=== PATIENT | male | born 1935 | race Caucasian/White ===

== ENCOUNTER → 2018-05-11 | Day surgery (SDC) | payer OTHER ==
[2018-05-05 11:14] VITALS: BMI 30.5
[~2018-05-11] MED LIST: CYCLOPENTOLATE 1% OPHTH SOLN 2 ML BTL OP ONE; LIDOCAINE 1% INJ 10MG/ML (20 ML MDV) ONE; MIDAZOLAM 2 MG/2 ML VIAL ONE; MOXIFLOXACIN HCL 0.5% DROPS 3 ML BTL OP ONE; PHENYLEPHRINE 2.5% OPHTH DRP 2ML OP NR; PROPOFOL 10 MG/ML 20 ML VIAL IV ONE; SUCCINYLCHOLINE CHLORIDE 100 MG/5 ML SYR IV ONE; TETRACAINE 0.5% OPHTH (PF) DROPS 4 ML BTL OP ONE; TIMOLOL 0.5% OPHTH DROPS 5 ML BTL OP ONE; ePHEDrine SULFATE/0.9% NACL/PF 50 MG/5 ML SYRINGE IV ONE; fentaNYL (PF) 50 MCG/ML 2 ML AMP ONE
--- NOTE | 2018-05-11 15:57 | OP ---
OPERATIVE REPORT DATE OF SURGERY: 11 May 2018. PROCEDURE: Phacoemulsification of cataract and intraocular lens implant of the left eye. PREOPERATIVE DIAGNOSES: 1. Nuclear sclerosis. 2. Cortical sclerosis. 3. Posterior subcapsular cataract. 4. Regular astigmatism. 5. Exposure to Flomax. POSTOPERATIVE DIAGNOSES: 1. Nuclear sclerosis. 2. Cortical sclerosis. 3. Posterior subcapsular cataract. 4. Regular astigmatism. 5. Exposure to Flomax. SURGEONS: Dr. Anastacio Rivera. ANESTHESIA: General. ESTIMATED BLOOD LOSS: None. SPECIMEN TAKEN: None. NARRATIVE: After obtaining the appropriate consent, the patient was brought to the operating room. There he was asked to sit upright and the 0 and 180 degrees axes were marked with a gentian carolina marker. He was then laid in the proper supine position under cardiac monitoring and prepped and draped in the usual sterile manner. During the prepping and draping process, he became uncomfortable and claustrophobic and at that point, he then was converted to general anesthesia. He was then repositioned again. The skin was prepared and then redraped to proceed with the procedure. Using previously acquired corneal topography information the axis of 173 degrees was identified and marked with a gentian carolina using a corneal marking set. At the 5 o'clock position, a 20-gauge stab blade was used to create a paracentesis port. Through this opening Viscoat was introduced into the anterior chamber. At the 3 o'clock position a 2.5 mm keratome was used to create a self-sealing flap incision in Langerman's fashion. The pupil size was approximately the 4-4.5 mm in diameter and the patient appeared as if the iris was not going to stay dilated. Therefore, a 7 mm Malyugin ring was inserted onto the pupillary sphincter. This was followed then by a cystotome was used to start a continuous tear capsulorrhexis which was then completed using the Utrata forceps. Hydrodissection and hydrodelineation of the lens was accomplished with balanced salt solution. Phacoemulsification lens utilizing phaco chop was accomplished in 34.66 seconds at 10% power. The remaining cortex was then removed with the irrigation aspiration along with careful polishing of the posterior capsule in capsule vacuum mode. Provisc was then used to stabilize the capsular bag and an [id number] 23.0 diopter posterior chamber intraocular lens was then inserted into the capsular bag without difficulty. After allowing for sufficient amount of time for the haptics to deploy, some of the viscoelastic in and around the intra-ocular lens was removed under irrigation aspiration. Once the haptics were adequately deployed, the lens was repositioned in alignment with the axis previously marked on the patient's cornea. The intra-ocular lens was then tamped against the posterior capsule as well. A small amount of additional viscoelastic was introduced into the anterior chamber to allow removal of the Malyugin ring. This was then followed by cleanup of any residual viscoelastic under irrigation and aspiration. The eye was brought to normal intraocular pressure through the paracentesis port with balanced salt solution and the incisions were confirmed watertight. He then received 2 drops of 0.5% timolol followed by 2 drops of Vigamox was then lightly patched and shielded in the usual manner. There were no complications from the procedure. He tolerated the procedure well, was extubated in the room and returned to recovery in good condition. MMODL / IJN: [id number] /
== END ==
LOC: OR 06:44
PROVIDERS: ATTEND Ophthalmology
DX: H25.13 Age-related nuclear cataract, bilateral (principal); H25.013 Cortical age-related cataract, bilateral; H25.042 Posterior subcapsular polar age-related cataract, left eye; H52.223 Regular astigmatism, bilateral; H35.3131 Nonexudative age-related macular degeneration, bilateral, early dry stage; E11.319 Type 2 diabetes mellitus with unspecified diabetic retinopathy without macular edema; H52.03 Hypermetropia, bilateral; H52.4 Presbyopia; J34.9 Unspecified disorder of nose and nasal sinuses; I11.9 Hypertensive heart disease without heart failure; E78.00 Pure hypercholesterolemia, unspecified; J43.9 Emphysema, unspecified; D64.9 Anemia, unspecified; J30.2 Other seasonal allergic rhinitis; I25.10 Atherosclerotic heart disease of native coronary artery without angina pectoris; Z95.1 Presence of aortocoronary bypass graft; Z85.46 Personal history of malignant neoplasm of prostate; Z79.84 Long term (current) use of oral hypoglycemic drugs; Z79.899 Other long term (current) drug therapy; Z87.891 Personal history of nicotine dependence
CPT/HCPCS: 66982; C1780

== ENCOUNTER 2018-06-08 06:04 | Day surgery (SDC) | payer OTHER ==
[2018-06-01 15:49] VITALS: BMI 31.0
[~2018-06-08 06:04] MED LIST changes: -CYCLOPENTOLATE 1% OPHTH SOLN 2 ML BTL OP ONE; +LACTATED RINGERS 1,000 ML IV SCH; -LIDOCAINE 1% INJ 10MG/ML (20 ML MDV) ONE; -MIDAZOLAM 2 MG/2 ML VIAL ONE; -PHENYLEPHRINE 2.5% OPHTH DRP 2ML OP NR; -PROPOFOL 10 MG/ML 20 ML VIAL IV ONE; -SUCCINYLCHOLINE CHLORIDE 100 MG/5 ML SYR IV ONE; -TETRACAINE 0.5% OPHTH (PF) DROPS 4 ML BTL OP ONE; -ePHEDrine SULFATE/0.9% NACL/PF 50 MG/5 ML SYRINGE IV ONE; -fentaNYL (PF) 50 MCG/ML 2 ML AMP ONE
[2018-06-08] MEDS: CYCLOPENTOLATE 1% OPHTH SOLN 2 ML BTL OP ONE ×2 (06:25→06:31)
[2018-06-08] MEDS: PHENYLEPHRINE 2.5% OPHTH DRP 2ML OP NR ×2 (06:28→06:30)
[2018-06-08 06:58] LABS: Glucose,Whole Blood 143 mg/dL (75-99)
[2018-06-08] MEDS ORDERED: DEXAMETHASONE SOD PHOS (MDV) 100 MG/10 ML VIAL IVP ONE (07:23)
[2018-06-08] MEDS ORDERED: ONDANSETRON 4 MG/2 ML VIAL IVP ONE (07:24)
[2018-06-08] MEDS ORDERED: MIDAZOLAM 2 MG/2 ML VIAL ONE (07:26)
[2018-06-08] MEDS ORDERED: ePHEDrine SULFATE/0.9% NACL/PF 50 MG/5 ML SYRINGE IV ONE (07:26)
[2018-06-08] MEDS ORDERED: fentaNYL (PF) 50 MCG/ML 2 ML AMP ONE (07:26)
[2018-06-08] MEDS ORDERED: PROPOFOL 10 MG/ML 20 ML VIAL IV ONE (07:26)
[2018-06-08] MEDS ORDERED: LIDOCAINE 1% INJ 10MG/ML (20 ML MDV) ONE (07:26)
[2018-06-08] MEDS ORDERED: SUCCINYLCHOLINE CHLORIDE 100 MG/5 ML SYR IV ONE (07:26)
[2018-06-08] MEDS ORDERED: EPINEPHrine (PF) 0.3 ML in BALANCED SALT IRRIG SOLN COMB2 500 ML IRRIGATION ONE (07:31)
[2018-06-08] MEDS ORDERED: HYALURONATE SODIUM INTRAOCULAR 1 EACH SYRINGE (12MG/ML) INTRAOCULA ONE (07:34)
[2018-06-08] MEDS ORDERED: BALANCED SALT IRRIG SOLN COMB2 15 ML IRRIG.SOLN INTRAOCULA ONE (07:46)
--- NOTE | 2018-06-08 08:04 | P.OP ---
Date of Procedure: 06/08/18 Preoperative Diagnosis: NS & CS Postoperative Diagnosis: same Procedure(s) Performed: PIOL OD Implants: PCB00 22.50 Anesthesia: GETA Surgeon: Anastacio Rivera Estimated Blood Loss (ml): 0 Pathology: none sent Condition: stable Disposition: same day Indications for Procedure: blurry vision Operative Findings: No complications
[2018-06-08 08:24] VITALS: TEMP 97.6
[2018-06-08 08:30] LABS: Glucose,Whole Blood 157 mg/dL (75-99)
--- NOTE | 2018-06-08 08:54 | OP ---
OPERATIVE REPORT DATE OF SURGERY: 06/08/2018. PROCEDURE: Phacoemulsification of cataract and intraocular lens implant of the right eye. PREOPERATIVE DIAGNOSIS: Nuclear sclerosis, cortical sclerosis. POSTOPERATIVE DIAGNOSIS: Nuclear sclerosis, cortical sclerosis and floppy iris syndrome. SURGEON: Dr. Anastacio Rivera. ANESTHESIA: General. ESTIMATED BLOOD LOSS: None. SPECIMEN TAKEN: None. NARRATIVE: After obtaining the appropriate consent, the patient was brought to the operating room where he was induced into general anesthesia and intubated. He was then placed in the proper supine position, prepped and draped in the usual sterile manner. He was approached from his right temporal side and at the 11 o'clock position a 1.1 mm stab blade was used to create a paracentesis port. Through this opening Amvisc was instilled to stabilize the anterior chamber. At the 9 o'clock position, a 2.5 mm keratome was used to create a self-sealing corneal flap incision in a Langerman fashion. Because the persistence of the miosis the patient demonstrated, a 7 mm Malyugin ring was inserted on the pupillary ruff and stabilized the iris. A cystotome was introduced to begin a continuous tear capsulorrhexis which was then completed using the Utrata forceps. Hydrodissection and hydrodelineation of lens was accomplished with balanced salt solution. Phacoemulsification lens utilizing phaco chop was accomplished 20.74 seconds at 13% power. The remaining cortex was removed under irrigation aspiration along with careful polishing of the posterior capsule in the capsule vacuum mode. An RIOS PCB00 22.5 diopter posterior chamber intraocular lens was then inserted into the capsular bag without difficulty. The Malyugin ring was disinserted and removed from the anterior chamber of the iris and the remaining viscoelastic was removed from in and around the intra-ocular lens as well as the anterior chamber. The eye was then brought to normal intraocular pressures through the paracentesis port with balanced salt solution. He was then treated to 2 drops of 0.5% timolol as well as 2 drops of Vigamox was lightly patched and shielded in the usual manner. There were no complications from the procedure. She tolerated the procedure well, was extubated in the room and taken to recovery in good condition. MMODL / IJN: [id number] /
[2018-06-08 09:15] VITALS: BP 158/77; PULSE 76; RESP 18
== END 2018-06-08 09:36 | disposition home or self-care (01) ==
LOC: OR 06:04
PROVIDERS: ATTEND Ophthalmology
DX: E11.36 Type 2 diabetes mellitus with diabetic cataract (principal); Z79.84 Long term (current) use of oral hypoglycemic drugs; H21.81 Floppy iris syndrome; H35.3131 Nonexudative age-related macular degeneration, bilateral, early dry stage; H52.03 Hypermetropia, bilateral; H52.223 Regular astigmatism, bilateral; H52.4 Presbyopia; I25.10 Atherosclerotic heart disease of native coronary artery without angina pectoris; Z87.891 Personal history of nicotine dependence; G47.33 Obstructive sleep apnea (adult) (pediatric); J44.9 Chronic obstructive pulmonary disease, unspecified; Z95.1 Presence of aortocoronary bypass graft; I10 Essential (primary) hypertension; E78.00 Pure hypercholesterolemia, unspecified; Z85.46 Personal history of malignant neoplasm of prostate; Z79.899 Other long term (current) drug therapy; Z79.82 Long term (current) use of aspirin
CPT/HCPCS: 66984; C1780; J2250; J2405; J0171; J2001; J3010; J1100; J0330; J2704

== ENCOUNTER 2018-09-27 12:03 | Inpatient (IN) | payer OTHER, MEDICARE ==
--- NOTE | 2018-09-27 13:17 | ED ---
General Adult HPI - General Chief complaint: Shortness of Breath Stated complaint: CHF problem Time Seen by Provider: 09/27/18 13:11 Source: patient, family, RN notes reviewed Mode of arrival: wheelchair Limitations: no limitations - History of Present Illness Initial comments: Patient is a pleasant 82-year-old male presenting to the emergency department with difficulty in breathing. Symptoms started a few days ago and have progressed. Patient does have dry cough. No leg swelling. No history of similar symptoms previously. Patient states he does have a history of COPD, no history of CHF. Patient does have history of bypass. Patient has orthopnea as well as exertional dyspnea. No bleeding or dark tarry stools - Related Data Home Medications Medication Instructions Recorded Confirmed Aspirin EC [Ecotrin Low Dose] 81 mg PO HS 05/27/16 09/27/18 Atorvastatin [Lipitor] 40 mg PO HS 05/27/16 09/27/18 Cholecalciferol [Vitamin D3] 2,000 unit PO QAM 05/27/16 09/27/18 Cyanocobalamin [Vitamin B-12] 1,000 mcg PO QAM 05/27/16 09/27/18 L.acidoph,Paracasei, B.lactis 1 cap PO QAM 05/27/16 09/27/18 [Probiotic] Metoprolol Tartrate [Lopressor] 100 mg PO BID 05/27/16 09/27/18 Omeprazole [PriLOSEC] 20 mg PO QAM 05/27/16 09/27/18 Tamsulosin HCl [Flomax] 0.4 mg PO HS 05/27/16 09/27/18 amLODIPine [Norvasc] 5 mg PO QAM 05/27/16 09/27/18 glipiZIDE [Glucotrol] 5 mg PO AC-BID 05/27/16 09/27/18 metFORMIN HCL [Glucophage] 500 mg PO BID 09/27/18 09/27/18 Previous Rx's Medication Instructions Recorded Enalapril [Vasotec] 20 mg PO BID #1 tablet 05/29/16 Allergies Allergy/AdvReac Type Severity Reaction Status Date / Time No Known Allergies Allergy Verified 09/27/18 14:15 Review of Systems ROS Statement: Those systems with pertinent positive or pertinent negative responses have been documented in the HPI. ROS Other: All systems not noted in ROS Statement are negative. Constitutional: Denies: fever Eyes: Denies: eye pain ENT: Denies: ear pain Respiratory: Reports: cough, dyspnea Cardiovascular: Denies: chest pain Endocrine: Reports: fatigue Gastrointestinal: Denies: abdominal pain Genitourinary: Denies: dysuria Musculoskeletal: Denies: back pain Skin: Denies: rash Neurological: Denies: headache Past Medical History Past Medical History: Cancer, COPD, Diabetes Mellitus, Eye Disorder, Hypertension, Sleep Apnea/CPAP/BIPAP Additional Past Medical History / Comment(s): sleep apnea, prostate ca, bowel obstruction, cataracts History of Any Multi-Drug Resistant Organisms: None Reported Past Surgical History: Coronary Bypass/CABG, Heart Catheterization Additional Past Surgical History / Comment(s): triple bypass 2005 lt cataract removed Past Anesthesia/Blood Transfusion Reactions: No Reported Reaction Past Psychological History: No Psychological Hx Reported Smoking Status: Former smoker Past Alcohol Use History: None Reported Past Drug Use History: None Reported - Past Family History Father Family Medical History: Cancer Additional Family Medical History / Comment(s): Esophageal CA Mother Family Medical History: Congestive Heart Failure (CHF) Sister(s) Family Medical History: Neurologic Disorder Additional Family Medical History / Comment(s): MS General Exam Limitations: no limitations General appearance: alert, in no apparent distress Head exam: Present: atraumatic Eye exam: Present: normal appearance, PERRL ENT exam: Present: normal oropharynx Neck exam: Present: normal inspection Respiratory exam: Present: decreased breath sounds (Bilateral bases) Cardiovascular Exam: Present: regular rate, normal rhythm GI/Abdominal exam: Present: soft. Absent: tenderness Extremities exam: Present: normal inspection. Absent: pedal edema, calf tenderness Back exam: Present: normal inspection Neurological exam: Present: alert Psychiatric exam: Present: normal affect, normal mood Skin exam: Present: normal color Course Vital Signs 09/27/18 09/27/18 12:08 13:17 Temperature 97.9 F Pulse Rate 77 63 Respiratory 18 18 Rate Blood Pressure 187/91 188/93 O2 Sat by Pulse 94 L 97 Oximetry EKG Findings - EKG Comments: EKG Findings:: Sinus rhythm at 83. For screening AV block with a MT of 214. QRS 142. QT 426. QTc 500. Left axis. Right bundle branch block. Left anterior fascicular block. No acute ST change. Medical Decision Making - Medical Decision Making Patient reevaluated. Patient updated on results and plan. Dr. Watson has been paged for [facility]. - Lab Data Result diagrams: 09/27/18 13:26 09/27/18 13:26 Lab Results 09/27/18 09/27/18 09/27/18 Range/Units 13:26 13:26 13:26 WBC 5.3 (3.8-10.6) k/uL RBC 3.33 L (4.30-5.90) m/uL Hgb 10.6 L (13.0-17.5) gm/dL Hct 32.3 L (39.0-53.0) % MCV 97.0 (80.0-100.0) fL MCH 31.9 (25.0-35.0) pg MCHC 32.9 (31.0-37.0) g/dL RDW 14.7 (11.5-15.5) % Plt Count 255 (150-450) k/uL Neutrophils % 73 % Lymphocytes % 14 % Monocytes % 7 % Eosinophils % 3 % Basophils % 0 % Neutrophils # 3.9 (1.3-7.7) k/uL Lymphocytes # 0.7 L (1.0-4.8) k/uL Monocytes # 0.4 (0-1.0) k/uL Eosinophils # 0.2 (0-0.7) k/uL Basophils # 0.0 (0-0.2) k/uL PT (9.0-12.0) sec INR (<1.2) APTT (22.0-30.0) sec Sodium 141 (137-145) mmol/L Potassium 3.9 (3.5-5.1) mmol/L Chloride 104 (98-107) mmol/L Carbon Dioxide 30 (22-30) mmol/L Anion Gap 7 mmol/L BUN 23 H (9-20) mg/dL Creatinine 1.22 (0.66-1.25) mg/dL Est GFR (CKD-EPI)AfAm 63 (>60 ml/min/1.73 sqM) Est GFR (CKD-EPI)NonAf 54 (>60 ml/min/1.73 sqM) Glucose 121 H (74-99) mg/dL Calcium 8.4 (8.4-10.2) mg/dL Total Bilirubin 0.6 (0.2-1.3) mg/dL AST 29 (17-59) U/L ALT 46 (21-72) U/L Alkaline Phosphatase 108 (38-126) U/L Total Creatine Kinase 126 (55-170) U/L CK-MB (CK-2) 3.8 H (0.0-2.4) ng/mL CK-MB (CK-2) Rel Index 3.0 Troponin I <0.012 (0.000-0.034) ng/mL NT-Pro-B Natriuret Pep pg/mL Total Protein 6.4 (6.3-8.2) g/dL Albumin 3.5 (3.5-5.0) g/dL 09/27/18 09/27/18 Range/Units 13:26 13:26 WBC (3.8-10.6) k/uL RBC (4.30-5.90) m/uL Hgb (13.0-17.5) gm/dL Hct (39.0-53.0) % MCV (80.0-100.0) fL MCH (25.0-35.0) pg MCHC (31.0-37.0) g/dL RDW (11.5-15.5) % Plt Count (150-450) k/uL Neutrophils % % Lymphocytes % % Monocytes % % Eosinophils % % Basophils % % Neutrophils # (1.3-7.7) k/uL Lymphocytes # (1.0-4.8) k/uL Monocytes # (0-1.0) k/uL Eosinophils # (0-0.7) k/uL Basophils # (0-0.2) k/uL PT 10.5 (9.0-12.0) sec INR 1.1 (<1.2) APTT 22.5 (22.0-30.0) sec Sodium (137-145) mmol/L Potassium (3.5-5.1) mmol/L Chloride (98-107) mmol/L Carbon Dioxide (22-30) mmol/L Anion Gap mmol/L BUN (9-20) mg/dL Creatinine (0.66-1.25) mg/dL Est GFR (CKD-EPI)AfAm (>60 ml/min/1.73 sqM) Est GFR (CKD-EPI)NonAf (>60 ml/min/1.73 sqM) Glucose (74-99) mg/dL Calcium (8.4-10.2) mg/dL Total Bilirubin (0.2-1.3) mg/dL AST (17-59) U/L ALT (21-72) U/L Alkaline Phosphatase (38-126) U/L Total Creatine Kinase (55-170) U/L CK-MB (CK-2) (0.0-2.4) ng/mL CK-MB (CK-2) Rel Index Troponin I (0.000-0.034) ng/mL NT-Pro-B Natriuret Pep 6120 pg/mL Total Protein (6.3-8.2) g/dL Albumin (3.5-5.0) g/dL - Radiology Data Radiology results: image reviewed (Chest x-ray: Correlate for pulmonary venous hypertension and interstitial edema the patient with pre-existing COPD.) Disposition Clinical Impression: Congestive heart failure Disposition: ADMITTED IP TO THIS HOSP Is patient prescribed a controlled substance at d/c from ED?: No Referrals: [facility],Clinic [Primary Care Provider] - 1-2 days Decision Time: 14:35
--- NOTE | 2018-09-27 13:46 | XR ---
EXAMINATION TYPE: XR chest 2V DATE OF EXAM: 09/27/2018 COMPARISON: Prior chest 05/27/2016 HISTORY: Difficulty breathing TECHNIQUE: Frontal and lateral views of the chest are obtained. FINDINGS: There is blunting the posterior costophrenic angles. Prominent lung lines are compatible w ith underlying COPD. Patient is post median sternotomy. The heart is enlarged. Interstitium is increa sed. No pneumothorax. IMPRESSION: Correlate for pulmonary venous hypertension and interstitial edema in a patient with pre-existing LOW [employer] D. Probable pleural effusions. Follow-up recommended.
[2018-09-27 13:47] LABS: Basophils % (A) 0 %; Eosinophils # (A) 0.2 k/uL (0-0.7); Eosinophils % (A) 3 %; HCT 32.3 % (39.0-53.0); HGB 10.6 gm/dL (13.0-17.5); Lymphocytes # (A) 0.7 k/uL (1.0-4.8); Lymphocytes % (A) 14 %; MCH 31.9 pg (25.0-35.0); MCHC 32.9 g/dL (31.0-37.0); Mean Platelet Volume 6.8; Monocytes # (A) 0.4 k/uL (0-1.0); Monocytes % (A) 7 %; Neutrophils # (A) 3.9 k/uL (1.3-7.7); Neutrophils % (A) 73 %; Platelet Count 255 k/uL (150-450); RBC 3.33 m/uL (4.30-5.90); RDW 14.7 % (11.5-15.5); WBC 5.3 k/uL (3.8-10.6)
[2018-09-27 13:57] LABS: Albumin 3.5 g/dL (3.5-5.0); Calcium 8.4 mg/dL (8.4-10.2); Potassium 3.9 mmol/L (3.5-5.1); Total Bilirubin 0.6 mg/dL (0.2-1.3); Total Protein 6.4 g/dL (6.3-8.2)
[2018-09-27 14:06] LABS: INR 1.1 (<1.2); Partial Thromboplastin Time 22.5 sec (22.0-30.0); Prothrombin Time 10.5 sec (9.0-12.0)
[2018-09-27 14:09] LABS: Creatine Kinase 126 U/L (55-170)
[2018-09-27 14:22] LABS: Creatine Kinase MB 3.8 ng/mL (0.0-2.4); Troponin I <0.012 ng/mL (0.000-0.034)
[2018-09-27] MEDS ORDERED: ASPIRIN 325 MG TAB PO STA (14:35)
[2018-09-27] MEDS ORDERED: FUROSEMIDE 10 MG/ML 4 ML VIAL IV SCH ×2 (15:00→21:00)
--- NOTE | 2018-09-27 16:30 | P.HPIM ---
History of Present Illness 82-year-old male came in with comments of shortness of breath for last 4 days, was comparing of orthopnea and paroxysmal nocturnal dyspnea has been worsening for last 4 days was comparing of dry cough without any sputum production does have bilateral leg swelling 1+ pitting pedal edema does have elevated JVD does have history of COPD denied any previous history of congestive heart failure do not have an echocardiogram available patient denied any fever chills nausea vomiting patient the denied any dysuria. Patient does have history of coronary artery bypass grafting. Patient was having mild vague chest discomfort Patient chest x-ray is significant for findings of CHF does have elevated BNP of 6800 Review of Systems REVIEW OF SYSTEMS: CONSTITUTIONAL: No fever, no malaise, no fatigue. HEENT: No recent visual problems or hearing problems. Denied any sore throat. CARDIOVASCULAR: No chest pain, orthopnea, PND, no palpitations, no syncope. PULMONARY: No shortness of breath, no cough, no hemoptysis. GASTROINTESTINAL: No diarrhea, no nausea, no vomiting, no abdominal pain. Normoactive bowel sounds. NEUROLOGICAL: No headaches, no weakness, no numbness. HEMATOLOGICAL: Denies any bleeding or petechiae. GENITOURINARY: Denies any burning micturition, frequency, or urgency. MUSCULOSKELETAL/RHEUMATOLOGICAL: Denies any joint pain, swelling, or any muscle pain. ENDOCRINE: Denies any polyuria or polydipsia. The rest of the 14-point review of systems is negative. Past Medical History Past Medical History: Cancer, COPD, Diabetes Mellitus, Eye Disorder, Hypertension, Sleep Apnea/CPAP/BIPAP Additional Past Medical History / Comment(s): sleep apnea, prostate ca, bowel obstruction, cataracts History of Any Multi-Drug Resistant Organisms: None Reported Past Surgical History: Coronary Bypass/CABG, Heart Catheterization Additional Past Surgical History / Comment(s): triple bypass 2004 lt cataract removed Past Anesthesia/Blood Transfusion Reactions: No Reported Reaction Past Psychological History: No Psychological Hx Reported Smoking Status: Former smoker Past Alcohol Use History: None Reported Past Drug Use History: None Reported - Past Family History Father Family Medical History: Cancer Additional Family Medical History / Comment(s): Esophageal CA Mother Family Medical History: Congestive Heart Failure (CHF) Sister(s) Family Medical History: Neurologic Disorder Additional Family Medical History / Comment(s): MS Medications and Allergies Home Medications Medication Instructions Recorded Confirmed Type Aspirin EC [Ecotrin Low Dose] 81 mg PO HS 05/27/16 09/27/18 History Atorvastatin [Lipitor] 40 mg PO HS 05/27/16 09/27/18 History Cholecalciferol [Vitamin D3] 2,000 unit PO QAM 05/27/16 09/27/18 History Cyanocobalamin [Vitamin B-12] 1,000 mcg PO QAM 05/27/16 09/27/18 History L.acidoph,Paracasei, B.lactis 1 cap PO QAM 05/27/16 09/27/18 History [Probiotic] Metoprolol Tartrate [Lopressor] 100 mg PO BID 05/27/16 09/27/18 History Omeprazole [PriLOSEC] 20 mg PO QAM 05/27/16 09/27/18 History Tamsulosin HCl [Flomax] 0.4 mg PO HS 05/27/16 09/27/18 History amLODIPine [Norvasc] 5 mg PO QAM 05/27/16 09/27/18 History glipiZIDE [Glucotrol] 5 mg PO AC-BID 05/27/16 09/27/18 History Enalapril [Vasotec] 20 mg PO BID #1 tablet 05/29/16 09/27/18 Rx metFORMIN HCL [Glucophage] 500 mg PO BID 09/27/18 09/27/18 History Allergies Allergy/AdvReac Type Severity Reaction Status Date / Time No Known Allergies Allergy Verified 09/27/18 14:15 Physical Exam Vitals: Vital Signs Temp Pulse Resp BP Pulse Ox 09/27/18 15:30 76 18 187/98 96 09/27/18 15:00 87 20 158/86 97 09/27/18 14:00 70 20 173/86 96 09/27/18 13:17 63 18 188/93 97 09/27/18 12:08 97.9 F 77 18 187/91 94 L Intake and Output 09/27/18 09/27/18 09/27/18 06:59 14:59 22:59 Other: Weight 99.79 kg PHYSICAL EXAMINATION: GENERAL: The patient is alert and oriented x3, not in any acute distress. Well developed, well nourished. HEENT: Pupils are round and equally reacting to light. EOMI. No scleral icterus. No conjunctival pallor. Normocephalic, atraumatic. No pharyngeal erythema. No thyromegaly. CARDIOVASCULAR: S1 and S2 present. No murmurs, rubs, or gallops. It appears to have mildly elevated JVD PULMONARY: Chest is clear to auscultation, no wheezing or crackles. ABDOMEN: Soft, nontender, nondistended, normoactive bowel sounds. No palpable organomegaly. MUSCULOSKELETAL: No joint swelling or deformity. EXTREMITIES: No cyanosis, clubbing, mild 1+ pitting pedal edema bilateral lower extremities NEUROLOGICAL: Gross neurological examination did not reveal any focal deficits. SKIN: No rashes. Results CBC & Chem 7: 09/27/18 13:26 09/27/18 13:26 Labs: Abnormal Lab Results - Last 24 Hours (Table) 09/27/18 09/27/18 09/27/18 Range/Units 13:26 13:26 13:26 RBC 3.33 L (4.30-5.90) m/uL Hgb 10.6 L (13.0-17.5) gm/dL Hct 32.3 L (39.0-53.0) % Lymphocytes # 0.7 L (1.0-4.8) k/uL BUN 23 H (9-20) mg/dL Glucose 121 H (74-99) mg/dL CK-MB (CK-2) 3.8 H (0.0-2.4) ng/mL Assessment and Plan Plan: -Shortness of breath: It appears to have new-onset congestive heart failure will obtain echocardiogram, continue with the Lasix IV 40 every 8 repeat basic metabolic profile tomorrow cardiology will evaluate the patient -Coronary artery disease with history of CABG in the past -Sleep apnea and uses CPAP machine at home -COPD without any acute exacerbation at this time -Type 2 diabetes mellitus -Hypertension -History of prostate cancer in the past. For above-mentioned chronic medical problems patient will be resumed and continued on appropriate home medications oral hypoglycemic agents will discuss reviewed and patient will be started on sliding scale insulin instead
[2018-09-27 21:43] LABS: Glucose,Whole Blood 171 mg/dL (75-99)
[2018-09-27] MEDS: ASPIRIN 81 MG PO SCH (21:45)
[2018-09-27 21:46] LABS: Troponin I 0.017 ng/mL (0.000-0.034)
[2018-09-27] MEDS: TAMSULOSIN 0.4 MG CAP.ER.24H PO SCH (21:46)
[2018-09-27] MEDS: INSULIN ASPART 100 UNIT/ML 1 ML 10 ML VIAL SQ SCH ×2 (21:46→22:32)
[2018-09-27] MEDS: NITROGLYCERIN OINT 1 INCH/GM PACKET TOPICAL SCH (21:46)
[2018-09-27] MEDS: METOPROLOL TARTRATE 50 MG TAB PO SCH (22:33)
[2018-09-27] MEDS: ATORVASTATIN 40 MG TAB PO SCH (22:33)
[2018-09-27] MEDS: FUROSEMIDE 10 MG/ML 4 ML VIAL IV SCH (23:15)
[2018-09-28 03:08] LABS: Calcium 8.5 mg/dL (8.4-10.2); Potassium 3.9 mmol/L (3.5-5.1)
[2018-09-28 03:20] LABS: Creatine Kinase MB 2.7 ng/mL (0.0-2.4); Troponin I 0.027 ng/mL (0.000-0.034)
[2018-09-28 06:09] LABS: Glucose,Whole Blood 115 mg/dL (75-99)
[2018-09-28] MEDS: INSULIN ASPART 100 UNIT/ML 1 ML 10 ML VIAL SQ SCH ×4 (06:12→20:40)
[2018-09-28] MEDS: PANTOPRAZOLE 40 MG TABLET PO SCH (06:13)
[2018-09-28] MEDS: FUROSEMIDE 10 MG/ML 4 ML VIAL IV SCH ×2 (08:27→20:30)
[2018-09-28] MEDS: METOPROLOL TARTRATE 50 MG TAB PO SCH (08:27)
[2018-09-28] MEDS: NITROGLYCERIN OINT 1 INCH/GM PACKET TOPICAL SCH (08:28)
[2018-09-28] MEDS ORDERED: amLODIPine 5 MG TAB PO SCH (09:00)
[2018-09-28] MEDS ORDERED: LISINOPRIL 20 MG TAB PO SCH (09:00)
[2018-09-28] MEDS ORDERED: ASPIRIN 325 MG TAB PO SCH (09:00)
--- NOTE | 2018-09-28 09:22 | P.CRDCN ---
History of Present Illness Consult date: 09/28/18 Requesting physician: Sg Watson Consult reason: congestive heart failure Chief complaint: Shortness of breath History of present illness: This is a pleasant 82-year-old gentleman with history of coronary artery disease and prior bypass surgery in 2004, at which time patient was residing in [place], he currently follows at the [facility], history also hypertension , diabetes, hyperlipidemia, who presents to the hospital with symptoms of progressively worsening shortness of breath over a 4 to five-day duration. Positive PND and orthopnea, positive mild associated peripheral edema. Chest x- ray on admission here showed pulmonary venous hypertension and its interstitial edema with a probable pleural effusions. EKG on presentation here showed a normal sinus rhythm with first-degree AV block, right bundle branch block pattern and nonspecific ST-T wave changes. Blood pressure on arrival here 187/ 91, heart rate in the 70s, 94% on room air. Temperature 97.9. Current blood pressure this morning 186/78 with a heart rate in the 80s, 96% on 2 L of oxygen. White blood cell count normal, hemoglobin 10.6, platelet count 255. Sodium 141, potassium 3.9, BUN 23 and creatinine 1.2 on admission, 25 and 1.3 this morning. Troponins 0.012, 0.017, 0.027. BNP level 6120. The patient was initiated on IV Lasix in the emergency room. He states that he has been urinating frequently throughout the night last night, his weight is down significantly today. At the time of my examination, patient is sitting up in his chair at bedside, states that he still does feel some shortness of breath however significantly improved from the past 4 days. Past Medical History Past Medical History: Coronary Artery Disease (CAD), Cancer, COPD, Diabetes Mellitus, Eye Disorder, Hyperlipidemia, Hypertension, Renal Disease, Sleep Apnea /CPAP/BIPAP Additional Past Medical History / Comment(s): sleep apnea no longer uses a cpap machine, prostate ca, bowel obstruction-no sx, past cataracts -has lens implants ,had a pne vaccine but not sure of date-database report writer unable to verify at time of this admit-please call ne in am to verify. History of Any Multi-Drug Resistant Organisms: None Reported Past Surgical History: Coronary Bypass/CABG, Heart Catheterization Additional Past Surgical History / Comment(s): triple bypass 2004 lt cataract removed, radiative seeds implanted d/t prostate cancer Past Anesthesia/Blood Transfusion Reactions: No Reported Reaction Additional Past Anesthesia/Blood Transfusion Reaction / Comment(s): clausterphobia Smoking Status: Former smoker - Past Family History Father Family Medical History: Cancer Additional Family Medical History / Comment(s): Esophageal CA Mother Family Medical History: Congestive Heart Failure (CHF) Sister(s) Family Medical History: Neurologic Disorder Additional Family Medical History / Comment(s): MS Medications and Allergies Home Medications Medication Instructions Recorded Confirmed Type Aspirin EC [Ecotrin Low Dose] 81 mg PO HS 05/27/16 09/27/18 History Atorvastatin [Lipitor] 40 mg PO HS 05/27/16 09/27/18 History Cholecalciferol [Vitamin D3] 2,000 unit PO QAM 05/27/16 09/27/18 History Cyanocobalamin [Vitamin B-12] 1,000 mcg PO QAM 05/27/16 09/27/18 History L.acidoph,Paracasei, B.lactis 1 cap PO QAM 05/27/16 09/27/18 History [Probiotic] Metoprolol Tartrate [Lopressor] 100 mg PO BID 05/27/16 09/27/18 History Omeprazole [PriLOSEC] 20 mg PO QAM 05/27/16 09/27/18 History Tamsulosin HCl [Flomax] 0.4 mg PO HS 05/27/16 09/27/18 History amLODIPine [Norvasc] 5 mg PO QAM 05/27/16 09/27/18 History glipiZIDE [Glucotrol] 5 mg PO AC-BID 05/27/16 09/27/18 History Enalapril [Vasotec] 20 mg PO BID #1 tablet 05/29/16 09/27/18 Rx metFORMIN HCL [Glucophage] 500 mg PO BID 09/27/18 09/27/18 History Allergies Allergy/AdvReac Type Severity Reaction Status Date / Time No Known Allergies Allergy Verified 09/27/18 14:15 Physical Exam Vitals: Vital Signs Temp Pulse Pulse Resp BP BP Pulse Ox 09/28/18 08:00 98.7 F 81 18 186/79 96 09/28/18 03:29 78 20 145/90 98 09/28/18 00:00 98 F 74 20 169/88 97 09/27/18 21:36 172/86 09/27/18 20:00 98.6 F 86 18 191/90 97 09/27/18 19:00 97.8 F 81 22 174/93 09/27/18 18:00 95 22 181/89 09/27/18 17:00 68 22 153/99 09/27/18 15:30 76 18 187/98 96 09/27/18 15:00 87 20 158/86 97 09/27/18 14:00 70 20 173/86 96 09/27/18 13:17 63 18 188/93 97 09/27/18 12:08 97.9 F 77 18 187/91 94 L Intake and Output 09/27/18 09/28/18 09/28/18 22:59 06:59 14:59 Intake Total 290 240 Output Total 400 Balance -400 290 240 Intake: Amount of Fluid Infused ( 50 ml) Oral 240 240 Output: Urine 400 Other: Voiding Method Toilet Urinal Diaper # Voids 2 Weight 96.1 kg PHYSICAL EXAMINATION: GENERAL: 82-year-old gentleman in no acute distress at the time of my examination HEENT: Head is atraumatic, normocephalic. Pupils equal, round. Sclera anicteric. Conjunctiva are clear. Mucous membranes of the mouth are moist. Neck is supple. There is elevated jugular venous pressure. No carotid bruit is heard. HEART EXAMINATION: Heart S1, S2 normal. No murmur or gallop heard. CHEST EXAMINATION: Lungs reveal diminished air entry to bilateral bases. ABDOMEN: Soft, nontender. Bowel sounds are heard. No organomegaly noted. EXTREMITIES: 2+ peripheral pulses with trace evidence of peripheral edema and no calf tenderness noted. NEUROLOGIC patient is awake, alert and oriented 3 . Results 09/27/18 13:26 09/28/18 02:27 Cardiac Enzymes 09/27/18 09/27/18 09/27/18 Range/Units 13:26 13:26 20:42 AST 29 (17-59) U/L CK-MB (CK-2) 3.8 H 3.0 H (0.0-2.4) ng/mL Troponin I <0.012 0.017 (0.000-0.034) ng/mL 09/28/18 Range/Units 02:27 AST (17-59) U/L CK-MB (CK-2) 2.7 H (0.0-2.4) ng/mL Troponin I 0.027 (0.000-0.034) ng/mL Coagulation 09/27/18 Range/Units 13:26 PT 10.5 (9.0-12.0) sec APTT 22.5 (22.0-30.0) sec CBC 09/27/18 Range/Units 13:26 WBC 5.3 (3.8-10.6) k/uL RBC 3.33 L (4.30-5.90) m/uL Hgb 10.6 L (13.0-17.5) gm/dL Hct 32.3 L (39.0-53.0) % Plt Count 255 (150-450) k/uL Comprehensive Metabolic Panel 09/27/18 09/28/18 Range/Units 13:26 02:27 Sodium 141 140 (137-145) mmol/L Potassium 3.9 3.9 (3.5-5.1) mmol/L Chloride 104 99 (98-107) mmol/L Carbon Dioxide 30 34 H (22-30) mmol/L BUN 23 H 25 H (9-20) mg/dL Creatinine 1.22 1.37 H (0.66-1.25) mg/dL Glucose 121 H 115 H (74-99) mg/dL Calcium 8.4 8.5 (8.4-10.2) mg/dL AST 29 (17-59) U/L ALT 46 (21-72) U/L Alkaline Phosphatase 108 (38-126) U/L Total Protein 6.4 (6.3-8.2) g/dL Albumin 3.5 (3.5-5.0) g/dL Current Medications Generic Name Dose Route Start Last Admin Trade Name Freq PRN Reason Stop Dose Admin Amlodipine Besylate 5 mg 09/28/18 09:00 09/28/18 08:27 Norvasc PO 5 mg QAM ALEX Administration Aspirin 81 mg 09/27/18 21:00 09/27/18 21:45 Aspirin PO 81 mg HS ALEX Administration Atorvastatin Calcium 40 mg 09/27/18 21:00 09/27/18 22:33 Lipitor PO 40 mg HS ALEX Administration Furosemide 40 mg 09/28/18 00:00 09/28/18 08:27 Lasix IV 40 mg Q8HR ALEX Administration Insulin Aspart 0 unit 09/27/18 17:30 09/28/18 06:12 Novolog SQ Not Given ACHS [facility] Protocol Lisinopril 40 mg 09/28/18 09:00 09/28/18 08:27 Zestril PO 40 mg DAILY ALEX Administration Metoprolol Tartrate 100 mg 09/27/18 21:00 09/28/18 08:27 Lopressor PO 100 mg BID ALEX Administration Nitroglycerin 1 inch 09/27/18 18:00 09/28/18 08:28 Nitro-Bid Oint TOPICAL 1 inch QID ALEX Administration Pantoprazole Sodium 40 mg 09/28/18 07:30 09/28/18 06:13 Protonix PO 40 mg AC-BRKFST ALEX Administration Sodium Chloride 10 ml 09/27/18 21:00 09/28/18 08:28 Saline Flush IV 10 ml BID ALEX Administration Tamsulosin HCl 0.4 mg 09/27/18 21:00 09/27/18 21:46 Flomax PO Not Given HS ALEX Intake and Output 09/27/18 09/28/18 09/28/18 22:59 06:59 14:59 Intake Total 290 240 Output Total 400 Balance -400 290 240 Intake: Amount of Fluid Infused ( 50 ml) Oral 240 240 Output: Urine 400 Other: Voiding Method Toilet Urinal Diaper # Voids 2 Weight 96.1 kg 09/27/18 13:26 09/28/18 02:27 EKG Interpretations (text) EKG shows a normal sinus rhythm with first-degree AV block and right bundle branch block pattern, nonspecific ST-T wave changes. Assessment and Plan Plan: Assessment and plan #1 congestive cardiac failure, LV function unknown #2 known history of coronary artery disease with prior bypass surgery in 2004 #3 hypertension, accelerated #4 hyperlipidemia #5 diabetes #6 prior history of smoking #7 anemia, hemoglobin 10.6, on review of prior records back to 2016, hemoglobin is similar. #8 mild abnormality in troponin, 0.012, 0.017, 0.027. Could be secondary to supply and demand mismatch, cannot completely rule out acute coronary syndrome. Plan We will continue current dose of IV Lasix. Continue to monitor intake and output along with daily weights and daily lytes BUN and creatinine. We will obtain an echocardiogram with Doppler study. Optimize blood pressure management. Further recommendations to follow. DNP note has been reviewed, I agree with a documented findings and plan of care. Patient was seen and examined.
[2018-09-28 11:15] LABS: Glucose,Whole Blood 201 mg/dL (75-99)
--- NOTE | 2018-09-28 11:27 | P.PN ---
Subjective 82-year-old male admitted for the possibility of CHF exacerbation which is new onset. Echocardiogram is still pending. Patient is feeling much better today we'll edema significantly improved respiratory status improved patient's creatinine has gone up a little bit from 1.2-1.34 will cut down the Lasix to twice a day from 3 times a day 40 mg. Constitutional: Denied any fatigue denied any fever. Cardio vascular: denied any chest pain, palpitations Gastrointestinal denied any nausea vomiting Pulmonary: Denied any shortness of breath cough Neurologic denied any new focal deficits All inpatient medications were reviewed and appropriate changes in these medications as dictated in the interval history and assessment and plan. Objective - Vital Signs Vital signs: Vital Signs Temp 98.7 F 09/28/18 08:00 Pulse 81 09/28/18 08:00 Resp 18 09/28/18 08:00 BP 186/79 09/28/18 08:00 Pulse Ox 96 09/28/18 08:00 Intake & Output 09/27/18 09/28/18 09/28/18 18:59 06:59 18:59 Intake Total 290 240 Output Total 400 Balance -110 240 Weight 99.79 kg 96.1 kg Intake: Amount of Fluid Infused ( 50 ml) Oral 240 240 Output: Urine 400 Other: Voiding Method Toilet Urinal Diaper # Voids 2 - Exam PHYSICAL EXAMINATION: GENERAL: The patient is alert and oriented x3, not in any acute distress. Well developed, well nourished. HEENT: Pupils are round and equally reacting to light. EOMI. No scleral icterus. No conjunctival pallor. Normocephalic, atraumatic. No pharyngeal erythema. No thyromegaly. CARDIOVASCULAR: S1 and S2 present. No murmurs, rubs, or gallops. It appears to have mildly elevated JVD PULMONARY: Chest is clear to auscultation, no wheezing or crackles. ABDOMEN: Soft, nontender, nondistended, normoactive bowel sounds. No palpable organomegaly. MUSCULOSKELETAL: No joint swelling or deformity. EXTREMITIES: No cyanosis, clubbing, mild 1+ pitting pedal edema bilateral lower extremities NEUROLOGICAL: Gross neurological examination did not reveal any focal deficits. SKIN: No rashes. - Labs CBC & Chem 7: 09/27/18 13:26 09/28/18 02:27 Labs: Abnormal Lab Results - Last 24 Hours (Table) 09/27/18 09/27/18 09/27/18 Range/Units 13:26 13:26 13:26 RBC 3.33 L (4.30-5.90) m/uL Hgb 10.6 L (13.0-17.5) gm/dL Hct 32.3 L (39.0-53.0) % Lymphocytes # 0.7 L (1.0-4.8) k/uL Carbon Dioxide (22-30) mmol/L BUN 23 H (9-20) mg/dL Creatinine (0.66-1.25) mg/dL Glucose 121 H (74-99) mg/dL POC Glucose (mg/dL) (75-99) mg/dL CK-MB (CK-2) 3.8 H (0.0-2.4) ng/mL 09/27/18 09/27/18 09/28/18 Range/Units 20:42 21:39 02:27 RBC (4.30-5.90) m/uL Hgb (13.0-17.5) gm/dL Hct (39.0-53.0) % Lymphocytes # (1.0-4.8) k/uL Carbon Dioxide (22-30) mmol/L BUN (9-20) mg/dL Creatinine (0.66-1.25) mg/dL Glucose (74-99) mg/dL POC Glucose (mg/dL) 171 H (75-99) mg/dL CK-MB (CK-2) 3.0 H 2.7 H (0.0-2.4) ng/mL 09/28/18 09/28/18 09/28/18 Range/Units 02:27 06:07 11:07 RBC (4.30-5.90) m/uL Hgb (13.0-17.5) gm/dL Hct (39.0-53.0) % Lymphocytes # (1.0-4.8) k/uL Carbon Dioxide 34 H (22-30) mmol/L BUN 25 H (9-20) mg/dL Creatinine 1.37 H (0.66-1.25) mg/dL Glucose 115 H (74-99) mg/dL POC Glucose (mg/dL) 115 H 201 H (75-99) mg/dL CK-MB (CK-2) (0.0-2.4) ng/mL Assessment and Plan Plan: -Shortness of breath: It appears to have new-onset congestive heart failure will obtain echocardiogram, continue with the Lasix IV 40 every 12hr repeat basic metabolic profile tomorrow cardiology evaluated the patient: Echo pending -Coronary artery disease with history of CABG in the past -Sleep apnea and uses CPAP machine at home -COPD without any acute exacerbation at this time -Type 2 diabetes mellitus -Hypertension -History of prostate cancer in the past. For above-mentioned chronic medical problems patient will be resumed and continued on appropriate home medications oral hypoglycemic agents will discuss reviewed and patient will be started on sliding scale insulin instead
[2018-09-28 13:03] LABS: Hemoglobin A1C 6.9 % (4.0-6.0)
[2018-09-28 15:15] VITALS: BMI 31.2
[2018-09-28 16:11] LABS: Glucose,Whole Blood 111 mg/dL (75-99)
[2018-09-28] MEDS: CARVEDILOL 12.5 MG TAB PO SCH (17:25)
--- NOTE | 2018-09-28 18:13 | ECHOF ---
Referral Reason:CHF MEASUREMENTS -------- HEIGHT: 175.3 cm WEIGHT: 95.7 kg BP: IVSd: 1.4 cm (0.6 - 1.1) LVIDd: 5.6 cm (3.9 - 5.3) LVPWd: 1.7 cm (0.6 - 1.1) IVSs: 1.8 cm LVIDs: 5.0 cm LVPWs: 1.3 cm LA Diam: 4.1 cm (2.7 - 3.8) LAESV Index (A-L): 34.66 ml/m Ao Diam: 3.8 cm (2.0 - 3.7) AV Cusp: 1.7 cm (1.5 - 2.6) LA Diam: 3.5 cm (2.7 - 3.8) MV EXCURSION: 22.256 mm (> 18.000) MV EF SLOPE: 69 mm/s (70 - 150) EPSS: 2.3 cm MV E Navjot: 1.08 m/s MV DecT: 217 ms MV A Navjot: 1.15 m/s MV E/A Ratio: 0.93 RAP: 5.00 mmHg RVSP: 12.67 mmHg FINDINGS -------- Sinus rhythm. This was a techncally difficult study with suboptimal views, , Lumason utilized for enhancement of im ages. The left ventricular size is normal. There is mild concentric left ventricular hypertrophy. Overa ll left ventricular systolic function is severely impaired with, an EF between 25 - 30 %. Antersept al Hypokinesis Inferior Hypokinesis Septal Hypokinesis The right ventricle is normal in size. The left atrium is mildly dilated. LA is moderately dilated 34-39 ml/m2 The right atrial size is normal. 5.0mg OF Lumason UTLIZED: 2 OR MORE WALL SEGMENTS NOT VISUALIZED. There is mild aortic valve sclerosis. There is no evidence of aortic regurgitation. Mild mitral annular calcification present. Mild mitral regurgitation is present. Mild tricuspid regurgitation present. There is no evidence of pulmonary hypertension. The right v entricular systolic pressure, as measured by Doppler, is 12.67mmHg. There is no pulmonic regurgitation present. The aortic root size is normal. There is no pericardial effusion. CONCLUSIONS -------- 1. This was a techncally difficult study with suboptimal views, , Lumason utilized for enhancement of images. 2. The left ventricular size is normal. 3. There is mild concentric left ventricular hypertrophy. 4. Overall left ventricular systolic function is severely impaired with, an EF between 25 - 30 %. 5. The right ventricle is normal in size. 6. The left atrium is mildly dilated. 7. LA is moderately dilated 34-39 ml/m2 8. The right atrial size is normal. 9. 5.0mg OF Lumason UTLIZED: 2 OR MORE WALL SEGMENTS NOT VISUALIZED. 10. There is mild aortic valve sclerosis. 11. Mild mitral annular calcification present. 12. Mild mitral regurgitation is present. 13. Mild tricuspid regurgitation present. 14. There is no evidence of pulmonary hypertension. 15. The right ventricular systolic pressure, as measured by Doppler, is 12.67mmHg. 16. There is no pulmonic regurgitation present. 17. The aortic root size is normal. 18. There is no pericardial effusion. [employer]LE[employer]CE [employer]EM[employer]: Gia Grider RDCS
[2018-09-28] MEDS: ATORVASTATIN 40 MG TAB PO SCH (20:30)
[2018-09-28] MEDS: ASPIRIN 81 MG PO SCH (20:30)
[2018-09-28] MEDS: TAMSULOSIN 0.4 MG CAP.ER.24H PO SCH (20:30)
[2018-09-28 20:38] LABS: Glucose,Whole Blood 148 mg/dL (75-99)
[2018-09-29 06:04] LABS: Glucose,Whole Blood 116 mg/dL (75-99)
[2018-09-29] MEDS: INSULIN ASPART 100 UNIT/ML 1 ML 10 ML VIAL SQ SCH ×4 (06:16→20:45)
[2018-09-29] MEDS: PANTOPRAZOLE 40 MG TABLET PO SCH (06:22)
[2018-09-29] MEDS: CARVEDILOL 12.5 MG TAB PO SCH ×2 (06:22→18:11)
[2018-09-29] MEDS: FUROSEMIDE 10 MG/ML 4 ML VIAL IV SCH (09:46)
--- NOTE | 2018-09-29 10:24 | P.PN ---
Subjective 82-year-old male admitted for the possibility of CHF exacerbation which is new onset. Echocardiogram is still pending. Patient is feeling much better today we'll edema significantly improved respiratory status improved patient's creatinine has gone up a little bit from 1.2-1.34 will cut down the Lasix to twice a day from 3 times a day 40 mg. 09/29/2018 Patient is found to have ejection fraction of 25-30%. Discussed the possibility of AICD, LifeVest and a cardiac catheterization with the patient. Patient was started on Entresto, but his kidney function continued to worsen we may need to hold this medication if it continues to worsen we'll also get the opinion of nephrology. Patient although was on ERENDIRA inhibitor onto less today. Patient clinically doing well is has pedal edema today, on 40 IV twice a day of Lasix Constitutional: Denied any fatigue denied any fever. Cardio vascular: denied any chest pain, palpitations Gastrointestinal denied any nausea vomiting Pulmonary: Denied any shortness of breath cough Neurologic denied any new focal deficits All inpatient medications were reviewed and appropriate changes in these medications as dictated in the interval history and assessment and plan. Objective - Vital Signs Vital signs: Vital Signs Temp 97.4 F L 09/29/18 04:00 Pulse 71 09/29/18 04:00 Resp 18 09/29/18 04:00 BP 132/70 09/29/18 04:00 Pulse Ox 96 09/29/18 04:00 Intake & Output 09/28/18 09/29/18 09/29/18 18:59 06:59 18:59 Intake Total 480 240 Balance 480 240 Weight 96.1 kg 95.4 kg Intake: Oral 480 240 Other: Voiding Method Toilet Toilet Urinal Urinal Diaper Diaper # Voids 4 2 - Exam PHYSICAL EXAMINATION: GENERAL: The patient is alert and oriented x3, not in any acute distress. Well developed, well nourished. HEENT: Pupils are round and equally reacting to light. EOMI. No scleral icterus. No conjunctival pallor. Normocephalic, atraumatic. No pharyngeal erythema. No thyromegaly. CARDIOVASCULAR: S1 and S2 present. No murmurs, rubs, or gallops. It appears to have mildly elevated JVD PULMONARY: Chest is clear to auscultation, no wheezing or crackles. ABDOMEN: Soft, nontender, nondistended, normoactive bowel sounds. No palpable organomegaly. MUSCULOSKELETAL: No joint swelling or deformity. EXTREMITIES: No cyanosis, clubbing, mild 1+ pitting pedal edema bilateral lower extremities NEUROLOGICAL: Gross neurological examination did not reveal any focal deficits. SKIN: No rashes. - Labs CBC & Chem 7: 09/27/18 13:26 09/29/18 06:27 Labs: Abnormal Lab Results - Last 24 Hours (Table) 09/28/18 09/28/18 09/28/18 Range/Units 02:27 11:07 15:59 Carbon Dioxide (22-30) mmol/L BUN (9-20) mg/dL Creatinine (0.66-1.25) mg/dL Glucose (74-99) mg/dL POC Glucose (mg/dL) 201 H 111 H (75-99) mg/dL Hemoglobin A1c 6.9 H (4.0-6.0) % Calcium (8.4-10.2) mg/dL 09/28/18 09/29/18 09/29/18 Range/Units 20:37 06:02 06:27 Carbon Dioxide 35 H (22-30) mmol/L BUN 35 H (9-20) mg/dL Creatinine 1.94 H (0.66-1.25) mg/dL Glucose 125 H (74-99) mg/dL POC Glucose (mg/dL) 148 H 116 H (75-99) mg/dL Hemoglobin A1c (4.0-6.0) % Calcium 8.0 L (8.4-10.2) mg/dL Assessment and Plan Plan: -Shortness of breath: It appears to have new-onset congestive heart failure echo cardiogram showing ejection fraction of 25-30%, continue with the Lasix IV 40 every 12hr repeat basic metabolic profile tomorrow cardiology evaluated the patient, patient is started on Entresto. -Coronary artery disease with history of CABG in the past -Sleep apnea and uses CPAP machine at home -COPD without any acute exacerbation at this time -Type 2 diabetes mellitus -Hypertension -History of prostate cancer in the past. For above-mentioned chronic medical problems patient will be resumed and continued on appropriate home medications oral hypoglycemic agents will discuss reviewed and patient will be started on sliding scale insulin instead
[2018-09-29 11:29] LABS: Glucose,Whole Blood 157 mg/dL (75-99)
--- NOTE | 2018-09-29 16:08 | P.PN ---
Subjective Progress Note Date: 09/29/18 This is a pleasant 82-year-old gentleman with history of coronary artery disease and prior bypass surgery in 2004, at which time patient was residing in [place], he currently follows at the [facility], history also hypertension , diabetes, hyperlipidemia, who presents to the hospital with symptoms of progressively worsening shortness of breath over a 4 to five-day duration. Positive PND and orthopnea, positive mild associated peripheral edema. Chest x- ray on admission here showed pulmonary venous hypertension and its interstitial edema with a probable pleural effusions. EKG on presentation here showed a normal sinus rhythm with first-degree AV block, right bundle branch block pattern and nonspecific ST-T wave changes. Blood pressure on arrival here 187/ 91, heart rate in the 70s, 94% on room air. Temperature 97.9. Current blood pressure this morning 186/78 with a heart rate in the 80s, 96% on 2 L of oxygen. White blood cell count normal, hemoglobin 10.6, platelet count 255. Sodium 141, potassium 3.9, BUN 23 and creatinine 1.2 on admission, 25 and 1.3 this morning. Troponins 0.012, 0.017, 0.027. BNP level 6120. The patient was initiated on IV Lasix in the emergency room. He states that he has been urinating frequently throughout the night last night, his weight is down significantly today. At the time of my examination, patient is sitting up in his chair at bedside, states that he still does feel some shortness of breath however significantly improved from the past 4 days. 09/29/2018 Patient seen and examined today, sitting up in the chair at bedside. Overall feeling significantly better. Continues to diurese well through the night last night. I pressure this morning 130/60 with a heart rate in the 70s, 98% on 2 L of oxygen. Sodium 141, potassium 4.0, BUN 35, creatinine 1.9. Echocardiogram with Doppler study was performed which revealed a severely impaired left ventricular systolic function with an ejection fraction documented to be 25-30% . We'll decrease his dose of Lasix to IV once daily today. He will start on Entresto tomorrow. Objective - Vital Signs Vital signs: Vital Signs Temp 97.9 F 09/29/18 11:50 Pulse 71 09/29/18 11:50 Resp 18 09/29/18 11:50 BP 131/63 11/15/18 11:50 Pulse Ox 98 09/29/18 11:50 Intake & Output 09/28/18 09/29/18 09/29/18 18:59 06:59 18:59 Intake Total 480 480 Balance 480 480 Weight 96.1 kg 95.4 kg Intake: Oral 480 480 Other: Voiding Method Toilet Toilet Toilet Urinal Urinal Urinal Diaper Diaper Diaper # Voids 4 2 5 - Exam PHYSICAL EXAMINATION: GENERAL: 82-year-old gentleman in no acute distress at the time of my examination HEENT: Head is atraumatic, normocephalic. Pupils equal, round. Sclera anicteric. Conjunctiva are clear. Mucous membranes of the mouth are moist. Neck is supple. There is elevated jugular venous pressure. No carotid bruit is heard. HEART EXAMINATION: Heart S1, S2 normal. No murmur or gallop heard. CHEST EXAMINATION: Lungs reveal diminished air entry to bilateral bases. ABDOMEN: Soft, nontender. Bowel sounds are heard. No organomegaly noted. EXTREMITIES: 2+ peripheral pulses with trace evidence of peripheral edema and no calf tenderness noted. NEUROLOGIC patient is awake, alert and oriented 3 - Labs CBC & Chem 7: 09/27/18 13:26 09/29/18 06:27 Labs: Abnormal Lab Results - Last 24 Hours (Table) 09/28/18 09/28/18 09/29/18 Range/Units 15:59 20:37 06:02 Carbon Dioxide (22-30) mmol/L BUN (9-20) mg/dL Creatinine (0.66-1.25) mg/dL Glucose (74-99) mg/dL POC Glucose (mg/dL) 111 H 148 H 116 H (75-99) mg/dL Calcium (8.4-10.2) mg/dL 09/29/18 09/29/18 Range/Units 06:27 11:24 Carbon Dioxide 35 H (22-30) mmol/L BUN 35 H (9-20) mg/dL Creatinine 1.94 H (0.66-1.25) mg/dL Glucose 125 H (74-99) mg/dL POC Glucose (mg/dL) 157 H (75-99) mg/dL Calcium 8.0 L (8.4-10.2) mg/dL Assessment and Plan Plan: Assessment and plan #1 congestive cardiac failure, LV function unknown #2 known history of coronary artery disease with prior bypass surgery in 2004 #3 hypertension, accelerated #4 hyperlipidemia #5 diabetes #6 prior history of smoking #7 anemia, hemoglobin 10.6, on review of prior records back to 2016, hemoglobin is similar. #8 mild abnormality in troponin, 0.012, 0.017, 0.027. Could be secondary to supply and demand mismatch, cannot completely rule out acute coronary syndrome. Plan We will decrease the Lasix to once daily today, from tomorrow patient will be initiated on Entresto. We will continue to monitor intake and output along with daily weights and daily lytes BUN and creatinine. Echocardiogram with Doppler study of today didn't reveal an ejection fraction of 25-30%. DNP note has been reviewed, I agree with a documented findings and plan of care. Patient was seen and examined.
[2018-09-29 16:30] LABS: Glucose,Whole Blood 140 mg/dL (75-99)
--- NOTE | 2018-09-29 18:13 | US ---
EXAMINATION TYPE: US renals and bladder DATE OF EXAM: 09/29/2018 COMPARISON: NONE CLINICAL HISTORY: rf. EXAM MEASUREMENTS: Right Kidney: 10.4 x 4.2 x 5.4 cm Left Kidney: 11.2 x 4.9 x 5.0 cm Right Kidney: cysts noted measuring 2.4 x 2.0 x 2.0cm, and 4.2 x 2.9 x 3.7cm Left Kidney: cyst noted measuring 2.6 x 2.0 x 2.5cm Bladder: wnl IMPRESSION: Multiple simple renal cortical cysts are seen. No evidence of renal solid mass or obstruction. No frank al calculus seen. There is mild renal cortical atrophy.
[2018-09-29] MEDS: ASPIRIN 81 MG PO SCH (19:52)
[2018-09-29] MEDS: ATORVASTATIN 40 MG TAB PO SCH (19:52)
[2018-09-29] MEDS: TAMSULOSIN 0.4 MG CAP.ER.24H PO SCH (19:52)
[2018-09-29 20:44] LABS: Glucose,Whole Blood 176 mg/dL (75-99)
[2018-09-29 21:37] LABS: Appearance,Urine Clear (Clear); Bilirubin,Urine Negative (Negative); Blood,Urine Trace (Negative); Color,Urine Yellow; Glucose,Urine (UA) Negative (Negative); Ketones,Urine Negative (Negative); Leukocyte Esterase,Urine Negative (Negative); Mucus,Urine Rare /hpf; Nitrite,Urine Negative (Negative); PH, Urine 5.5 (5.0-8.0); Protein,Urine 1+ (Negative); RBC,Urine <1 /hpf (0-5); Urobilinogen,Urine <2.0 mg/dL (<2.0); WBC,Urine <1 /hpf (0-5)
--- NOTE | 2018-09-29 23:33 | CONS ---
CONSULTATION REASON FOR CONSULT: Renal failure. HISTORY OF PRESENT ILLNESS: The patient is an 82-year-old male who was admitted to the hospital on 09/27/2018 with complaints of shortness of breath. He stated his legs have been swollen as well. He denied any chest pain. The patient states that his kidney function has been borderline. He denied use of any nonsteroidal anti-inflammatory agents prior to admission. The patient is noted to be in heart failure and is currently being diuresed. He states he feels significantly better with the improvement in his respiratory status. Serum creatinine was 1.2 mg/dL on initial admission. It is gone up to 1.94. Previous labs in 2016 show a serum creatinine of 1.3 mg/dL. The patient's blood pressure is not significantly low. He is maintained on Entresto. The patient has not received any IV contrast. He was maintained on Lasix 40 IV q.12 hours, which is now decreased to once a day. PAST MEDICAL HISTORY: Significant for hypertension, coronary artery disease, COPD, type 2 diabetes, obstructive sleep apnea, history of prostatic cancer, history of bowel obstruction. PAST SURGICAL HISTORY: Coronary artery bypass surgery, cardiac catheterization, cataract surgery. SOCIAL HISTORY: Patient is a former smoker. No history of drug abuse or alcohol abuse. MEDICATIONS: Prior to admission include Lipitor, vitamin D3, vitamin B12, aspirin, probiotics, Lopressor, Prilosec, Flomax, Norvasc, Glucotrol, Vasotec, Glucophage. ALLERGIES: None. REVIEW OF SYSTEMS: As per HPI. Other systems negative. EXAMINATION: Patient is comfortable, awake. He is alert and oriented x3, not in any acute distress. Blood pressure was 131/63, heart rate 71 per minute. He is afebrile. Examination of the heart S1, S2. Examination of lungs bilateral breath sounds are heard. Abdomen is soft, nontender. Examination of lower extremities shows edema 2+ bilaterally. [employer] exam is grossly intact. LABS SHOW: Sodium 141, potassium 4.0, chloride 98, BUN 35, serum creatinine 1.94. The UA is not available. ASSESSMENT: 1. Acute kidney injury, cardiorenal with serum creatinine slightly worse over the last couple of days. Patient has been diuresed. Lasix is decreased to once a day. Avoid hypotension. Blood pressure had been on the lower side. However, it is improved now with systolic about 130 as opposed to 108 mmHg. We will continue with the current dose of Lasix. We will check a urinalysis. Check ultrasound of the kidneys and check bladder scan to rule out urine retention. 2. Cardiomyopathy, ejection fraction 25-30 percent. 3. Congestive heart failure, acute on top of chronic, mainly systolic, currently being diuresed. 4. Moderately dilated left atrium. PLAN: Continue current dose of Lasix. Check UA. Check ultrasound of the kidneys. Decrease dose of Coreg if blood pressure remains low. May continue the Entresto which contains angiotensin receptor blockers as well. Thank you for this consultation. We will continue to follow the patient with you during his hospitalization. MMODL / IJN: [id number] /
[2018-09-30] MEDS: INSULIN ASPART 100 UNIT/ML 1 ML 10 ML VIAL SQ SCH ×4 (05:43→21:26)
[2018-09-30 05:45] LABS: Glucose,Whole Blood 126 mg/dL (75-99)
[2018-09-30] MEDS: CARVEDILOL 12.5 MG TAB PO SCH ×2 (06:18→20:43)
[2018-09-30] MEDS: PANTOPRAZOLE 40 MG TABLET PO SCH (06:19)
[2018-09-30 07:42] LABS: Calcium 7.6 mg/dL (8.4-10.2); Potassium 4.3 mmol/L (3.5-5.1)
[2018-09-30] MEDS ORDERED: FUROSEMIDE 10 MG/ML 4 ML VIAL IV SCH (09:00)
[2018-09-30] MEDS: SACUBITRIL/VALSARTAN 24 MG-26 MG TABLET PO SCH ×2 (09:52→22:44)
--- NOTE | 2018-09-30 10:49 | XR ---
EXAMINATION TYPE: XR chest 2V DATE OF EXAM: 09/30/2018 COMPARISON: 09/27/2018 TECHNIQUE: PA and lateral views submitted. HISTORY: Follow-up CHF FINDINGS: Bilateral pleural effusion or thickening noted with the interstitial pattern. Postsurgical changes. A therosclerotic change aorta. No obvious pneumothorax. IMPRESSION: 1. Stable pleural-parenchymal changes with bilateral infiltrate and small effusion. Underlying venous congestion in the differential diagnosis superimposed on a background of COPD.
--- NOTE | 2018-09-30 11:23 | P.PN ---
Subjective Patient is seen in follow-up for acute kidney injury on chronic kidney disease. Patient has chronic kidney disease stage III. Baseline creatinine in the range of 1.2-1.3 secondary to diabetic kidney disease. Creatinine up to 2.0 today. He is maintained on Lasix 40 mg IV once daily. Edema has improved. Admits to good urine output. No active chest pain or shortness of breath. Patient has systolic CHF ejection fraction of 25-30%. Vital signs are stable. General: The patient appeared well nourished and normally developed. HEENT: Head exam is unremarkable. Neck is without jugular venous distension. LUNGS: Lungs are clear to auscultation and percussion. Breath sounds decreased. HEART: Rate and Rhythm are regular. First and second heart sounds normal. No murmurs, rubs or gallops. ABDOMEN: Abdominal exam reveals normal bowel sounds. Non-tender and non- distended. No evidence of peritonitis. EXTREMITITES: No clubbing, cyanosis, or edema. Objective - Vital Signs Vital signs: Vital Signs Temp 97.5 F L 09/30/18 03:42 Pulse 70 09/30/18 03:42 Resp 18 09/30/18 03:42 BP 145/77 09/30/18 03:42 Pulse Ox 98 09/30/18 03:42 Intake & Output 09/29/18 09/30/18 09/30/18 18:59 06:59 18:59 Intake Total 660 240 240 Balance 660 240 240 Weight 95.9 kg Intake: Oral 660 240 240 Other: Voiding Method Toilet Toilet Urinal Urinal Diaper Diaper # Voids 5 2 - Labs CBC & Chem 7: 09/27/18 13:26 09/30/18 06:52 Labs: Abnormal Lab Results - Last 24 Hours (Table) 09/29/18 09/29/18 09/29/18 Range/Units 11:24 16:11 20:41 Chloride (98-107) mmol/L Carbon Dioxide (22-30) mmol/L BUN (9-20) mg/dL Creatinine (0.66-1.25) mg/dL Glucose (74-99) mg/dL POC Glucose (mg/dL) 157 H 140 H 176 H (75-99) mg/dL Calcium (8.4-10.2) mg/dL Urine Protein (Negative) Urine Blood (Negative) Urine Mucus (None) /hpf 09/29/18 09/30/18 09/30/18 Range/Units 21:30 05:43 06:52 Chloride 95 L (98-107) mmol/L Carbon Dioxide 35 H (22-30) mmol/L BUN 39 H (9-20) mg/dL Creatinine 2.00 H (0.66-1.25) mg/dL Glucose 121 H (74-99) mg/dL POC Glucose (mg/dL) 126 H (75-99) mg/dL Calcium 7.6 L (8.4-10.2) mg/dL Urine Protein 1+ H (Negative) Urine Blood Trace H (Negative) Urine Mucus Rare H (None) /hpf Assessment and Plan Plan: Assessment: 1. Nonoliguric acute kidney injury mostly prerenal secondary to cardiorenal syndrome. Creatinine 2.0 today. No evidence of hydronephrosis noted on renal ultrasound. 2. Chronic kidney disease stage III with baseline creatinine in the range of 1.2-1.3 secondary to diabetic kidney disease. 3. Systolic CHF with ejection fraction of 25-30%. 4. Volume overload. Improved. 5. Diabetes mellitus. Plan: I will change Lasix to 40 mg orally once daily. Avoid nephrotoxins. Repeat electrolytes in the morning. Entresto started today - monitor K.
[2018-09-30 12:04] LABS: Glucose,Whole Blood 170 mg/dL (75-99)
--- NOTE | 2018-09-30 14:15 | P.PN ---
Subjective Progress Note Date: 09/30/18 This is a pleasant 82-year-old gentleman with history of coronary artery disease and prior bypass surgery in 2004, at which time patient was residing in [place], he currently follows at the [facility], history also hypertension , diabetes, hyperlipidemia, who presents to the hospital with symptoms of progressively worsening shortness of breath over a 4 to five-day duration. Positive PND and orthopnea, positive mild associated peripheral edema. Chest x- ray on admission here showed pulmonary venous hypertension and its interstitial edema with a probable pleural effusions. EKG on presentation here showed a normal sinus rhythm with first-degree AV block, right bundle branch block pattern and nonspecific ST-T wave changes. Blood pressure on arrival here 187/ 91, heart rate in the 70s, 94% on room air. Temperature 97.9. Current blood pressure this morning 186/78 with a heart rate in the 80s, 96% on 2 L of oxygen. White blood cell count normal, hemoglobin 10.6, platelet count 255. Sodium 141, potassium 3.9, BUN 23 and creatinine 1.2 on admission, 25 and 1.3 this morning. Troponins 0.012, 0.017, 0.027. BNP level 6120. The patient was initiated on IV Lasix in the emergency room. He states that he has been urinating frequently throughout the night last night, his weight is down significantly today. At the time of my examination, patient is sitting up in his chair at bedside, states that he still does feel some shortness of breath however significantly improved from the past 4 days. 09/29/2018 Patient seen and examined today, sitting up in the chair at bedside. Overall feeling significantly better. Continues to diurese well through the night last night. I pressure this morning 130/60 with a heart rate in the 70s, 98% on 2 L of oxygen. Sodium 141, potassium 4.0, BUN 35, creatinine 1.9. Echocardiogram with Doppler study was performed which revealed a severely impaired left ventricular systolic function with an ejection fraction documented to be 25-30% . We'll decrease his dose of Lasix to IV once daily today. He will start on Entresto tomorrow. 09/30/2018 Patient seen and examined today feeling much better overall. Repeat chest x- ray showed stable pleural parenchymal changes with bilateral infiltrate and small effusion. Underlying venous congestion in the differential diagnosis. Let pressure 128/60 with a heart rate in the 60s, 98% on 2 L. Sodium 137, potassium 4.3, BUN 39, creatinine 2.0. Objective - Vital Signs Vital signs: Vital Signs Temp 98.0 F 09/30/18 11:45 Pulse 59 L 09/30/18 11:45 Resp 18 09/30/18 11:45 BP 128/62 09/30/18 11:45 Pulse Ox 98 09/30/18 11:45 Intake & Output 09/29/18 09/30/18 09/30/18 18:59 06:59 18:59 Intake Total 660 240 240 Balance 660 240 240 Weight 95.9 kg Intake: Oral 660 240 240 Other: Voiding Method Toilet Toilet Toilet Urinal Urinal Urinal Diaper Diaper Diaper # Voids 5 2 - Exam PHYSICAL EXAMINATION: GENERAL: 82-year-old gentleman in no acute distress at the time of my examination HEENT: Head is atraumatic, normocephalic. Pupils equal, round. Sclera anicteric. Conjunctiva are clear. Mucous membranes of the mouth are moist. Neck is supple. There is elevated jugular venous pressure. No carotid bruit is heard. HEART EXAMINATION: Heart S1, S2 normal. No murmur or gallop heard. CHEST EXAMINATION: Lungs reveal diminished air entry to bilateral bases. ABDOMEN: Soft, nontender. Bowel sounds are heard. No organomegaly noted. EXTREMITIES: 2+ peripheral pulses with trace evidence of peripheral edema and no calf tenderness noted. NEUROLOGIC patient is awake, alert and oriented 3 - Labs CBC & Chem 7: 09/27/18 13:26 09/30/18 06:52 Labs: Abnormal Lab Results - Last 24 Hours (Table) 09/29/18 09/29/18 09/29/18 Range/Units 16:11 20:41 21:30 Chloride (98-107) mmol/L Carbon Dioxide (22-30) mmol/L BUN (9-20) mg/dL Creatinine (0.66-1.25) mg/dL Glucose (74-99) mg/dL POC Glucose (mg/dL) 140 H 176 H (75-99) mg/dL Calcium (8.4-10.2) mg/dL Urine Protein 1+ H (Negative) Urine Blood Trace H (Negative) Urine Mucus Rare H (None) /hpf 09/30/18 09/30/18 09/30/18 Range/Units 05:43 06:52 12:01 Chloride 95 L (98-107) mmol/L Carbon Dioxide 35 H (22-30) mmol/L BUN 39 H (9-20) mg/dL Creatinine 2.00 H (0.66-1.25) mg/dL Glucose 121 H (74-99) mg/dL POC Glucose (mg/dL) 126 H 170 H (75-99) mg/dL Calcium 7.6 L (8.4-10.2) mg/dL Urine Protein (Negative) Urine Blood (Negative) Urine Mucus (None) /hpf Assessment and Plan Plan: Assessment and plan #1 congestive cardiac failure, LV function unknown #2 known history of coronary artery disease with prior bypass surgery in 2004 #3 hypertension, accelerated #4 hyperlipidemia #5 diabetes #6 prior history of smoking #7 anemia, hemoglobin 10.6, on review of prior records back to 2015, hemoglobin is similar. #8 mild abnormality in troponin, 0.012, 0.017, 0.027. Could be secondary to supply and demand mismatch, cannot completely rule out acute coronary syndrome. Plan Cardiology's perspective, we'll continue current dose of by mouth Lasix. Continue to monitor the patient's intake and output and daily weights until tomorrow. Plan for possible discharge home in 24 hours if stable. DNP note has been reviewed, I agree with a documented findings and plan of care. Patient was seen and examined.
[2018-09-30 16:51] LABS: Glucose,Whole Blood 170 mg/dL (75-99)
[2018-09-30] MEDS: TAMSULOSIN 0.4 MG CAP.ER.24H PO SCH (21:25)
[2018-09-30] MEDS: ASPIRIN 81 MG PO SCH (21:25)
[2018-09-30] MEDS: ATORVASTATIN 40 MG TAB PO SCH (21:25)
[2018-09-30 21:33] LABS: Glucose,Whole Blood 213 mg/dL (75-99)
[2018-10-01 07:16] LABS: Glucose,Whole Blood 151 mg/dL (75-99)
[2018-10-01 07:57] LABS: Basophils % (A) 0 %; Eosinophils # (A) 0.2 k/uL (0-0.7); Eosinophils % (A) 4 %; HCT 30.7 % (39.0-53.0); HGB 10.3 gm/dL (13.0-17.5); Lymphocytes # (A) 0.9 k/uL (1.0-4.8); Lymphocytes % (A) 17 %; MCH 32.3 pg (25.0-35.0); MCHC 33.4 g/dL (31.0-37.0); MCV 96.8 fL (80.0-100.0); Mean Platelet Volume 6.7; Monocytes # (A) 0.5 k/uL (0-1.0); Monocytes % (A) 9 %; Neutrophils # (A) 3.4 k/uL (1.3-7.7); Neutrophils % (A) 67 %; Platelet Count 234 k/uL (150-450); RBC 3.18 m/uL (4.30-5.90); RDW 14.4 % (11.5-15.5); WBC 5.1 k/uL (3.8-10.6)
[2018-10-01 08:02] LABS: Calcium 7.6 mg/dL (8.4-10.2); Potassium 3.7 mmol/L (3.5-5.1)
[2018-10-01] MEDS: SACUBITRIL/VALSARTAN 24 MG-26 MG TABLET PO SCH ×2 (08:26→22:47)
[2018-10-01] MEDS: PANTOPRAZOLE 40 MG TABLET PO SCH (08:26)
[2018-10-01] MEDS: INSULIN ASPART 100 UNIT/ML 1 ML 10 ML VIAL SQ SCH ×4 (08:26→22:17)
[2018-10-01] MEDS: FUROSEMIDE 40 MG TAB PO SCH (08:26)
[2018-10-01] MEDS: CARVEDILOL 12.5 MG TAB PO SCH ×2 (08:26→17:32)
--- NOTE | 2018-10-01 09:48 | P.PN ---
Subjective Patient is seen in follow-up for acute kidney injury on chronic kidney disease. Patient has chronic kidney disease stage III. Baseline creatinine in the range of 1.2-1.3 secondary to diabetic kidney disease. Creatinine stable at 1.99 today. He is maintained on Lasix 40 mg po once daily. Edema has improved. Admits to good urine output. No active chest pain or shortness of breath. Patient has systolic CHF ejection fraction of 25-30%. Potassium level stable at 3.7. Magnesium level low at 1.0. Vital signs are stable. General: The patient appeared well nourished and normally developed. HEENT: Head exam is unremarkable. Neck is without jugular venous distension. LUNGS: Lungs are clear to auscultation and percussion. Breath sounds decreased. HEART: Rate and Rhythm are regular. First and second heart sounds normal. No murmurs, rubs or gallops. ABDOMEN: Abdominal exam reveals normal bowel sounds. Non-tender and non- distended. No evidence of peritonitis. EXTREMITITES: No clubbing, cyanosis, or edema. Objective - Vital Signs Vital signs: Vital Signs Temp 98.5 F 10/01/18 08:00 Pulse 68 10/01/18 08:00 Resp 18 10/01/18 08:00 BP 107/57 10/01/18 08:00 Pulse Ox 94 L 10/01/18 08:00 Intake & Output 09/30/18 10/01/18 10/01/18 18:59 06:59 18:59 Intake Total 1320 100 220 Balance 1320 100 220 Weight 96.3 kg Intake: Oral 1320 100 220 Other: Voiding Method Toilet Urinal Diaper # Voids 3 4 1 - Labs CBC & Chem 7: 10/01/18 06:40 10/01/18 06:40 Labs: Abnormal Lab Results - Last 24 Hours (Table) 09/30/18 09/30/18 09/30/18 Range/Units 12:01 16:49 21:20 RBC (4.30-5.90) m/uL Hgb (13.0-17.5) gm/dL Hct (39.0-53.0) % Lymphocytes # (1.0-4.8) k/uL Chloride (98-107) mmol/L Carbon Dioxide (22-30) mmol/L BUN (9-20) mg/dL Creatinine (0.66-1.25) mg/dL Glucose (74-99) mg/dL POC Glucose (mg/dL) 170 H 170 H 213 H (75-99) mg/dL Calcium (8.4-10.2) mg/dL Magnesium (1.6-2.3) mg/dL 10/01/18 10/01/18 10/01/18 Range/Units 06:40 06:40 07:04 RBC 3.18 L (4.30-5.90) m/uL Hgb 10.3 L (13.0-17.5) gm/dL Hct 30.7 L (39.0-53.0) % Lymphocytes # 0.9 L (1.0-4.8) k/uL Chloride 97 L (98-107) mmol/L Carbon Dioxide 35 H (22-30) mmol/L BUN 39 H (9-20) mg/dL Creatinine 1.99 H (0.66-1.25) mg/dL Glucose 140 H (74-99) mg/dL POC Glucose (mg/dL) 151 H (75-99) mg/dL Calcium 7.6 L (8.4-10.2) mg/dL Magnesium 1.0 L (1.6-2.3) mg/dL Assessment and Plan Plan: Assessment: 1. Nonoliguric acute kidney injury mostly prerenal secondary to cardiorenal syndrome. Creatinine stable at 1.99 today. No evidence of hydronephrosis noted on renal ultrasound. 2. Chronic kidney disease stage III with baseline creatinine in the range of 1.2-1.3 secondary to diabetic kidney disease. 3. Systolic CHF with ejection fraction of 25-30%. Entresto started sep 30. 4. Volume overload. Improved. 5. Diabetes mellitus. 6. Hypomagnesemia secondary to diuresis. Plan: Maintain Lasix 40 mg once daily. Replace magnesium. 4 g IV today over 12 hours. Add oral Mag-Ox. Avoid nephrotoxins. Repeat electrolytes in the morning.
[2018-10-01 11:23] LABS: Glucose,Whole Blood 239 mg/dL (75-99)
[2018-10-01] MEDS: MAGNESIUM SULFATE-D5W PMX 1 GM in DEXTROSE/WATER 1 100ML.BAG IVPB SCH ×4 (12:30→22:50)
--- NOTE | 2018-10-01 12:50 | P.PN ---
Subjective Progress Note Date: 09/30/18 Principal diagnosis: Congestive heart failure 82-year-old male admitted for the possibility of CHF exacerbation which is new onset. Echocardiogram is still pending. Patient is feeling much better today we'll edema significantly improved respiratory status improved patient's creatinine has gone up a little bit from 1.2-1.34 will cut down the Lasix to twice a day from 3 times a day 40 mg. 09/29/2018 Patient is found to have ejection fraction of 25-30%. Discussed the possibility of AICD, LifeVest and a cardiac catheterization with the patient. Patient was started on Entresto, but his kidney function continued to worsen we may need to hold this medication if it continues to worsen we'll also get the opinion of nephrology. Patient although was on ERENDIRA inhibitor onto less today. Patient clinically doing well is has pedal edema today, on 40 IV twice a day of Lasix 09/30/2018 Patient seen and examined today feeling much better overall. Repeat chest x- ray showed stable pleural parenchymal changes with bilateral infiltrate and small effusion. Underlying venous congestion in the differential diagnosis. Let pressure 128/60 with a heart rate in the 60s, 98% on 2 L. Sodium 137, potassium 4.3, BUN 39, creatinine 2.0. Constitutional: Denied any fatigue denied any fever. Cardio vascular: denied any chest pain, palpitations Gastrointestinal denied any nausea vomiting Pulmonary: Denied any shortness of breath cough Neurologic denied any new focal deficits All inpatient medications were reviewed and appropriate changes in these medications as dictated in the interval history and assessment and plan. Objective - Vital Signs Vital signs: Vital Signs Temp 97.8 F 09/30/18 08:30 Pulse 63 09/30/18 08:30 Resp 18 09/30/18 08:30 BP 102/54 09/30/18 08:30 Pulse Ox 94 L 09/30/18 08:30 Intake & Output 09/29/18 09/30/18 09/30/18 18:59 06:59 18:59 Intake Total 660 240 240 Balance 660 240 240 Weight 95.9 kg Intake: Oral 660 240 240 Other: Voiding Method Toilet Toilet Toilet Urinal Urinal Urinal Diaper Diaper Diaper # Voids 5 2 - Exam GENERAL: The patient is alert and oriented x3, not in any acute distress. Well developed, well nourished. HEENT: Pupils are round and equally reacting to light. EOMI. No scleral icterus. No conjunctival pallor. Normocephalic, atraumatic. No pharyngeal erythema. No thyromegaly. CARDIOVASCULAR: S1 and S2 present. No murmurs, rubs, or gallops. It appears to have mildly elevated JVD PULMONARY: Chest is clear to auscultation, no wheezing or crackles. ABDOMEN: Soft, nontender, nondistended, normoactive bowel sounds. No palpable organomegaly. MUSCULOSKELETAL: No joint swelling or deformity. EXTREMITIES: No cyanosis, clubbing, mild 1+ pitting pedal edema bilateral lower extremities NEUROLOGICAL: Gross neurological examination did not reveal any focal deficits. SKIN: No rashes. - Labs CBC & Chem 7: 10/01/18 06:40 10/01/18 06:40 Labs: Abnormal Lab Results - Last 24 Hours (Table) 09/29/18 09/29/18 09/29/18 Range/Units 16:11 20:41 21:30 Chloride (98-107) mmol/L Carbon Dioxide (22-30) mmol/L BUN (9-20) mg/dL Creatinine (0.66-1.25) mg/dL Glucose (74-99) mg/dL POC Glucose (mg/dL) 140 H 176 H (75-99) mg/dL Calcium (8.4-10.2) mg/dL Urine Protein 1+ H (Negative) Urine Blood Trace H (Negative) Urine Mucus Rare H (None) /hpf 09/30/18 09/30/18 09/30/18 Range/Units 05:43 06:52 12:01 Chloride 95 L (98-107) mmol/L Carbon Dioxide 35 H (22-30) mmol/L BUN 39 H (9-20) mg/dL Creatinine 2.00 H (0.66-1.25) mg/dL Glucose 121 H (74-99) mg/dL POC Glucose (mg/dL) 126 H 170 H (75-99) mg/dL Calcium 7.6 L (8.4-10.2) mg/dL Urine Protein (Negative) Urine Blood (Negative) Urine Mucus (None) /hpf Assessment and Plan Assessment: -Shortness of breath: It appears to have new-onset congestive heart failure echo cardiogram showing ejection fraction of 25-30%, continue with the Lasix IV 40 every 12hr repeat basic metabolic profile tomorrow cardiology evaluated the patient, patient is started on Entresto. -Coronary artery disease with history of CABG in the past -Sleep apnea and uses CPAP machine at home -COPD without any acute exacerbation at this time -Type 2 diabetes mellitus -DVT Prophylaxis; sq heparin CODE STATUS; full code For above-mentioned chronic medical problems patient will be resumed and continued on appropriate home medications oral hypoglycemic agents will discuss reviewed and patient will be started on sliding scale insulin instead
[2018-10-01 17:42] LABS: Glucose,Whole Blood 141 mg/dL (75-99)
[2018-10-01 19:51] LABS: Glucose,Whole Blood 194 mg/dL (75-99)
[2018-10-01] MEDS: ASPIRIN 81 MG PO SCH (22:16)
[2018-10-01] MEDS: ATORVASTATIN 40 MG TAB PO SCH (22:16)
[2018-10-01] MEDS: TAMSULOSIN 0.4 MG CAP.ER.24H PO SCH (22:16)
[2018-10-02 06:51] LABS: Glucose,Whole Blood 137 mg/dL (75-99)
[2018-10-02 08:04] LABS: Calcium 7.9 mg/dL (8.4-10.2); Magnesium 1.9 mg/dL (1.6-2.3); Potassium 4.1 mmol/L (3.5-5.1)
[2018-10-02] MEDS: FUROSEMIDE 40 MG TAB PO SCH (08:17)
--- NOTE | 2018-10-02 08:17 | P.PN ---
Subjective Patient is seen in follow-up for acute kidney injury on chronic kidney disease. Patient has chronic kidney disease stage III. Baseline creatinine in the range of 1.2-1.3 secondary to diabetic kidney disease. Creatinine down to 1.78 today. He is maintained on Lasix 40 mg po once daily. Edema has improved. Admits to good urine output. No active chest pain or shortness of breath. Patient has systolic CHF ejection fraction of 25-30%. Magnesium normal post- replacement yesterday. Vital signs are stable. General: The patient appeared well nourished and normally developed. HEENT: Head exam is unremarkable. Neck is without jugular venous distension. LUNGS: Lungs are clear to auscultation and percussion. Breath sounds decreased. HEART: Rate and Rhythm are regular. First and second heart sounds normal. No murmurs, rubs or gallops. ABDOMEN: Abdominal exam reveals normal bowel sounds. Non-tender and non- distended. No evidence of peritonitis. EXTREMITITES: No clubbing, cyanosis, or edema. Objective - Vital Signs Vital signs: Vital Signs Temp 98.3 F 10/02/18 00:54 Pulse 58 L 10/02/18 00:54 Resp 18 10/02/18 00:54 BP 129/63 10/02/18 00:54 Pulse Ox 94 L 10/02/18 00:54 Intake & Output 10/01/18 10/02/18 10/02/18 18:59 06:59 18:59 Intake Total 1190 1530 Balance 1190 1530 Weight 96.5 kg Intake: Intake, IV Titration 100 200 Amount Magnesium Sulfate-D5w Pmx 100 200 1 gm In Dextrose/Water 1 100ml.bag @ 33.333 mls/ hr IVPB Q3H [facility] Rx#: [id number] Oral 1090 1330 Other: Voiding Method Toilet Urinal Diaper # Voids 3 2 # Bowel Movements 1 - Labs CBC & Chem 7: 10/01/18 06:40 10/02/18 06:42 Labs: Abnormal Lab Results - Last 24 Hours (Table) 10/01/18 10/01/18 10/01/18 Range/Units 11:09 17:26 19:41 Carbon Dioxide (22-30) mmol/L BUN (9-20) mg/dL Creatinine (0.66-1.25) mg/dL Glucose (74-99) mg/dL POC Glucose (mg/dL) 239 H 141 H 194 H (75-99) mg/dL Calcium (8.4-10.2) mg/dL 10/02/18 10/02/18 Range/Units 06:37 06:42 Carbon Dioxide 33 H (22-30) mmol/L BUN 41 H (9-20) mg/dL Creatinine 1.78 H (0.66-1.25) mg/dL Glucose 135 H (74-99) mg/dL POC Glucose (mg/dL) 137 H (75-99) mg/dL Calcium 7.9 L (8.4-10.2) mg/dL Assessment and Plan Plan: Assessment: 1. Nonoliguric acute kidney injury mostly prerenal secondary to cardiorenal syndrome. Creatinine improved to 1.78 today. No evidence of hydronephrosis noted on renal ultrasound. 2. Chronic kidney disease stage III with baseline creatinine in the range of 1.2-1.3 secondary to diabetic kidney disease. 3. Systolic CHF with ejection fraction of 25-30%. Entresto started sep 30. 4. Volume overload. Improved. 5. Diabetes mellitus. 6. Hypomagnesemia secondary to diuresis. Improved post replacement. Plan: Maintain Lasix 40 mg once daily. Maintain oral Mag-Ox. Avoid nephrotoxins. Repeat electrolytes in the morning. Anticipate discharge soon. He will need to follow up outpatient in the next 1- 2 weeks.
[2018-10-02] MEDS: PANTOPRAZOLE 40 MG TABLET PO SCH (08:18)
[2018-10-02] MEDS: MAGNESIUM OXIDE 400 MG TAB PO SCH (08:18)
[2018-10-02] MEDS: INSULIN ASPART 100 UNIT/ML 1 ML 10 ML VIAL SQ SCH ×4 (08:18→22:06)
[2018-10-02] MEDS: CARVEDILOL 12.5 MG TAB PO SCH ×2 (08:18→17:28)
[2018-10-02] MEDS: SACUBITRIL/VALSARTAN 24 MG-26 MG TABLET PO SCH ×2 (08:22→22:06)
--- NOTE | 2018-10-02 10:48 | P.PN ---
Subjective Progress Note Date: 10/01/18 Principal diagnosis: Congestive heart failure 82-year-old male admitted for the possibility of CHF exacerbation which is new onset. Echocardiogram is still pending. Patient is feeling much better today we'll edema significantly improved respiratory status improved patient's creatinine has gone up a little bit from 1.2-1.34 will cut down the Lasix to twice a day from 3 times a day 40 mg. 09/29/2018 Patient is found to have ejection fraction of 25-30%. Discussed the possibility of AICD, LifeVest and a cardiac catheterization with the patient. Patient was started on Entresto, but his kidney function continued to worsen we may need to hold this medication if it continues to worsen we'll also get the opinion of nephrology. Patient although was on ERENDIRA inhibitor onto less today. Patient clinically doing well is has pedal edema today, on 40 IV twice a day of Lasix 09/30/2018 Patient seen and examined today feeling much better overall. Repeat chest x- ray showed stable pleural parenchymal changes with bilateral infiltrate and small effusion. Underlying venous congestion in the differential diagnosis. Let pressure 128/60 with a heart rate in the 60s, 98% on 2 L. Sodium 137, potassium 4.3, BUN 39, creatinine 2.0. 10/01/2018 Patient is seen in follow-up for acute kidney injury on chronic kidney disease. Patient has chronic kidney disease stage III. Baseline creatinine in the range of 1.2-1.3 secondary to diabetic kidney disease. Creatinine stable at 1.99 today. He is maintained on Lasix 40 mg po once daily. Edema has improved. Admits to good urine output. No active chest pain or shortness of breath. Patient has systolic CHF ejection fraction of 25-30%. Potassium level stable at 3.7. Magnesium level low at 1.0. Constitutional: Denied any fatigue denied any fever. Cardio vascular: denied any chest pain, palpitations Gastrointestinal denied any nausea vomiting Pulmonary: Denied any shortness of breath cough Neurologic denied any new focal deficits Objective - Vital Signs Vital signs: Vital Signs Temp 98.5 F 10/01/18 08:00 Pulse 68 10/01/18 08:00 Resp 18 10/01/18 08:00 BP 107/57 10/01/18 08:00 Pulse Ox 94 L 10/01/18 08:00 Intake & Output 11/10/01/18 10/01/18 18:59 06:59 18:59 Intake Total 1320 100 460 Balance 1320 100 460 Weight 96.3 kg Intake: Oral 1320 100 460 Other: Voiding Method Toilet Urinal Diaper # Voids 3 4 1 - Exam GENERAL: The patient is alert and oriented x3, not in any acute distress. Well developed, well nourished. HEENT: Pupils are round and equally reacting to light. EOMI. No scleral icterus. No conjunctival pallor. Normocephalic, atraumatic. No pharyngeal erythema. No thyromegaly. CARDIOVASCULAR: S1 and S2 present. No murmurs, rubs, or gallops. It appears to have mildly elevated JVD PULMONARY: Chest is clear to auscultation, no wheezing or crackles. ABDOMEN: Soft, nontender, nondistended, normoactive bowel sounds. No palpable organomegaly. MUSCULOSKELETAL: No joint swelling or deformity. EXTREMITIES: No cyanosis, clubbing, mild 1+ pitting pedal edema bilateral lower extremities NEUROLOGICAL: Gross neurological examination did not reveal any focal deficits. SKIN: No rashes. - Labs CBC & Chem 7: 10/01/18 06:40 10/02/18 06:42 Labs: Abnormal Lab Results - Last 24 Hours (Table) 09/30/18 09/30/18 10/01/18 Range/Units 16:49 21:20 06:40 RBC (4.30-5.90) m/uL Hgb (13.0-17.5) gm/dL Hct (39.0-53.0) % Lymphocytes # (1.0-4.8) k/uL Chloride 97 L (98-107) mmol/L Carbon Dioxide 35 H (22-30) mmol/L BUN 39 H (9-20) mg/dL Creatinine 1.99 H (0.66-1.25) mg/dL Glucose 140 H (74-99) mg/dL POC Glucose (mg/dL) 170 H 213 H (75-99) mg/dL Calcium 7.6 L (8.4-10.2) mg/dL Magnesium 1.0 L (1.6-2.3) mg/dL 10/01/18 10/01/18 10/01/18 Range/Units 06:40 07:04 11:09 RBC 3.18 L (4.30-5.90) m/uL Hgb 10.3 L (13.0-17.5) gm/dL Hct 30.7 L (39.0-53.0) % Lymphocytes # 0.9 L (1.0-4.8) k/uL Chloride (98-107) mmol/L Carbon Dioxide (22-30) mmol/L BUN (9-20) mg/dL Creatinine (0.66-1.25) mg/dL Glucose (74-99) mg/dL POC Glucose (mg/dL) 151 H 239 H (75-99) mg/dL Calcium (8.4-10.2) mg/dL Magnesium (1.6-2.3) mg/dL Assessment and Plan Assessment: -Shortness of breath: It appears to have new-onset congestive heart failure echo cardiogram showing ejection fraction of 25-30%, continue with the Lasix IV 40 every 12hr repeat basic metabolic profile tomorrow cardiology evaluated the patient, patient is started on Entresto. -Coronary artery disease with history of CABG in the past -Sleep apnea and uses CPAP machine at home -COPD without any acute exacerbation at this time -Type 2 diabetes mellitus -DVT Prophylaxis; sq heparin CODE STATUS; full code Time with Patient: Greater than 30
[2018-10-02 11:26] LABS: Glucose,Whole Blood 235 mg/dL (75-99)
[2018-10-02 17:23] LABS: Glucose,Whole Blood 142 mg/dL (75-99)
[2018-10-02 20:41] LABS: Glucose,Whole Blood 229 mg/dL (75-99)
[2018-10-02] MEDS: TAMSULOSIN 0.4 MG CAP.ER.24H PO SCH (22:06)
[2018-10-02] MEDS: ATORVASTATIN 40 MG TAB PO SCH (22:06)
[2018-10-02] MEDS: ASPIRIN 81 MG PO SCH (22:06)
[2018-10-03 06:59] LABS: Glucose,Whole Blood 139 mg/dL (75-99)
[2018-10-03 07:51] LABS: Basophils % (A) 0 %; Eosinophils # (A) 0.2 k/uL (0-0.7); Eosinophils % (A) 5 %; HCT 32.8 % (39.0-53.0); HGB 10.4 gm/dL (13.0-17.5); Hypochromasia Slight; Lymphocytes # (A) 0.8 k/uL (1.0-4.8); Lymphocytes % (A) 16 %; MCH 31.2 pg (25.0-35.0); MCHC 31.7 g/dL (31.0-37.0); MCV 98.2 fL (80.0-100.0); Mean Platelet Volume 6.9; Monocytes # (A) 0.4 k/uL (0-1.0); Monocytes % (A) 8 %; Neutrophils # (A) 3.5 k/uL (1.3-7.7); Neutrophils % (A) 69 %; Platelet Count 233 k/uL (150-450); RBC 3.34 m/uL (4.30-5.90); RDW 14.1 % (11.5-15.5); WBC 5.1 k/uL (3.8-10.6)
[2018-10-03] MEDS: PANTOPRAZOLE 40 MG TABLET PO SCH (08:00)
[2018-10-03] MEDS: SACUBITRIL/VALSARTAN 24 MG-26 MG TABLET PO SCH (08:00)
[2018-10-03] MEDS: MAGNESIUM OXIDE 400 MG TAB PO SCH (08:00)
[2018-10-03] MEDS: CARVEDILOL 12.5 MG TAB PO SCH (08:02)
[2018-10-03] MEDS: FUROSEMIDE 40 MG TAB PO SCH (08:02)
[2018-10-03] MEDS: INSULIN ASPART 100 UNIT/ML 1 ML 10 ML VIAL SQ SCH ×2 (08:02→13:16)
[2018-10-03 08:10] LABS: Calcium 8.7 mg/dL (8.4-10.2); Potassium 4.7 mmol/L (3.5-5.1)
--- NOTE | 2018-10-03 08:26 | P.PN ---
Subjective Patient is seen in follow-up for acute kidney injury on chronic kidney disease. Patient has chronic kidney disease stage III. Baseline creatinine in the range of 1.2-1.3 secondary to diabetic kidney disease. Creatinine down to 1.68 today. He is maintained on Lasix 40 mg po once daily. Edema has improved. Admits to good urine output. No active chest pain or shortness of breath. Patient has systolic CHF ejection fraction of 25-30%. No active complaints at this time. Eager to go home. Vital signs are stable. General: The patient appeared well nourished and normally developed. HEENT: Head exam is unremarkable. Neck is without jugular venous distension. LUNGS: Lungs are clear to auscultation and percussion. Breath sounds decreased. HEART: Rate and Rhythm are regular. First and second heart sounds normal. No murmurs, rubs or gallops. ABDOMEN: Abdominal exam reveals normal bowel sounds. Non-tender and non- distended. No evidence of peritonitis. EXTREMITITES: No clubbing, cyanosis, or edema. Objective - Vital Signs Vital signs: Vital Signs Temp 97.8 F 10/03/18 07:20 Pulse 51 L 10/03/18 07:20 Resp 16 10/03/18 07:20 BP 155/72 10/03/18 07:20 Pulse Ox 98 10/03/18 07:20 Intake & Output 10/02/18 10/03/18 10/03/18 18:59 06:59 18:59 Intake Total 730 1540 Balance 730 1540 Intake: Oral 730 1540 Other: Voiding Method Toilet Toilet Urinal # Voids 2 - Labs CBC & Chem 7: 10/03/18 07:04 10/03/18 07:04 Labs: Abnormal Lab Results - Last 24 Hours (Table) 10/02/18 10/02/18 10/02/18 Range/Units 11:10 17:12 20:34 RBC (4.30-5.90) m/uL Hgb (13.0-17.5) gm/dL Hct (39.0-53.0) % Lymphocytes # (1.0-4.8) k/uL Carbon Dioxide (22-30) mmol/L BUN (9-20) mg/dL Creatinine (0.66-1.25) mg/dL Glucose (74-99) mg/dL POC Glucose (mg/dL) 235 H 142 H 229 H (75-99) mg/dL 10/03/18 10/03/18 10/03/18 Range/Units 06:57 07:04 07:04 RBC 3.34 L (4.30-5.90) m/uL Hgb 10.4 L (13.0-17.5) gm/dL Hct 32.8 L (39.0-53.0) % Lymphocytes # 0.8 L (1.0-4.8) k/uL Carbon Dioxide 36 H (22-30) mmol/L BUN 37 H (9-20) mg/dL Creatinine 1.68 H (0.66-1.25) mg/dL Glucose 145 H (74-99) mg/dL POC Glucose (mg/dL) 139 H (75-99) mg/dL Assessment and Plan Plan: Assessment: 1. Nonoliguric acute kidney injury mostly prerenal secondary to cardiorenal syndrome. Creatinine improved to 1.68 today. No evidence of hydronephrosis noted on renal ultrasound. 2. Chronic kidney disease stage III with baseline creatinine in the range of 1.2-1.3 secondary to diabetic kidney disease. 3. Systolic CHF with ejection fraction of 25-30%. Entresto started sep 30. 4. Volume overload. Improved. 5. Diabetes mellitus. 6. Hypomagnesemia secondary to diuresis. Improved post replacement. Plan: Maintain Lasix 40 mg once daily. Maintain oral Mag-Ox. Avoid nephrotoxins. Repeat electrolytes in the morning. Anticipate discharge soon. He will need to follow up outpatient in the next 1- 2 weeks.
--- NOTE | 2018-10-03 10:31 | P.PN ---
Subjective Progress Note Date: 10/02/18 Principal diagnosis: Congestive heart failure 82-year-old male admitted for the possibility of CHF exacerbation which is new onset. Echocardiogram is still pending. Patient is feeling much better today we'll edema significantly improved respiratory status improved patient's creatinine has gone up a little bit from 1.2-1.34 will cut down the Lasix to twice a day from 3 times a day 40 mg. 09/29/2018 Patient is found to have ejection fraction of 25-30%. Discussed the possibility of AICD, LifeVest and a cardiac catheterization with the patient. Patient was started on Entresto, but his kidney function continued to worsen we may need to hold this medication if it continues to worsen we'll also get the opinion of nephrology. Patient although was on ERENDIRA inhibitor onto less today. Patient clinically doing well is has pedal edema today, on 40 IV twice a day of Lasix 09/30/2018 Patient seen and examined today feeling much better overall. Repeat chest x- ray showed stable pleural parenchymal changes with bilateral infiltrate and small effusion. Underlying venous congestion in the differential diagnosis. Let pressure 128/60 with a heart rate in the 60s, 98% on 2 L. Sodium 137, potassium 4.3, BUN 39, creatinine 2.0. 10/01/2018 Patient is seen in follow-up for acute kidney injury on chronic kidney disease. Patient has chronic kidney disease stage III. Baseline creatinine in the range of 1.2-1.3 secondary to diabetic kidney disease. Creatinine stable at 1.99 today. He is maintained on Lasix 40 mg po once daily. Edema has improved. Admits to good urine output. No active chest pain or shortness of breath. Patient has systolic CHF ejection fraction of 25-30%. Potassium level stable at 3.7. Magnesium level low at 1.0. 10/02/2018 Patient is resting comfortably in bed and denies any complaint of chest pain or shortness of breath; lab reviews shows an improvement in creatinine to 1.78 from 1.99 yesterday; magnesium levels are normal post replacement yesterday; patient has systolic CHF with an ejection fraction of 25-30% and is maintained stable with once daily Lasix at 40 mg; patient remains on Entresto 1 tablet twice a day and continues to tolerate well; nephro is recommending to continue Lasix 40 mg daily along with oral Mag-Ox supplement; continue to avoid nephrotoxins and repeat electrolytes in the morning; possible discharge in next 24-48 hours pending continued clinical improvement with a creatinine down to Baseline of 1.3 Constitutional: Denied any fatigue denied any fever. Cardio vascular: denied any chest pain, palpitations Gastrointestinal denied any nausea vomiting Pulmonary: Denied any shortness of breath cough Neurologic denied any new focal deficits Objective - Vital Signs Vital signs: Vital Signs Temp 98.5 F 10/02/18 07:00 Pulse 57 L 10/02/18 07:00 Resp 16 10/02/18 07:00 BP 157/7 10/02/18 07:00 Pulse Ox 98 10/02/18 07:00 Intake & Output 10/01/18 10/02/18 10/02/18 18:59 06:59 18:59 Intake Total 1190 1530 240 Balance 1190 1530 240 Weight 96.5 kg Intake: Intake, IV Titration 100 200 Amount Magnesium Sulfate-D5w Pmx 100 200 1 gm In Dextrose/Water 1 100ml.bag @ 33.333 mls/ hr IVPB Q3H [facility] Rx#: [id number] Oral 1090 1330 240 Other: Voiding Method Toilet Toilet Urinal Diaper # Voids 3 2 # Bowel Movements 1 - Exam GENERAL: The patient is alert and oriented x3, not in any acute distress. Well developed, well nourished. HEENT: Pupils are round and equally reacting to light. EOMI. No scleral icterus. No conjunctival pallor. Normocephalic, atraumatic. No pharyngeal erythema. No thyromegaly. CARDIOVASCULAR: S1 and S2 present. No murmurs, rubs, or gallops. It appears to have mildly elevated JVD PULMONARY: Chest is clear to auscultation, no wheezing or crackles. ABDOMEN: Soft, nontender, nondistended, normoactive bowel sounds. No palpable organomegaly. MUSCULOSKELETAL: No joint swelling or deformity. EXTREMITIES: No cyanosis, clubbing, mild 1+ pitting pedal edema bilateral lower extremities NEUROLOGICAL: Gross neurological examination did not reveal any focal deficits. SKIN: No rashes. - Labs CBC & Chem 7: 10/03/18 07:04 10/03/18 07:04 Labs: Abnormal Lab Results - Last 24 Hours (Table) 10/01/18 10/01/18 10/01/18 Range/Units 11:09 17:26 19:41 Carbon Dioxide (22-30) mmol/L BUN (9-20) mg/dL Creatinine (0.66-1.25) mg/dL Glucose (74-99) mg/dL POC Glucose (mg/dL) 239 H 141 H 194 H (75-99) mg/dL Calcium (8.4-10.2) mg/dL 10/02/18 10/02/18 Range/Units 06:37 06:42 Carbon Dioxide 33 H (22-30) mmol/L BUN 41 H (9-20) mg/dL Creatinine 1.78 H (0.66-1.25) mg/dL Glucose 135 H (74-99) mg/dL POC Glucose (mg/dL) 137 H (75-99) mg/dL Calcium 7.9 L (8.4-10.2) mg/dL Assessment and Plan Assessment: -Shortness of breath: It appears to have new-onset congestive heart failure echo cardiogram showing ejection fraction of 25-30%, continue with the Lasix IV 40 every 12hr repeat basic metabolic profile tomorrow cardiology evaluated the patient, patient is started on Entresto. -Coronary artery disease with history of CABG in the past -Sleep apnea and uses CPAP machine at home -COPD without any acute exacerbation at this time -Type 2 diabetes mellitus -DVT Prophylaxis; sq heparin CODE STATUS; full code Time with Patient: Greater than 30
[2018-10-03 12:24] LABS: Glucose,Whole Blood 151 mg/dL (75-99)
[2018-10-03 15:04] VITALS: BP 144/66; PULSE 58; RESP 17; TEMP 98.4
--- NOTE | 2018-10-03 17:06 | P.DS ---
Providers Date of admission: 09/27/18 14:35 Expected date of discharge: 10/03/18 Attending physician: Sg Watson Consults: 09/27/18 14:35 Consult Physician Routine Consulting Provider: Mike Coburn Consult Reason/Comments: chf Do you want consulting provider notified?: Yes 09/29/18 10:22 Consult Physician Routine Consulting Provider: Savannah Victoria Consult Reason/Comments: MEL Do you want consulting provider notified?: Yes Primary care physician: [facility] Course: 82-year-old male admitted for the possibility of CHF exacerbation which is new onset. Echocardiogram is still pending. Patient is feeling much better today we'll edema significantly improved respiratory status improved patient's creatinine has gone up a little bit from 1.2-1.34 will cut down the Lasix to twice a day from 3 times a day 40 mg. 09/29/2018 Patient is found to have ejection fraction of 25-30%. Discussed the possibility of AICD, LifeVest and a cardiac catheterization with the patient. Patient was started on Entresto, but his kidney function continued to worsen we may need to hold this medication if it continues to worsen we'll also get the opinion of nephrology. Patient although was on ERENDIRA inhibitor onto less today. Patient clinically doing well is has pedal edema today, on 40 IV twice a day of Lasix 09/30/2018 Patient seen and examined today feeling much better overall. Repeat chest x- ray showed stable pleural parenchymal changes with bilateral infiltrate and small effusion. Underlying venous congestion in the differential diagnosis. Let pressure 128/60 with a heart rate in the 60s, 98% on 2 L. Sodium 137, potassium 4.3, BUN 39, creatinine 2.0. 10/01/2018 Patient is seen in follow-up for acute kidney injury on chronic kidney disease. Patient has chronic kidney disease stage III. Baseline creatinine in the range of 1.2-1.3 secondary to diabetic kidney disease. Creatinine stable at 1.99 today. He is maintained on Lasix 40 mg po once daily. Edema has improved. Admits to good urine output. No active chest pain or shortness of breath. Patient has systolic CHF ejection fraction of 25-30%. Potassium level stable at 3.7. Magnesium level low at 1.0. 10/02/2018 Patient is resting comfortably in bed and denies any complaint of chest pain or shortness of breath; lab reviews shows an improvement in creatinine to 1.78 from 1.99 yesterday; magnesium levels are normal post replacement yesterday; patient has systolic CHF with an ejection fraction of 25-30% and is maintained stable with once daily Lasix at 40 mg; patient remains on Entresto 1 tablet twice a day and continues to tolerate well; nephro is recommending to continue Lasix 40 mg daily along with oral Mag-Ox supplement; continue to avoid nephrotoxins and repeat electrolytes in the morning; possible discharge in next 24-48 hours pending continued clinical improvement with a creatinine down to Baseline of 1.3 Treatment provided to the patient while in the hospital is as below; -Shortness of breath: It appears to have new-onset congestive heart failure echo cardiogram showing ejection fraction of 25-30%, continue with the Lasix IV 40 every 12hr repeat basic metabolic profile tomorrow cardiology evaluated the patient, patient is started on Entresto. -Coronary artery disease with history of CABG in the past -Sleep apnea and uses CPAP machine at home -COPD without any acute exacerbation at this time -Type 2 diabetes mellitus -DVT Prophylaxis; sq heparin Plan - Discharge Summary Discharge Rx Participant: No New Discharge Prescriptions: New Furosemide [Lasix] 40 mg PO DAILY #30 tab Magnesium Oxide [Mag-Ox] 400 mg PO 1200 #30 tab Sacubitril/Valsartan [Entresto 24 mg-26 mg Tablet] 1 each PO BID@0800,2000 # 60 tablet Continue Aspirin EC [Ecotrin Low Dose] 81 mg PO HS glipiZIDE [Glucotrol] 5 mg PO AC-BID Tamsulosin HCl [Flomax] 0.4 mg PO HS Cyanocobalamin [Vitamin B-12] 1,000 mcg PO QAM Omeprazole [PriLOSEC] 20 mg PO QAM Cholecalciferol [Vitamin D3] 2,000 unit PO QAM Atorvastatin [Lipitor] 40 mg PO HS L.acidoph,Paracasei, B.lactis [Probiotic] 1 cap PO QAM metFORMIN HCL [Glucophage] 500 mg PO BID Discontinued Metoprolol Tartrate [Lopressor] 100 mg PO BID amLODIPine [Norvasc] 5 mg PO QAM Enalapril [Vasotec] 20 mg PO BID #1 tablet Discharge Medication List Aspirin EC [Ecotrin Low Dose] 81 mg PO HS 05/27/16 [History] Atorvastatin [Lipitor] 40 mg PO HS 05/27/16 [History] Cholecalciferol [Vitamin D3] 2,000 unit PO QAM 05/27/16 [History] Cyanocobalamin [Vitamin B-12] 1,000 mcg PO QAM 05/27/16 [History] L.acidoph,Paracasei, B.lactis [Probiotic] 1 cap PO QAM 05/27/16 [History] Omeprazole [PriLOSEC] 20 mg PO QAM 05/27/16 [History] Tamsulosin HCl [Flomax] 0.4 mg PO HS 05/27/16 [History] glipiZIDE [Glucotrol] 5 mg PO AC-BID 05/27/16 [History] metFORMIN HCL [Glucophage] 500 mg PO BID 09/27/18 [History] Furosemide [Lasix] 40 mg PO DAILY #30 tab 10/03/18 [Rx] Magnesium Oxide [Mag-Ox] 400 mg PO 1200 #30 tab 10/03/18 [Rx] Sacubitril/Valsartan [Entresto 24 mg-26 mg Tablet] 1 each PO BID@0800,2000 #60 tablet 10/03/18 [Rx] Follow up Appointment(s)/Referral(s): [facility],Clinic [Primary Care Provider] - 1-2 days Activity/Diet/Wound Care/Special Instructions: pt has free 30 days of Entresto filled in [facility], pt to follow at [facility] for further prescriptions
== END 2018-10-03 17:33 | disposition home or self-care (01) | DRG 291 ==
LOC: EC 12:03 → 3SCARD 14:35 → 4SSUR 09-30 18:53
PROVIDERS: ADMIT Internal Medicine; ATTEND Internal Medicine
DX: I13.0 Hypertensive heart and chronic kidney disease with heart failure and stage 1 through stage 4 chronic kidney disease, or unspecified chronic kidney disease (principal); I50.21 Acute systolic (congestive) heart failure; I45.2 Bifascicular block; N17.9 Acute kidney failure, unspecified; E11.22 Type 2 diabetes mellitus with diabetic chronic kidney disease; E78.5 Hyperlipidemia, unspecified; E83.42 Hypomagnesemia; R77.9 Abnormality of plasma protein, unspecified; G47.33 Obstructive sleep apnea (adult) (pediatric); I25.10 Atherosclerotic heart disease of native coronary artery without angina pectoris; I42.9 Cardiomyopathy, unspecified; J44.9 Chronic obstructive pulmonary disease, unspecified; N18.3 Chronic kidney disease, stage 3 (moderate); T50.2X5A Adverse effect of carbonic-anhydrase inhibitors, benzothiadiazides and other diuretics, initial encounter; H26.9 Unspecified cataract; R07.89 Other chest pain; D63.1 Anemia in chronic kidney disease; Z79.899 Other long term (current) drug therapy; Z79.82 Long term (current) use of aspirin; Z79.84 Long term (current) use of oral hypoglycemic drugs; Z95.1 Presence of aortocoronary bypass graft; Z87.891 Personal history of nicotine dependence; Z85.46 Personal history of malignant neoplasm of prostate; Z98.42 Cataract extraction status, left eye; Z96.1 Presence of intraocular lens; Z80.0 Family history of malignant neoplasm of digestive organs; Z82.49 Family history of ischemic heart disease and other diseases of the circulatory system
CPT/HCPCS: 36415; 71046; 76770; 80048; 80053; 81001; 82550; 82553; 83036; 83735; 83880; 84484; 85025; 85610; 85730; 93005; 93306; 96374; 99285

== ENCOUNTER 2018-12-31 10:57 | Emergency (ER) | payer OTHER, MEDICARE ==
--- NOTE | 2018-12-31 11:44 | ED ---
General Adult HPI - General Chief complaint: Fall Stated complaint: fall, back/head injury Time Seen by Provider: 12/31/18 11:30 Source: patient, RN notes reviewed Mode of arrival: wheelchair Limitations: no limitations - History of Present Illness Initial comments: Patient is a pleasant 83-year-old male presenting to the emergency Department with complaints of fall. Incident occurred prior to arrival, this morning. Patient slipped on ice and fell back and did strike his head. Patient believes he did lose consciousness for a couple of seconds. Patient was confused for several minutes following the event however that has resolved. Patient states no significant headache at this time. Patient does not feel confused. No weakness. No speech problems. No visual changes. No difficulty with walking. Patient also complains of discomfort on the right side of his back. Patient points to the right mid/lateral ribs. - Related Data Home Medications Medication Instructions Recorded Confirmed Aspirin EC [Ecotrin Low Dose] 81 mg PO HS 05/27/16 12/31/18 Atorvastatin [Lipitor] 40 mg PO HS 05/27/16 12/31/18 Cholecalciferol [Vitamin D3] 2,000 unit PO QAM 05/27/16 12/31/18 Cyanocobalamin [Vitamin B-12] 1,000 mcg PO QAM 05/27/16 12/31/18 L.acidoph,Paracasei, B.lactis 1 cap PO QAM 05/27/16 12/31/18 [Probiotic] Omeprazole [PriLOSEC] 20 mg PO QAM 05/27/16 12/31/18 Tamsulosin HCl [Flomax] 0.4 mg PO HS 05/27/16 12/31/18 glipiZIDE [Glucotrol] 5 mg PO AC-BID 05/27/16 12/31/18 metFORMIN HCL [Glucophage] 500 mg PO BID 09/27/18 12/31/18 Carvedilol [Coreg] 3.125 mg PO BID 12/31/18 12/31/18 Magnesium Oxide [Mag-Ox] 400 mg PO DAILY@1200 12/31/18 12/31/18 Sacubitril/Valsartan [Entresto 24 1 tab PO BID@0800,2000 12/31/18 12/31/18 mg-26 mg Tablet] Previous Rx's Medication Instructions Recorded Furosemide [Lasix] 40 mg PO DAILY #30 tab 10/03/18 Allergies Allergy/AdvReac Type Severity Reaction Status Date / Time No Known Allergies Allergy Verified 12/31/18 11:33 Review of Systems ROS Statement: Those systems with pertinent positive or pertinent negative responses have been documented in the HPI. ROS Other: All systems not noted in ROS Statement are negative. Constitutional: Denies: fever Eyes: Denies: eye pain ENT: Denies: ear pain Respiratory: Denies: cough, dyspnea Cardiovascular: Denies: chest pain Endocrine: Denies: fatigue Gastrointestinal: Denies: abdominal pain Genitourinary: Denies: dysuria Musculoskeletal: Reports: as per HPI Skin: Denies: rash Neurological: Reports: as per HPI. 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 History of Any Multi-Drug Resistant Organisms: None Reported Past Surgical History: Coronary Bypass/CABG, Heart Catheterization Additional Past Surgical History / Comment(s): triple bypass 2004 lt cataract removed, radiative seeds implanted d/t prostate cancer Past Anesthesia/Blood Transfusion Reactions: No Reported Reaction Additional Past Anesthesia/Blood Transfusion Reaction / Comment(s): clausterphobia Past Psychological History: No Psychological Hx Reported Smoking Status: Former smoker Past Alcohol Use History: None Reported Past Drug Use History: None Reported - Past Family History Father Family Medical History: Cancer Additional Family Medical History / Comment(s): Esophageal CA Mother Family Medical History: Congestive Heart Failure (CHF) Sister(s) Family Medical History: Neurologic Disorder Additional Family Medical History / Comment(s): MS General Exam Limitations: no limitations General appearance: alert, in no apparent distress Head exam: Present: atraumatic Eye exam: Present: normal appearance, PERRL ENT exam: Present: normal oropharynx Neck exam: Present: normal inspection. Absent: tenderness Respiratory exam: Present: normal lung sounds bilaterally. Absent: chest wall tenderness Cardiovascular Exam: Present: regular rate, normal rhythm GI/Abdominal exam: Present: soft. Absent: tenderness Extremities exam: Present: normal inspection, full ROM. Absent: tenderness Back exam: Present: tenderness (Right posterior lateral ribs, approximately T8- T9.). Absent: paraspinal tenderness, vertebral tenderness Neurological exam: Present: alert, oriented X3, CN II-XII intact. Absent: motor sensory deficit Expanded Neurological exam: Present: protecting the airway Patient oriented to: Present: person, place, time Speech: Present: fluid speech Cranial nerves: EOM's Intact: Normal Motor strength exam: RUE: 5, LUE: 5, RLE: 5, LLE: 5 Eye Response: (4) open spontaneously Motor Response: (6) obeys commands Verbal Response: (5) oriented Psychiatric exam: Present: normal affect, normal mood Skin exam: Present: normal color Course Vital Signs 12/31/18 11:11 Temperature 98.3 F Pulse Rate 85 Respiratory 17 Rate Blood Pressure 160/79 O2 Sat by Pulse 97 Oximetry Medical Decision Making - Medical Decision Making Patient reevaluated and resting comfortably in bed. Patient and family updated on results and need for follow-up as well as warning signs to look for. - Radiology Data Radiology results: report reviewed (Computed tomography scan of the brain reveals no acute intercranial hemorrhage), image reviewed (Chest x-ray with rib x-ray shows old rib fractures, no acute fracture, no pneumothorax.) Disposition Clinical Impression: Fall, Head injury Disposition: HOME SELF-CARE Condition: Stable Instructions (If sedation given, give patient instructions): Fall Prevention for Older Adults (ED), Head Injury (ED), Concussion (ED) Additional Instructions: Please follow-up with primary care physician in the next couple days for recheck. Hold aspirin for 2 days. [id number] Tylenol if needed for discomfort. Return for difficulty in breathing, confusion, weakness, memory problems, persistent vomiting, visual changes, worsening symptoms or other concerns. Is patient prescribed a controlled substance at d/c from ED?: No Referrals: [facility],Clinic [Primary Care Provider] - 1-2 days Time of Disposition: 12:57
--- NOTE | 2018-12-31 12:02 | XR ---
EXAMINATION TYPE: XR ribs RT w pa chest xray DATE OF EXAM: 12/31/2018 COMPARISON: 09/30/2018 HISTORY: Pain TECHNIQUE: Single view of the chest for views of the ribs are submitted. FINDINGS: The lungs are clear. No Evidence for pneumothorax. No evidence for focal contusion. Medi astinal structures are midline. Evaluation of the ribs fails to demonstrate evidence for displaced r ib fracture or secondary sign of rib fracture. Chronic rib deformities of right ribs 5 and 6. IMPRESSION: 1. Chronic senescent change. 2. No evidence for acute right-sided rib fracture. Healed the remote right-sided rib fractures noted.
--- NOTE | 2018-12-31 12:33 | CT ---
EXAMINATION TYPE: CT brain wo con DATE OF EXAM: 12/31/2018 COMPARISON: 05/27/1960 HISTORY: Fall with posterior head injury CT DLP: 2340.[address] of the brain was performed. The ventricles, basal cisterns and sulci overlying the cerebral convexities demonstrate mild enlargem ent. There is no evidence for intracranial hemorrhage or sulcal effacement. There is decreased attenuation about the periventricular white matter and deep white matter of both c erebral hemispheres, compatible with chronic small vessel ischemia. Differential diagnosis does inclu de demyelination. No mass effects are seen.No midline shift. Osseous calvarium is intact. If symptoms persist consider MRI. IMPRESSION: 1. Age related atrophic and chronic small vessel ischemic change without acute intracranial process s een at this time.
[2018-12-31] MEDS ORDERED: ACETAMINOPHEN TAB 500 MG TAB PO STA (12:56)
[2018-12-31 13:39] VITALS: BP 144/78; PULSE 73; RESP 19; TEMP 98.6
== END 2018-12-31 13:39 | disposition home or self-care (01) ==
LOC: EC 10:57
DX: S09.90XA Unspecified injury of head, initial encounter (principal); S39.92XA Unspecified injury of lower back, initial encounter; R40.2142 Coma scale, eyes open, spontaneous, at arrival to emergency department; R40.2252 Coma scale, best verbal response, oriented, at arrival to emergency department; R40.2362 Coma scale, best motor response, obeys commands, at arrival to emergency department; I25.10 Atherosclerotic heart disease of native coronary artery without angina pectoris; E78.5 Hyperlipidemia, unspecified; I10 Essential (primary) hypertension; G47.30 Sleep apnea, unspecified; Z99.89 Dependence on other enabling machines and devices; Z85.46 Personal history of malignant neoplasm of prostate; Z95.1 Presence of aortocoronary bypass graft; Z95.818 Presence of other cardiac implants and grafts; Z87.891 Personal history of nicotine dependence; Z79.82 Long term (current) use of aspirin; Z79.84 Long term (current) use of oral hypoglycemic drugs; Z79.899 Other long term (current) drug therapy; W00.0XXA Fall on same level due to ice and snow, initial encounter
CPT/HCPCS: 70450; 99284

== ENCOUNTER → 2021-05-30 | Outpatient (CLI) | payer OTHER ==
--- NOTE | 2021-05-31 14:17 | US ---
EXAMINATION TYPE: US kidneys/renal and bladder DATE OF EXAM: 05/30/2021 COMPARISON: US 2018 CLINICAL HISTORY: N18.3 Chronic kidney disease stage 3. CKD EXAM MEASUREMENTS: Right Kidney: 10.5 x 5.9 x 5.2 cm Left Kidney: 11.7 x 6.1 x 4.8 cm Right Kidney: Cortical thinning, No evidence of hydro, two cysts upper pole 1)= 2.4 cm 2)= 3.2 x 2. 8 cm Left Kidney: Cortical thinning/ No evidence of hydro, Hypoechoic lesion upper pole= 2.5 x 2.0 cm Bladder: wnl Bilateral Jets seen: No IMPRESSION: 1. No acute renal changes. Some cortical thinning may be present to suggest chronic renal failure. 2. Bilateral renal cysts
== END | disposition home or self-care (01) ==
LOC: RADUSWWP 15:53
PROVIDERS: ATTEND Internal Medicine Nephrology
DX: N18.30 Chronic kidney disease, stage 3 unspecified (principal); N28.1 Cyst of kidney, acquired
CPT/HCPCS: 76770

== ENCOUNTER 2022-04-09 00:49 | Inpatient (IN) | payer MEDICARE, OTHER ==
[2022-04-09] MEDS ORDERED: NITROGLYCERIN OINT 1 INCH/GM PACKET TOPICAL STA (01:09)
--- NOTE | 2022-04-09 01:23 | ED ---
Chest Pain HPI - General Chief Complaint: Chest Pain Stated Complaint: Chest Pain Time Seen by Provider: 04/09/22 00:58 Source: patient, EMS, RN notes reviewed Mode of arrival: EMS Limitations: no limitations - History of Present Illness Initial Comments: This is a pleasant 86-year-old male who presents to the emergency department via EMS. Patient states he has chest discomfort which started at about 10 PM. He states it seemed to start with discomfort in the upper abdomen which he thought was gas. Patient then had a few episodes of dry heaves, nausea, and diaphoresis. He didn't describe it pressure in his left chest which radiated to his left arm. Patient states that this is actually resolved since she was given nitroglycerin in the ambulance. EMS also gave him 324 mg of aspirin. Patient does have a history of cardiac disease, mainly congestive heart failure. He sees Dr. Redd. Note that there was no exacerbating or alleviating factor. Pain started at rest. Patient currently asymptomatic at the time I'm seeing him. No headache, no fever or chills, no changes in vision or hearing, no sore throat or difficulty with speech, no neck pain, PATIENT did have a sensation of shortness of breath when the chest pain was present. No abdominal pain, no nausea or vomiting, no changes in urination or bowel movements, no numbness or tingling, no extremity pain, no skin rashes or lesions. Past medical history is reviewed. Patient unsure whether he has had any recent cardiac testing. Although it sounds as if he's had no significant testing this year. MD Complaint: chest pain - Related Data Home Medications Medication Instructions Recorded Confirmed Aspirin EC [Ecotrin Low Dose] 81 mg PO 05/27/16 01/27/19 Atorvastatin [Lipitor] 40 mg PO 05/27/16 01/27/19 Cholecalciferol [Vitamin D3 (25 2,000 unit PO [facility] 05/27/16 01/27/19 Mcg = 1000 Iu)] Cyanocobalamin [Vitamin B-12] 1,000 mcg PO [facility] 05/27/16 01/27/19 L.acidoph,Paracasei, B.lactis 1 cap PO [facility] 05/27/16 01/27/19 [Probiotic] Omeprazole [PriLOSEC] 20 mg PO [facility] 05/27/16 01/27/19 Tamsulosin HCl [Flomax] 0.4 mg PO HS 05/27/16 01/27/19 glipiZIDE [Glucotrol] 5 mg PO AC-BID 05/27/16 01/27/19 metFORMIN HCL [Glucophage] 500 mg PO BID 09/27/18 01/27/19 Magnesium Oxide [Mag-Ox] 400 mg PO DAILY@1200 12/31/18 01/27/19 Sacubitril/Valsartan [Entresto 24 1 tab PO BID@0800,199912/31/18 01/27/19 mg-26 mg Tablet] carvediloL [Coreg] 3.125 mg PO BID 12/31/18 01/27/19 Ferrous Gluconate 324 mg PO DAILY 01/20/19 01/27/19 Previous Rx's Medication Instructions Recorded Furosemide [Lasix] 40 mg PO DAILY #30 tab 10/03/18 Allergies Allergy/AdvReac Type Severity Reaction Status Date / Time No Known Allergies Allergy Verified 01/27/19 10:15 Review of Systems ROS Statement: Those systems with pertinent positive or pertinent negative responses have been documented in the HPI. ROS Other: All systems not noted in ROS Statement are negative. 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 ANEMIA-IRON DEFICIENCY. History of Any Multi-Drug Resistant Organisms: None Reported Past Surgical History: Coronary Bypass/CABG, Heart Catheterization Additional Past Surgical History / Comment(s): triple bypass 2004 lt cataract removed, radiative seeds implanted d/t prostate cancer Past Anesthesia/Blood Transfusion Reactions: No Reported Reaction Additional Past Anesthesia/Blood Transfusion Reaction / Comment(s): clausterphobia Past Psychological History: No Psychological Hx Reported Past Alcohol Use History: None Reported Past Drug Use History: None Reported - Past Family History Father Family Medical History: Cancer Additional Family Medical History / Comment(s): Esophageal CA Mother Family Medical History: Congestive Heart Failure (CHF) Sister(s) Family Medical History: Neurologic Disorder Additional Family Medical History / Comment(s): MS General Exam - General Exam Comments Initial Comments: Elderly gentleman in no significant distress at the time of seeing him. Cranial nerves II through XII grossly intact. Limitations: no limitations General appearance: alert, in no apparent distress, obese Head exam: Present: atraumatic, normocephalic, normal inspection Eye exam: Present: normal appearance, PERRL, EOMI. Absent: scleral icterus, conjunctival injection, periorbital swelling ENT exam: Present: normal exam, mucous membranes moist, TM's normal bilaterally. Absent: normal oropharynx, mucous membranes dry, normal external ear exam Neck exam: Present: normal inspection, full ROM. Absent: tenderness, meningismus, lymphadenopathy Respiratory exam: Present: normal lung sounds bilaterally, chest wall tenderness. Absent: respiratory distress, wheezes, rales, rhonchi, stridor, accessory muscle use Cardiovascular Exam: Present: regular rate, normal rhythm, normal heart sounds. Absent: systolic murmur, diastolic murmur, rubs, gallop, clicks GI/Abdominal exam: Present: distended (Abdomen distended but not tender), normal bowel sounds. Absent: tenderness, guarding, rebound, rigid Extremities exam: Present: normal inspection, full ROM, normal capillary refill. Absent: tenderness, pedal edema, joint swelling, calf tenderness Back exam: Present: normal inspection Neurological exam: Present: alert, oriented X3, CN II-XII intact Psychiatric exam: Present: normal affect, normal mood Skin exam: Present: warm, dry, intact, normal color. Absent: rash Course Vital Signs 04/09/22 00:54 Temperature 98.2 F Pulse Rate 70 Respiratory 18 Rate Blood Pressure 126/58 O2 Sat by Pulse 93 L Oximetry - Reevaluation(s) Reevaluation #1: 04/09/22 02:50 Medical record is reviewed Symptoms are improved here in the emergency department Patient is informed of results and questions answered Patient in no distress Reevaluation #2: 04/09/22 03:16 No headache, no fever or chills, no changes in vision or hearing, no sore throat or difficulty with speech, no neck pain, no chest pain or shortness of breath, no abdominal pain, no nausea or vomiting, no changes in urination or bowel movements, no numbness or tingling, no extremity pain, no skin rashes or lesions. Chest Pain MDM - Differential Diagnosis AMI, ACS, Pericarditis, Pleurisy-Other, Chest Wall Syndrome - MDM Patient presentation consistent with cardiovascular disease. Gastroenterology etiology is possible but less likely. Does not appear to be infectious in nature. Patient has no adventitious lung sounds. No peripheral edema. No bibasilar rales. Doesn't seem to be consistent with congestive heart failure. Patient wears 2 L of oxygen via nasal cannula at night only. Patient pain free at admission. Patient will be admitted to [facility]. Discussed with the hospitalist. Consult to cardiology, Dr. Redd. Patient treated as acute coronary syndrome. Heparinized. Beta armani and statin ordered. He received aspirin in the ambulance. The case was discussed in detail with ED attending physician. Presentation, findings, treatment plan discussed in detail. Primer Charger Dr. Coronado Disposition Clinical Impression: Acute coronary syndrome without high troponin Disposition: ADMITTED IP TO THIS HOSP Condition: Stable Referrals: [facility],Clinic [Primary Care Provider] - 1-2 days Time of Disposition: 03:15 Decision to Admit Reason: Admit from EC Decision Time: 03:16
[2022-04-09 01:49] LABS: Basophils % (A) 0 %; Eosinophils # (A) 0.2 k/uL (0-0.7); Eosinophils % (A) 3 %; HCT 31.8 % (39.0-53.0); HGB 10.2 gm/dL (13.0-17.5); Lymphocytes # (A) 0.7 k/uL (1.0-4.8); Lymphocytes % (A) 9 %; MCH 32.9 pg (25.0-35.0); MCHC 32.1 g/dL (31.0-37.0); MCV 102.4 fL (80.0-100.0); Macrocytosis Slight; Mean Platelet Volume 8.2; Monocytes # (A) 0.6 k/uL (0-1.0); Monocytes % (A) 7 %; Neutrophils # (A) 6.3 k/uL (1.3-7.7); Neutrophils % (A) 79 %; Platelet Count 198 k/uL (150-450); RDW 13.3 % (11.5-15.5); WBC 7.9 k/uL (3.8-10.6)
--- NOTE | 2022-04-09 01:59 | XR ---
EXAMINATION TYPE: XR chest 1V portable DATE OF EXAM: 04/09/2022 COMPARISON: 11/06/2020 HISTORY: Wheezing and cough. Chest pain TECHNIQUE: Single view FINDINGS: Heart is enlarged. There is no gross heart failure. There is some coarsening of interstitia l markings. There are old right-sided healed rib fractures. No pleural effusion. There are sternal wi res. IMPRESSION: No active cardiopulmonary disease. Heart appears increased compared to the old exam.
[2022-04-09 02:13] LABS: INR 0.9 (<1.2); Prothrombin Time 10.1 sec (9.0-12.0)
[2022-04-09 02:18] LABS: Partial Thromboplastin Time 19.7 sec (22.0-30.0)
[2022-04-09 02:25] LABS: Albumin 3.5 g/dL (3.5-5.0); Calcium 8.4 mg/dL (8.4-10.2); Magnesium 1.8 mg/dL (1.6-2.3); Phosphorus 3.7 mg/dL (2.5-4.5); Potassium 5.4 mmol/L (3.5-5.1); Total Bilirubin 0.6 mg/dL (0.2-1.3); Total Protein 6.1 g/dL (6.3-8.2)
[2022-04-09] MEDS ORDERED: MORPHINE SULFATE 2 MG/ML SYRINGE IVP PRN (03:18)
[2022-04-09] MEDS ORDERED: ACETAMINOPHEN TAB 325 MG TAB PO PRN (03:18)
[2022-04-09] MEDS ORDERED: NITROGLYCERIN SL TABS 0.4 MG TAB SUBLINGUAL PRN (03:18)
[2022-04-09] MEDS ORDERED: HEPARIN SODIUM 1,000 UN/ML (10ML VL) IV ONE (03:18)
[2022-04-09] MEDS ORDERED: FAMOTIDINE 20 MG/2 ML VIAL IV STA (03:23)
[2022-04-09] MEDS ORDERED: carvediloL 3.125 MG TAB PO STA (03:24)
[2022-04-09] MEDS ORDERED: MAG HYDROX/AL HYDROX/SIMETH 30 ML, HYOSCYAMINE ELIXIR 10 ML PO STA ×2 (03:24)
[2022-04-09] MEDS ORDERED: HEPARIN SOD,PORK IN 0.45% NACL 25,000 UNIT in 0.45% NACL 1 250ML.BAG IV SCH (03:30)
[2022-04-09] MEDS ORDERED: SODIUM CHLORIDE 0.9% 1,000 ML IV SCH (03:30)
[2022-04-09] MEDS ORDERED: ONDANSETRON 4 MG/2 ML VIAL IVP STA (03:36)
[2022-04-09] MEDS ORDERED: MORPHINE SULFATE 4 MG/ML SYRINGE IV STA (03:36)
--- NOTE | 2022-04-09 04:40 | XR ---
EXAMINATION TYPE: XR abdomen 2V DATE OF EXAM: 04/09/2022 COMPARISON: NONE HISTORY: Abdominal pain TECHNIQUE: 4 views FINDINGS: Supine and upright views were obtained. There are multiple gas-filled mildly dilated loops of bowel. There is large gas-filled stomach. No sign of free air. Lung bases appear clear of consolid ation. No definite calcifications over the kidneys. IMPRESSION: Multiple loops of bowel dilated and more likely related to ileus. Mechanical obstruction not entirely excluded.
--- NOTE | 2022-04-09 05:22 | P.HPIM ---
History of Present Illness H&P Date: 04/09/22 Patient is an 86-year-old male with a PMH of coronary artery disease, chronic CHF, hypertension, hyperlipidemia, chronic kidney disease, type II DM who presents to the emergency room with complaints of chest discomfort. The patient reports that he developed the sudden onset pressure-like substernal discomfort at around 6 PM tonight. Pain was 8 on a maximum intensity, with radiation to the left arm. Reports some associated shortness of breath without nausea, palpitations, or diaphoresis. Notes that the pain had gradually resolved. Reports feeling at his baseline at the time of interview. Denies fever, chills, abdominal pain, diarrhea, weakness, numbness, tingling. EKG emergency room no sinus rhythm with first-degree AV block with PVCs at 64 bpm with poor R-wave progression, intraventricular conduction delay, and diffuse T-wave flattening. Chest x-ray reveals enlargement of cardiac silhouette. Laboratory evaluation was remarkable for troponin less than 0.012, proBNP 1360, sodium 135, potassium 5.4, BUN 22, creatinine 1.85, glucose 183. Review of systems: Pertinent positives and negatives as discussed in HPI, a complete review of systems was performed and all other systems are negative. Physical examination: General: non toxic, no distress, appears at stated age, normal weight Derm: no unusual rashes/lesions no unusual ecchymoses, warm, dry Head: atraumatic, normocephalic, symmetric Eyes: EOMI, no lid lag, anicteric sclera, pupils equal round reactive to light ENT: Nose and ears atraumatic, no thrush, no pharyngeal erythema Neck: No thyromegaly, no cervical lymphadenopathy, trachea midline, supple Mouth: no lip lesion, mucus membranes moist Cardiovascular: S1S2 reg, no murmur, positive posterior tibial pulse bilateral, no edema, capillary refill less than 2 seconds Lungs: CTA bilateral, no rhonchi, no rales , no accessory muscle use Abdominal: soft, nontender to palpation, no guarding, no appreciable organomegaly, normal bowel sounds Ext: no gross muscle atrophy, muscle strength 5 out of 5 in all 4 extremities grossly, no contractures, Neuro: CN II-XI grossly intact, light touch intact all 4 extremities, finger to nose within normal limits, Psych: Alert, oriented, appropriate affect Assessment/plan Unstable angina -Continue with heparin infusion, aspirin, statin -Trend troponin -Cardiology consult -Cardiac monitoring Chronic conditions: Hypertension, hyperlipidemia, type II DM -Continue with home meds -Insulin sliding scale DVT prophylaxis -Heparin The patient is admitted with an anticipated less than 2 midnight stay for evaluation of chest pain CODE STATUS: Full Code Discussed with: Patient Anticipated discharge date: in am Anticipated discharge place: Home Past Medical History Past Medical History: Blood Disorder, Coronary Artery Disease (CAD), Cancer, COPD, Diabetes Mellitus, Eye Disorder, Hyperlipidemia, Hypertension, Renal Disease, Sleep Apnea/CPAP/BIPAP Additional Past Medical History / Comment(s): prostate ca, bowel obstruction-no sx, past cataracts -has lens implants,had a pne vaccine but not sure of date- 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 ANEMIA-IRON DEFICIENCY. History of Any Multi-Drug Resistant Organisms: None Reported Past Surgical History: Coronary Bypass/CABG, Heart Catheterization Additional Past Surgical History / Comment(s): triple bypass 2004 lt cataract removed, radiative seeds implanted d/t prostate cancer Past Anesthesia/Blood Transfusion Reactions: No Reported Reaction Additional Past Anesthesia/Blood Transfusion Reaction / Comment(s): clausterphobia Past Psychological History: No Psychological Hx Reported Past Alcohol Use History: None Reported Past Drug Use History: None Reported - Past Family History Father Family Medical History: Cancer Additional Family Medical History / Comment(s): Esophageal CA Mother Family Medical History: Congestive Heart Failure (CHF) Sister(s) Family Medical History: Neurologic Disorder Additional Family Medical History / Comment(s): MS Medications and Allergies Home Medications Medication Instructions Recorded Confirmed Type Aspirin EC [Ecotrin Low Dose] 81 mg PO HS 05/27/16 01/27/19 History Atorvastatin [Lipitor] 40 mg PO 05/27/16 01/27/19 History Cholecalciferol [Vitamin D3 (25 2,000 unit PO QAM 05/27/16 01/27/19 History Mcg = 1000 Iu)] Cyanocobalamin [Vitamin B-12] 1,000 mcg PO QAM 05/27/16 01/27/19 History L.acidoph,Paracasei, B.lactis 1 cap PO QAM 05/27/16 01/27/19 History [Probiotic] Omeprazole [PriLOSEC] 20 mg PO QAM 05/27/16 01/27/19 History Tamsulosin HCl [Flomax] 0.4 mg PO HS 05/27/16 01/27/19 History glipiZIDE [Glucotrol] 5 mg PO AC-BID 05/27/16 01/27/19 History metFORMIN HCL [Glucophage] 500 mg PO BID 09/27/18 01/27/19 History Furosemide [Lasix] 40 mg PO DAILY #30 tab 10/03/18 01/27/19 Rx Magnesium Oxide [Mag-Ox] 400 mg PO DAILY@1200 12/31/18 01/27/19 History Sacubitril/Valsartan [Entresto 24 1 tab PO BID@0800,2000 12/31/18 01/27/19 History mg-26 mg Tablet] carvediloL [Coreg] 3.125 mg PO BID 12/31/18 01/27/19 History Ferrous Gluconate 324 mg PO DAILY 01/20/19 01/27/19 History Allergies Allergy/AdvReac Type Severity Reaction Status Date / Time No Known Allergies Allergy Verified 01/27/19 10:15 Physical Exam Vitals: Vital Signs Temp Pulse Resp BP Pulse Ox 04/09/22 03:42 63 18 130/81 94 L 04/09/22 00:54 98.2 F 70 18 126/58 93 L Intake and Output 04/08/22 04/08/22 04/09/22 14:59 22:59 06:59 Other: Weight 96.615 kg Results CBC & Chem 7: 04/09/22 01:18 04/09/22 01:18 Labs: Abnormal Lab Results - Last 24 Hours (Table) 04/09/22 04/09/22 04/09/22 Range/Units 01:18 01:18 01:18 RBC 3.10 L (4.30-5.90) m/uL Hgb 10.2 L (13.0-17.5) gm/dL Hct 31.8 L (39.0-53.0) % MCV 102.4 H (80.0-100.0) fL Lymphocytes # 0.7 L (1.0-4.8) k/uL APTT 19.7 L (22.0-30.0) sec Sodium 135 L (137-145) mmol/L Potassium 5.4 H (3.5-5.1) mmol/L BUN 42 H (9-20) mg/dL Creatinine 1.85 H (0.66-1.25) mg/dL Glucose 183 H (74-99) mg/dL Total Protein 6.1 L (6.3-8.2) g/dL
[2022-04-09] MEDS ORDERED: NITROGLYCERIN OINT 1 INCH/GM PACKET TOPICAL SCH (06:00)
[2022-04-09 06:39] LABS: Mean Platelet Volume 7.8; Platelet Count 187 k/uL (150-450)
[2022-04-09 06:55] LABS: Glucose,Whole Blood 221 mg/dL (75-99)
[2022-04-09] MEDS ORDERED: REGADENOSON 0.4 MG/5 ML SYRINGE IV PRN (07:29)
[2022-04-09] MEDS ORDERED: CAFFEINE CITRATE 60 MG/3 ML VIAL IV PRN (07:29)
[2022-04-09] MEDS ORDERED: AMINOPHYLLINE 500 MG/20 ML VIAL IV PRN (07:29)
[2022-04-09] MEDS ORDERED: MAG HYDROX/AL HYDROX/SIMETH 30 ML, HYOSCYAMINE ELIXIR 10 ML, LIDOCAINE VISCOUS 2% 10 ML PO ONE ×3 (08:15)
[2022-04-09] MEDS: INSULIN ASPART (NovoLOG) 100 UNIT/ML VIAL SQ SCH ×4 (08:24→22:07)
--- NOTE | 2022-04-09 09:01 | P.CRDCN ---
History of Present Illness History of present illness: HISTORY OF PRESENTING ILLNESS This is a pleasant 86-year-old male past medical history significant for coronary artery disease status post CABG in 2004, ischemic cardiomyopathy, type 2 diabetes, hypertension, dyslipidemia, chronic kidney disease. He follows in the office with Dr. Redd. We have been asked to see in consultation for chest pain. Patient presents to the emergency department with complaints of chest pressure, located midsternal. Associated left arm tingling/numbness. It lasted about 1015 minutes. He denies any associated shortness of breath, palpitations lightheadedness, dizziness, diaphoresis, syncope or near syncope. He believes it felt as if he may have indigestion, however it returned again. No specific aggravating factors. Non-exertional. EMS was called. Patient was given Nitro and 325mg Aspirin with improvement. Patient is a non-smoker. DIAGNOSTICS EKG reveals sinus rhythm, first degree AV block, heart rate 64, PVC, nonspecific ST-T-wave abnormalities Telemetry tracings indicate sinus mechanism Chest xray no acute cardiopulmonary process Most recent echocardiogram in the office 07/28/2021 EF 47%, mild mitral regurgitation, mild tricuspid regurgitation Laboratory reviewed, troponin negative 2, proBNP 1360, sodium 135, potassium 5.4, BUN 42, serum creatinine 1.8, magnesium 1.8, WBC 7.9, hemoglobin 10.2, platelets 198 Current home medications include aspirin 81 mg daily, atorvastatin 40 mg nightly, carvedilol 12.5 mg twice a day, Lasix 20 mg Wednesday, Entresto 49 mg/51 mg daily, Jardiance 5 mg daily REVIEW OF SYSTEMS At the time of my exam: CONSTITUTIONAL: Denies fever or chills. CARDIOVASCULAR: Denies chest pain, shortness of breath, orthopnea, PND or palpitations. RESPIRATORY: Denies cough. GASTROINTESTINAL: Denies abdominal pain, diarrhea, constipation, nausea or vomiting. MUSCULOSKELETAL: Denies myalgias. NEUROLOGIC: Denies numbness, tingling, headache or weakness. ENDOCRINE: Denies fatigue, weight change, polydipsia or polyurina. GENITOURINARY: Denies burning, hematuria or urgency with micturation. HEMATOLOGIC: Denies history of anemia or bleeding. PHYSICAL EXAMINATION Blood pressure 168/72, heart rate 81, afebrile, saturations 93% on room air CONSTITUTIONAL: No apparent distress. HEENT: Head is normocephalic. Pupils are equal, round. Sclerae anicteric. Mucous membranes of the mouth are moist. No JVD. No carotid bruit. CHEST EXAMINATION: Lungs are clear to auscultation. No chest wall tenderness is noted on palpation or with deep breathing. HEART EXAMINATION: Regular rate and rhythm. S1, S2 heard. Systolic murmur at apex. No gallops or rub. ABDOMEN: Soft, nontender. Positive bowel sounds. EXTREMITIES: 2+ peripheral pulses, no lower extremity edema and no calf tenderness. SKIN: warm, dry NEUROLOGIC EXAMINATION: Patient is awake, alert and oriented x3. ASSESSMENT Chest pain, atypical, acute coronary syndrome has been ruled out Coronary artery disease status post CABG in 2004 Ischemic cardiomyopathy Type 2 diabetes Hypertension Dyslipidemia Chronic kidney disease PLAN An acute coronary event has been ruled out with no EKG evidence of ischemia and negative cardiac enzymes. Obtain 2D echocardiogram and doppler study to assess cardiac structure and function. Perform Lexiscan stress test to assess for stress induced cardiac ischemia. If abnormal will consider coronary angiography. Continue home cardiac medications If stress test is negative, ok to discharge from a cardiology perspective, follow up out patient with Dr. Redd. Thank you kindly for this consultation. Nurse practitioner note has been reviewed by physician. Signing provider agrees with the documented findings, assessment, and plan of care. 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 ANEMIA-IRON DEFICIENCY. History of Any Multi-Drug Resistant Organisms: None Reported Past Surgical History: Coronary Bypass/CABG, Heart Catheterization Additional Past Surgical History / Comment(s): triple bypass 2004 lt cataract removed, radiative seeds implanted d/t prostate cancer Past Anesthesia/Blood Transfusion Reactions: No Reported Reaction Additional Past Anesthesia/Blood Transfusion Reaction / Comment(s): clausterpho janine Past Psychological History: No Psychological Hx Reported Additional Psychological History / Comment(s): pt lives with sister and brother in [facility], no medical equipment Smoking Status: Former smoker Past Alcohol Use History: None Reported Additional Past Alcohol Use History / Comment(s): started smoking at age 19 ,smoked off and on until he quit 1999, smoked 1 ppd Past Drug Use History: None Reported - Past Family History Father Family Medical History: Cancer Additional Family Medical History / Comment(s): Esophageal CA Mother Family Medical History: Congestive Heart Failure (CHF) Sister(s) Family Medical History: Neurologic Disorder Additional Family Medical History / Comment(s): MS Medications and Allergies Home Medications Medication Instructions Recorded Confirmed Type Aspirin EC [Ecotrin Low Dose] 81 mg PO DAILY 05/27/16 04/09/22 History Cholecalciferol [Vitamin D3 (25 1,000 unit PO DAILY 05/27/16 04/09/22 History Mcg = 1000 Iu)] Albuterol Inhaler [Ventolin Hfa 2 puff INHALATION RT-Q4H PRN 04/09/22 04/09/22 History Inhaler] Atorvastatin [Lipitor] 40 mg PO HS 04/09/22 04/09/22 History Calcium Polycarbophil [Fibercon] 625 mg PO DAILY 04/09/22 04/09/22 History Carvedilol [Coreg] 12.5 mg PO BID 04/09/22 04/09/22 History Cyanocobalamin (Vitamin B-12) 1,000 mcg PO DAILY 04/09/22 04/09/22 History [Vitamin B-12] Empagliflozin [Jardiance] 5 mg PO DAILY 04/09/22 04/09/22 History Ergocalciferol [Vitamin D2 (1250 1,250 mcg PO TH 04/09/22 04/09/22 History Mcg = 40762 Iu)] Fluticasone Propion/Salmeterol 1 puff INHALATION RT-BID 04/09/22 04/09/22 Histor y [Fluticasone-Salmeterol 250-50] Furosemide [Lasix] 20 mg PO MOWEFR 04/09/22 04/09/22 History Magnesium Ox 420mg 420 mg PO BID 04/09/22 04/09/22 History Sacubitril/Valsartan [Entresto 49 1 tab PO BID 04/09/22 04/09/22 History mg-51 mg Tablet] Trospium Chloride [Sanctura XR] 60 mg PO HS 04/09/22 04/09/22 History calcitrioL [Calcitriol] 0.25 mcg PO SUMOSA 04/09/22 04/09/22 History Allergies Allergy/AdvReac Type Severity Reaction Status Date / Time No Known Allergies Allergy Verified 04/09/22 07:38 Physical Exam Vitals: Vital Signs Temp Pulse Pulse Resp BP BP Pulse Ox 04/09/22 06:50 97.8 F 81 18 168/72 93 L 04/09/22 05:26 18 04/09/22 03:42 63 18 130/81 94 L 04/09/22 00:54 98.2 F 70 18 126/58 93 L Intake and Output 04/08/22 04/09/22 04/09/22 22:59 06:59 14:59 Other: Voiding Method Toilet Toilet # Voids 1 Weight 96.615 kg Results 04/09/22 05:38 04/09/22 01:18 Cardiac Enzymes 04/09/22 04/09/22 04/09/22 Range/Units 01:18 01:18 05:38 AST 25 (17-59) U/L Troponin I <0.012 <0.012 (0.000-0.034) ng/mL Coagulation 04/09/22 Range/Units 01:18 PT 10.1 (9.0-12.0) sec APTT 19.7 L (22.0-30.0) sec CBC 04/09/22 04/09/22 Range/Units 01:18 05:38 WBC 7.9 (3.8-10.6) k/uL RBC 3.10 L (4.30-5.90) m/uL Hgb 10.2 L (13.0-17.5) gm/dL Hct 31.8 L (39.0-53.0) % Plt Count 198 187 (150-450) k/uL Comprehensive Metabolic Panel 04/09/22 Range/Units 01:18 Sodium 135 L (137-145) mmol/L Potassium 5.4 H (3.5-5.1) mmol/L Chloride 107 (98-107) mmol/L Carbon Dioxide 23 (22-30) mmol/L BUN 42 H (9-20) mg/dL Creatinine 1.85 H (0.66-1.25) mg/dL Glucose 183 H (74-99) mg/dL Calcium 8.4 (8.4-10.2) mg/dL AST 25 (17-59) U/L ALT 18 (4-49) U/L Alkaline Phosphatase 106 (38-126) U/L Total Protein 6.1 L (6.3-8.2) g/dL Albumin 3.5 (3.5-5.0) g/dL Current Medications Generic Name Dose Route Start Last Admin Trade Name Freq PRN Reason Stop Dose Admin Acetaminophen 650 mg 04/09/22 03:18 Acetaminophen Tab 325 Mg Tab PO Q4HR PRN Pain Aminophylline 100 mg 04/09/22 07:29 Aminophylline 500 Mg/20 Ml Vial IV 04/09/22 11:29 ONCE PRN Patient Response Aspirin 325 mg 04/10/22 09:00 Aspirin 325 Mg Tab PO DAILY ALEX Atorvastatin Calcium 40 mg 04/09/22 09:00 Atorvastatin 40 Mg Tab PO DAILY ALEX Caffeine Citrate 60 mg 04/09/22 07:29 Caffeine Citrate 60 Mg/3 Ml Vial IV 04/09/22 11:29 ONCE PRN Patient Response Sodium Chloride 1,000 mls @ 75 mls/hr 04/09/22 03:30 04/09/22 03:48 Saline 0.9% IV 75 mls/hr .[id number] ALEX Administration Insulin Aspart 0 unit 04/09/22 07:30 04/09/22 08:24 Insulin Aspart (Novolog) 100 Unit/Ml Vial SQ 3 unit ACHS ALEX Administration Protocol Morphine Sulfate 2 mg 04/09/22 03:18 Morphine Sulfate 2 Mg/Ml Syringe IVP Q5M PRN Chest Pain Nitroglycerin 0.4 mg 04/09/22 03:18 Nitroglycerin Sl Tabs 0.4 Mg Tab SUBLINGUAL Q5M PRN Chest Pain Nitroglycerin 1 inch 04/09/22 06:00 04/09/22 06:03 Nitroglycerin Oint 1 Inch/Gm Packet TOPICAL 1 inch Q6HR ALEX Administration Regadenoson 0.4 mg 04/09/22 07:29 Regadenoson 0.4 Mg/5 Ml Syringe IV 04/09/22 11:29 ONCE PRN Per Protocol Intake and Output 04/08/22 04/09/22 04/09/22 22:59 06:59 14:59 Other: Voiding Method Toilet Toilet # Voids 1 Weight 96.615 kg 04/09/22 05:38 04/09/22 01:18
--- NOTE | 2022-04-09 10:17 | P.NPCON ---
History of Present Illness - Reason for Consult chronic renal failure - History of Present Illness Reason for consultation: Chronic kidney disease History of present illness: Patient is a 86-year-old male seen in renal consultation for chronic kidney disease. Patient has chronic kidney disease stage IIIB with baseline creatinine near 1.6-1.9. 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 Creatinine 1.85 today. Patient presented to the hospital with chest pain which began yesterday. Patient describes the pain as heaviness with radiation to his left arm. He is scheduled to undergo stress test today. He's been followed by cardiology. No chest pain now. Patient states he took nitroglycerin at home which improved his chest pain. No vomiting or diarrhea. No fever or chills. Oral intake is good. No edema. No hematuria or dysuria. Chest x-ray showed no evidence of fluid overload. Patient has history of coronary disease and underwent CABG in 2004. Patient does have long-standing history of diabetes. Vital signs are stable. General: No acute distress. HEENT: Head exam is unremarkable. LUNGS: Breath sounds decreased. HEART: Rate and Rhythm are regular. ABDOMEN: Soft, no distention. EXTREMITITES: No edema. 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 ANEMIA-IRON DEFICIENCY. History of Any Multi-Drug Resistant Organisms: None Reported Past Surgical History: Coronary Bypass/CABG, Heart Catheterization Additional Past Surgical History / Comment(s): triple bypass 2004 lt cataract removed, radiative seeds implanted d/t prostate cancer Past Anesthesia/Blood Transfusion Reactions: No Reported Reaction Additional Past Anesthesia/Blood Transfusion Reaction / Comment(s): clausterphobia Past Psychological History: No Psychological Hx Reported Additional Psychological History / Comment(s): pt lives with sister and brother in [facility], [facility], no medical equipment Smoking Status: Former smoker Past Alcohol Use History: None Reported Additional Past Alcohol Use History / Comment(s): started smoking at age 19 ,smoked off and on until he quit 1999, smoked 1 ppd Past Drug Use History: None Reported - Past Family History Father Family Medical History: Cancer Additional Family Medical History / Comment(s): Esophageal CA Mother Family Medical History: Congestive Heart Failure (CHF) Sister(s) Family Medical History: Neurologic Disorder Additional Family Medical History / Comment(s): MS Medications and Allergies Home Medications Medication Instructions Recorded Confirmed Type Aspirin EC [Ecotrin Low Dose] 81 mg PO DAILY 05/27/16 04/09/22 History Cholecalciferol [Vitamin D3 (25 1,000 unit PO DAILY 05/27/16 04/09/22 History Mcg = 1000 Iu)] Albuterol Inhaler [Ventolin Hfa 2 puff INHALATION RT-Q4H PRN 04/09/22 04/09/22 History Inhaler] Atorvastatin [Lipitor] 40 mg PO HS 04/09/22 04/09/22 History Calcium Polycarbophil [Fibercon] 625 mg PO DAILY 04/09/22 04/09/22 History Carvedilol [Coreg] 12.5 mg PO BID 04/09/22 04/09/22 History Cyanocobalamin (Vitamin B-12) 1,000 mcg PO DAILY 04/09/22 04/09/22 History [Vitamin B-12] Empagliflozin [Jardiance] 5 mg PO DAILY 04/09/22 04/09/22 History Ergocalciferol [Vitamin D2 (1250 1,250 mcg PO TH 04/09/22 04/09/22 History Mcg = 17107 Iu)] Fluticasone Propion/Salmeterol 1 puff INHALATION RT-BID 04/09/22 04/09/22 History [Fluticasone-Salmeterol 250-50] Furosemide [Lasix] 20 mg PO MOWEFR 04/09/22 04/09/22 History Magnesium Ox 420mg 420 mg PO BID 04/09/22 04/09/22 History Sacubitril/Valsartan [Entresto 49 1 tab PO BID 04/09/22 04/09/22 History mg-51 mg Tablet] Trospium Chloride [Sanctura XR] 60 mg PO HS 04/09/22 04/09/22 History calcitrioL [Calcitriol] 0.25 mcg PO SUMOSA 04/09/22 04/09/22 History Allergies Allergy/AdvReac Type Severity Reaction Status Date / Time No Known Allergies Allergy Verified 04/09/22 07:38 Physical Exam Vitals: Vital Signs Temp Pulse Pulse Resp BP BP Pulse Ox 04/09/22 06:50 97.8 F 81 18 168/72 93 L 04/09/22 05:26 18 04/09/22 03:42 63 18 130/81 94 L 04/09/22 00:54 98.2 F 70 18 126/58 93 L Intake and Output 04/08/22 04/09/22 04/09/22 22:59 06:59 14:59 Other: Voiding Method Toilet Toilet # Voids 1 Weight 96.615 kg Results - Lab Results Most recent lab results Calcium 8.4 mg/dL (8.4-10.2) 04/09/22 01:18 Phosphorus 3.7 mg/dL (2.5-4.5) 04/09/22 01:18 Magnesium 1.8 mg/dL (1.6-2.3) 04/09/22 01:18 04/09/22 05:38 04/09/22 01:18 Assessment and Plan Plan: Assessment: 1. Chronic kidney disease stage IIIB secondary to diabetic kidney disease with baseline creatinine in the range of 1.6-1.9. 2. Chest pain. Stress test today. Cardiology following. 3. Coronary disease status post CABG. 4. Diabetes mellitus. 5. Hypertension with chronic kidney disease. 6. Mild hyperkalemia secondary to chronic kidney disease and entreso. Plan: Hep-Lock IV fluids - will resume if angiography or cardiac cath will be done. Encouraged oral intake. Follow-up stress test and echocardiogram. Avoid nephrotoxins. Continue to monitor renal function and urine output. Home antihypertensives to be resumed. Thank you for the consultation. I will continue to follow the patient with you during his hospital stay.
[2022-04-09 14:54] LABS: Glucose,Whole Blood 177 mg/dL (75-99)
[2022-04-09] MEDS: ATORVASTATIN 40 MG TAB PO SCH (15:38)
[2022-04-09] MEDS: carvediloL 12.5 MG TAB PO SCH ×2 (15:41→22:08)
[2022-04-09] MEDS: SACUBITRIL/VALSARTAN 49 MG-51 MG TABLET PO SCH ×2 (15:42→22:08)
[2022-04-09 17:19] LABS: Glucose,Whole Blood 186 mg/dL (75-99)
[2022-04-09] MEDS ORDERED: ALBUTEROL NEBULIZED 2.5 MG/3 ML INHALATION PRN (17:21)
--- NOTE | 2022-04-09 17:28 | P.PN ---
Subjective Progress Note Date: 04/09/22 Hospital course: Patient is a very pleasant 86-year-old male with a past medical history of coronary artery disease, chronic CHF, hypertension, hyperlipidemia, chronic kidney disease stage III, and type II DM. He presented to the emergency department overnight with a chief complaint of chest pain. Patient developed sudden onset chest pain/pressure around 6 PM last night. Patient reported this pain was to midsternal chest and radiated into his left arm accompanied by shortness of breath, nausea, palpitations, and diaphoresis. He underwent full evaluation in the emergency department. EKG was completed showing normal sinus rhythm 64 bpm with a first-degree block with OK interval of 223 ms and occasional PVC. Chest x-ray negative for acute cardiopulmonary process. X-ray abdomen revealing multiple loops of bowel dilated and more likely related to il eus however mechanical obstruction not entirely excluded. CBC, coags, and CMP completed. CBC showing normocytic normochromic anemia with hemoglobin of 10.2. CMP revealing mild hyperkalemia with potassium of 5.4 and elevated renal function with BUN 42, creatinine 1.85, and GFR is 32 (slightly higher than baseline creatinine level of 1.6). Patient was admitted under the services with consultation to cardiology and nephrology. Patient monitored throughout the night troponins trended all negative at less than 0.0123 draws. Cardiology evaluated patient took patient for Lexiscan stress test. Echocardiogram was completed. Patient continues to have persistent abdominal pain/discomfort. CT abdomen and pelvis to be completed to rule out small bowel obstruction versus ileus and general surgery consulted to evaluate. Physical examination: General: non toxic, no distress, appears at stated age Derm: warm, dry Head: atraumatic, normocephalic, symmetric Eyes: EOMI, no lid lag, anicteric sclera Mouth: no lip lesion, mucus membranes moist Cardiovascular: S1S2 reg, no murmur, positive posterior tibial pulse bilateral, Lungs: CTA bilateral, no rhonchi, no rales , no accessory muscle use Abdominal: soft, nontender to palpation, no guarding, no appreciable organomegaly Ext: no gross muscle atrophy, no edema, no contractures Neuro: CN II-XI grossly intact, no focal neuro deficits Psych: Alert, oriented, appropriate affect Assessment and plan of care: Chest pain, rule out acute coronary event -Cardiology following, took patient for Lexiscan stress test -Continue Telemetry monitoring -Troponins negative < 0.012. -Clear liquid diet, pending evaluation by general surgery -Aspirin, atorvastatin, and carvedilol -Echocardiogram completed and pending results -Lexiscan stress test completed and pending results Abdominal pain, ileus versus small bowel obstruction -X-ray concerning for possible ileus versus small bowel obstruction -CT abdomen and pelvis to be completed -Gen. surgery consulted to evaluate for possible bowel obstruction. -Gentle hydration with IV fluids. -Clear liquid diet until further evaluated by general surgeon. Hypertension -Monitor vital signs and continue daily medication regimen with carvedilol. Hyperlipidemia -Continue daily medication regimen with atorvastatin. Type II [id number] diabetes mellitus. -Hold oral hypoglycemic medications RDN's and place patient on glycemic protocol with NovoLog sliding scale. The patient is admitted with an anticipated less than 2 midnight stay for evaluation of chest pain CODE STATUS: Full Code Discussed with: Patient and RN Anticipated discharge date: tomorrow morning Anticipated discharge place: Home I reviewed the documentation as provided by the ROSENDO above, who is the original author of this note. I agree with the documented assessment and plan, with the following changes: none Objective - Vital Signs Vital signs: Vital Signs Temp 98.8 F 04/09/22 14:47 Pulse 91 04/09/22 14:47 Resp 18 04/09/22 14:47 BP 168/76 04/09/22 14:47 Pulse Ox 94 L 04/09/22 14:47 FiO2 Intake & Output 04/08/22 04/09/22 04/09/22 18:59 06:59 18:59 Intake Total 450 Output Total 210 Balance 240 Weight 96.615 kg Intake: IV 450 .9 NS @ 75 450 Output: Urine 210 Other: Voiding Method Toilet Toilet # Voids 1 3 - Labs CBC & Chem 7: 04/09/22 05:38 04/09/22 01:18 Labs: Abnormal Lab Results - Last 24 Hours (Table) 04/09/22 04/09/22 04/09/22 Range/Units 01:18 01:18 01:18 RBC 3.10 L (4.30-5.90) m/uL Hgb 10.2 L (13.0-17.5) gm/dL Hct 31.8 L (39.0-53.0) % MCV 102.4 H (80.0-100.0) fL Lymphocytes # 0.7 L (1.0-4.8) k/uL APTT 19.7 L (22.0-30.0) sec Sodium 135 L (137-145) mmol/L Potassium 5.4 H (3.5-5.1) mmol/L BUN 42 H (9-20) mg/dL Creatinine 1.85 H (0.66-1.25) mg/dL Glucose 183 H (74-99) mg/dL POC Glucose (mg/dL) (75-99) mg/dL Total Protein 6.1 L (6.3-8.2) g/dL 04/09/22 04/09/22 Range/Units 06:53 12:21 RBC (4.30-5.90) m/uL Hgb (13.0-17.5) gm/dL Hct (39.0-53.0) % MCV (80.0-100.0) fL Lymphocytes # (1.0-4.8) k/uL APTT (22.0-30.0) sec Sodium (137-145) mmol/L Potassium (3.5-5.1) mmol/L BUN (9-20) mg/dL Creatinine (0.66-1.25) mg/dL Glucose (74-99) mg/dL POC Glucose (mg/dL) 221 H 177 H (75-99) mg/dL Total Protein (6.3-8.2) g/dL
--- NOTE | 2022-04-09 18:48 | CT ---
EXAMINATION TYPE: CT abdomen pelvis wo con CT DLP: 1196 mGycm, Automated exposure control for dose reduction was used. DATE OF EXAM: 04/09/2022 5:33 PM COMPARISON: None CLINICAL INDICATION:Male, 86 years old with history of persistent diffuse abdominal pain; TECHNIQUE: Standard CT of the abdomen and pelvis without IV or oral contrast. Lack of IV or oral co ntrast limits evaluation of solid and hollow organ viscera. Coronal and sagittal reformats were perfo rmed. FINDINGS: LOWER CHEST: Unremarkable ABDOMEN LIVER: Unremarkable GALLBLADDER AND BILE DUCTS: Multiple layering gallstones within the gallbladder lumen. The gallbladde r is mildly distended.. PANCREAS: Unremarkable. SPLEEN: Unremarkable. ADRENAL GLANDS: Unremarkable. KIDNEYS AND URETERS: No evidence of hydronephrosis or renal calculus. Renal cysts measuring up to 3.7 mm on the right and left measuring up to 2.8 cm. PELVIS BLADDER: Unremarkable REPRODUCTIVE: Metallic densities seen within the prostate. ABDOMEN & PELVIS STOMACH AND BOWEL: No evidence of bowel obstruction. PERITONEUM: No evidence of pneumoperitoneum or free fluid. VASCULATURE: Renal aortic ectasia measuring up to 3.4 cm. Questionable dissection with displaced calc ulus in the right common iliac artery. MUSCULOSKELETAL: Moderate disc degeneration changes are present throughout the thoracolumbar spine.. LYMPH NODES: No gross evidence for lymphadenopathy. SOFT TISSUE/ABDOMINAL WALL: There is left gynecomastia. IMPRESSION: 1. Distended gallbladder with layering gallstones. No evidence for biliary ductal dilatation. Could be related to fasting. Correlate for right upper quadrant pain. No other finding within the abdomen t o carotid patient's pain. 2. Infrarenal abdominal aorta fusiform ectasia dilation up to 3.4 cm 3. Right common iliac artery displaced atherosclerotic calcification which could represent dissectio n. This could be further evaluated with nonemergent CTA abdomen pelvis. 4. Bilateral renal cysts.
[2022-04-09 19:05] LABS: Glucose,Whole Blood 174 mg/dL (75-99)
[2022-04-09] MEDS: SYMBICORT 80-4.5 MCG INHALER INHALATION SCH (20:31)
[2022-04-10 02:03] LABS: Glucose,Whole Blood 162 mg/dL (75-99)
[2022-04-10] MEDS: SODIUM CHLORIDE 0.9% 1,000 ML IV SCH ×2 (05:01→20:30)
--- NOTE | 2022-04-10 06:44 | NM ---
EXAMINATION TYPE: NM stress lexiscan cardiolite DATE OF EXAM: 04/10/2022 COMPARISON: NONE HISTORY: History of hypertension and diabetes along with COPD and prior tobacco use along with hyperc holesteremia and three-vessel CABG presents with chest pain and numbness into face/neck TECHNIQUE: After the intravenous administration of 10.0 mCi Tc 99m Sestamibi - Cardiolite resting SP ECT images acquired 15 minutes post injection. The patient received 0.4mg Lexiscan, 24.8 mCi Tc 99m Sestamibi - Stress images obtained [address] injection FINDINGS: Review of stress and rest SPECT images demonstrates poor uptake in the inferior left ventricular wall on stress and rest images suspicious for old infarct. Areas of diminished uptake in the anterosepta l wall on both images also noted suspicious for old infarct. Abnormal end-diastolic volume is suggest carl of dilated cardiomyopathy. Polar maps suggests possible some areas of reversible ischemia particu larly base of the inferior left ventricular wall and cardiac apex though this is less well reproduced on raw data images. Overall ejection fraction is 37%, diminished from the normal range. 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 Underlying dilated cardiomyopathy is seen. No convincing eviden ce for reversible ischemia.
[2022-04-10 07:14] LABS: Glucose,Whole Blood 195 mg/dL (75-99)
[2022-04-10] MEDS: SYMBICORT 80-4.5 MCG INHALER INHALATION SCH ×2 (07:25→19:36)
--- NOTE | 2022-04-10 07:25 | P.PN ---
Progress Note - Text Progress Note Date: 04/10/22 The patient is a pleasant 86-year-old gentleman with coronary artery disease and prior CABG as well as hypertension and dyslipidemia and diabetes was admitted to the hospital with chest discomfort and ruled out for acute coronary event. He was seen this morning. He is asymptomatic. He is hypertensive. I'm going to start the patient on oral nitrate. The physical examination is remarkable for soft systolic murmur at the right upper sternal border From the cardiac standpoint of view, the patient can be discharged home.
[2022-04-10 08:56] LABS: HCT 31.8 % (39.6-50.0); HGB 10.2 g/dL (13.0-17.0); MCH 32.8 pg (27.0-32.0); MCHC 32.1 g/dL (32.0-37.0); MCV 102.3 fL (80.0-97.0); Mean Platelet Volume 10.4 fL (9.5-12.2); NRBC Per 100 WBC 0 /100 WBCS (0.0-0.0); Platelet Count 197 X 10*3/uL (140-440); RBC 3.11 X 10*6/uL (4.40-5.60); RDW 13.6 % (11.5-14.5); WBC 16.55 X 10*3/uL (4.50-10.00)
--- NOTE | 2022-04-10 08:58 | CA ---
Transthoracic Echo Report Name: Dmitry Worrell Age: 86 Gender: M : 1935 Exam Date: 04/09/2022 08:17 Exam Location: [facility] Ht (in): 67 Wt (lb): 213 Ordering Physician: Peter Breen Attending/Referring Phys: Maira Kwon MD Mechanic Senior Gia Grider, AJAY Procedure CPT: Indications: Chest Pain Cardiac Hx: Technical Quality: Technically difficult study Contrast 1: Lumason Total Dose (mL): 5 Contrast 2: Total Dose (mL): MEASUREMENTS (Male / Female) Normal Values 2D ECHO LV Diastolic Diameter PLAX 6.3 cm 4.2 - 5.9 / 3.9 - 5.3 cm LV Systolic Diameter PLAX 5.1 cm IVS Diastolic Thickness 1.6 cm 0.6 - 1.0 / 0.6 - 0.9 cm LVPW Diastolic Thickness 1.7 cm 0.6 - 1.0 / 0.6 - 0.9 cm LV Relative Wall Thickness 0.5 RV Internal Dim ED PLAX 3.1 cm LA Systolic Diameter LX 3.8 cm 3.0 - 4.0 / 2.7 - 3.8 cm M-MODE Aortic Root Diameter MM 3.6 cm LA Systolic Diameter MM 4.1 cm LA Ao Ratio MM 1.1 MV E Point Septal Separation 1.8 cm AV Cusp Separation MM 2.1 cm DOPPLER MV E' Velocity 4.7 cm/s FINDINGS Left Ventricle Left ventricular ejection fraction is estimated at 40-45% Moderately increased left ventricular wall thickness. Anterior, Apical hypokinesis. Right Ventricle Normal right ventricular size and function. Right Atrium Normal right atrial size. Left Atrium Left atrial dilatation. Mitral Valve Mild mitral regurgitation. Aortic Valve Aortic valve not well visualized. Tricuspid Valve Mild tricuspid regurgitation. Pulmonic Valve Pulmonic valve not well visualized. Pericardium Normal pericardium. Aorta Aortic root and proximal ascending aorta not well visualized. CONCLUSIONS Mildly impaired LV function was EF between 40-45% Previewed by: Dr. Travis Hernández MD (Electronically Signed) Final Date: 10 Apr 2022 08:57
[2022-04-10] MEDS ORDERED: ASPIRIN 325 MG TAB PO SCH (09:00)
[2022-04-10] MEDS: INSULIN ASPART (NovoLOG) 100 UNIT/ML VIAL SQ SCH ×4 (09:33→23:29)
[2022-04-10] MEDS: SACUBITRIL/VALSARTAN 49 MG-51 MG TABLET PO SCH ×2 (09:33→20:29)
[2022-04-10] MEDS: carvediloL 6.25 MG TAB PO SCH ×2 (09:34→17:43)
[2022-04-10] MEDS: ISOSORBIDE MONONITRATE ER 30 MG TAB.ER.24H PO SCH (09:34)
[2022-04-10] MEDS: ASPIRIN 81 MG PO SCH (09:34)
[2022-04-10] MEDS: ATORVASTATIN 40 MG TAB PO SCH (09:34)
[2022-04-10 09:50] LABS: ALT 20 U/L (10-49); AST 19 U/L (14-35); African American GFR (CKD) 33.5 (60.0-200.0); Albumin 3.5 g/dL (3.8-4.9); Albumin/Globulin Ratio 1.46 (1.60-3.17); Alkaline Phosphatase 94 U/L (41-126); Blood Urea Nitrogen 37.2 mg/dL (9.0-27.0); Calcium 8.3 mg/dL (8.7-10.3); Carbon Dioxide 23.2 mmol/L (20.0-27.5); Chloride 101 mmol/L (96-109); Chol/HDL Ratio 2.48 Ratio; Globulin 2.4 g/dL (1.6-3.3); Glucose 193 mg/dL (70-110); LDL Cholesterol,Calculated 44.5 mg/dL (0.0-131.0); Non-African American GFR(CKD) 28.9 (60.0-200.0); Potassium 5.2 mmol/L (3.5-5.5); Sodium 136 mmol/L (135-145); Total Protein 5.9 g/dL (6.2-8.2); VLDL Calculation 14.54 mg/dL (5.00-40.00)
--- NOTE | 2022-04-10 11:06 | P.PN ---
Subjective Patient is seen in follow-up for chronic kidney disease. Creatinine 2.0 today. Denies chest pain or shortness of breath. Admits to good urine output. No vomiting or diarrhea. Denies any pain. Vital signs are stable. General: Awake. No acute distress. HEENT: Head exam is unremarkable. LUNGS: Breath sounds decreased. HEART: Rate and Rhythm are regular. ABDOMEN: Soft, no distention. EXTREMITITES: No edema. Objective - Vital Signs Vital signs: Vital Signs Temp 98.1 F 04/10/22 07:00 Pulse 83 04/10/22 07:00 Resp 22 04/10/22 07:00 BP 152/72 04/10/22 07:00 Pulse Ox 92 L 04/10/22 07:00 FiO2 Intake & Output 04/09/22 04/10/22 04/10/22 18:59 06:59 18:59 Intake Total 450 0 Output Total 210 140 Balance 240 -140 Intake: IV 450 .9 NS @ 75 450 Oral 0 Output: Urine 210 140 Other: Voiding Method Toilet Toilet # Voids 3 1 - Labs CBC & Chem 7: 04/10/22 06:05 04/10/22 06:05 Labs: Abnormal Lab Results - Last 24 Hours (Table) 04/09/22 04/09/22 04/09/22 Range/Units 12:21 17:18 19:03 WBC (4.50-10.00) X 10*3/uL RBC (4.40-5.60) X 10*6/uL Hgb (13.0-17.0) g/dL Hct (39.6-50.0) % MCV (80.0-97.0) fL MCH (27.0-32.0) pg BUN (9.0-27.0) mg/dL Creatinine (0.6-1.5) mg/dL Est GFR (CKD-EPI)AfAm (60.0-200.0) Est GFR (CKD-EPI)NonAf (60.0-200.0) Glucose (70-110) mg/dL POC Glucose (mg/dL) 177 H 186 H 174 H (75-99) mg/dL Calcium (8.7-10.3) mg/dL Total Protein (6.2-8.2) g/dL Albumin (3.8-4.9) g/dL Albumin/Globulin Ratio (1.60-3.17) g/dL 04/10/22 04/10/22 04/10/22 Range/Units 02:02 06:05 06:05 WBC 16.55 H (4.50-10.00) X 10*3/uL RBC 3.11 L (4.40-5.60) X 10*6/uL Hgb 10.2 L (13.0-17.0) g/dL Hct 31.8 L (39.6-50.0) % MCV 102.3 H (80.0-97.0) fL MCH 32.8 H (27.0-32.0) pg BUN 37.2 H (9.0-27.0) mg/dL Creatinine 2.0 H (0.6-1.5) mg/dL Est GFR (CKD-EPI)AfAm 33.5 L (60.0-200.0) Est GFR (CKD-EPI)NonAf 28.9 L (60.0-200.0) Glucose 193 H (70-110) mg/dL POC Glucose (mg/dL) 162 H (75-99) mg/dL Calcium 8.3 L (8.7-10.3) mg/dL Total Protein 5.9 L (6.2-8.2) g/dL Albumin 3.5 L (3.8-4.9) g/dL Albumin/Globulin Ratio 1.46 L (1.60-3.17) g/dL 04/10/22 Range/Units 07:12 WBC (4.50-10.00) X 10*3/uL RBC (4.40-5.60) X 10*6/uL Hgb (13.0-17.0) g/dL Hct (39.6-50.0) % MCV (80.0-97.0) fL MCH (27.0-32.0) pg BUN (9.0-27.0) mg/dL Creatinine (0.6-1.5) mg/dL Est GFR (CKD-EPI)AfAm (60.0-200.0) Est GFR (CKD-EPI)NonAf (60.0-200.0) Glucose (70-110) mg/dL POC Glucose (mg/dL) 195 H (75-99) mg/dL Calcium (8.7-10.3) mg/dL Total Protein (6.2-8.2) g/dL Albumin (3.8-4.9) g/dL Albumin/Globulin Ratio (1.60-3.17) g/dL Assessment and Plan Plan: Assessment: 1. Chronic kidney disease stage IIIB secondary to diabetic kidney disease with baseline creatinine in the range of 1.6-1.9. Creatinine 2.0 today. No hydronephrosis noted on CAT scan. 2. Chest pain. Stress test showed no evidence of ischemia. Cardiology following. 3. Coronary disease status post CABG. 4. Diabetes mellitus. 5. Hypertension with chronic kidney disease. 6. Mild hyperkalemia secondary to chronic kidney disease and entreso. 7. Ileus versus bowel obstruction. Surgery following. CAT scan showed distended gallbladder with gallstones. No evidence of bowel obstruction was noted. 8. Chronic systolic CHF with ejection fraction of 40-45%. Plan: Patient is back on fluids. I will decrease the rate. Encouraged oral intake. Avoid nephrotoxins. Continue to monitor renal function and urine output.
[2022-04-10 11:58] LABS: Glucose,Whole Blood 199 mg/dL (75-99)
--- NOTE | 2022-04-10 13:27 | CA ---
Lexiscan Nuclear Stress Test Report Name: Dmitry Worrell Exam Date: 04/09/2022 09:34 Exam Location: [facility] Ht (in): 67 Wt (lb): 213 BSA: 2.08 Ordering Phys: Mitzy Bowling Referring Phys: Maira Kwon MD Technologist: Aditya Russell Age: 86 Gender: M : 1935 Procedure CPT: Indications: Reflex order-Stress test ICD-10 Codes: Patient History: CHEST PAIN, DIFFICULTY IN BREATHING, ANGINA, NUMBNESS IN FACE/NECK, HTN, DIABETES, ELEVATED CHOLESTEROL LEVELS, PRIOR PR, CABG X 3, COPD, PRIOR SMOKER Medications: ASA 81 mg, VITAMIN D3, ALBUTEROL, FIBERCON, CARVEDILOL, VITAMIN B-12, FUROSEMIDE, MAGNESIUM ATORVASTATIN, CALCITRIOL, JARDIANCE, VITAMIN D2, TROSPIUM, SACUBITRIL Meds past 24 hrs: Pretest Chest Pain: STRESS TEST Lexiscan Protocol Exercise Duration (min:sec): 02:[address] Depressions (mm): Angina Score: Cole Score: Resting HR (bpm): 81 Peak HR (bpm): 84 Resting BP (mmHg): 156 / 83 Peak BP (mmHg): 156 / 83 MPHR: 132 Target HR: 112 % MPHR: 64 METS: 1.0 Total Dose: Peak Dose: Atropine: Double Product: 39684 BP Response: Stress Termination: Stress Symptoms: Stress Summary: ECG ANALYSIS Resting ECG: Stress ECG: CONCLUSIONS Nondiagnostic electrocardiogram stress testing the response to Lexiscan Please follow-up on the Cardiolite on a separate report Dr. Travis Hernández MD (Electronically Signed) Final Date: 10 Apr 2022 13:26
[2022-04-10] MEDS: PIPERACILLIN-TAZOBACTAM 3.375 GM in SODIUM CHLORIDE 0.9% 100 ML IVPB SCH ×2 (13:36→21:31)
--- NOTE | 2022-04-10 13:36 | P.GSCN ---
History of Present Illness Consult date: 04/10/22 History of present illness: CHIEF COMPLAINT: Heartburn with chest pain HISTORY OF PRESENT ILLNESS: This is a 86-year-old male who presented to the hospital with complaints of heartburn and chest discomfort. He reports that symptoms started yesterday evening. The heartburn started in the upper abdomen and radiated up through the center of the chest. He reports decrease in appetite. He did have a few episodes of dry heaves and nausea. He does have a cardiac history with prior CABG. Patient seen evaluated by cardiology. Acute coronary syndrome ruled out by cardiology. Patient did undergo stress test. Patient was cleared by cardiology. Patient also had complain of constipation symptoms. He has not had a bowel movement since Wednesday. But does report appetite has been poor. Abdominal x-ray had showed multiple loops of bowel dilated more likely related to ileus. Mechanical obstruction not entirely excluded. Medicine service then ordered computed tomography scan abdomen and pelvis without contrast that showed distended gallbladder with layering gallstones. No evidence for biliary ductal dilatation. Could be related to fasting. No evidence of bowel obstruction noted on CAT scan. On exam patient does have evidence of right upper quadrant tenderness. His white count has increased. Surgical service consult in 4 gallstones and ileus versus bowel obstruction. Patient denies any prior surgical history to the abdomen. Does have a history of a prior bowel obstruction with no surgical intervention. PAST MEDICAL HISTORY: See list. PAST SURGICAL HISTORY: See list. MEDICATIONS: See list. ALLERGIES: See list. SOCIAL HISTORY: No illicit drug use. REVIEW OF SYSTEMS: CONSTITUTIONAL: Denies fever or chills. HEENT: Denies blurred vision, vision changes, or eye pain. Denies hemoptysis ENDOCRINE: Denies heat or cold intolerance. CARDIOVASCULAR: Denies chest pain or pressure. RESPIRATORY: No shortness of breath. GASTROINTESTINAL: Please refer to HPI NEURO: Denies history of seizures. PSYCH: No depression or suicidal ideation HEMATOLOGIC: Denies bleeding disorders. LYMPHATIC: The patient denies any lumps and bumps around the neck. GENITOURINARY: Denies any blood in urine or increased urinary frequency. MUSCULOSKELETAL: Denies myalgias. Denies joint swelling. Denies decreased range of motion beyond patients baseline. SKIN: Denies pruitis. Denies rash. PHYSICAL EXAM: VITAL SIGNS: Reviewed GENERAL: Well-developed in no acute distress. HEENT: No sclera icterus. Extraocular movements grossly intact. Moist buccal mucosa. Head is atraumatic, normocephalic. Hears conversational speech. No nasal drainage. NECK: Supple without lymphadenopathy. CHEST: Non-labored respirations and equal bilateral excursions. CARDIOVASCULAR: Palpable 2+ radial pulses. ABDOMEN: Soft. Nondistended. Tenderness to palpation of the right upper quadrant MUSCULOSKELETAL: No clubbing or cyanosis. NEUROLOGIC: No focal or lateralizing signs. Cranial nerves II through XII grossly intact. PSYCH: Appropriate affect. Alert and oriented to person, place and time. SKIN: Well perfused. Good skin turgor. LABORATORY DATA: WBC has increased from 7.9-16.55 Hgb 10.2 platelets 197 Sodium 136 potassium is 5.2 creatinine 1.85 up to 2.0 Total bilirubin 0.8 AST 19 ALT 20 alk phos 94 lipase 59 IMAGING: Computed tomography scan abdomen and pelvis contrast that showed distended gallbladder with layering gallstones. No evidence for biliary ductal dilatation. Could be related to fasting. Infrarenal abdominal aorta fusiform e ctasia dilation up to 3.4cm. Right common iliac artery displaced atherosclerotic calcification which could represent dissection this could be further evaluated with nonemergent CT abdomen and pelvis per radiology. Bilateral renal cysts. ASSESSMENT: 1. Right upper quadrant abdominal pain with gallstones and distended gallbladder noted on CAT scan. Concerns for possible acute cholecystitis. No evidence of ileus or bowel obstruction noted on CAT scan 2. Heartburn and decreased appetite 3. Leukocytosis 4. Chest pain. Acute coronary syndrome ruled out by cardiology 5. Chronic kidney disease followed by nephrology 6. Diabetes mellitus 7. History of CABG PLAN: -Ultrasound of gallbladder ordered for further evaluation of possible cholecystitis -Unable to perform HIDA scan due to patient recently receiving contrast for his stress test -Start IV Zosyn -Start clear liquid diet. Patient can have coffee. -Continue supportive care -Repeat LFTs in a.m. Thank you for this consultation Physician [employer] Salesperson note has been reviewed by physician. Signing provider agrees with the documented findings, assessment, and plan of care. REASON FOR CONSULTATION: Abdominal pain HISTORY OF PRESENT ILLNESS: The patient is a 86 year old male admitted chest pain including upper abdominal pain over 2 to 3 days ago. He had extensive cardiac work-up excluding active myocardial infarcation. He reported persistent indigestion. He has known history of gallstones, "I was told if it isn't broke, don't fix it." He reports low appetite with the exception of coffee. No recent fevers or chills. He had recent studies demonstrating distended gallbladder, hence general surgery consultation. His pain is mild to moderate and crampy of the epigastrium PAST MEDICAL HISTORY: See list and reviewed PAST SURGICAL HISTORY: See list and reviewed MEDICATIONS: See list and reviewed ALLERGIES: See list and reviewed SOCIAL HISTORY: See list and reviewed FAMILY HISTORY: See list and reviewed REVIEW OF ORGAN SYSTEMS: CONSTITUTIONAL: No fevers or chills. EYES: Has cataracts. No glasses. HEENT: No difficulties with hearing. No nosebleeds. No difficulty swallowing. RESPIRATORY: Denies pneumonia. Denies any troubles with breathing or dyspnea on exertion. Has chronic obstructive pulmonary disease. Has hyperlipidemia. Has sleep apnea. CARDIOVASCULAR: Has chest pain, palpitations, or recent heart attacks. Has coronary artery disease. Pre-existing cardiac disease. Has hypertensive heart disease. has hyperlipidemia. History of CABG. GASTROINTESTINAL: Denies fatty food intolerance. Has change in bowel habits and gas bloat. GENITOURINARY: Denies any blood in urine or increased urinary frequency. Has chronic renal disease. History of prostate cancer. NEUROLOGICAL: Denies any numbness or tingling along the distal extremities. No seizure disorders or headaches. MUSCULOSKELETAL: Has back pain, stiffness or joint arthritis. SKIN: No current skin cancer. No rash. PSYCHIATRIC: Denies current depression or suicidal thoughts. ENDOCRINE: Denies current thyroid disorders. Has diabetes type II. HEME/LYMPHATIC: Denies any lumps and bumps around the neck. No recent deep venous thrombosis. Has anemia. ALLERGY/IMMUNOLOGY: No immunoglobulin therapy. No immune deficiencies. BREAST: Denies current breast lumps, pain or nipple discharge. PHYSICAL EXAM: VITALS: Reviewed CONSTITUTIONAL: Well developed and in no acute distress. EYES: Conjuctivae without sclera icterus. Extraocular movements grossly intact. HEAD, EARS, NOSE, THROAT: Moist buccal mucosa. Head is atraumatic, normocephalic. Hears conversational speech. No nasal drainage. NECK: Supple. No JV distention. No thyroidomegaly. RESPIRATORY: Non-labored respirations and equal bilateral excursions. No gross wheezes. CARDIOVASCULAR: Palpable 2+ radial pulses. ABDOMEN: Tender at the epigastrium. LYMPH: No neck lymphadenopathy. MUSCULOSKELETAL: No clubbing cyanosis or edema. SKIN: Warm and well perfused with good skin turgor. NEUROLOGIC: Cranial nerves II through XII grossly intact. No focal or lateralizing signs. PSYCH: Appropriate affect. Alert and oriented to person, place and time. Dis plays appropriate insight. CLINCAL LABS: Reviewed. WBC elevated 7.9 to 16.55. Creatinine elevated 2.0. IMAGING: Independently reviewed. CT of the abdomen and pelvis independently reviewed without bowel obstruction or free. Large multiple gallstones identified. This is my independent interpretation. RADIOLOGY: Report reviewed LEXICAN: Stress test reviewed without reversible ischemia and depressed ejection fraction of 37% ASSESSMENT: 1. Abdominal pain with gallstones 2. Ischemic cardiomyopathy with congestive heart failure 3. COPD 4. Leukocytosis 5. Stage III chronic kidney disease due to hypertensive heart disease PLAN: 1. Recommend HIDA scan for acute cholecystitis as patient is high risk 2. Clear liquid diet with coffee 3. Start IV antibiotics ADVANCE DIRECTIVE: Thank you for this kind consultation. ADDENDUM: HIDA delayed due to recent lexican. Gallbladder ultrasound obtained with features of acute cholecystitis. Surgical intervention with cholecystectomy described as he is high risk for complications. Past Medical History Past Medical History: Blood Disorder, Coronary Artery Disease (CAD), Cancer, COPD, Diabetes Mellitus, Eye Disorder, Hyperlipidemia, Hypertension, Renal Disease, Sleep Apnea/CPAP/BIPAP Additional Past Medical History / Comment(s): prostate ca, bowel obstruction-no sx, past cataracts -has lens implants,had a pne vaccine but not sure of date- appeals writer unable to verify at time of this admit-please call [facility] in am to verify. ANEMIA-IRON DEFICIENCY. History of Any Multi-Drug Resistant Organisms: None Reported Past Surgical History: Coronary Bypass/CABG, Heart Catheterization Additional Past Surgical History / Comment(s): triple bypass 2004 lt cataract removed, radiative seeds implanted d/t prostate cancer Past Anesthesia/Blood Transfusion Reactions: No Reported Reaction Additional Past Anesthesia/Blood Transfusion Reaction / Comm: clausterphobia Past Psychological History: No Psychological Hx Reported Additional Psychological History / Comment(s): pt lives with sister and brother in [place], [facility], no medical equipment Smoking Status: Former smoker Past Alcohol Use History: None Reported Additional Past Alcohol Use History / Comment(s): started smoking at age 19 ,smoked off and on until he quit 1999, smoked 1 ppd Past Drug Use History: None Reported - Past Family History Father Family Medical History: Cancer Additional Family Medical History / Comment(s): Esophageal CA Mother Family Medical History: Congestive Heart Failure (CHF) Sister(s) Family Medical History: Neurologic Disorder Additional Family Medical History / Comment(s): MS Medications and Allergies Home Medications Medication Instructions Recorded Confirmed Type Aspirin EC [Ecotrin Low Dose] 81 mg PO DAILY 05/27/16 04/09/22 History Cholecalciferol [Vitamin D3 (25 1,000 unit PO DAILY 05/27/16 04/09/22 History Mcg = 1000 Iu)] Albuterol Inhaler [Ventolin Hfa 2 puff INHALATION RT-Q4H PRN 04/09/22 04/09/22 History Inhaler] Atorvastatin [Lipitor] 40 mg PO HS 04/09/22 04/09/22 History Calcium Polycarbophil [Fibercon] 625 mg PO DAILY 04/09/22 04/09/22 History Carvedilol [Coreg] 12.5 mg PO BID 04/09/22 04/09/22 History Cyanocobalamin (Vitamin B-12) 1,000 mcg PO DAILY 04/09/22 04/09/22 History [Vitamin B-12] Empagliflozin [Jardiance] 5 mg PO DAILY 04/09/22 04/09/22 History Ergocalciferol [Vitamin D2 (1250 1,250 mcg PO TH 04/09/22 04/09/22 History Mcg = 70997 Iu)] Fluticasone Propion/Salmeterol 1 puff INHALATION RT-BID 04/09/22 04/09/22 Histo ry [Fluticasone-Salmeterol 250-50] Furosemide [Lasix] 20 mg PO MOWEFR 04/09/22 04/09/22 History Magnesium Ox 420mg 420 mg PO BID 04/09/22 04/09/22 History Sacubitril/Valsartan [Entresto 49 1 tab PO BID 04/09/22 04/09/22 History mg-51 mg Tablet] Trospium Chloride [Sanctura XR] 60 mg PO HS 04/09/22 04/09/22 History calcitrioL [Calcitriol] 0.25 mcg PO SUMOSA 04/09/22 04/09/22 History Allergies Allergy/AdvReac Type Severity Reaction Status Date / Time No Known Allergies Allergy Verified 04/09/22 07:38 Surgical - Exam Vital Signs Temp Pulse Resp BP Pulse Ox 98.2 F 70 18 126/58 93 L 04/09/22 00:54 04/09/22 00:54 04/09/22 00:54 04/09/22 00:54 04/09/22 00:54 Results - Labs 04/10/22 06:05 04/10/22 06:05 Abnormal Lab Results - Last 24 Hours (Table) 04/09/22 04/09/22 04/09/22 Range/Units 12:21 17:18 19:03 WBC (4.50-10.00) X 10*3/uL RBC (4.40-5.60) X 10*6/uL Hgb (13.0-17.0) g/dL Hct (39.6-50.0) % MCV (80.0-97.0) fL MCH (27.0-32.0) pg BUN (9.0-27.0) mg/dL Creatinine (0.6-1.5) mg/dL Est GFR (CKD-EPI)AfAm (60.0-200.0) Est GFR (CKD-EPI)NonAf (60.0-200.0) Glucose (70-110) mg/dL POC Glucose (mg/dL) 177 H 186 H 174 H (75-99) mg/dL Calcium (8.7-10.3) mg/dL Total Protein (6.2-8.2) g/dL Albumin (3.8-4.9) g/dL Albumin/Globulin Ratio (1.60-3.17) g/dL 04/10/22 04/10/22 04/10/22 Range/Units 02:02 06:05 06:05 WBC 16.55 H (4.50-10.00) X 10*3/uL RBC 3.11 L (4.40-5.60) X 10*6/uL Hgb 10.2 L (13.0-17.0) g/dL Hct 31.8 L (39.6-50.0) % MCV 102.3 H (80.0-97.0) fL MCH 32.8 H (27.0-32.0) pg BUN 37.2 H (9.0-27.0) mg/dL Creatinine 2.0 H (0.6-1.5) mg/dL Est GFR (CKD-EPI)AfAm 33.5 L (60.0-200.0) Est GFR (CKD-EPI)NonAf 28.9 L (60.0-200.0) Glucose 193 H (70-110) mg/dL POC Glucose (mg/dL) 162 H (75-99) mg/dL Calcium 8.3 L (8.7-10.3) mg/dL Total Protein 5.9 L (6.2-8.2) g/dL Albumin 3.5 L (3.8-4.9) g/dL Albumin/Globulin Ratio 1.46 L (1.60-3.17) g/dL 04/10/22 04/10/22 Range/Units 07:12 11:55 WBC (4.50-10.00) X 10*3/uL RBC (4.40-5.60) X 10*6/uL Hgb (13.0-17.0) g/dL Hct (39.6-50.0) % MCV (80.0-97.0) fL MCH (27.0-32.0) pg BUN (9.0-27.0) mg/dL Creatinine (0.6-1.5) mg/dL Est GFR (CKD-EPI)AfAm (60.0-200.0) Est GFR (CKD-EPI)NonAf (60.0-200.0) Glucose (70-110) mg/dL POC Glucose (mg/dL) 195 H 199 H (75-99) mg/dL Calcium (8.7-10.3) mg/dL Total Protein (6.2-8.2) g/dL Albumin (3.8-4.9) g/dL Albumin/Globulin Ratio (1.60-3.17) g/dL Diabetes panel 04/10/22 Range/Units 06:05 Sodium 136 (135-145) mmol/L Potassium 5.2 (3.5-5.5) mmol/L Chloride 101 (96-109) mmol/L Carbon Dioxide 23.2 (20.0-27.5) mmol/L BUN 37.2 H (9.0-27.0) mg/dL Creatinine 2.0 H (0.6-1.5) mg/dL Glucose 193 H (70-110) mg/dL Calcium 8.3 L (8.7-10.3) mg/dL AST 19 (14-35) U/L ALT 20 (10-49) U/L Alkaline Phosphatase 94 (41-126) U/L Total Protein 5.9 L (6.2-8.2) g/dL Albumin 3.5 L (3.8-4.9) g/dL Triglycerides 72.70 (0.00-149.00) mg/dL HDL Cholesterol 40.00 (40.00-60.00) mg/dL Calcium panel 04/10/22 Range/Units 06:05 Calcium 8.3 L (8.7-10.3) mg/dL Albumin 3.5 L (3.8-4.9) g/dL Pituitary panel 04/10/22 Range/Units 06:05 Sodium 136 (135-145) mmol/L Potassium 5.2 (3.5-5.5) mmol/L Chloride 101 (96-109) mmol/L Carbon Dioxide 23.2 (20.0-27.5) mmol/L BUN 37.2 H (9.0-27.0) mg/dL Creatinine 2.0 H (0.6-1.5) mg/dL Glucose 193 H (70-110) mg/dL Calcium 8.3 L (8.7-10.3) mg/dL Adrenal panel 04/10/22 Range/Units 06:05 Sodium 136 (135-145) mmol/L Potassium 5.2 (3.5-5.5) mmol/L Chloride 101 (96-109) mmol/L Carbon Dioxide 23.2 (20.0-27.5) mmol/L BUN 37.2 H (9.0-27.0) mg/dL Creatinine 2.0 H (0.6-1.5) mg/dL Glucose 193 H (70-110) mg/dL Calcium 8.3 L (8.7-10.3) mg/dL Total Bilirubin 0.80 (0.30-1.20) mg/dL AST 19 (14-35) U/L ALT 20 (10-49) U/L Alkaline Phosphatase 94 (41-126) U/L Total Protein 5.9 L (6.2-8.2) g/dL Albumin 3.5 L (3.8-4.9) g/dL
--- NOTE | 2022-04-10 15:07 | US ---
EXAMINATION TYPE: US gallbladder DATE OF EXAM: 04/10/2022 COMPARISON: CT 04/09/2022 CLINICAL HISTORY: RUQ abdominal pain, gallstones. gallstones, nausea EXAM MEASUREMENTS: Liver Length: 17.2 cm Gallbladder Wall: 0.5 cm Right Kidney: 11.0 x 4.9 x 4.9 cm technical limitations due to large amount of overlying bowel content Pancreas: Obscured by bowel gas Liver: visualized portions appear wnl Gallbladder: hydropic = 14.9cm and filled with stones/solid component Evidence for sonographic Narvaez's sign: yes CBD: Obscured by overlying bowel gas Right Kidney: thin renal cortex. cystic area upper pole = 2.1 x 2.1 x 2.1cm IMPRESSION: Hydropic gallbladder, cholelithiasis, correlate for cholecystitis and cystic duct obstruc tion, CT shows possible biliary duct stone
--- NOTE | 2022-04-10 16:01 | P.PN ---
Subjective Progress Note Date: 04/10/22 Hospital course: Patient is a very pleasant 86-year-old male with a past medical history of coronary artery disease, chronic CHF, hypertension, hyperlipidemia, chronic kidney disease stage III, and type II DM. He presented to the emergency department overnight with a chief complaint of chest pain. Patient developed sudden onset chest pain/pressure around 6 PM last night. Patient reported this pain was to midsternal chest and radiated into his left arm accompanied by shortness of breath, nausea, palpitations, and diaphoresis. He underwent full evaluation in the emergency department. EKG was completed showing normal sinus rhythm 64 bpm with a first-degree block with GA interval of 223 ms and occasional PVC. Chest x-ray negative for acute cardiopulmonary process. X-ray abdomen revealing multiple loops of bowel dilated and more likely related to il eus however mechanical obstruction not entirely excluded. CBC, coags, and CMP completed. CBC showing normocytic normochromic anemia with hemoglobin of 10.2. CMP revealing mild hyperkalemia with potassium of 5.4 and elevated renal function with BUN 42, creatinine 1.85, and GFR is 32 (slightly higher than baseline creatinine level of 1.6). Patient was admitted under the services with consultation to cardiology and nephrology. Patient monitored throughout the night troponins trended all negative at less than 0.0123 draws. Cardiology evaluated patient took patient for Lexiscan stress test. Echocardiogram was completed. Patient continues to have persistent abdominal pain/discomfort. CT abdomen and pelvis to be completed to rule out small bowel obstruction versus ileus and general surgery consulted to evaluate. Echocardiogram completed revealing mild to moderately impaired EF of 40-45% with mild mitral and tricuspid regurgitation. Stress test revealing nondiagnostic electrogram stress testing in response to Lexiscan. 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 CT abdomen and pelvis revealing a distended gallbladder with layering gallstones with an intraoperative for renal abdominal aorta fusiform ectasia dilation up to 3.4 cm in right common iliac artery displaced atherosclerotic yadiel cification which could represent dissection recommend further evaluation with nonemergent CTA of abdomen and pelvis on outpatient basis. Gallbladder ultrasound revealing hydropic gallbladder, cholestasis and correlating for acute cholecystitis and cystic duct obstruction as CT shows possible biliary duct stone. Physical examination: Patient was seen and fully evaluated at bedside. Patient reports slight improvement of pain in abdomen and is no longer walking in bed. Patient did have mild tenderness to right upper quadrant/epigastric region and left lower quadrant upon palpation. Patient currently denies having any chest pain, palpitations, shortness of breath at this time. General surgery following likely waning for laparoscopic cholecystectomy this weekend. General: non toxic, no distress, appears at stated age Derm: warm, dry Head: atraumatic, normocephalic, symmetric Eyes: EOMI, no lid lag, anicteric sclera Mouth: no lip lesion, mucus membranes moist Cardiovascular: S1S2 reg, no murmur, positive posterior tibial pulse bilateral, Lungs: CTA bilateral, no rhonchi, no rales , no accessory muscle use Abdominal: soft, nontender to palpation, no guarding, no appreciable organomegaly Ext: no gross muscle atrophy, no edema, no contractures Neuro: CN II-XI grossly intact, no focal neuro deficits Psych: Alert, oriented, appropriate affect Assessment and plan of care: Chest pain, rule out acute coronary event -Cardiology following, took patient for Lexiscan stress test -Continue Telemetry monitoring -Troponins negative < 0.012. -Aspirin, atorvastatin, and carvedilol -Echocardiogram revealing mild to moderately impaired EF of 40-45% -Lexiscan stress test revealing old infarcts with underlying dilated cardiomyopathy and no convincing evidence for reversible ischemia. Acute cholecystitis with possible biliary duct stone Abdominal pain, ileus versus small bowel obstruction -X-ray concerning for possible ileus versus small bowel obstruction -Patient will need to follow up outpatient upon discharge for evaluation by vascular surgery secondary to findings of renal abdominal aorta fusiform ectasia dilation and common iliac artery displaced atherosclerotic calcification -Gen. surgery consulted to evaluate for possible bowel obstruction. -Gentle hydration with IV fluids. -Clear liquid diet, NPO at midnight Hypertension -Monitor vital signs and continue daily medication regimen with carvedilol. Hyperlipidemia -Continue daily medication regimen with atorvastatin. Type II [id number] diabetes mellitus. -Hold oral hypoglycemic medications RDN's and place patient on glycemic protocol with NovoLog sliding scale. The patient is admitted with an anticipated less than 2 midnight stay for evaluation of chest pain CODE STATUS: Full Code Discussed with: Patient and RN Anticipated discharge date: Local course to determine Anticipated discharge place: Home A total of 33 minutes was spent on the care of this complex patient more than 50% of the time was spent in counseling and care coordination. I reviewed the documentation as provided by the ROSENDO above, who is the original author of this note. I agree with the documented assessment and plan, with the following changes: None Objective - Vital Signs Vital signs: Vital Signs Temp 99.1 F 04/10/22 13:37 Pulse 83 04/10/22 13:37 Resp 18 04/10/22 13:37 BP 132/64 04/10/22 13:37 Pulse Ox 94 L 04/10/22 13:37 FiO2 Intake & Output 04/09/22 04/10/22 04/10/22 18:59 06:59 18:59 Intake Total 450 0 Output Total 210 140 Balance 240 -140 Intake: IV 450 .9 NS @ 75 450 Oral 0 Output: Urine 210 140 Other: Voiding Method Toilet Toilet # Voids 3 1 1 - Labs CBC & Chem 7: 04/11/22 07:03 04/11/22 07:03 Labs: Abnormal Lab Results - Last 24 Hours (Table) 04/09/22 04/09/22 04/10/22 Range/Units 17:18 19:03 02:02 WBC (4.50-10.00) X 10*3/uL RBC (4.40-5.60) X 10*6/uL Hgb (13.0-17.0) g/dL Hct (39.6-50.0) % MCV (80.0-97.0) fL MCH (27.0-32.0) pg BUN (9.0-27.0) mg/dL Creatinine (0.6-1.5) mg/dL Est GFR (CKD-EPI)AfAm (60.0-200.0) Est GFR (CKD-EPI)NonAf (60.0-200.0) Glucose (70-110) mg/dL POC Glucose (mg/dL) 186 H 174 H 162 H (75-99) mg/dL Calcium (8.7-10.3) mg/dL Total Protein (6.2-8.2) g/dL Albumin (3.8-4.9) g/dL Albumin/Globulin Ratio (1.60-3.17) g/dL 04/10/22 04/10/22 04/10/22 Range/Units 06:05 06:05 07:12 WBC 16.55 H (4.50-10.00) X 10*3/uL RBC 3.11 L (4.40-5.60) X 10*6/uL Hgb 10.2 L (13.0-17.0) g/dL Hct 31.8 L (39.6-50.0) % MCV 102.3 H (80.0-97.0) fL MCH 32.8 H (27.0-32.0) pg BUN 37.2 H (9.0-27.0) mg/dL Creatinine 2.0 H (0.6-1.5) mg/dL Est GFR (CKD-EPI)AfAm 33.5 L (60.0-200.0) Est GFR (CKD-EPI)NonAf 28.9 L (60.0-200.0) Glucose 193 H (70-110) mg/dL POC Glucose (mg/dL) 195 H (75-99) mg/dL Calcium 8.3 L (8.7-10.3) mg/dL Total Protein 5.9 L (6.2-8.2) g/dL Albumin 3.5 L (3.8-4.9) g/dL Albumin/Globulin Ratio 1.46 L (1.60-3.17) g/dL / Range/Units 11:55 WBC (4.50-10.00) X 10*3/uL RBC (4.40-5.60) X 10*6/uL Hgb (13.0-17.0) g/dL Hct (39.6-50.0) % MCV (80.0-97.0) fL MCH (27.0-32.0) pg BUN (9.0-27.0) mg/dL Creatinine (0.6-1.5) mg/dL Est GFR (CKD-EPI)AfAm (60.0-200.0) Est GFR (CKD-EPI)NonAf (60.0-200.0) Glucose (70-110) mg/dL POC Glucose (mg/dL) 199 H (75-99) mg/dL Calcium (8.7-10.3) mg/dL Total Protein (6.2-8.2) g/dL Albumin (3.8-4.9) g/dL Albumin/Globulin Ratio (1.60-3.17) g/dL
[2022-04-10 16:43] LABS: Glucose,Whole Blood 198 mg/dL (75-99)
--- NOTE | 2022-04-10 18:11 | XR ---
EXAMINATION TYPE: XR chest 1V portable DATE OF EXAM: 04/10/2022 COMPARISON: 04/09/2022 HISTORY: Short of breath TECHNIQUE: FINDINGS: There is mild blunting right costophrenic angle. There is evidence of old right-sided rib f ractures and pleural thickening on the right lateral chest wall. Heart size is normal. No heart failu re. There are sternal wires. IMPRESSION: Pleural diaphragmatic scarring right lung base and old right-sided rib fractures. No acut e lung disease. No heart failure. No change.
[2022-04-10] MEDS: HEPARIN SODIUM,PORCINE/PF 5,000 UNIT/0.5 ML SYRINGE SQ SCH (20:30)
[2022-04-10] MEDS ORDERED: HYDROmorphone 0.5 MG/0.5 ML SYRINGE IVP PRN (20:57)
[2022-04-10] MEDS: ONDANSETRON 4 MG/2 ML VIAL IVP PRN (21:59)
--- NOTE | 2022-04-10 22:51 | XR ---
EXAMINATION TYPE: XR chest 1V confirm line [facility] DATE OF EXAM: 04/10/2022 COMPARISON: Today HISTORY: Line placement TECHNIQUE: FINDINGS: There is nasogastric tube and the tip appears to be at the gastroesophageal junction stone within the distal esophagus. There is mild coarsening of interstitial markings. There are sternal wir es. The trachea is not well visualized. It is not clear if there is an endotracheal tube. There is no heart failure. There are chest leads. IMPRESSION: There is nasogastric tube with the tip at the distal esophagus. No heart failure or pulmo nary consolidation.
[2022-04-10 23:22] LABS: Glucose,Whole Blood 169 mg/dL (75-99)
[2022-04-10] MEDS: PANTOPRAZOLE 40 MG/10 ML VIAL IVP SCH (23:55)
[2022-04-11 02:40] LABS: Glucose,Whole Blood 185 mg/dL (75-99)
[2022-04-11] MEDS: PIPERACILLIN-TAZOBACTAM 3.375 GM in SODIUM CHLORIDE 0.9% 100 ML IVPB SCH ×3 (04:55→20:31)
[2022-04-11 07:28] LABS: Glucose,Whole Blood 142 mg/dL (75-99)
[2022-04-11] MEDS: INSULIN ASPART (NovoLOG) 100 UNIT/ML VIAL SQ SCH ×4 (07:32→22:00)
[2022-04-11] MEDS: HEPARIN SODIUM,PORCINE/PF 5,000 UNIT/0.5 ML SYRINGE SQ SCH ×2 (08:11→12:17)
[2022-04-11] MEDS: SYMBICORT 80-4.5 MCG INHALER INHALATION SCH ×2 (08:36→20:10)
--- NOTE | 2022-04-11 10:27 | P.PN ---
Subjective Patient is seen for follow-up for chronic kidney disease Serum creatinine has been around 2.0 mg/dL Patient currently has an NG tube in place. He denies any significant abdominal pain nausea vomiting today. Objective - Vital Signs Vital signs: Vital Signs Temp 98.4 F 04/11/22 07:24 Pulse 73 04/11/22 07:24 Resp 18 04/11/22 07:24 BP 121/67 04/11/22 07:24 Pulse Ox 97 04/11/22 07:24 FiO2 Intake & Output 04/10/22 04/11/22 04/11/22 18:59 06:59 18:59 Intake Total 118 100 Output Total 550 Balance 118 -450 Intake: Intake, IV Titration 100 Amount Piperacillin-Tazobactam 3 100 .375 gm In Sodium Chloride 0.9% 100 ml @ 25 mls/hr IVPB Q8H [facility] Rx#: [id number] Oral 118 Output: Gastric Drainage 550 Other: # Voids 1 - Exam Awake, comfortable, not in any acute distress Examination of the heart S1 and S2 Examination lungs bilateral breath sounds are heard Abdomen is soft nontender Examination lower extremities shows no evidence of edema [employer] exam grossly intact - Labs CBC & Chem 7: 04/10/22 06:05 04/10/22 06:05 Labs: Abnormal Lab Results - Last 24 Hours (Table) 04/10/22 04/10/22 04/10/22 Range/Units 11:55 16:42 23:21 POC Glucose (mg/dL) 199 H 198 H 169 H (75-99) mg/dL 04/11/22 04/11/22 Range/Units 02:39 07:27 POC Glucose (mg/dL) 185 H 142 H (75-99) mg/dL Assessment and Plan Assessment: 1. 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 Serum creatinine staying around 2. No evidence of obstruction on CAT scan 2. Bowel obstruction/ileus currently with an NG tube 3. Chronic systolic CHF with EF 40-45% 4. Mild hyperkalemia associated with CK D stage IV and interest oh 5. Coronary artery disease status post coronary artery bypass surgery Plan: Continue IV fluids Repeat labs in a.m. Avoid nephrotoxic agents Avoid hypotension
[2022-04-11] MEDS: PANTOPRAZOLE 40 MG/10 ML VIAL IVP SCH (11:28)
[2022-04-11] MEDS: carvediloL 6.25 MG TAB PO SCH ×2 (11:29→19:47)
[2022-04-11] MEDS: ISOSORBIDE MONONITRATE ER 30 MG TAB.ER.24H PO SCH (11:29)
[2022-04-11] MEDS: ASPIRIN 81 MG PO SCH (11:29)
[2022-04-11] MEDS: SACUBITRIL/VALSARTAN 49 MG-51 MG TABLET PO SCH (11:29)
[2022-04-11] MEDS: ATORVASTATIN 40 MG TAB PO SCH (11:29)
--- NOTE | 2022-04-11 11:39 | P.PN ---
Progress Note - Text Progress Note Date: 04/11/22 Order labs from this morning lost in transit. Repeat CBC and BMP for urgent surgical intervention.
[2022-04-11 11:57] LABS: HCT 30.8 % (39.6-50.0); HGB 9.5 g/dL (13.0-17.0); MCH 32.3 pg (27.0-32.0); MCHC 30.8 g/dL (32.0-37.0); MCV 104.8 fL (80.0-97.0); Mean Platelet Volume 10.3 fL (9.5-12.2); NRBC Per 100 WBC 0 /100 WBCS (0.0-0.0); Platelet Count 187 X 10*3/uL (140-440); RBC 2.94 X 10*6/uL (4.40-5.60); RDW 13.8 % (11.5-14.5); WBC 16.66 X 10*3/uL (4.50-10.00)
[2022-04-11] MEDS ORDERED: INDOCYANINE GREEN 25 MG VIAL IV ONE (12:00)
[2022-04-11 12:03] LABS: Magnesium 2.3 mg/dL (1.5-2.4)
--- NOTE | 2022-04-11 12:06 | P.PN ---
Subjective Progress Note Date: 04/11/22 Patient is seen resting comfortably in bed without signs of acute distress. He denies chest pain or shortness of breath. Patient has an NG tube that was placed last night. Patient's echocardiogram showed a mildly decreased LV function with an ejection fraction of 40-45% with mild mitral valve regurgita tion. He had a recent negative stress test and is tolerating the isosorbide without adverse effects. Patient awaits to undergo a laparoscopic cholecystectomy tomorrow. Objective - Vital Signs Vital signs: Vital Signs Temp 98.4 F 04/11/22 07:24 Pulse 73 04/11/22 07:24 Resp 18 04/11/22 07:24 BP 121/67 04/11/22 07:24 Pulse Ox 97 04/11/22 07:24 FiO2 Intake & Output 04/10/22 04/11/22 04/11/22 18:59 06:59 18:59 Intake Total 118 100 Output Total 550 Balance 118 -450 Intake: Intake, IV Titration 100 Amount Piperacillin-Tazobactam 3 100 .375 gm In Sodium Chloride 0.9% 100 ml @ 25 mls/hr IVPB Q8H [facility] Rx#: [id number] Oral 118 Output: Gastric Drainage 550 Other: # Voids 1 - Exam PHYSICAL EXAM: VITAL SIGNS: Reviewed. GENERAL: Well-developed in no acute distress. HEENT: Head is normocephalic. Pupils are equal, round. Sclerae anicteric. Mucous membranes of the mouth are moist. NG tube in place NECK: Supple. No JVD or thyromegaly RESPIRATORY: Respirations even and unlabored. Lungs diminished to auscultation bilaterally. CARDIO: Regular rate and rhythm. S1 and S2 heard. No murmur or gallops. EXTREMITIES: Normal range of motion. No clubbing or cyanosis. Peripheral pulses intact. Negative for bilateral lower extremity edema NEURO: Orientated to person, time, mood is appropriate - Labs CBC & Chem 7: 04/11/22 07:03 04/10/22 06:05 Labs: Abnormal Lab Results - Last 24 Hours (Table) 04/10/22 04/10/22 04/11/22 Range/Units 16:42 23:21 02:39 WBC (4.50-10.00) X 10*3/uL RBC (4.40-5.60) X 10*6/uL Hgb (13.0-17.0) g/dL Hct (39.6-50.0) % MCV (80.0-97.0) fL MCH (27.0-32.0) pg MCHC (32.0-37.0) g/dL POC Glucose (mg/dL) 198 H 169 H 185 H (75-99) mg/dL 04/11/22 04/11/22 Range/Units 07:03 07:27 WBC 16.66 H (4.50-10.00) X 10*3/uL RBC 2.94 L (4.40-5.60) X 10*6/uL Hgb 9.5 L (13.0-17.0) g/dL Hct 30.8 L (39.6-50.0) % MCV 104.8 H (80.0-97.0) fL MCH 32.3 H (27.0-32.0) pg MCHC 30.8 L (32.0-37.0) g/dL POC Glucose (mg/dL) 142 H (75-99) mg/dL Assessment and Plan Assessment: Acute cholecystitis with possible bile duct stone History of coronary artery disease status post coronary artery bypass graft History of Ischemic cardiomyopathy Hypertension Hyperlipidemia [id number] type II diabetic Plan: Patient is clear for surgery under anesthesia Continue with current cardiac medications Continue with telemetry monitoring Further recommendations based on clinical course The above impression and plan of care have been discussed and directed by the signing physician. Abeba Asencio, nurse practitioner, acting as scribe for signing physician.
[2022-04-11 12:17] LABS: Glucose,Whole Blood 123 mg/dL (75-99)
--- NOTE | 2022-04-11 12:44 | P.PN ---
Subjective Progress Note Date: 04/11/22 CHIEF COMPLAINT: Abdominal pain HISTORY OF PRESENT ILLNESS: The patient is a 86 year old male admitted for atypical chest pain including upper abdominal pain. Diagnostic studies demonstrated symptomatic gallstones. Gen. surgery was consulted. Last night patient had moderate emesis. Nasogastric tube was placed. Patient's report his abdomen is distended. He reports feeling somewhat better since NG tube placement. "I want to feel better." REVIEW OF ORGAN SYSTEMS: CONSTITUTIONAL: No fevers or chills. RESPIRATORY: Has chronic obstructive pulmonary disease. Has hyperlipidemia. Has sleep apnea. CARDIOVASCULAR: Has chest pain, palpitations, or recent heart attacks. Has coronary artery disease. Pre-existing cardiac disease. Has hypertensive heart disease. has hyperlipidemia. History of CABG. GASTROINTESTINAL: Has change in bowel habits and gas bloat. Reports gastroesophageal reflux disease ENDOCRINE: Denies current thyroid disorders. Has diabetes type II. PHYSICAL EXAM: VITALS: Reviewed CONSTITUTIONAL: Well developed and in no acute distress. EYES: Conjuctivae without sclera icterus. Extraocular movements grossly intact. HEAD, EARS, NOSE, THROAT: Moist buccal mucosa. Head is atraumatic, normocephalic. Hears conversational speech. No nasal drainage. RESPIRATORY: Non-labored respirations and equal bilateral excursions. No gross wheezes. CARDIOVASCULAR: Palpable 2+ radial pulses. ABDOMEN: Increased distention from yesterday. NG tube with coffee ground. No diffuse peritonitis. MUSCULOSKELETAL: No clubbing cyanosis or edema. SKIN: Warm and well perfused with good skin turgor. NEUROLOGIC: Cranial nerves II through XII grossly intact. No focal or lateralizi ng signs. PSYCH: Appropriate affect. Alert and oriented to person, place and time. Displays appropriate insight. CLINCAL LABS: Reviewed. WBC persistently elevated 16.55 from yesterday. STUDIES: Ultrasound of gallbladder independent review demonstrating moderate stones with gallbladder wall thickening 4.5 mm. Features consistent with cholecystitis. This my independent interpretation. ASSESSMENT: 1. Abdominal pain with gallstones 2. Ischemic cardiomyopathy with congestive heart failure 3. COPD 4. Leukocytosis 5. Stage III chronic kidney disease due to hypertensive heart disease 6. Acute cholecystitis PLAN: 1. Continue nasogastric tube decompression. 2. Urgent surgical intervention robotic cholecystectomy described. 3. Patient elevated risk due to pre-existing heart disease. Risk of cardiac depressant also reviewed. All questions addressed. 4. DVT prophylaxis added with heparin 5000 units every 12 5. Continue IV antibiotics Objective - Vital Signs Vital signs: Vital Signs Temp 98.4 F 04/11/22 07:24 Pulse 73 04/11/22 07:24 Resp 18 04/11/22 07:24 BP 121/67 04/11/22 07:24 Pulse Ox 97 04/11/22 07:24 FiO2 Intake & Output 04/10/22 04/11/22 04/11/22 18:59 06:59 18:59 Intake Total 118 100 Output Total 550 Balance 118 -450 Intake: Intake, IV Titration 100 Amount Piperacillin-Tazobactam 3 100 .375 gm In Sodium Chloride 0.9% 100 ml @ 25 mls/hr IVPB Q8H [facility] Rx#: [id number] Oral 118 Output: Gastric Drainage 550 Other: # Voids 1 - Labs CBC & Chem 7: 04/11/22 07:03 04/10/22 06:05 Labs: Abnormal Lab Results - Last 24 Hours (Table) 04/10/22 04/10/22 04/11/22 Range/Units 16:42 23:21 02:39 WBC (4.50-10.00) X 10*3/uL RBC (4.40-5.60) X 10*6/uL Hgb (13.0-17.0) g/dL Hct (39.6-50.0) % MCV (80.0-97.0) fL MCH (27.0-32.0) pg MCHC (32.0-37.0) g/dL POC Glucose (mg/dL) 198 H 169 H 185 H (75-99) mg/dL Procalcitonin (0.02-0.09) ng/mL 04/11/22 04/11/22 04/11/22 Range/Units 07:03 07:03 07:27 WBC 16.66 H (4.50-10.00) X 10*3/uL RBC 2.94 L (4.40-5.60) X 10*6/uL Hgb 9.5 L (13.0-17.0) g/dL Hct 30.8 L (39.6-50.0) % MCV 104.8 H (80.0-97.0) fL MCH 32.3 H (27.0-32.0) pg MCHC 30.8 L (32.0-37.0) g/dL POC Glucose (mg/dL) 142 H (75-99) mg/dL Procalcitonin 1.38 H (0.02-0.09) ng/mL 04/11/22 Range/Units 12:15 WBC (4.50-10.00) X 10*3/uL RBC (4.40-5.60) X 10*6/uL Hgb (13.0-17.0) g/dL Hct (39.6-50.0) % MCV (80.0-97.0) fL MCH (27.0-32.0) pg MCHC (32.0-37.0) g/dL POC Glucose (mg/dL) 123 H (75-99) mg/dL Procalcitonin (0.02-0.09) ng/mL
[2022-04-11 12:55] LABS: Acanthocytes 2+; Basophils # (A) 0.02 X 10*3/uL (0.00-0.10); Basophils % (A) 0.1 %; Eosinophils # (A) 0 X 10*3/uL (0.04-0.35); Eosinophils % (A) 0 %; Immature Grans, Automated 1.3 %; Lymphocytes # (A) 0.58 X 10*3/uL (0.90-5.00); Lymphocytes % (A) 3.5 %; Monocytes # (A) 1.37 X 10*3/uL (0.20-1.00); Monocytes % (A) 8.2 %; Neutrophils # (A) 14.47 X 10*3/uL (1.80-7.70); Neutrophils % (A) 86.9 %
[2022-04-11 13:03] LABS: African American GFR (CKD) 20.5 (60.0-200.0); Albumin 3.2 g/dL (3.8-4.9); Albumin/Globulin Ratio 1.39 (1.60-3.17); Anion Gap 11.8 mmol/L (10.00-18.00); BUN/Creat Ratio 18.37 Ratio (12.00-20.00); Blood Urea Nitrogen 55.1 mg/dL (9.0-27.0); Calcium 8.3 mg/dL (8.7-10.3); Carbon Dioxide 24.2 mmol/L (20.0-27.5); Globulin 2.3 g/dL (1.6-3.3); Non-African American GFR(CKD) 17.7 (60.0-200.0); Total Bilirubin 0.7 mg/dL (0.30-1.20); Total Protein 5.5 g/dL (6.2-8.2)
[2022-04-11] MEDS ORDERED: SODIUM CHLORIDE 0.9% 1,000 ML IV SCH ×2 (13:30→19:30)
[2022-04-11] MEDS ORDERED: LACTATED RINGERS 1,000 ML IV ONE ×3 (13:36→16:15)
[2022-04-11] MEDS ORDERED: BUPIVACAIN-EPI 0.25%-1:200,000 30 ML VIAL SQ ONE (14:02)
--- NOTE | 2022-04-11 14:08 | P.PN ---
Subjective Progress Note Date: 04/11/22 Hospital course: Patient is a very pleasant 86-year-old male with a past medical history of coronary artery disease status post CABG, chronic CHF with ischemic car diomyopathy, hypertension, hyperlipidemia, chronic kidney disease stage III, and type II DM. He presented to the emergency department overnight with a chief complaint of chest pain. Patient developed sudden onset chest pain/pressure around 6 PM last night. Patient reported this pain was to midsternal chest and radiated into his left arm accompanied by shortness of breath, nausea, palpitations, and diaphoresis. He underwent full evaluation in the emergency department. EKG was completed showing normal sinus rhythm 64 bpm with a first- degree block with AZ interval of 223 ms and occasional PVC. Chest x-ray negative for acute cardiopulmonary process. X-ray abdomen revealing multiple loops of bowel dilated and more likely related to ileus however mechanical obstruction not entirely excluded. CBC, coags, and CMP completed. CBC showing normocytic normochromic anemia with hemoglobin of 10.2. CMP revealing mild hyperkalemia with potassium of 5.4 and elevated renal function with BUN 42, creatinine 1.85, and GFR is 32 (slightly higher than baseline creatinine level of 1.6). Patient was admitted under the services with consultation to cardiology and nephrology. Patient monitored throughout the night troponins trended all negative at less than 0.0123 draws. Cardiology evaluated patient took patient for Lexiscan stress test. Echocardiogram was completed. Patient continues to have persistent abdominal pain/discomfort. CT abdomen and pelvis to be completed to rule out small bowel obstruction versus ileus and general surgery consulted to evaluate. Echocardiogram completed revealing mild to moderately impaired EF of 40-45% with mild mitral and tricuspid regurgitation. Stress test revealing nondiagnostic electrogram stress testing in response to Lexiscan. 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 CT abdomen and pelvis revealing a distended gallbladder with layering gallstones with an intraoperative for renal abdominal aorta fusiform ectasia dilation up to 3.4 cm in right common iliac artery displaced atherosclerotic calcification which could represent dissection recommend further evaluation with nonemergent CTA of abdomen and pelvis on outpatient basis. Gallbladder ultrasound revealing hydropic gallbladder, cholestasis and correlating for acute cholecystitis and cystic duct obstruction as CT shows possible biliary duct stone. in the evening of 04/10/22 patient reportedly began experiencing increased abdominal pain, nausea, and vomiting of dark brown gastric contents. Patient was made NPO at this time and an NG tube was placed to low intermittent suction after co nfirmation of placement. morning labs revealing worsening leukocytosis with WBC count of 16.66 count of 16.66, hemoglobin 9.5, and renal function worsening worsening with BUN 55.1, creatinine 3.0, and GFR of 17.7. Nephrology was consulted. Patient to remain on IV fluid hydration with 0.9% normal saline at 130 mL's per hour. Pro-calcitonin elevated at 1.38 and patient to remain on IV antibiotic with Zosyn. Physical examination: Patient was seen and fully evaluated at bedsidethis morning. He continues to report diffuse abdominal discomfort/pain. RN reported that overnight, patient experienced increased abdominal pain, nausea, and vomiting of dark brown gastric contents. Patient was made NPO at that time and an NG tube was placed to low in termittent suction after confirmation of placement. Morning labs reveal worsening leukocytosis with WBC count of 16.66 count of 16.66, hemoglobin 9.5, and renal function worsening worsening with BUN 55.1, creatinine 3.0, and GFR of 17.7. Nephrology was consulted. Patient to remain on IV fluid hydration with 0.9% normal saline at 130 mL's per hour. Pro-calcitonin elevated at 1.38 and patient to remain on IV antibiotic with Zosyn. General: non toxic, no distress, appears at stated age Derm: warm, dry Head: atraumatic, normocephalic, symmetric Eyes: EOMI, no lid lag, anicteric sclera Mouth: no lip lesion, mucus membranes moist Cardiovascular: S1S2 reg, no murmur, positive posterior tibial pulse bilaterally, no edema Lungs: CTA bilateral, no rhonchi, no rales , no accessory muscle use Abdominal: obese abdomen, soft, tenderness to right lower quadrant, right upper quadrant, and left lower quadrant upon palpation. no guarding, no appreciable organomegaly. NG tube in place with return of dark brown gastric contents. Ext: no gross muscle atrophy, no edema, no contractures Neuro: CN II-XI grossly intact, no focal neuro deficits Psych: Alert, oriented, appropriate affect Assessment and plan of care: Acute cholecystitis with possible biliary duct stone Small bowel obstruction, NG tube in place for decompression -X-ray concerning for possible ileus versus small bowel obstruction. Overnight patient reportedly began throwing up dark brown gastric contents and an NG tube was placed to LIS for decompression . -Gen. surgery following and planning for urgent surgical intervention robotic cholecystectomy and to continue with NG tube decompression for small bowel obstruction. -Gentle hydration with IV fluids. -NPO, maintain NG tube to low intermittent suction Chest pain, acute coronary event ruled out History of CAD status CABG History of ischemic cardiomyopathy -Cardiology following, took patient for Lexiscan stress test -Continue Telemetry monitoring -Troponins negative < 0.012. -Aspirin, atorvastatin, and carvedilol -Echocardiogram revealing mild to moderately impaired EF of 40-45% -Lexiscan stress test revealing old infarcts with underlying dilated cardiomyopathy and no convincing evidence for reversible ischemia. Renal abdominal aorta fusiform ectasia dilation and common iliac artery displaced atherosclerotic calcification -Vascular surgery consulted for evaluation Hypertension -Monitor vital signs and continue daily medication regimen with carvedilol. Hyperlipidemia -Continue daily medication regimen with atorvastatin. Type II ost-[id number] diabetes mellitus. -Hold oral hypoglycemic medications RDN's and place patient on glycemic protocol with NovoLog sliding scale. The patient is admitted with an anticipated less than 2 midnight stay for evaluation of chest pain CODE STATUS: Full Code Discussed with: Patient and RN Anticipated discharge date: Local course to determine Anticipated discharge place: Home A total of 39 minutes was spent on the care of this complex patient more than 50% of the time was spent in counseling and care coordination. I reviewed the documentation as provided by the ROSENDO above, who is the original author of this note. I agree with the documented assessment and plan, with the following changes: None Objective - Vital Signs Vital signs: Vital Signs Temp 97.8 F 04/11/22 02:37 Pulse 71 04/11/22 02:37 Resp 20 04/11/22 02:37 BP 105/58 04/11/22 02:37 Pulse Ox 97 04/11/22 02:37 FiO2 Intake & Output 04/10/22 04/11/22 04/11/22 18:59 06:59 18:59 Intake Total 118 100 Output Total 550 Balance 118 -450 Intake: Intake, IV Titration 100 Amount Piperacillin-Tazobactam 3 100 .375 gm In Sodium Chloride 0.9% 100 ml @ 25 mls/hr IVPB Q8H [facility] Rx#: [id number] Oral 118 Output: Gastric Drainage 550 Other: # Voids 1 - Labs CBC & Chem 7: 04/11/22 07:03 04/11/22 07:03 Labs: Abnormal Lab Results - Last 24 Hours (Table) 04/10/22 04/10/22 04/10/22 Range/Units 06:05 06:05 11:55 WBC 16.55 H (4.50-10.00) X 10*3/uL RBC 3.11 L (4.40-5.60) X 10*6/uL Hgb 10.2 L (13.0-17.0) g/dL Hct 31.8 L (39.6-50.0) % MCV 102.3 H (80.0-97.0) fL MCH 32.8 H (27.0-32.0) pg BUN 37.2 H (9.0-27.0) mg/dL Creatinine 2.0 H (0.6-1.5) mg/dL Est GFR (CKD-EPI)AfAm 33.5 L (60.0-200.0) Est GFR (CKD-EPI)NonAf 28.9 L (60.0-200.0) Glucose 193 H (70-110) mg/dL POC Glucose (mg/dL) 199 H (75-99) mg/dL Calcium 8.3 L (8.7-10.3) mg/dL Total Protein 5.9 L (6.2-8.2) g/dL Albumin 3.5 L (3.8-4.9) g/dL Albumin/Globulin Ratio 1.46 L (1.60-3.17) g/dL 04/10/22 04/10/22 04/11/22 Range/Units 16:42 23:21 02:39 WBC (4.50-10.00) X 10*3/uL RBC (4.40-5.60) X 10*6/uL Hgb (13.0-17.0) g/dL Hct (39.6-50.0) % MCV (80.0-97.0) fL MCH (27.0-32.0) pg BUN (9.0-27.0) mg/dL Creatinine (0.6-1.5) mg/dL Est GFR (CKD-EPI)AfAm (60.0-200.0) Est GFR (CKD-EPI)NonAf (60.0-200.0) Glucose (70-110) mg/dL POC Glucose (mg/dL) 198 H 169 H 185 H (75-99) mg/dL Calcium (8.7-10.3) mg/dL Total Protein (6.2-8.2) g/dL Albumin (3.8-4.9) g/dL Albumin/Globulin Ratio (1.60-3.17) g/dL 04/11/22 Range/Units 07:27 WBC (4.50-10.00) X 10*3/uL RBC (4.40-5.60) X 10*6/uL Hgb (13.0-17.0) g/dL Hct (39.6-50.0) % MCV (80.0-97.0) fL MCH (27.0-32.0) pg BUN (9.0-27.0) mg/dL Creatinine (0.6-1.5) mg/dL Est GFR (CKD-EPI)AfAm (60.0-200.0) Est GFR (CKD-EPI)NonAf (60.0-200.0) Glucose (70-110) mg/dL POC Glucose (mg/dL) 142 H (75-99) mg/dL Calcium (8.7-10.3) mg/dL Total Protein (6.2-8.2) g/dL Albumin (3.8-4.9) g/dL Albumin/Globulin Ratio (1.60-3.17) g/dL
[2022-04-11] MEDS: SODIUM CHLORIDE 0.9% 1,000 ML IV SCH (14:09)
[2022-04-11] MEDS ORDERED: NALOXONE 0.4 MG/ML 1 ML VIAL IV PRN (17:41)
[2022-04-11] MEDS ORDERED: ACETAMINOPHEN IV (For NPO) 1,000 MG in EMPTY BAG 1 BAG IVPB ONE (17:41)
[2022-04-11] MEDS ORDERED: ONDANSETRON 4 MG/2 ML VIAL IVP ONE (17:45)
--- NOTE | 2022-04-11 17:47 | P.PCN ---
Date of Procedure: 04/11/22 Description of Procedure: PREOPERATIVE DIAGNOSIS: Hematemesis Gastritis POSTOPERATIVE DIAGNOSIS: Gastroesophageal reflux disease. Diaphragmatic hiatal hernia OPERATION: Intraoperative esophagogastroduodenoscopy SURGEON: Janay Arrieta MD ANESTHESIA: Gen. INDICATIONS: The patient is a 86-year-old male who developed acute nausea and vomiting with hematemesis due to gastritis. Upper endoscopy was performed intraoperatively included for navigation of nasogastric tube. Benefits and risks of the pr ocedure were described. Informed consent was obtained. DESCRIPTION: The patient was brought into the endoscopy suite and laid in the left lateral decubitus position. An Olympus gastroscope was passed along the posterior oropharynx down to the distal esophagus where the squamocolumnar junction was encountered at 37 cm from the incisors. The stomach was entered and bile reflux was found. Additional findings are listed below. The first through third portion of the duodenum was examined. Retroflexion of the scope confirmed Hill grade 4 lower esophageal valve. The squamocolumnar junction demonstrated LA grade B erosive esophagitis. The stomach was desufflated. The patient tolerated the procedure well. Please see separate operative report for robotic cholecystectomy. FINDINGS: Squamocolumnar junction 37 cm from the incisors. Diaphragmatic hiatus at 40 cm. Hiatal hernia, 3 cm Hill grade 4 lower esophageal valve. LA grade B erosive esophagitis. No active duodenitis. No active bleeding RECOMMENDATIONS: Upper endoscopy as needed.
[2022-04-11 18:02] LABS: Glucose,Whole Blood 156 mg/dL (75-99)
--- NOTE | 2022-04-11 18:02 | P.OP ---
Date of Procedure: 04/11/22 Description of Procedure: SURGEON: EL BELLO MD PREOPERATIVE DIAGNOSES: 1. Acute cholecystitis with sepsis 2. Symptomatic gallstones 3. Hydrops cholecystitis 4. Ischemic cardiomyopathy with hypertensive heart disease 5. Acute on chronic renal failure 6. Chronic obstructive pulmonary disease 7. Congestive heart failure 8. Coronary artery disease status post CABG 9. Obstructive sleep apnea 10. Diabetes type 2, [id number] 11. Ileus POSTOPERATIVE DIAGNOSES: 1. Acute cholecystitis with sepsis 2. Symptomatic gallstones 3. Hydrops cholecystitis 4. Ischemic cardiomyopathy with hypertensive heart disease 5. Acute on chronic renal failure 6. Chronic obstructive pulmonary disease 7. Congestive heart failure 8. Coronary artery disease status post CABG 9. Obstructive sleep apnea 10. Diabetes type 2, [id number] 11. Ileus 12. Right upper quadrant peritoneal adhesion OPERATION: 1. Robotic-assisted da Zhen Xi laparoscopic cholecystectomy, multiport with FIREFLY 2. Robotic-assisted da Zhen Xi laparoscopic lysis of adhesions over 60% of the case 3. Intraoperative esophagogastroduodenoscopy 4. Placement of round #19 Cesario-Beard drain in hepatic fossa 5. Peritoneal lavage, 1 L normal saline ESTIMATED BLOOD LOSS: 50 mL. SPECIMENS REMOVED: Gallbladder. COMPLICATIONS: None. OPERATIVE FINDINGS: 1. Acute cholecystitis with hydrops and distended gallbladder 2. Indocyanine green drain confirms acute cholecystitis with lack of contrast in gallbladder 3. Common bile duct within normal limits, without dilation 4. Redundant infundibulum coursing anteriorly over common bile duct. 5. Dense adhesions involving gallbladder body and infundibulum requiring extensive lysis of adhesions INDICATIONS: The patient is a 86 year-old male who presents with epigastric right upper quadrant pain, symptomatic gallstones, WBC over 16,000, tachypnea and clinical features of acute cholecystitis with presentation of sepsis. Surgical intervention with urgent cholecystectomy was described. Robotic assisted laparoscopic approach was described. Benefits and risks of the procedure including but not limited to bleeding, infection, injury to the biliary tree was reviewed. Informed consent was obtained. DESCRIPTION OF PROCEDURE: Patient was brought to the operating room, placed in supine position. After general induction, the abdomen had been prepped and draped in standard sterile fashion. The robotic da Zhen XI system was primed. After a timeout protocol was performed, the patient had been prepped and draped in standard sterile fashion. The patient was injected with indocyanine green. A 5 mm 0 degrees laparoscopic trocar entry was performed along the left upper quadrant. The abdomen insufflated to 15 mmHg pressure which was tolerated well. Diagnostic laparoscopy demonstrated no injury to bowel viscera or mesentery. The liver surface was unremarkable. The stomach was moderately dilated. Additionally, the small bowel was completely adherent to the gallbladder. A moderately distended gallbladder was identified adding complexity to the case. Next, two 8 mm robotic ports were placed along the right upper abdomen. The camera 8-mm port was maintained along the epigastrium. Another 8 [address] was pl aced along the left upper abdominal wall after exchanging the 5 mm port. Please note that the ports were placed at least 10 to 15 cm away from the target anatomy of the gallbladder. I went to the head of the bed to perform decompression of the gallbladder including further assessment of recent hematemesis and gastritis. Please see separate operative report. The robot was docked along the right lateral abdomen. The patient was repositioned in reverse Trendelenburg position at 21 with the right side up at 70. Using a grasper for arm 3, a grasper for arm 4, including hook cautery for arm 1, the robotic system was docked and primed as described. Instruments were interchanged by the assistant professor of forestry including hook cautery, Bovie cautery and clip appliers. Additional instruments including vessel sealer, robotic stapler were used in the case. I had sat at the console. The gallbladder was reflected towards the dome of the liver. The gallbladder was densely adherent to the surrounding tissue including small bowel for which lysis of adhesions was performed to free the gallbladder surrounding tissue. The gallbladder was moderately distended adding complexity to the case. Moderate edema was found along the cystic triangle including infundibulum. Due to moderate distention of the infundibulum, dome down technique was performed removing the gallbladder from the hepatic fossa starting from the fundus towards the infundibulum. Using a sponge, the liver was reflected towards the diaphragm and starting at the gallbladder fundus, hook cautery was used to find the avascular plane between the liver and the gallbladder. As the gallbladder was dissected from the hepatic fossa, hemostasis was checked using vessel sealer along the posterior gallbladder. Next, indocyanine green was used to confirm the common bile duct. A redundant and moderately dilated infundibulum was coursing anterior to the common bile duct. The entire gallbladder was without contrast consistent with acute cholecystitis. Decompression of the gallbladder demonstrated clear bile consistent with hydrops. Careful dissection, lysis of adhesions prior the stapler to firing occurred over 2 hours. FIREFLY was used to identify the common bile duct. Due to the redundancy of the infundibulum including moderate edema, staple resection was performed using 45 mm blue robotic staple load after dissecting the gallbladder from surrounding tissues at the infundibulum. The robot was undocked. I re-scrubbed into the case. The abdomen was irrigated using 1 L normal saline solution until the aspirant was clear. A 10 mm followed by 15 mm Endo Catch bag was used to remove the gallbladder in total via the left upper quadrant incision after widening the incision. The specimen was removed from the abdominal cavity. Maury Gomez and 0 Vicryl was used to close the fascial defect of the left upper quadrant. PALOMA drain round #19 was exited via the right lateral trocar after placing the drain along the hepatic fossa. The drain was secured using 2-0 nylon by the assistant professor of forestry. All pneumoperitoneum instruments were evacuated from the abdominal cavity. The incisions were cleansed using dilute hydrogen peroxide. The incisions were reapproximated using 4-0 Monocryl in an interrupted subcuticular fashion. Please note along the trocar sites, local anesthetic was placed as a field block prior to insertion of all instruments. Liquid glue was applied to the skin. Optifoam dressing was placed along the gallbladder removal site including the PALOMA drain site. The PALOMA drain site was reinforced using 4 x 4 and Medipore tape 6 inch. At the end of the procedure needle, sponge, and instrument count had been verified correct by the surgical instrument maker. The patient was transferred to postanesthesia care unit in stable condition. The patient's next of kin was notified Funmi Camacho with intraoperative findings described.
[2022-04-11] MEDS ORDERED: ALBUTEROL NEBULIZED 2.5 MG/3 ML INHALATION ONE (18:25)
[2022-04-11] MEDS ORDERED: FUROSEMIDE 10 MG/ML 4 ML VIAL IV ONE (19:10)
--- NOTE | 2022-04-11 19:13 | XR ---
EXAMINATION TYPE: XR chest 1V portable DATE OF EXAM: 04/11/2022 COMPARISON: 04/10/2022 HISTORY: Single view TECHNIQUE: FINDINGS: There is some blunting of the right costophrenic angle. Heart size is normal. Thoracic aorta is ather omatous. There is chest leads. There are sternal wires. There is old right-sided healed rib fractures . IMPRESSION: Pleural diaphragmatic scarring right lung base without change. No heart failure seen.
[2022-04-11] MEDS: DOCUSATE 100 MG CAP PO SCH (20:32)
--- NOTE | 2022-04-11 21:53 | P.GSCN ---
History of Present Illness Consult date: 04/11/22 Reason for Consult: aortic ectasia History of present illness: 86 year old gentleman presented originally to the hospital with chest discomfort . During his workup he was found to have gallstones with cholecystitis. Had a CT which demonstrated some aortic ectasia above the iliac bifurcation. He is being taken to the OR today for robotic cholecystectomy. Review of Systems All systems: negative (what is mentioned in the PMH or HPI) Past Medical History Past Medical History: Blood Disorder, Coronary Artery Disease (CAD), Cancer, COPD, Diabetes Mellitus, Eye Disorder, Hyperlipidemia, Hypertension, Renal Disease, Sleep Apnea/CPAP/BIPAP Additional Past Medical History / Comment(s): prostate ca, bowel obstruction-no sx, past cataracts -has lens implants,had a pne vaccine but not sure of date- newspaper writer unable to verify at time of this admit-please call [facility] in am to verify. ANEMIA-IRON DEFICIENCY. History of Any Multi-Drug Resistant Organisms: None Reported Past Surgical History: Coronary Bypass/CABG, Heart Catheterization Additional Past Surgical History / Comment(s): triple bypass 2004 lt cataract removed, radiative seeds implanted d/t prostate cancer Past Anesthesia/Blood Transfusion Reactions: No Reported Reaction Additional Past Anesthesia/Blood Transfusion Reaction / Comm: clausterphobia Past Psychological History: No Psychological Hx Reported Additional Psychological History / Comment(s): pt lives with sister and brother in [facility], no medical equipment Smoking Status: Former smoker Past Alcohol Use History: None Reported Additional Past Alcohol Use History / Comment(s): started smoking at age 19 ,smoked off and on until he quit 1999, smoked 1 ppd Past Drug Use History: None Reported - Past Family History Father Family Medical History: Cancer Additional Family Medical History / Comment(s): Esophageal CA Mother Family Medical History: Congestive Heart Failure (CHF) Sister(s) Family Medical History: Neurologic Disorder Additional Family Medical History / Comment(s): MS Medications and Allergies Home Medications Medication Instructions Recorded Confirmed Type Aspirin EC [Ecotrin Low Dose] 81 mg PO DAILY 05/27/16 04/09/22 History Cholecalciferol [Vitamin D3 (25 1,000 unit PO DAILY 05/27/16 04/09/22 History Mcg = 1000 Iu)] Albuterol Inhaler [Ventolin Hfa 2 puff INHALATION RT-Q4H PRN 04/09/22 04/09/22 History Inhaler] Atorvastatin [Lipitor] 40 mg PO HS 04/09/22 04/09/22 History Calcium Polycarbophil [Fibercon] 625 mg PO DAILY 04/09/22 04/09/22 History Carvedilol [Coreg] 12.5 mg PO BID 04/09/22 04/09/22 History Cyanocobalamin (Vitamin B-12) 1,000 mcg PO DAILY 04/09/22 04/09/22 History [Vitamin B-12] Empagliflozin [Jardiance] 5 mg PO DAILY 04/09/22 04/09/22 History Ergocalciferol [Vitamin D2 (1250 1,250 mcg PO TH 04/09/22 04/09/22 History Mcg = 03893 Iu)] Fluticasone Propion/Salmeterol 1 puff INHALATION RT-BID 04/09/22 04/09/22 History [Fluticasone-Salmeterol 250-50] Furosemide [Lasix] 20 mg PO MOWEFR 04/09/22 04/09/22 History Magnesium Ox 420mg 420 mg PO BID 04/09/22 04/09/22 History Sacubitril/Valsartan [Entresto 49 1 tab PO BID 04/09/22 04/09/22 History mg-51 mg Tablet] Trospium Chloride [Sanctura XR] 60 mg PO HS 04/09/22 04/09/22 History calcitrioL [Calcitriol] 0.25 mcg PO SUMOSA 04/09/22 04/09/22 History Allergies Allergy/AdvReac Type Severity Reaction Status Date / Time No Known Allergies Allergy Verified 04/09/22 07:38 Surgical - Exam Vital Signs Temp Pulse Resp BP Pulse Ox 98.2 F 70 18 126/58 93 L 04/09/22 00:54 04/09/22 00:54 04/09/22 00:54 04/09/22 00:54 04/09/22 00:54 - General well developed, well nourished - Eyes PERRL - Neck no masses - Respiratory normal expansion - Cardiovascular Rhythm: regular - Abdomen Abdomen: tender Results - Labs 04/11/22 07:03 04/11/22 07:03 Abnormal Lab Results - Last 24 Hours (Table) 04/10/22 04/11/22 04/11/22 Range/Units 23:21 02:39 07:03 WBC (4.50-10.00) X 10*3/uL RBC (4.40-5.60) X 10*6/uL Hgb (13.0-17.0) g/dL Hct (39.6-50.0) % MCV (80.0-97.0) fL MCH (27.0-32.0) pg MCHC (32.0-37.0) g/dL Immature Gran # (0.00-0.04) X 10*3/uL Neutrophils # (1.80-7.70) X 10*3/uL Lymphocytes # (0.90-5.00) X 10*3/uL Monocytes # (0.20-1.00) X 10*3/uL Eosinophils # (0.04-0.35) X 10*3/uL BUN (9.0-27.0) mg/dL Creatinine (0.6-1.5) mg/dL Est GFR (CKD-EPI)AfAm (60.0-200.0) Est GFR (CKD-EPI)NonAf (60.0-200.0) Glucose (70-110) mg/dL POC Glucose (mg/dL) 169 H 185 H (75-99) mg/dL Calcium (8.7-10.3) mg/dL Total Protein (6.2-8.2) g/dL Albumin (3.8-4.9) g/dL Albumin/Globulin Ratio (1.60-3.17) g/dL Procalcitonin 1.38 H (0.02-0.09) ng/mL 04/11/22 04/11/22 04/11/22 Range/Units 07:03 07:03 07:27 WBC 16.66 H (4.50-10.00) X 10*3/uL RBC 2.94 L (4.40-5.60) X 10*6/uL Hgb 9.5 L (13.0-17.0) g/dL Hct 30.8 L (39.6-50.0) % MCV 104.8 H (80.0-97.0) fL MCH 32.3 H (27.0-32.0) pg MCHC 30.8 L (32.0-37.0) g/dL Immature Gran # 0.22 H (0.00-0.04) X 10*3/uL Neutrophils # 14.47 H (1.80-7.70) X 10*3/uL Lymphocytes # 0.58 L (0.90-5.00) X 10*3/uL Monocytes # 1.37 H (0.20-1.00) X 10*3/uL Eosinophils # 0 L (0.04-0.35) X 10*3/uL BUN 55.1 H (9.0-27.0) mg/dL Creatinine 3.0 H (0.6-1.5) mg/dL Est GFR (CKD-EPI)AfAm 20.5 L (60.0-200.0) Est GFR (CKD-EPI)NonAf 17.7 L (60.0-200.0) Glucose 138 H (70-110) mg/dL POC Glucose (mg/dL) 142 H (75-99) mg/dL Calcium 8.3 L (8.7-10.3) mg/dL Total Protein 5.5 L (6.2-8.2) g/dL Albumin 3.2 L (3.8-4.9) g/dL Albumin/Globulin Ratio 1.39 L (1.60-3.17) g/dL Procalcitonin (0.02-0.09) ng/mL 04/11/22 04/11/22 Range/Units 12:15 17:51 WBC (4.50-10.00) X 10*3/uL RBC (4.40-5.60) X 10*6/uL Hgb (13.0-17.0) g/dL Hct (39.6-50.0) % MCV (80.0-97.0) fL MCH (27.0-32.0) pg MCHC (32.0-37.0) g/dL Immature Gran # (0.00-0.04) X 10*3/uL Neutrophils # (1.80-7.70) X 10*3/uL Lymphocytes # (0.90-5.00) X 10*3/uL Monocytes # (0.20-1.00) X 10*3/uL Eosinophils # (0.04-0.35) X 10*3/uL BUN (9.0-27.0) mg/dL Creatinine (0.6-1.5) mg/dL Est GFR (CKD-EPI)AfAm (60.0-200.0) Est GFR (CKD-EPI)NonAf (60.0-200.0) Glucose (70-110) mg/dL POC Glucose (mg/dL) 123 H 156 H (75-99) mg/dL Calcium (8.7-10.3) mg/dL Total Protein (6.2-8.2) g/dL Albumin (3.8-4.9) g/dL Albumin/Globulin Ratio (1.60-3.17) g/dL Procalcitonin (0.02-0.09) ng/mL Diabetes panel 04/11/22 Range/Units 07:03 Sodium 136 (135-145) mmol/L Potassium 5.0 (3.5-5.5) mmol/L Chloride 100 (96-109) mmol/L Carbon Dioxide 24.2 (20.0-27.5) mmol/L BUN 55.1 H (9.0-27.0) mg/dL Creatinine 3.0 H (0.6-1.5) mg/dL Glucose 138 H (70-110) mg/dL Calcium 8.3 L (8.7-10.3) mg/dL AST 22 (14-35) U/L ALT 26 (10-49) U/L Alkaline Phosphatase 80 (41-126) U/L Total Protein 5.5 L (6.2-8.2) g/dL Albumin 3.2 L (3.8-4.9) g/dL Calcium panel 04/11/22 Range/Units 07:03 Calcium 8.3 L (8.7-10.3) mg/dL Albumin 3.2 L (3.8-4.9) g/dL Pituitary panel 04/11/22 Range/Units 07:03 Sodium 136 (135-145) mmol/L Potassium 5.0 (3.5-5.5) mmol/L Chloride 100 (96-109) mmol/L Carbon Dioxide 24.2 (20.0-27.5) mmol/L BUN 55.1 H (9.0-27.0) mg/dL Creatinine 3.0 H (0.6-1.5) mg/dL Glucose 138 H (70-110) mg/dL Calcium 8.3 L (8.7-10.3) mg/dL Adrenal panel 04/11/22 Range/Units 07:03 Sodium 136 (135-145) mmol/L Potassium 5.0 (3.5-5.5) mmol/L Chloride 100 (96-109) mmol/L Carbon Dioxide 24.2 (20.0-27.5) mmol/L BUN 55.1 H (9.0-27.0) mg/dL Creatinine 3.0 H (0.6-1.5) mg/dL Glucose 138 H (70-110) mg/dL Calcium 8.3 L (8.7-10.3) mg/dL Total Bilirubin 0.70 (0.30-1.20) mg/dL AST 22 (14-35) U/L ALT 26 (10-49) U/L Alkaline Phosphatase 80 (41-126) U/L Total Protein 5.5 L (6.2-8.2) g/dL Albumin 3.2 L (3.8-4.9) g/dL Assessment and Plan Assessment: 1. Aortic ectasia 2. Cholelithiasis 3. CAD 4. MEL Plan: Reviewed CT of the abdomen and pelvis- aortic ectasia noted. No surgical intervention at this time. Will need follow up as outpatient for abdominal ultrasound yearly. Doubt patient will require any intervention for aorta in the near future. Thank you for the consultation.
[2022-04-11 22:02] LABS: Glucose,Whole Blood 152 mg/dL (75-99)
[2022-04-12 02:55] LABS: Glucose,Whole Blood 137 mg/dL (75-99)
[2022-04-12] MEDS ORDERED: LIDOCAINE 1% (10MG/ML) FOR IV START INTRADERMA PRN (07:22)
[2022-04-12] MEDS ORDERED: LACTATED RINGERS 1,000 ML IV SCH (07:22)
[2022-04-12] MEDS ORDERED: DEXAMETHASONE SOD PHOSPHATE 4 MG/ML 1 ML VIAL IV ONE (07:22)
[2022-04-12 07:31] LABS: Glucose,Whole Blood 114 mg/dL (75-99)
[2022-04-12] MEDS: SYMBICORT 80-4.5 MCG INHALER INHALATION SCH ×2 (07:58→20:15)
[2022-04-12 09:23] LABS: HCT 29.5 % (39.6-50.0); MCH 32.3 pg (27.0-32.0); MCHC 30.5 g/dL (32.0-37.0); MCV 105.7 fL (80.0-97.0); Mean Platelet Volume 10.3 fL (9.5-12.2); NRBC Per 100 WBC 0 /100 WBCS (0.0-0.0); Platelet Count 173 X 10*3/uL (140-440); RBC 2.79 X 10*6/uL (4.40-5.60); RDW 13.6 % (11.5-14.5)
[2022-04-12 09:50] LABS: Magnesium 2.2 mg/dL (1.5-2.4); Phosphorus 6.4 mg/dL (2.4-5.1)
[2022-04-12 09:54] LABS: African American GFR (CKD) 16.4 (60.0-200.0); Albumin 2.8 g/dL (3.8-4.9); Albumin/Globulin Ratio 1.26 (1.60-3.17); Anion Gap 12.9 mmol/L (10.00-18.00); BUN/Creat Ratio 18.31 Ratio (12.00-20.00); Blood Urea Nitrogen 66.3 mg/dL (9.0-27.0); Globulin 2.2 g/dL (1.6-3.3); Non-African American GFR(CKD) 14.1 (60.0-200.0); Potassium 5.4 mmol/L (3.5-5.5); Total Bilirubin 0.5 mg/dL (0.30-1.20)
[2022-04-12 10:20] LABS: Acanthocytes 2+; Basophils # (A) 0.01 X 10*3/uL (0.00-0.10); Basophils % (A) 0.1 %; Eosinophils # (A) 0 X 10*3/uL (0.04-0.35); Eosinophils % (A) 0 %; Immature Grans, Automated 0.7 %; Lymphocytes # (A) 0.39 X 10*3/uL (0.90-5.00); Lymphocytes % (A) 3.1 %; Monocytes # (A) 0.92 X 10*3/uL (0.20-1.00); Monocytes % (A) 7.2 %; Neutrophils # (A) 11.29 X 10*3/uL (1.80-7.70); Neutrophils % (A) 88.9 %
[2022-04-12] MEDS: ONDANSETRON 4 MG/2 ML VIAL IVP PRN (10:21)
[2022-04-12] MEDS: DOCUSATE 100 MG CAP PO SCH ×2 (10:21→19:55)
[2022-04-12] MEDS: carvediloL 6.25 MG TAB PO SCH ×2 (10:22→19:11)
[2022-04-12] MEDS: ISOSORBIDE MONONITRATE ER 30 MG TAB.ER.24H PO SCH (10:22)
[2022-04-12] MEDS: HEPARIN SODIUM,PORCINE/PF 5,000 UNIT/0.5 ML SYRINGE SQ SCH ×2 (10:22→20:11)
[2022-04-12] MEDS: INSULIN ASPART (NovoLOG) 100 UNIT/ML VIAL SQ SCH ×4 (10:22→21:25)
[2022-04-12] MEDS: ATORVASTATIN 40 MG TAB PO SCH (10:22)
[2022-04-12] MEDS: ASPIRIN 81 MG PO SCH (10:22)
[2022-04-12] MEDS: PANTOPRAZOLE 40 MG/10 ML VIAL IV SCH (10:23)
[2022-04-12] MEDS: PIPERACILLIN-TAZOBACTAM 3.375 GM in SODIUM CHLORIDE 0.9% 100 ML IVPB SCH ×2 (10:23→21:25)
--- NOTE | 2022-04-12 11:21 | P.PN ---
Subjective Progress Note Date: 04/12/22 Patient is examined today sleeping in bed without signs of acute distress. He underwent a lap cholecystectomy yesterday. He states he is doing well but his stomach hurts. He denies any chest pain or increased shortness of breath. 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 He was seen by Dr Arce no surgical intervention is necessary at this time he will continue to follow as an outpatient. Objective - Vital Signs Vital signs: Vital Signs Temp 97.9 F 04/12/22 07:20 Pulse 80 04/12/22 07:20 Resp 18 04/12/22 07:20 BP 116/68 04/12/22 07:20 Pulse Ox 98 04/12/22 07:20 FiO2 Intake & Output 04/11/22 04/12/22 04/12/22 18:59 06:59 18:59 Intake Total 1900 350 Output Total 50 1200 Balance 1850 -850 Intake: IV 1900 Intake, IV Titration 200 Amount ACETAMINOPHEN IV (For NPO 100 ) 1,000 mg In Empty Bag 1 bag @ 400 mls/hr IVPB ONCE ONE Rx#:[id number] Piperacillin-Tazobactam 3 100 .375 gm In Sodium Chloride 0.9% 100 ml @ 25 mls/hr IVPB Q12HR ALEX Rx #:[id number] Oral 150 Output: Drainage 50 Lower Abdomen 50 Urine 550 Straight 550 Post Void Residual 600 Estimated Blood Loss 50 Other: # Voids 1 - Exam PHYSICAL EXAM: VITAL SIGNS: Reviewed. GENERAL: Well-developed in no acute distress. HEENT: Head is normocephalic. Pupils are equal, round. Sclerae anicteric. Mucous membranes of the mouth are moist. NECK: Supple. No JVD or thyromegaly RESPIRATORY: Respirations even and unlabored. Lungs diminished to auscultation bilaterally. CARDIO: Regular rate and rhythm. S1 and S2 heard. No murmur or gallops. EXTREMITIES: Normal range of motion. No clubbing or cyanosis. Peripheral pulses intact. Negative for bilateral lower extremity edema NEURO: Orientated to person, time, mood is appropriate - Labs CBC & Chem 7: 04/12/22 06:11 04/12/22 06:11 Labs: Abnormal Lab Results - Last 24 Hours (Table) 04/11/22 04/11/22 04/11/22 Range/Units 07:03 07:03 07:03 WBC 16.66 H (4.50-10.00) X 10*3/uL RBC 2.94 L (4.40-5.60) X 10*6/uL Hgb 9.5 L (13.0-17.0) g/dL Hct 30.8 L (39.6-50.0) % MCV 104.8 H (80.0-97.0) fL MCH 32.3 H (27.0-32.0) pg MCHC 30.8 L (32.0-37.0) g/dL Immature Gran # 0.22 H (0.00-0.04) X 10*3/uL Neutrophils # 14.47 H (1.80-7.70) X 10*3/uL Lymphocytes # 0.58 L (0.90-5.00) X 10*3/uL Monocytes # 1.37 H (0.20-1.00) X 10*3/uL Eosinophils # 0 L (0.04-0.35) X 10*3/uL BUN 55.1 H (9.0-27.0) mg/dL Creatinine 3.0 H (0.6-1.5) mg/dL Est GFR (CKD-EPI)AfAm 20.5 L (60.0-200.0) Est GFR (CKD-EPI)NonAf 17.7 L (60.0-200.0) Glucose 138 H (70-110) mg/dL POC Glucose (mg/dL) (75-99) mg/dL Calcium 8.3 L (8.7-10.3) mg/dL Phosphorus (2.4-5.1) mg/dL AST (14-35) U/L ALT (10-49) U/L Total Protein 5.5 L (6.2-8.2) g/dL Albumin 3.2 L (3.8-4.9) g/dL Albumin/Globulin Ratio 1.39 L (1.60-3.17) g/dL Procalcitonin 1.38 H (0.02-0.09) ng/mL 04/11/22 04/11/22 04/11/22 Range/Units 12:15 17:51 21:57 WBC (4.50-10.00) X 10*3/uL RBC (4.40-5.60) X 10*6/uL Hgb (13.0-17.0) g/dL Hct (39.6-50.0) % MCV (80.0-97.0) fL MCH (27.0-32.0) pg MCHC (32.0-37.0) g/dL Immature Gran # (0.00-0.04) X 10*3/uL Neutrophils # (1.80-7.70) X 10*3/uL Lymphocytes # (0.90-5.00) X 10*3/uL Monocytes # (0.20-1.00) X 10*3/uL Eosinophils # (0.04-0.35) X 10*3/uL BUN (9.0-27.0) mg/dL Creatinine (0.6-1.5) mg/dL Est GFR (CKD-EPI)AfAm (60.0-200.0) Est GFR (CKD-EPI)NonAf (60.0-200.0) Glucose (70-110) mg/dL POC Glucose (mg/dL) 123 H 156 H 152 H (75-99) mg/dL Calcium (8.7-10.3) mg/dL Phosphorus (2.4-5.1) mg/dL AST (14-35) U/L ALT (10-49) U/L Total Protein (6.2-8.2) g/dL Albumin (3.8-4.9) g/dL Albumin/Globulin Ratio (1.60-3.17) g/dL Procalcitonin (0.02-0.09) ng/mL 04/12/22 04/12/22 04/12/22 Range/Units 02:46 06:11 06:11 WBC 12.70 H (4.50-10.00) X 10*3/uL RBC 2.79 L (4.40-5.60) X 10*6/uL Hgb 9.0 L (13.0-17.0) g/dL Hct 29.5 L (39.6-50.0) % MCV 105.7 H (80.0-97.0) fL MCH 32.3 H (27.0-32.0) pg MCHC 30.5 L (32.0-37.0) g/dL Immature Gran # 0.09 H (0.00-0.04) X 10*3/uL Neutrophils # 11.29 H (1.80-7.70) X 10*3/uL Lymphocytes # 0.39 L (0.90-5.00) X 10*3/uL Monocytes # (0.20-1.00) X 10*3/uL Eosinophils # 0 L (0.04-0.35) X 10*3/uL BUN 66.3 H (9.0-27.0) mg/dL Creatinine 3.6 H (0.6-1.5) mg/dL Est GFR (CKD-EPI)AfAm 16.4 L (60.0-200.0) Est GFR (CKD-EPI)NonAf 14.1 L (60.0-200.0) Glucose 117 H (70-110) mg/dL POC Glucose (mg/dL) 137 H (75-99) mg/dL Calcium 8.0 L (8.7-10.3) mg/dL Phosphorus 6.4 H (2.4-5.1) mg/dL AST 147 H (14-35) U/L ALT 168 H (10-49) U/L Total Protein 5.0 L (6.2-8.2) g/dL Albumin 2.8 L (3.8-4.9) g/dL Albumin/Globulin Ratio 1.26 L (1.60-3.17) g/dL Procalcitonin (0.02-0.09) ng/mL 04/12/22 Range/Units 07:29 WBC (4.50-10.00) X 10*3/uL RBC (4.40-5.60) X 10*6/uL Hgb (13.0-17.0) g/dL Hct (39.6-50.0) % MCV (80.0-97.0) fL MCH (27.0-32.0) pg MCHC (32.0-37.0) g/dL Immature Gran # (0.00-0.04) X 10*3/uL Neutrophils # (1.80-7.70) X 10*3/uL Lymphocytes # (0.90-5.00) X 10*3/uL Monocytes # (0.20-1.00) X 10*3/uL Eosinophils # (0.04-0.35) X 10*3/uL BUN (9.0-27.0) mg/dL Creatinine (0.6-1.5) mg/dL Est GFR (CKD-EPI)AfAm (60.0-200.0) Est GFR (CKD-EPI)NonAf (60.0-200.0) Glucose (70-110) mg/dL POC Glucose (mg/dL) 114 H (75-99) mg/dL Calcium (8.7-10.3) mg/dL Phosphorus (2.4-5.1) mg/dL AST (14-35) U/L ALT (10-49) U/L Total Protein (6.2-8.2) g/dL Albumin (3.8-4.9) g/dL Albumin/Globulin Ratio (1.60-3.17) g/dL Procalcitonin (0.02-0.09) ng/mL Assessment and Plan Assessment: Acute cholecystitis with possible bile duct stone History of coronary artery disease status post coronary artery bypass graft History of Ischemic cardiomyopathy Hypertension Hyperlipidemia [id number] type II diabetic Plan: Continue with current cardiac medications Continue with telemetry monitoring Further recommendations based on clinical course The above impression and plan of care have been discussed and directed by the signing physician. Abeba Asencio, nurse practitioner, acting as scribe for signing physician.
--- NOTE | 2022-04-12 11:44 | XR ---
EXAMINATION TYPE: XR abdomen 1V DATE OF EXAM: 04/12/2022 COMPARISON: 04/09/2022 INDICATION: Increased abdominal pain TECHNIQUE: Single view abdomen supine view FINDINGS: There is a large dilated air-filled structure in the upper abdomen. This may be the stomach. A cathet er is adjacent. Nonspecific small bowel gas without dilatation is present. Mass effect is not evident . Subcutaneous air is present laterally. Psoas margins are normal. No organomegaly is present. IMPRESSION: 1. Dilated air-filled structure may be the stomach. Small bowel loops appear normal. 2. Subcutaneous emphysema right lateral abdomen
--- NOTE | 2022-04-12 11:44 | P.PN ---
Subjective Patient is seen for follow-up for chronic kidney disease Renal function has been worsening. Creatinine is up to 3.6 today. Blood pressure has been low Post void residual residual noted to be high at 600 early this morning Patient is status post laparoscopic cholecystectomy yesterday on 04/11/2022 and lysis of adhesions. Patient currently having abdominal x-ray done He is complaining of abdominal pain. Objective - Vital Signs Vital signs: Vital Signs Temp 97.9 F 04/12/22 07:20 Pulse 80 04/12/22 07:20 Resp 18 04/12/22 07:20 BP 116/68 04/12/22 07:20 Pulse Ox 98 04/12/22 07:20 FiO2 Intake & Output 04/11/22 04/12/22 04/12/22 18:59 06:59 18:59 Intake Total 1900 350 Output Total 50 1200 Balance 1850 -850 Intake: IV 1900 Intake, IV Titration 200 Amount ACETAMINOPHEN IV (For NPO 100 ) 1,000 mg In Empty Bag 1 bag @ 400 mls/hr IVPB ONCE ONE Rx#:[id number] Piperacillin-Tazobactam 3 100 .375 gm In Sodium Chloride 0.9% 100 ml @ 25 mls/hr IVPB Q12HR [facility] Rx #:[id number] Oral 150 Output: Drainage 50 Lower Abdomen 50 Urine 550 Straight 550 Post Void Residual 600 Estimated Blood Loss 50 Other: # Voids 1 - Exam Patient is laying in bed He is awake No acute distress Abdomen is soft and tender No significant edema noted in the legs - Labs CBC & Chem 7: 04/12/22 06:11 04/12/22 06:11 Labs: Abnormal Lab Results - Last 24 Hours (Table) 04/11/22 04/11/22 04/11/22 Range/Units 07:03 07:03 07:03 WBC 16.66 H (4.50-10.00) X 10*3/uL RBC 2.94 L (4.40-5.60) X 10*6/uL Hgb 9.5 L (13.0-17.0) g/dL Hct 30.8 L (39.6-50.0) % MCV 104.8 H (80.0-97.0) fL MCH 32.3 H (27.0-32.0) pg MCHC 30.8 L (32.0-37.0) g/dL Immature Gran # 0.22 H (0.00-0.04) X 10*3/uL Neutrophils # 14.47 H (1.80-7.70) X 10*3/uL Lymphocytes # 0.58 L (0.90-5.00) X 10*3/uL Monocytes # 1.37 H (0.20-1.00) X 10*3/uL Eosinophils # 0 L (0.04-0.35) X 10*3/uL BUN 55.1 H (9.0-27.0) mg/dL Creatinine 3.0 H (0.6-1.5) mg/dL Est GFR (CKD-EPI)AfAm 20.5 L (60.0-200.0) Est GFR (CKD-EPI)NonAf 17.7 L (60.0-200.0) Glucose 138 H (70-110) mg/dL POC Glucose (mg/dL) (75-99) mg/dL Calcium 8.3 L (8.7-10.3) mg/dL Phosphorus (2.4-5.1) mg/dL AST (14-35) U/L ALT (10-49) U/L Total Protein 5.5 L (6.2-8.2) g/dL Albumin 3.2 L (3.8-4.9) g/dL Albumin/Globulin Ratio 1.39 L (1.60-3.17) g/dL Procalcitonin 1.38 H (0.02-0.09) ng/mL 04/11/22 04/11/22 04/11/22 Range/Units 12:15 17:51 21:57 WBC (4.50-10.00) X 10*3/uL RBC (4.40-5.60) X 10*6/uL Hgb (13.0-17.0) g/dL Hct (39.6-50.0) % MCV (80.0-97.0) fL MCH (27.0-32.0) pg MCHC (32.0-37.0) g/dL Immature Gran # (0.00-0.04) X 10*3/uL Neutrophils # (1.80-7.70) X 10*3/uL Lymphocytes # (0.90-5.00) X 10*3/uL Monocytes # (0.20-1.00) X 10*3/uL Eosinophils # (0.04-0.35) X 10*3/uL BUN (9.0-27.0) mg/dL Creatinine (0.6-1.5) mg/dL Est GFR (CKD-EPI)AfAm (60.0-200.0) Est GFR (CKD-EPI)NonAf (60.0-200.0) Glucose (70-110) mg/dL POC Glucose (mg/dL) 123 H 156 H 152 H (75-99) mg/dL Calcium (8.7-10.3) mg/dL Phosphorus (2.4-5.1) mg/dL AST (14-35) U/L ALT (10-49) U/L Total Protein (6.2-8.2) g/dL Albumin (3.8-4.9) g/dL Albumin/Globulin Ratio (1.60-3.17) g/dL Procalcitonin (0.02-0.09) ng/mL 04/12/22 04/12/22 04/12/22 Range/Units 02:46 06:11 06:11 WBC 12.70 H (4.50-10.00) X 10*3/uL RBC 2.79 L (4.40-5.60) X 10*6/uL Hgb 9.0 L (13.0-17.0) g/dL Hct 29.5 L (39.6-50.0) % MCV 105.7 H (80.0-97.0) fL MCH 32.3 H (27.0-32.0) pg MCHC 30.5 L (32.0-37.0) g/dL Immature Gran # 0.09 H (0.00-0.04) X 10*3/uL Neutrophils # 11.29 H (1.80-7.70) X 10*3/uL Lymphocytes # 0.39 L (0.90-5.00) X 10*3/uL Monocytes # (0.20-1.00) X 10*3/uL Eosinophils # 0 L (0.04-0.35) X 10*3/uL BUN 66.3 H (9.0-27.0) mg/dL Creatinine 3.6 H (0.6-1.5) mg/dL Est GFR (CKD-EPI)AfAm 16.4 L (60.0-200.0) Est GFR (CKD-EPI)NonAf 14.1 L (60.0-200.0) Glucose 117 H (70-110) mg/dL POC Glucose (mg/dL) 137 H (75-99) mg/dL Calcium 8.0 L (8.7-10.3) mg/dL Phosphorus 6.4 H (2.4-5.1) mg/dL AST 147 H (14-35) U/L ALT 168 H (10-49) U/L Total Protein 5.0 L (6.2-8.2) g/dL Albumin 2.8 L (3.8-4.9) g/dL Albumin/Globulin Ratio 1.26 L (1.60-3.17) g/dL Procalcitonin (0.02-0.09) ng/mL 04/12/22 Range/Units 07:29 WBC (4.50-10.00) X 10*3/uL RBC (4.40-5.60) X 10*6/uL Hgb (13.0-17.0) g/dL Hct (39.6-50.0) % MCV (80.0-97.0) fL MCH (27.0-32.0) pg MCHC (32.0-37.0) g/dL Immature Gran # (0.00-0.04) X 10*3/uL Neutrophils # (1.80-7.70) X 10*3/uL Lymphocytes # (0.90-5.00) X 10*3/uL Monocytes # (0.20-1.00) X 10*3/uL Eosinophils # (0.04-0.35) X 10*3/uL BUN (9.0-27.0) mg/dL Creatinine (0.6-1.5) mg/dL Est GFR (CKD-EPI)AfAm (60.0-200.0) Est GFR (CKD-EPI)NonAf (60.0-200.0) Glucose (70-110) mg/dL POC Glucose (mg/dL) 114 H (75-99) mg/dL Calcium (8.7-10.3) mg/dL Phosphorus (2.4-5.1) mg/dL AST (14-35) U/L ALT (10-49) U/L Total Protein (6.2-8.2) g/dL Albumin (3.8-4.9) g/dL Albumin/Globulin Ratio (1.60-3.17) g/dL Procalcitonin (0.02-0.09) ng/mL Assessment and Plan Assessment: 1. 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 Serum creatinine staying around 2. No evidence of obstruction on CAT scan 2. Bowel obstruction/ileus currently with an NG tube 3. Chronic systolic CHF with EF 40-45% 4. Mild hyperkalemia associated with CK D stage IV and interest oh 5. Coronary artery disease status post coronary artery bypass surgery 6. Acute kidney injury ATN rule out obstruction. Blood pressure has been low. Bladder scan showed 550 mL initially however repeat bladder scan later on this morning only showed 10 mL. Patient will be monitored for urine retention and at the same time I will start him on IV fluids. Plan: Normal saline bolus 1 now and start IV fluids at 75 mL an hour. Chest x-ray from yesterday 04/11/2022 did not show any evidence of CHF Repeat bladder scan later on today. Add parameters to hold Coreg for systolic blood pressure less than 1 15 mmHg
[2022-04-12 12:16] LABS: Glucose,Whole Blood 103 mg/dL (75-99)
--- NOTE | 2022-04-12 12:56 | P.PN ---
Progress Note - Text Progress Note Date: 04/12/22 Patient continues to have worsening abdominal pain accompanied by severe nausea. I went back to bedside to assess patient and he reported pain is severe. Patient was also pale and diaphoretic. Morning hemoglobin stable at 9.0 and vital signs unremarkable. Patient does have worsening renal function with BUN 66.3, creatinine 3.6, and GFR of 14.1. Patient did have a post void residual as high as 600 mL's and he required catheterization 1. Completed x-ray abdomen revealing dilated air filled structure, possibly the stomach and normal finding of subcutaneous emphysema to right lateral abdomen and likely from his recent surgical procedure. Will place order for CT abdomen and pelvis without contrast as kidney function will not allow for IV contrast and patient unable to tolerate oral contrast secondary to his severe nausea. Dr. Alejandre notified via [employer].
--- NOTE | 2022-04-12 13:09 | P.PN ---
Subjective Progress Note Date: 04/12/22 CHIEF COMPLAINT: Abdominal pain HISTORY OF PRESENT ILLNESS: The patient is a 86 year old male admitted for atypical chest pain including upper abdominal pain. He is status post cholecystectomy due to sepsis including hydrops acute cholecystitis. This afternoon, patient had dyspnea, diaphoretic and abdominal distention with abdominal pain. Patient was earlier evaluated by medicine team with additional diagnostic studies ordered. Patient reports appropriate postsurgical pain. Creatinine has worsened due to dehydration. He had pre-existing ileus prior to surgery. REVIEW OF ORGAN SYSTEMS: CONSTITUTIONAL: No fevers or chills. RESPIRATORY: Has chronic obstructive pulmonary disease. Has hyperlipidemia. Has sleep apnea. CARDIOVASCULAR: Has chest pain, palpitations, or recent heart attacks. Has coronary artery disease. Pre-existing cardiac disease. Has hypertensive heart disease. has hyperlipidemia. History of CABG. GASTROINTESTINAL: Ileus with abdominal distention ENDOCRINE: Denies current thyroid disorders. Has diabetes type II. PHYSICAL EXAM: VITALS: Reviewed CONSTITUTIONAL: Well developed and in no acute distress. EYES: Conjuctivae without sclera icterus. Extraocular movements grossly intact. HEAD, EARS, NOSE, THROAT: Moist buccal mucosa. Head is atraumatic, norm ocephalic. Hears conversational speech. No nasal drainage. RESPIRATORY: Nonlabored respiration.. CARDIOVASCULAR: Palpable 2+ radial pulses. ABDOMEN: Abdominal distended without peritonitis. PALOMA serosanguineous. MUSCULOSKELETAL: No clubbing cyanosis or edema. SKIN: Warm and well perfused with good skin turgor. NEUROLOGIC: Cranial nerves II through XII grossly intact. No focal or lateralizing signs. PSYCH: Appropriate affect. Alert and oriented to person, place and time. Displays appropriate insight. CLINCAL LABS: Reviewed. WBC elevated 16.66 down to 12.7. Hemoglobin down 9.5- 9.0. Total bilirubin down 0.8 to 0.5. LFTs appropriately elevated. Creatinine elevated at 3.0-3.6, baseline 1.85 on admission. STUDIES: Abdominal x-ray independent reviewed demonstrating dilated stomach. PALOMA drain along the right upper quadrant appropriate position. This my independent interpretation. REPORTS: Abdominal x-ray report reviewed. The purpose of cutaneous emphysema due to PALOMA drain. ASSESSMENT: 1. Acute hydrops cholecystitis with sepsis 2. Acute on chronic renal failure 3. Ileus present prior to surgery, due to sepsis 4. Urinary retention PLAN: 1. Will start Entereg for ileus 2. Simethicone for gas 3. Recommend placement of Gregg catheter due to acute on chronic renal failure as well as urinary retention and abdominal pain 4. CT at this time held due to recent computed tomography scan 3 days ago and increased radiation exposure. He has appropriate pain following surgery with pre-existing hydrops cholecystitis, sepsis, acute on chronic renal failure, ischemic heart disease. 5. Care plan discussed with patient, his nurse, medicine Jovi Cuenca Objective - Vital Signs Vital signs: Vital Signs Temp 97.9 F 04/12/22 07:20 Pulse 80 04/12/22 07:20 Resp 18 04/12/22 07:20 BP 116/68 04/12/22 07:20 Pulse Ox 98 04/12/22 07:20 FiO2 Intake & Output 04/11/22 04/12/22 04/12/22 18:59 06:59 18:59 Intake Total 1900 350 Output Total 50 1200 92 Balance 1850 -850 -92 Intake: IV 1900 Intake, IV Titration 200 Amount ACETAMINOPHEN IV (For NPO 100 ) 1,000 mg In Empty Bag 1 bag @ 400 mls/hr IVPB ONCE ONE Rx#:[id number] Piperacillin-Tazobactam 3 100 .375 gm In Sodium Chloride 0.9% 100 ml @ 25 mls/hr IVPB Q12HR [facility] Rx #:[id number] Oral 150 Output: Drainage 50 Lower Abdomen 50 Urine 550 Straight 550 Post Void Residual 600 92 Estimated Blood Loss 50 Other: # Voids 1 - Labs CBC & Chem 7: 04/12/22 06:11 04/12/22 06:11 Labs: Abnormal Lab Results - Last 24 Hours (Table) 04/11/22 04/11/22 04/11/22 Range/Units 07:03 17:51 21:57 WBC (4.50-10.00) X 10*3/uL RBC (4.40-5.60) X 10*6/uL Hgb (13.0-17.0) g/dL Hct (39.6-50.0) % MCV (80.0-97.0) fL MCH (27.0-32.0) pg MCHC (32.0-37.0) g/dL Immature Gran # (0.00-0.04) X 10*3/uL Neutrophils # (1.80-7.70) X 10*3/uL Lymphocytes # (0.90-5.00) X 10*3/uL Eosinophils # (0.04-0.35) X 10*3/uL BUN 55.1 H (9.0-27.0) mg/dL Creatinine 3.0 H (0.6-1.5) mg/dL Est GFR (CKD-EPI)AfAm 20.5 L (60.0-200.0) Est GFR (CKD-EPI)NonAf 17.7 L (60.0-200.0) Glucose 138 H (70-110) mg/dL POC Glucose (mg/dL) 156 H 152 H (75-99) mg/dL Calcium 8.3 L (8.7-10.3) mg/dL Phosphorus (2.4-5.1) mg/dL AST (14-35) U/L ALT (10-49) U/L Total Protein 5.5 L (6.2-8.2) g/dL Albumin 3.2 L (3.8-4.9) g/dL Albumin/Globulin Ratio 1.39 L (1.60-3.17) g/dL 04/12/22 04/12/22 04/12/22 Range/Units 02:46 06:11 06:11 WBC 12.70 H (4.50-10.00) X 10*3/uL RBC 2.79 L (4.40-5.60) X 10*6/uL Hgb 9.0 L (13.0-17.0) g/dL Hct 29.5 L (39.6-50.0) % MCV 105.7 H (80.0-97.0) fL MCH 32.3 H (27.0-32.0) pg MCHC 30.5 L (32.0-37.0) g/dL Immature Gran # 0.09 H (0.00-0.04) X 10*3/uL Neutrophils # 11.29 H (1.80-7.70) X 10*3/uL Lymphocytes # 0.39 L (0.90-5.00) X 10*3/uL Eosinophils # 0 L (0.04-0.35) X 10*3/uL BUN 66.3 H (9.0-27.0) mg/dL Creatinine 3.6 H (0.6-1.5) mg/dL Est GFR (CKD-EPI)AfAm 16.4 L (60.0-200.0) Est GFR (CKD-EPI)NonAf 14.1 L (60.0-200.0) Glucose 117 H (70-110) mg/dL POC Glucose (mg/dL) 137 H (75-99) mg/dL Calcium 8.0 L (8.7-10.3) mg/dL Phosphorus 6.4 H (2.4-5.1) mg/dL AST 147 H (14-35) U/L ALT 168 H (10-49) U/L Total Protein 5.0 L (6.2-8.2) g/dL Albumin 2.8 L (3.8-4.9) g/dL Albumin/Globulin Ratio 1.26 L (1.60-3.17) g/dL 04/12/22 04/12/22 Range/Units 07:29 12:15 WBC (4.50-10.00) X 10*3/uL RBC (4.40-5.60) X 10*6/uL Hgb (13.0-17.0) g/dL Hct (39.6-50.0) % MCV (80.0-97.0) fL MCH (27.0-32.0) pg MCHC (32.0-37.0) g/dL Immature Gran # (0.00-0.04) X 10*3/uL Neutrophils # (1.80-7.70) X 10*3/uL Lymphocytes # (0.90-5.00) X 10*3/uL Eosinophils # (0.04-0.35) X 10*3/uL BUN (9.0-27.0) mg/dL Creatinine (0.6-1.5) mg/dL Est GFR (CKD-EPI)AfAm (60.0-200.0) Est GFR (CKD-EPI)NonAf (60.0-200.0) Glucose (70-110) mg/dL POC Glucose (mg/dL) 114 H 103 H (75-99) mg/dL Calcium (8.7-10.3) mg/dL Phosphorus (2.4-5.1) mg/dL AST (14-35) U/L ALT (10-49) U/L Total Protein (6.2-8.2) g/dL Albumin (3.8-4.9) g/dL Albumin/Globulin Ratio (1.60-3.17) g/dL
[2022-04-12] MEDS ORDERED: SODIUM CHLORIDE 0.9% 500 ML 500 ML IV ONE (13:12)
--- NOTE | 2022-04-12 13:15 | P.PN ---
Subjective Progress Note Date: 04/12/22 Hospital course: Patient is a very pleasant 86-year-old male with a past medical history of coronary artery disease status post CABG, chronic CHF with ischemic car diomyopathy, hypertension, hyperlipidemia, chronic kidney disease stage III, and type II DM. He presented to the emergency department overnight with a chief complaint of chest pain. Patient developed sudden onset chest pain/pressure around 6 PM last night. Patient reported this pain was to midsternal chest and radiated into his left arm accompanied by shortness of breath, nausea, palpitations, and diaphoresis. He underwent full evaluation in the emergency department. EKG was completed showing normal sinus rhythm 64 bpm with a first- degree block with MD interval of 223 ms and occasional PVC. Chest x-ray negative for acute cardiopulmonary process. X-ray abdomen revealing multiple loops of bowel dilated and more likely related to ileus however mechanical obstruction not entirely excluded. CBC, coags, and CMP completed. CBC showing normocytic normochromic anemia with hemoglobin of 10.2. CMP revealing mild hyperkalemia with potassium of 5.4 and elevated renal function with BUN 42, creatinine 1.85, and GFR is 32 (slightly higher than baseline creatinine level of 1.6). Patient was admitted under the services with consultation to cardiology and nephrology. Patient monitored throughout the night troponins trended all negative at less than 0.0123 draws. Cardiology evaluated patient took patient for Lexiscan stress test. Echocardiogram was completed. Patient continues to have persistent abdominal pain/discomfort. CT abdomen and pelvis to be completed to rule out small bowel obstruction versus ileus and general surgery consulted to evaluate. Echocardiogram completed revealing mild to moderately impaired EF of 40-45% with mild mitral and tricuspid regurgitation. Stress test revealing nondiagnostic electrogram stress testing in response to Lexiscan. 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 CT abdomen and pelvis revealing a distended gallbladder with layering gallstones with an intraoperative for renal abdominal aorta fusiform ectasia dilation up to 3.4 cm in right common iliac artery displaced atherosclerotic calcification which could represent dissection recommend further evaluation with nonemergent CTA of abdomen and pelvis on outpatient basis. Gallbladder ultrasound revealing hydropic gallbladder, cholestasis and correlating for acute cholecystitis and cystic duct obstruction as CT shows possible biliary duct stone. in the evening of 04/10/22 patient reportedly began experiencing increased abdominal pain, nausea, and vomiting of dark brown gastric contents. Patient was made NPO at this time and an NG tube was placed to low intermittent suction after co nfirmation of placement. On the morning of 04/11/22, patient's renal significantlyfunction and worsening and nephrology consulted. Patient underwent da Zhen Xi laparoscopic cholecystectomy with lysis of lesionsons on the evening of 04/11/[address] Arrieta. Patient to remain on IV fluid hydration with 0.9% normal saline and continuedIV antibiotic with Zosyn. Pro-calcitonin elevated at 1.38 and patient to remain on IV antibiotic with Zosyn. Physical examination: Patient was seen and fully evaluated at bedside this morning. Patient is postoperative day 1 status post da Zhen Xi laparoscopic cholecystectomy with lysis of lesions. NG tube was removed and postoperative period after completion of surgery. RN at bedside reporting pt has not been able to tolerate oral intake and remains very nauseas and medicating patient with antiemetic at this t omar. Patient reports generalized abdominal pain and nausea. He denies further episodes of vomiting since removal of NG tube and denies passing flatus or having a bowel movement. Postoperative dressings intact with no signs of bleeding or drainage. PALOMA drain in place. Abdominal binder to remain in place. Pt to be encouraged to use incentive spirometer 10-15 times hourly while awake. Morning labs revealed stable postoperative hemoglobin of 9.0 and continued worsening renal function with BUN 66.3, creatinine 3.6, and GFR of 14.1. Patient to continue IV fluid hydration and remain on IV antibiotic with Zosyn. General: non toxic, no distress, appears at stated age Derm: warm, dry, pallor Head: atraumatic, normocephalic, symmetric Eyes: EOMI, no lid lag, anicteric sclera Mouth: no lip lesion, mucus membranes moist Cardiovascular: S1S2 reg, no murmur, positive posterior tibial pulse bilatera lly, no edema Lungs: CTA bilateral, no rhonchi, no rales , no accessory muscle use Abdominal: Obese abdomen, taut distended, with diffuse tenderness. Ext: no gross muscle atrophy, no edema, no contractures Neuro: CN II-XI grossly intact, no focal neuro deficits Psych: Alert, oriented, appropriate affect Assessment and plan of care: Acute cholecystitis with possible biliary duct stone, status post laparoscopic cholecystectomy 04/11/22 Small bowel obstruction, NG tube was placed for decompression and removed s/p laparoscopic cholecystectomy -X-ray concerning for possible ileus versus small bowel obstruction. -04/10/22 patient began having moderated emesis consisting of dark brown gastric contents and an NG tube was placed to LIS for decompression. NG tube was removed 04/11/22 during postoperative period after completion of cholecystectomy. -Gen. surgery following, patient underwent da Zhen Xi laparoscopic cholecystectomy with lysis of lesions on 04/11/22. -Continue IV fluid hydration -Clear liquid diet, advance as recommended by general surgery team. Acute kidney injury on chronic kidney disease, likely secondary to current infection with acute cholecystitis -Hold nephrotoxic medications, Entresto. -Vigorous IV fluid hydration -Nephrology following -Continued close monitoring with repeat a.m. labs. -Continued treatment with IV antibiotics with Zosyn for acute cholecystitis. Chest pain, acute coronary event ruled out History of CAD status CABG History of ischemic cardiomyopathy -Cardiology evaluated, recommending patient continue with current cardiac medication regimen and for pt to follow up outpatient with office upon discharge. -Continue Telemetry monitoring -Troponins negative < 0.012. -Aspirin, atorvastatin, and carvedilol -Echocardiogram revealing mild to moderately impaired EF of 40-45% -Lexiscan stress test revealing old infarcts with underlying dilated cardiomyopathy and no convincing evidence for reversible ischemia. Acute on chronic anemia -Stable hemoglobin 9.0. Renal abdominal aorta fusiform ectasia dilation and common iliac artery displaced atherosclerotic calcification -Vascular surgery consulted for evaluation, recommending outpatient follow-up with yearly ultrasounds. Hypertension -Monitor vital signs and continue daily medication regimen with carvedilol. Hyperlipidemia -Continue daily medication regimen with atorvastatin. Type II [id number] diabetes mellitus. -Hold oral hypoglycemic medications and place patient on glycemic protocol with NovoLog sliding scale. CODE STATUS: Full Code Discussed with: Patient and RN Anticipated discharge date: clinical course to determine Anticipated discharge place: Home A total of 41 minutes was spent on the care of this complex patient more than 50% of the time was spent in counseling and care coordination. I reviewed the documentation as provided by the ROSENDO above, who is the original author of this note. I agree with the documented assessment and plan, with the following changes: None Objective - Vital Signs Vital signs: Vital Signs Temp 97.9 F 04/12/22 07:20 Pulse 80 04/12/22 07:20 Resp 18 04/12/22 07:20 BP 116/68 04/12/22 07:20 Pulse Ox 98 04/12/22 07:20 FiO2 Intake & Output 04/11/22 04/12/22 04/12/22 18:59 06:59 18:59 Intake Total 1900 350 Output Total 50 1200 Balance 1850 -850 Intake: IV 1900 Intake, IV Titration 200 Amount ACETAMINOPHEN IV (For NPO 100 ) 1,000 mg In Empty Bag 1 bag @ 400 mls/hr IVPB ONCE ONE Rx#:[id number] Piperacillin-Tazobactam 3 100 .375 gm In Sodium Chloride 0.9% 100 ml @ 25 mls/hr IVPB Q12HR [facility] Rx #:[id number] Oral 150 Output: Drainage 50 Lower Abdomen 50 Urine 550 Straight 550 Post Void Residual 600 Estimated Blood Loss 50 Other: # Voids 1 - Labs CBC & Chem 7: 04/12/22 15:45 04/12/22 15:45 Labs: Abnormal Lab Results - Last 24 Hours (Table) 04/11/22 04/11/22 04/11/22 Range/Units 07:03 07:03 07:03 WBC 16.66 H (4.50-10.00) X 10*3/uL RBC 2.94 L (4.40-5.60) X 10*6/uL Hgb 9.5 L (13.0-17.0) g/dL Hct 30.8 L (39.6-50.0) % MCV 104.8 H (80.0-97.0) fL MCH 32.3 H (27.0-32.0) pg MCHC 30.8 L (32.0-37.0) g/dL Immature Gran # 0.22 H (0.00-0.04) X 10*3/uL Neutrophils # 14.47 H (1.80-7.70) X 10*3/uL Lymphocytes # 0.58 L (0.90-5.00) X 10*3/uL Monocytes # 1.37 H (0.20-1.00) X 10*3/uL Eosinophils # 0 L (0.04-0.35) X 10*3/uL BUN 55.1 H (9.0-27.0) mg/dL Creatinine 3.0 H (0.6-1.5) mg/dL Est GFR (CKD-EPI)AfAm 20.5 L (60.0-200.0) Est GFR (CKD-EPI)NonAf 17.7 L (60.0-200.0) Glucose 138 H (70-110) mg/dL POC Glucose (mg/dL) (75-99) mg/dL Calcium 8.3 L (8.7-10.3) mg/dL Total Protein 5.5 L (6.2-8.2) g/dL Albumin 3.2 L (3.8-4.9) g/dL Albumin/Globulin Ratio 1.39 L (1.60-3.17) g/dL Procalcitonin 1.38 H (0.02-0.09) ng/mL 04/11/22 04/11/22 04/11/22 Range/Units 12:15 17:51 21:57 WBC (4.50-10.00) X 10*3/uL RBC (4.40-5.60) X 10*6/uL Hgb (13.0-17.0) g/dL Hct (39.6-50.0) % MCV (80.0-97.0) fL MCH (27.0-32.0) pg MCHC (32.0-37.0) g/dL Immature Gran # (0.00-0.04) X 10*3/uL Neutrophils # (1.80-7.70) X 10*3/uL Lymphocytes # (0.90-5.00) X 10*3/uL Monocytes # (0.20-1.00) X 10*3/uL Eosinophils # (0.04-0.35) X 10*3/uL BUN (9.0-27.0) mg/dL Creatinine (0.6-1.5) mg/dL Est GFR (CKD-EPI)AfAm (60.0-200.0) Est GFR (CKD-EPI)NonAf (60.0-200.0) Glucose (70-110) mg/dL POC Glucose (mg/dL) 123 H 156 H 152 H (75-99) mg/dL Calcium (8.7-10.3) mg/dL Total Protein (6.2-8.2) g/dL Albumin (3.8-4.9) g/dL Albumin/Globulin Ratio (1.60-3.17) g/dL Procalcitonin (0.02-0.09) ng/mL 04/12/22 04/12/22 Range/Units 02:46 07:29 WBC (4.50-10.00) X 10*3/uL RBC (4.40-5.60) X 10*6/uL Hgb (13.0-17.0) g/dL Hct (39.6-50.0) % MCV (80.0-97.0) fL MCH (27.0-32.0) pg MCHC (32.0-37.0) g/dL Immature Gran # (0.00-0.04) X 10*3/uL Neutrophils # (1.80-7.70) X 10*3/uL Lymphocytes # (0.90-5.00) X 10*3/uL Monocytes # (0.20-1.00) X 10*3/uL Eosinophils # (0.04-0.35) X 10*3/uL BUN (9.0-27.0) mg/dL Creatinine (0.6-1.5) mg/dL Est GFR (CKD-EPI)AfAm (60.0-200.0) Est GFR (CKD-EPI)NonAf (60.0-200.0) Glucose (70-110) mg/dL POC Glucose (mg/dL) 137 H 114 H (75-99) mg/dL Calcium (8.7-10.3) mg/dL Total Protein (6.2-8.2) g/dL Albumin (3.8-4.9) g/dL Albumin/Globulin Ratio (1.60-3.17) g/dL Procalcitonin (0.02-0.09) ng/mL
[2022-04-12] MEDS ORDERED: LIDOCAINE URO-JET JELLY 2% 5 ML KIT URETHRAL ONE (13:33)
[2022-04-12] MEDS: SIMETHICONE 40 MG/0.6 ML DROPS 2,000 MG/30 ML BOTTLE PO SCH ×3 (14:20→20:49)
--- NOTE | 2022-04-12 14:48 | P.PN ---
Progress Note - Text Progress Note Date: 04/12/22 Computed tomography scan reordered by admitting team. CT reviewed. Findings of dilated stomach present. Order for nasogastric tube placement.
--- NOTE | 2022-04-12 15:02 | CT ---
EXAMINATION TYPE: CT abdomen pelvis wo con DATE OF EXAM: 04/12/2022 COMPARISON: 04/09/2022 HISTORY: Recent cholecystectomy, stomach pain, belching CT DLP: 1377.9 mGycm Automated exposure control for dose reduction was used. There is some infiltrate and atelectasis at both lung bases. Heart is enlarged. No pericardial effusi on. Liver and spleen are intact. There is peritoneal catheter in the right upper quadrant. The bile ducts are not dilated. There is large gas and fluid filled stomach. There is no pancreatic mass. There is no adrenal mass. Kidneys of normal size. No hydronephrosis. Ureters are not dilated. There i s a 3 cm cyst upper pole left kidney. There is 3.5 cm cortical cyst posterior right kidney. There is no retroperitoneal adenopathy. Ureters are not dilated. There is a Gregg catheter in the urinary blad camacho. There is no inguinal hernia. There is no mesenteric edema. No ascites or free air. No bowel obstruction. No evidence of a pelvic m ass. Abdominal aorta is atheromatous. The lumbar vertebrae have normal alignment. No compression fracture. There is mild spurring in the jelena mbar spine. There is no mesenteric edema. There is some fat stranding and fluid around the inferior right lobe of the liver. The bony pelvis is intact. Hip joints are intact. IMPRESSION: There is some mild fat stranding right upper quadrant in this patient with recent cholecystectomy. Th is is consistent with some postsurgical changes. Note significant fluid collection seen to suggest an abscess or bile leak. Dilated stomach suggestive of gastroparesis.
--- NOTE | 2022-04-12 16:01 | XR ---
EXAMINATION TYPE: XR chest 1V portable DATE OF EXAM: 04/12/2022 COMPARISON: Yesterday HISTORY: Check tube placement TECHNIQUE: FINDINGS: There is NG tube in the distal stomach. There is mild coarse interstitial density in the jelena ng robertson. Thoracic aorta is atheromatous. There is pleural thickening at the right lung base. No hea rt failure seen. There are old right-sided healed rib fractures. IMPRESSION: NG tube is in the distal stomach. Pulmonary fibrosis. Pleural scarring right lung base.
[2022-04-12 16:09] LABS: Basophils % (A) 0 %; Eosinophils % (A) 0 %; HGB 10.1 gm/dL (13.0-17.5); Hypochromasia Slight; Lymphocytes # (A) 0.3 k/uL (1.0-4.8); Lymphocytes % (A) 2 %; MCH 31.8 pg (25.0-35.0); MCHC 29.6 g/dL (31.0-37.0); MCV 107.3 fL (80.0-100.0); Macrocytosis Moderate; Mean Platelet Volume 7.8; Monocytes # (A) 0.6 k/uL (0-1.0); Monocytes % (A) 4 %; Neutrophils # (A) 12.8 k/uL (1.3-7.7); Neutrophils % (A) 93 %; Platelet Count 198 k/uL (150-450); RBC 3.17 m/uL (4.30-5.90); RDW 13.1 % (11.5-15.5); WBC 13.8 k/uL (3.8-10.6)
[2022-04-12 16:18] LABS: ALT 160 U/L (4-49); AST 106 U/L (17-59); African American GFR (CKD) 16 (>60 ml/min/1.73 sqM); Albumin 2.7 g/dL (3.5-5.0); Alkaline Phosphatase 66 U/L (38-126); Anion Gap 10 mmol/L; Blood Urea Nitrogen 75 mg/dL (9-20); Calcium 7.9 mg/dL (8.4-10.2); Carbon Dioxide 23 mmol/L (22-30); Chloride 102 mmol/L (98-107); Globulin 2.6 g/dL; Glucose 106 mg/dL (74-99); Non-African American GFR(CKD) 14 (>60 ml/min/1.73 sqM); Potassium 5.4 mmol/L (3.5-5.1); Sodium 135 mmol/L (137-145); Total Bilirubin 0.6 mg/dL (0.2-1.3); Total Protein 5.3 g/dL (6.3-8.2)
[2022-04-12 16:58] LABS: Glucose,Whole Blood 105 mg/dL (75-99)
[2022-04-12] MEDS: MIDODRINE 5 MG TAB PO SCH ×2 (19:09→19:12)
[2022-04-12] MEDS: ALVIMOPAN 12 MG CAPSULE PO SCH ×2 (19:10→20:11)
[2022-04-12] MEDS: SODIUM CHLORIDE 0.9% 1,000 ML IV SCH ×2 (19:21→21:25)
[2022-04-12] MEDS: ACETAMINOPHEN IV (For NPO) 1,000 MG in EMPTY BAG 1 BAG IVPB SCH ×2 (19:51→20:50)
[2022-04-12 21:09] LABS: Glucose,Whole Blood 104 mg/dL (75-99)
[2022-04-13] MEDS: ACETAMINOPHEN IV (For NPO) 1,000 MG in EMPTY BAG 1 BAG IVPB SCH ×3 (01:45→13:25)
[2022-04-13 02:11] LABS: Glucose,Whole Blood 81 mg/dL (75-99)
[2022-04-13 03:59] LABS: Glucose,Whole Blood 85 mg/dL (75-99)
[2022-04-13] MEDS ORDERED: SODIUM CHLORIDE 0.9% 500 ML 500 ML IV ONE (04:46)
--- NOTE | 2022-04-13 05:00 | P.PN ---
Progress Note - Text Progress Note Date: 04/13/22 Notified by CAMERON Pereyra regarding concerns of patient decline. She reports his blood sugars are low at 88. She also reports his abdomen is increasingly tender and distended despite NG tube. She reports NGT output over 1200 mL. PALOMA functioning. She reports urine output declined from 1500 mL day s hift to only 150 mL in 8 hrs. She reports notifying medicine team about her concerns and still awaiting response for blood sugars. She decreased the patients IVF from 130 mL/hr down to 75 mL/hr for her concerns for his low blood sugar. On review of his MAR, medications ordered to counteract ileus including Entereg was not given including scheduled simethicone. Nurse reports medication held as it could not be placed via NG tube. She reports low blood pressure. Nurse advised to give popsicles for low blood sugar. Also she is advised to maintain IVF at 130 mL/hr as patient demonstrates hypotension due to severe dehydration and moderate high outputs. Fluid bolus of 500 mL x 1 ordered. Re-check of NG tube advised to check malposition. Abdominal xray ordered. Diet order adjusted to add NPO except meds, ice, popsicles. Stat labs including tropinins being ordered.
--- NOTE | 2022-04-13 05:27 | XR ---
EXAMINATION TYPE: XR chest 1V portable DATE OF EXAM: 04/13/2022 COMPARISON: Yesterday HISTORY: Short of breath TECHNIQUE: Single view FINDINGS: Heart appears slightly enlarged. No heart failure. Costophrenic angles show slight blunting on the right side. There are no hilar masses. Thoracic aorta is atheromatous. There is nasogastric t ube in the gastric antrum. There are old right-sided rib fractures. IMPRESSION: Pleural thickening at the right lung base without change. Mild cardiomegaly. No heart gerardo lure seen. No significant change compared to yesterday
--- NOTE | 2022-04-13 05:32 | XR ---
EXAMINATION TYPE: XR abdomen 2V DATE OF EXAM: 04/13/2022 COMPARISON: NONE HISTORY: Pain TECHNIQUE: 2 views supine and upright FINDINGS: There is some blunting right costophrenic angle. There is minimal blunting left costophreni c angle. There is nasogastric tube in the body of the stomach. There is gas and fecal material presen t without disproportionate enlargement of any one loop. No evidence of free air. No pathologic calcif ications over the kidneys. IMPRESSION: There is probably some mild intestinal ileus. No free air. Pleural reaction and thickenin g at the lung bases.
[2022-04-13 05:56] LABS: Basophils % (A) 0 %; Eosinophils % (A) 0 %; HCT 31.3 % (39.0-53.0); HGB 9.8 gm/dL (13.0-17.5); Hypochromasia Slight; Lymphocytes # (A) 0.5 k/uL (1.0-4.8); Lymphocytes % (A) 4 %; MCH 33.5 pg (25.0-35.0); MCHC 31.4 g/dL (31.0-37.0); MCV 106.9 fL (80.0-100.0); Macrocytosis Moderate; Mean Platelet Volume 8.2; Monocytes # (A) 0.5 k/uL (0-1.0); Monocytes % (A) 5 %; Neutrophils % (A) 89 %; Platelet Count 209 k/uL (150-450); RBC 2.93 m/uL (4.30-5.90); WBC 11.2 k/uL (3.8-10.6)
[2022-04-13 06:09] LABS: ALT 124 U/L (4-49); AST 65 U/L (17-59); African American GFR (CKD) 14 (>60 ml/min/1.73 sqM); Albumin 2.6 g/dL (3.5-5.0); Albumin/Globulin Ratio 1.1; Alkaline Phosphatase 64 U/L (38-126); Anion Gap 11 mmol/L; Blood Urea Nitrogen 82 mg/dL (9-20); Calcium 7.8 mg/dL (8.4-10.2); Carbon Dioxide 21 mmol/L (22-30); Chloride 102 mmol/L (98-107); Globulin 2.4 g/dL; Glucose 79 mg/dL (74-99); Magnesium 2.3 mg/dL (1.6-2.3); Non-African American GFR(CKD) 12 (>60 ml/min/1.73 sqM); Phosphorus 7.4 mg/dL (2.5-4.5); Potassium 4.7 mmol/L (3.5-5.1); Sodium 134 mmol/L (137-145); Total Bilirubin 0.5 mg/dL (0.2-1.3)
[2022-04-13 07:11] LABS: Glucose,Whole Blood 90 mg/dL (75-99)
[2022-04-13] MEDS: SODIUM CHLORIDE 0.9% 1,000 ML IV SCH ×2 (07:48→21:45)
[2022-04-13] MEDS: carvediloL 6.25 MG TAB PO SCH ×2 (07:49→18:43)
[2022-04-13] MEDS: INSULIN ASPART (NovoLOG) 100 UNIT/ML VIAL SQ SCH ×4 (07:50→20:45)
[2022-04-13] MEDS: SYMBICORT 80-4.5 MCG INHALER INHALATION SCH ×2 (07:55→19:15)
[2022-04-13] MEDS: MIDODRINE 5 MG TAB PO SCH ×3 (07:58→18:43)
[2022-04-13] MEDS: SIMETHICONE 40 MG/0.6 ML DROPS 2,000 MG/30 ML BOTTLE PO SCH ×4 (07:59→21:16)
[2022-04-13] MEDS: ASPIRIN 81 MG PO SCH (08:00)
[2022-04-13] MEDS: ALVIMOPAN 12 MG CAPSULE PO SCH ×2 (08:00→21:16)
[2022-04-13] MEDS: ATORVASTATIN 40 MG TAB PO SCH (08:00)
[2022-04-13] MEDS: HEPARIN SODIUM,PORCINE/PF 5,000 UNIT/0.5 ML SYRINGE SQ SCH ×2 (08:01→20:45)
[2022-04-13] MEDS: PANTOPRAZOLE 40 MG/10 ML VIAL IV SCH (08:01)
[2022-04-13] MEDS: PIPERACILLIN-TAZOBACTAM 3.375 GM in SODIUM CHLORIDE 0.9% 100 ML IVPB SCH ×2 (08:01→20:45)
[2022-04-13] MEDS: ISOSORBIDE MONONITRATE ER 30 MG TAB.ER.24H PO SCH (08:01)
[2022-04-13] MEDS: DEXTROSE 5%-0.45% NACL 1,000 ML IV SCH ×2 (08:10→18:44)
[2022-04-13] MEDS: DOCUSATE 100 MG CAP PO SCH ×2 (08:15→20:46)
--- NOTE | 2022-04-13 08:42 | P.PN ---
Subjective Progress Note Date: 04/13/22 Hospital course: Patient is a very pleasant 86-year-old male with a past medical history of coronary artery disease status post CABG, chronic CHF with ischemic car diomyopathy, hypertension, hyperlipidemia, chronic kidney disease stage III, and type II DM. He presented to the emergency department overnight with a chief complaint of chest pain. Patient developed sudden onset chest pain/pressure around 6 PM last night. Patient reported this pain was to midsternal chest and radiated into his left arm accompanied by shortness of breath, nausea, palpitations, and diaphoresis. He underwent full evaluation in the emergency department. EKG was completed showing normal sinus rhythm 64 bpm with a first- degree block with WA interval of 223 ms and occasional PVC. Chest x-ray negative for acute cardiopulmonary process. X-ray abdomen revealing multiple loops of bowel dilated and more likely related to ileus however mechanical obstruction not entirely excluded. CBC, coags, and CMP completed. CBC showing normocytic normochromic anemia with hemoglobin of 10.2. CMP revealing mild hyperkalemia with potassium of 5.4 and elevated renal function with BUN 42, creatinine 1.85, and GFR is 32 (slightly higher than baseline creatinine level of 1.6). Patient was admitted under the services with consultation to cardiology and nephrology. Patient monitored throughout the night troponins trended all negative at less than 0.0123 draws. Cardiology evaluated patient took patient for Lexiscan stress test. Echocardiogram was completed. Patient continues to have persistent abdominal pain/discomfort. CT abdomen and pelvis to be completed to rule out small bowel obstruction versus ileus and general surgery consulted to evaluate. Echocardiogram completed revealing mild to moderately impaired EF of 40-45% with mild mitral and tricuspid regurgitation. Stress test revealing nondiagnostic electrogram stress testing in response to Lexiscan. 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 CT abdomen and pelvis revealing a distended gallbladder with layering gallstones with an intraoperative for renal abdominal aorta fusiform ectasia dilation up to 3.4 cm in right common iliac artery displaced atherosclerotic calcification which could represent dissection recommend further evaluation with nonemergent CTA of abdomen and pelvis on outpatient basis. Gallbladder ultrasound revealing hydropic gallbladder, cholestasis and correlating for acute cholecystitis and cystic duct obstruction as CT shows possible biliary duct stone. in the evening of 04/10/22 patient reportedly began experiencing increased abdominal pain, nausea, and vomiting of dark brown gastric contents. Patient was made NPO at this time and an NG tube was placed to low intermittent suction after co nfirmation of placement. On the morning of 04/11/22, patient's renal significantlyfunction and worsening and nephrology consulted. Patient underwent da Zhen Xi laparoscopic cholecystectomy with lysis of lesionsons on the evening of 04/11/[address] Arrieta. Patient to remain on IV fluid hydration with 0.9% normal saline and continuedIV antibiotic with Zosyn. Physical examination: Patient was seen and fully evaluated at bedside this morning. Patient is postoperative day 2 status post da Zhen Xi laparoscopic cholecystectomy with lysis of lesions. NG tube was removed after completion of surgery on 04/11/22. Pts condition seemed to worsen throughout the day yesterday and a repeat CT was ordered showing no hydronephrosis revealing a dilated stomach suggestive of gastroparesis and mild fat stranding in the right upper quadrant consistent with postsurgical changes and fluid collection around the inferior right lower lobe of liver. I inserted an NG tube at this time into right nares verifying placement via auscultation and return of green gastric contents, placement then confirmed by x-ray and NG tube was connected to low intermittent suction. Patient has had 1300 mL of gastric drainage over the past 12 hours. Overnight patient again became very hypotensive blood pressure 80s over 40s. Repeat labs obtained revealing mild leukocytosis with WBC 11.2, stable hemoglobin 9.8, mild hyponatremia with sodium of 134, and worsening renal function with BUN 82, creatinine 4.19, and GFR of 12. Dr. Victoria rough rice tender was notified. Patient also with minimal urine output over the past 24 hours patient has had a total of 400 mL of urine output. Troponin also elevated at 1.120. Repeat EKG to be obtained. Cardiology was notified and to evaluate. Blood sugars also dropping down into the 80s, 0.9% normal saline discontinued and patient started D5.45% at 100 mLs/hr. Blood pressure is improved and currently on with heart rate 82, respiratory rate 18, and SpO2 of 97% on 2 L. Patient reports he is feeling better at this time. He is alert and oriented to person, place, time, and situation. Patient reports nausea has resolved and abdominal pain remains but is definitely not as severe as it was overnight. NG tube remains in place to low intermittent suction and patient continues to have moderate output. Abdominal binder remains in place, PALOMA drain remains in place with minimal output, documented 20 mL of output over the past 24 hours. Patient being transferred to (3S) stepdown unit at this time. Due to no bed availability, pt being moved to ICU for 3S overflow only. General: non toxic, no distress, appears at stated age Derm: warm, dry, pallor Head: atraumatic, normocephalic, symmetric Eyes: EOMI, no lid lag, anicteric sclera Mouth: no lip lesion, mucus membranes moist Cardiovascular: S1S2 reg, no murmur, positive posterior tibial pulse bilaterally, no edema Lungs: CTA bilateral, no rhonchi, no rales , no accessory muscle use Abdominal: Obese abdomen, taut distended, with diffuse tenderness. Ext: no gross muscle atrophy, no edema, no contractures Neuro: CN II-XI grossly intact, no focal neuro deficits Psych: Alert, oriented, appropriate affect Assessment and plan of care: Acute cholecystitis with possible biliary duct stone, status post laparoscopic cholecystectomy 04/11/22 Small bowel obstruction, NG tube was placed for decompression and removed s/p laparoscopic cholecystectomy -X-ray concerning for possible ileus versus small bowel obstruction. -04/10/22 patient began having moderated emesis consisting of dark brown gastric contents and an NG tube was placed to LIS for decompression. NG tube was removed 04/11/22 during postoperative period after completion of cholecystectomy. -Gen. surgery following, patient underwent da Zhen Xi laparoscopic cholecystectomy with lysis of lesions on 04/11/22. -Continue IV fluid hydration -Clear liquid diet, advance as recommended by general surgery team. Acute kidney injury on chronic kidney disease, likely secondary to current infection with acute cholecystitis -Hold nephrotoxic medications, Entresto. -Vigorous IV fluid hydration -Nephrology following -Continued close monitoring with repeat a.m. labs. -Continued treatment with IV antibiotics with Zosyn for acute cholecystitis. Chest pain, acute coronary event ruled out History of CAD status CABG History of ischemic cardiomyopathy -Cardiology evaluated, recommending patient continue with current cardiac medication regimen and for pt to follow up outpatient with office upon discharge. -Continue Telemetry monitoring -Troponins negative < 0.012. -Aspirin, atorvastatin, and carvedilol -Echocardiogram revealing mild to moderately impaired EF of 40-45% -Lexiscan stress test revealing old infarcts with underlying dilated cardiomyopathy and no convincing evidence for reversible ischemia. Acute on chronic anemia -Stable hemoglobin 9.0. Renal abdominal aorta fusiform ectasia dilation and common iliac artery displaced atherosclerotic calcification -Vascular surgery consulted for evaluation, recommending outpatient follow-up with yearly ultrasounds. Hypertension -Monitor vital signs and continue daily medication regimen with carvedilol. Hyperlipidemia -Continue daily medication regimen with atorvastatin. Type II [id number] diabetes mellitus. -Hold oral hypoglycemic medications and place patient on glycemic protocol with NovoLog sliding scale. CODE STATUS: Full Code Discussed with: Patient and RN Anticipated discharge date: clinical course to determine Anticipated discharge place: Home A total of 41 minutes was spent on the care of this complex patient more than 50% of the time was spent in counseling and care coordination. I reviewed the documentation as provided by the ROSENDO above, who is the original author of this note. I agree with the documented assessment and plan, with the following changes: none Objective - Vital Signs Vital signs: Vital Signs Temp 97.5 F L 04/13/22 07:11 Pulse 82 04/13/22 07:11 Resp 18 04/13/22 07:11 BP 115/69 04/13/22 07:11 Pulse Ox 97 04/13/22 07:56 FiO2 Intake & Output 04/12/22 04/13/22 04/13/22 18:59 06:59 18:59 Output Total 92 1720 Balance -92 -1720 Output: Gastric Drainage 1300 Drainage 20 Lower Abdomen 20 Urine 400 Post Void Residual 92 Other: Voiding Method Indwelling Catheter Indwelling Catheter - Labs CBC & Chem 7: 04/13/22 05:23 04/13/22 05:23 Labs: Abnormal Lab Results - Last 24 Hours (Table) 04/12/22 04/12/22 04/12/22 Range/Units 06:11 06:11 12:15 WBC 12.70 H (4.50-10.00) X 10*3/uL RBC 2.79 L (4.40-5.60) X 10*6/uL Hgb 9.0 L (13.0-17.0) g/dL Hct 29.5 L (39.6-50.0) % MCV 105.7 H (80.0-97.0) fL MCH 32.3 H (27.0-32.0) pg MCHC 30.5 L (32.0-37.0) g/dL Immature Gran # 0.09 H (0.00-0.04) X 10*3/uL Neutrophils # 11.29 H (1.80-7.70) X 10*3/uL Lymphocytes # 0.39 L (0.90-5.00) X 10*3/uL Eosinophils # 0 L (0.04-0.35) X 10*3/uL Sodium (137-145) mmol/L Potassium (3.5-5.1) mmol/L Carbon Dioxide (22-30) mmol/L BUN 66.3 H (9.0-27.0) mg/dL Creatinine 3.6 H (0.6-1.5) mg/dL Est GFR (CKD-EPI)AfAm 16.4 L (60.0-200.0) Est GFR (CKD-EPI)NonAf 14.1 L (60.0-200.0) Glucose 117 H (70-110) mg/dL POC Glucose (mg/dL) 103 H (75-99) mg/dL Calcium 8.0 L (8.7-10.3) mg/dL Phosphorus 6.4 H (2.4-5.1) mg/dL AST 147 H (14-35) U/L ALT 168 H (10-49) U/L Troponin I (0.000-0.034) ng/mL Total Protein 5.0 L (6.2-8.2) g/dL Albumin 2.8 L (3.8-4.9) g/dL Albumin/Globulin Ratio 1.26 L (1.60-3.17) g/dL 04/12/22 04/12/22 04/12/22 Range/Units 15:45 15:45 16:56 WBC 13.8 H (4.50-10.00) X 10*3/uL RBC 3.17 L (4.40-5.60) X 10*6/uL Hgb 10.1 L (13.0-17.0) g/dL Hct 34.0 L (39.6-50.0) % MCV 107.3 H (80.0-97.0) fL MCH (27.0-32.0) pg MCHC 29.6 L (32.0-37.0) g/dL Immature Gran # (0.00-0.04) X 10*3/uL Neutrophils # 12.8 H (1.80-7.70) X 10*3/uL Lymphocytes # 0.3 L (0.90-5.00) X 10*3/uL Eosinophils # (0.04-0.35) X 10*3/uL Sodium 135 L (137-145) mmol/L Potassium 5.4 H (3.5-5.1) mmol/L Carbon Dioxide (22-30) mmol/L BUN 75 H (9.0-27.0) mg/dL Creatinine 3.62 H (0.6-1.5) mg/dL Est GFR (CKD-EPI)AfAm (60.0-200.0) Est GFR (CKD-EPI)NonAf (60.0-200.0) Glucose 106 H (70-110) mg/dL POC Glucose (mg/dL) 105 H (75-99) mg/dL Calcium 7.9 L (8.7-10.3) mg/dL Phosphorus (2.4-5.1) mg/dL AST 106 H (14-35) U/L ALT 160 H (10-49) U/L Troponin I (0.000-0.034) ng/mL Total Protein 5.3 L (6.2-8.2) g/dL Albumin 2.7 L (3.8-4.9) g/dL Albumin/Globulin Ratio (1.60-3.17) g/dL 04/12/22 04/13/22 04/13/22 Range/Units 21:07 05:23 05:23 WBC 11.2 H (4.50-10.00) X 10*3/uL RBC 2.93 L (4.40-5.60) X 10*6/uL Hgb 9.8 L (13.0-17.0) g/dL Hct 31.3 L (39.6-50.0) % MCV 106.9 H (80.0-97.0) fL MCH (27.0-32.0) pg MCHC (32.0-37.0) g/dL Immature Gran # (0.00-0.04) X 10*3/uL Neutrophils # 10.0 H (1.80-7.70) X 10*3/uL Lymphocytes # 0.5 L (0.90-5.00) X 10*3/uL Eosinophils # (0.04-0.35) X 10*3/uL Sodium (137-145) mmol/L Potassium (3.5-5.1) mmol/L Carbon Dioxide (22-30) mmol/L BUN (9.0-27.0) mg/dL Creatinine (0.6-1.5) mg/dL Est GFR (CKD-EPI)AfAm (60.0-200.0) Est GFR (CKD-EPI)NonAf (60.0-200.0) Glucose (70-110) mg/dL POC Glucose (mg/dL) 104 H (75-99) mg/dL Calcium (8.7-10.3) mg/dL Phosphorus (2.4-5.1) mg/dL AST (14-35) U/L ALT (10-49) U/L Troponin I 1.120 H* (0.000-0.034) ng/mL Total Protein (6.2-8.2) g/dL Albumin (3.8-4.9) g/dL Albumin/Globulin Ratio (1.60-3.17) g/dL 04/13/22 Range/Units 05:23 WBC (4.50-10.00) X 10*3/uL RBC (4.40-5.60) X 10*6/uL Hgb (13.0-17.0) g/dL Hct (39.6-50.0) % MCV (80.0-97.0) fL MCH (27.0-32.0) pg MCHC (32.0-37.0) g/dL Immature Gran # (0.00-0.04) X 10*3/uL Neutrophils # (1.80-7.70) X 10*3/uL Lymphocytes # (0.90-5.00) X 10*3/uL Eosinophils # (0.04-0.35) X 10*3/uL Sodium 134 L (137-145) mmol/L Potassium (3.5-5.1) mmol/L Carbon Dioxide 21 L (22-30) mmol/L BUN 82 H (9.0-27.0) mg/dL Creatinine 4.19 H (0.6-1.5) mg/dL Est GFR (CKD-EPI)AfAm (60.0-200.0) Est GFR (CKD-EPI)NonAf (60.0-200.0) Glucose (70-110) mg/dL POC Glucose (mg/dL) (75-99) mg/dL Calcium 7.8 L (8.7-10.3) mg/dL Phosphorus 7.4 H (2.4-5.1) mg/dL AST 65 H (14-35) U/L ALT 124 H (10-49) U/L Troponin I (0.000-0.034) ng/mL Total Protein 5.0 L (6.2-8.2) g/dL Albumin 2.6 L (3.8-4.9) g/dL Albumin/Globulin Ratio (1.60-3.17) g/dL Microbiology - Last 24 Hours (Table) 04/11/22 17:32 Gram Stain - Preliminary Other - Other Wound Culture - Preliminary Gram Neg Bacilli 04/11/22 17:32 Anaerobic Culture - Preliminary Other - Other
--- NOTE | 2022-04-13 09:50 | P.PN ---
Subjective Patient is seen for follow-up for chronic kidney disease Renal function has been worsening. Creatinine is up to 4.19 today. Blood pressure has been low Post void residual residual noted to be high at 600 but repeat was only 10. Currently patient has an indwelling Gregg catheter. Patient is status post laparoscopic cholecystectomy on 04/11/2022 and lysis of adhesions. Abdomen was distended and patient had a CT of the abdomen done yesterday which did not show any acute findings. NG tube was placed 1500 mL was obtained from gastric drainage. Patient has been transferred to [facility] Currently in the ICU because of no beds there. Urine output remains low with only 500 mL over 24 hours. Patient has an indwelling Gregg catheter Blood pressure was low with systolic in the 80s. Currently receiving IV fluids and maintained on midodrine Objective - Vital Signs Vital signs: Vital Signs Temp 97.5 F L 04/13/22 07:11 Pulse 74 04/13/22 09:14 Resp 21 04/13/22 09:14 BP 122/66 04/13/22 09:14 Pulse Ox 94 L 04/13/22 09:14 FiO2 Intake & Output 04/12/22 04/13/22 04/13/22 18:59 06:59 18:59 Output Total 92 1720 150 Balance -92 -1720 -150 Output: Gastric Drainage 1300 Drainage 20 Lower Abdomen 20 Urine 400 150 Straight 150 Post Void Residual 92 Other: Voiding Method Indwelling Catheter Indwelling Catheter Indwelling Catheter - Exam Patient is laying in bed He is awake NG tube in place Examination of the heart S1 and S2 Examination of the lungs bilateral breath sounds are heard No acute distress Abdomen is soft and tender No significant edema noted in the 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 - Labs CBC & Chem 7: 04/13/22 05:23 04/13/22 05:23 Labs: Abnormal Lab Results - Last 24 Hours (Table) 04/12/22 04/12/22 04/12/22 Range/Units 06:11 06:11 12:15 WBC (3.8-10.6) k/uL RBC (4.30-5.90) m/uL Hgb (13.0-17.5) gm/dL Hct (39.0-53.0) % MCV (80.0-100.0) fL MCHC (31.0-37.0) g/dL Immature Gran # 0.09 H (0.00-0.04) X 10*3/uL Neutrophils # 11.29 H (1.80-7.70) X 10*3/uL Lymphocytes # 0.39 L (0.90-5.00) X 10*3/uL Eosinophils # 0 L (0.04-0.35) X 10*3/uL Sodium (137-145) mmol/L Potassium (3.5-5.1) mmol/L Carbon Dioxide (22-30) mmol/L BUN 66.3 H (9.0-27.0) mg/dL Creatinine 3.6 H (0.6-1.5) mg/dL Est GFR (CKD-EPI)AfAm 16.4 L (60.0-200.0) Est GFR (CKD-EPI)NonAf 14.1 L (60.0-200.0) Glucose 117 H (70-110) mg/dL POC Glucose (mg/dL) 103 H (75-99) mg/dL Calcium 8.0 L (8.7-10.3) mg/dL Phosphorus 6.4 H (2.4-5.1) mg/dL AST 147 H (14-35) U/L ALT 168 H (10-49) U/L Troponin I (0.000-0.034) ng/mL Total Protein 5.0 L (6.2-8.2) g/dL Albumin 2.8 L (3.8-4.9) g/dL Albumin/Globulin Ratio 1.26 L (1.60-3.17) g/dL 04/12/22 04/12/22 04/12/22 Range/Units 15:45 15:45 16:56 WBC 13.8 H (3.8-10.6) k/uL RBC 3.17 L (4.30-5.90) m/uL Hgb 10.1 L (13.0-17.5) gm/dL Hct 34.0 L (39.0-53.0) % MCV 107.3 H (80.0-100.0) fL MCHC 29.6 L (31.0-37.0) g/dL Immature Gran # (0.00-0.04) X 10*3/uL Neutrophils # 12.8 H (1.80-7.70) X 10*3/uL Lymphocytes # 0.3 L (0.90-5.00) X 10*3/uL Eosinophils # (0.04-0.35) X 10*3/uL Sodium 135 L (137-145) mmol/L Potassium 5.4 H (3.5-5.1) mmol/L Carbon Dioxide (22-30) mmol/L BUN 75 H (9.0-27.0) mg/dL Creatinine 3.62 H (0.6-1.5) mg/dL Est GFR (CKD-EPI)AfAm (60.0-200.0) Est GFR (CKD-EPI)NonAf (60.0-200.0) Glucose 106 H (70-110) mg/dL POC Glucose (mg/dL) 105 H (75-99) mg/dL Calcium 7.9 L (8.7-10.3) mg/dL Phosphorus (2.4-5.1) mg/dL AST 106 H (14-35) U/L ALT 160 H (10-49) U/L Troponin I (0.000-0.034) ng/mL Total Protein 5.3 L (6.2-8.2) g/dL Albumin 2.7 L (3.8-4.9) g/dL Albumin/Globulin Ratio (1.60-3.17) g/dL 04/12/22 04/13/22 04/13/22 Range/Units 21:07 05:23 05:23 WBC 11.2 H (3.8-10.6) k/uL RBC 2.93 L (4.30-5.90) m/uL Hgb 9.8 L (13.0-17.5) gm/dL Hct 31.3 L (39.0-53.0) % MCV 106.9 H (80.0-100.0) fL MCHC (31.0-37.0) g/dL Immature Gran # (0.00-0.04) X 10*3/uL Neutrophils # 10.0 H (1.80-7.70) X 10*3/uL Lymphocytes # 0.5 L (0.90-5.00) X 10*3/uL Eosinophils # (0.04-0.35) X 10*3/uL Sodium (137-145) mmol/L Potassium (3.5-5.1) mmol/L Carbon Dioxide (22-30) mmol/L BUN (9.0-27.0) mg/dL Creatinine (0.6-1.5) mg/dL Est GFR (CKD-EPI)AfAm (60.0-200.0) Est GFR (CKD-EPI)NonAf (60.0-200.0) Glucose (70-110) mg/dL POC Glucose (mg/dL) 104 H (75-99) mg/dL Calcium (8.7-10.3) mg/dL Phosphorus (2.4-5.1) mg/dL AST (14-35) U/L ALT (10-49) U/L Troponin I 1.120 H* (0.000-0.034) ng/mL Total Protein (6.2-8.2) g/dL Albumin (3.8-4.9) g/dL Albumin/Globulin Ratio (1.60-3.17) g/dL 04/13/22 Range/Units 05:23 WBC (3.8-10.6) k/uL RBC (4.30-5.90) m/uL Hgb (13.0-17.5) gm/dL Hct (39.0-53.0) % MCV (80.0-100.0) fL MCHC (31.0-37.0) g/dL Immature Gran # (0.00-0.04) X 10*3/uL Neutrophils # (1.80-7.70) X 10*3/uL Lymphocytes # (0.90-5.00) X 10*3/uL Eosinophils # (0.04-0.35) X 10*3/uL Sodium 134 L (137-145) mmol/L Potassium (3.5-5.1) mmol/L Carbon Dioxide 21 L (22-30) mmol/L BUN 82 H (9.0-27.0) mg/dL Creatinine 4.19 H (0.6-1.5) mg/dL Est GFR (CKD-EPI)AfAm (60.0-200.0) Est GFR (CKD-EPI)NonAf (60.0-200.0) Glucose (70-110) mg/dL POC Glucose (mg/dL) (75-99) mg/dL Calcium 7.8 L (8.7-10.3) mg/dL Phosphorus 7.4 H (2.4-5.1) mg/dL AST 65 H (14-35) U/L ALT 124 H (10-49) U/L Troponin I (0.000-0.034) ng/mL Total Protein 5.0 L (6.2-8.2) g/dL Albumin 2.6 L (3.8-4.9) g/dL Albumin/Globulin Ratio (1.60-3.17) g/dL Microbiology - Last 24 Hours (Table) 04/11/22 17:32 Gram Stain - Preliminary Other - Other Wound Culture - Preliminary Gram Neg Bacilli 04/11/22 17:32 Anaerobic Culture - Preliminary Other - Other Assessment and Plan Assessment: 1. 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 Serum creatinine staying around 2. No evidence of obstruction on CAT scan 2. Bowel obstruction/ileus currently with an NG tube 3. Chronic systolic CHF with EF 40-45% 4. Mild hyperkalemia associated with CK D stage IV, improved 5. Coronary artery disease status post coronary artery bypass surgery 6. Acute kidney injury ATN secondary to hypotension. Currently oliguric. Patient has an indwelling Gregg catheter. Will continue with IV fluids. Trial of IV Lasix later on today depending on urine output. Change IV fluids to D5 0.9. Continue midodrine 7. Status post laparoscopic cholecystectomy on 528 with lysis of adhesions Plan: Change IV fluids to D5 0.9. Continue with IV hydration Trial of IV Lasix later on today depending on urine output Continue to avoid nephrotoxic agents Continue with midodrine however I do not believe patient will be absorbing oral meds as he has had a large amount of gastric drainage of [address] of the abdomen from yesterday does not show any obstructive uropathy.
[2022-04-13 11:57] LABS: Glucose,Whole Blood 105 mg/dL (75-99)
[2022-04-13 18:14] LABS: Glucose,Whole Blood 137 mg/dL (75-99)
[2022-04-13 20:33] LABS: Glucose,Whole Blood 218 mg/dL (75-99)
[2022-04-13] MEDS ORDERED: MELATONIN 3 MG TABLET PO PRN (21:08)
--- NOTE | 2022-04-13 22:40 | P.PN ---
Subjective Progress Note Date: 04/13/22 CHIEF COMPLAINT: Cholecystitis HISTORY OF PRESENT ILLNESS: The patient is a 86 year old male status post cholecystectomy, 04/11/22. He was transferred to the ICU this morning following hypotensive event, abdominal distention, clinical decline and elevated Troponins. Patient seen in the ICU and reports that he is comfortable. "I am hungry." He has an NG tube. He reports his abdominal pain has improved. REVIEW OF ORGAN SYSTEMS: CONSTITUTIONAL: No fevers or chills. RESPIRATORY: Has chronic obstructive pulmonary disease. Has hyperlipidemia. Has sleep apnea. CARDIOVASCULAR: New elevated troponin. Denies active chest pain. GASTROINTESTINAL: Ileus with abdominal distention ENDOCRINE: Denies current thyroid disorders. Has diabetes type II. PHYSICAL EXAM: VITALS: Reviewed CONSTITUTIONAL: Well developed and in no acute distress. EYES: Conjuctivae without sclera icterus. Extraocular movements grossly intact. HEAD, EARS, NOSE, THROAT: Moist buccal mucosa. Head is atraumatic, normo cephalic. Hears conversational speech. No nasal drainage. NG tube bilious RESPIRATORY: Nonlabored respiration. CARDIOVASCULAR: Palpable 2+ radial pulses. ABDOMEN:Abdomen non-distended. PALOMA serosanguineous. Non-distended. MUSCULOSKELETAL: No clubbing cyanosis or edema. SKIN: Warm and well perfused with good skin turgor. NEUROLOGIC: Cranial nerves II through XII grossly intact. No focal or latera lizing signs. PSYCH: Appropriate affect. Alert and oriented to person, place and time. Displays appropriate insight. CLINCAL LABS: Reviewed. WBC elevated 16.66 down to 11.2. Hemoglobin to 9.8. T otal bilirubin down to 0.5. LFTs elevated but trending downward, AST 65, ALT 124, Alk Phos 64 Creatinine elevated at 4.19 baseline 1.85 on admission. Troponins elevated 1.120 STUDIES: Abdominal x-ray independently reviewed with findings of mild ileus. Resolved distention of the stomach. NG tube positioned in the stomach. REPORTS: Chestl x-ray report reviewed without pulmonary congestion. ASSESSMENT: 1. Acute hydrops cholecystitis with sepsis 2. Acute on chronic renal failure 3. Ileus present prior to surgery, due to sepsis 4. Hypotension 5. Elevated troponins PLAN: 1. He has done well following transfer to the ICU. May start clear liquid diet. 2. Continue IV antibiotics 3. Discontinue NG tube once tolerating diet. 4. Creatinine continue to elevate. Nephrology following. 5. He has elevated troponins. Management per cardiology. Recommend re- consultation to cardiology 6. May start heparin gtt if needed Objective - Vital Signs Vital signs: Vital Signs Temp 97.6 F 04/13/22 20:00 Pulse 71 04/13/22 21:00 Resp 21 04/13/22 21:00 BP 125/60 04/13/22 21:00 Pulse Ox 94 L 04/13/22 21:00 FiO2 Intake & Output 04/13/22 04/13/22 04/14/22 06:59 18:59 06:59 Intake Total 900 350 Output Total 1720 420 100 Balance -1720 480 250 Intake: IV 900 300 D5/0.9 900 200 Sodium Chloride 0.9% 1, 100 000 ml @ 100 mls/hr IV . Q10H [facility] Rx#:[id number] Oral 50 Output: Gastric Drainage 1300 Drainage 20 Lower Abdomen 20 Urine 400 420 100 Straight 150 Other: Voiding Method Indwelling Catheter Indwelling Catheter - Labs CBC & Chem 7: 04/13/22 05:23 04/13/22 05:23 Labs: Abnormal Lab Results - Last 24 Hours (Table) 04/13/22 04/13/22 04/13/22 Range/Units 05:23 05:23 05:23 WBC 11.2 H (3.8-10.6) k/uL RBC 2.93 L (4.30-5.90) m/uL Hgb 9.8 L (13.0-17.5) gm/dL Hct 31.3 L (39.0-53.0) % MCV 106.9 H (80.0-100.0) fL Neutrophils # 10.0 H (1.3-7.7) k/uL Lymphocytes # 0.5 L (1.0-4.8) k/uL Sodium 134 L (137-145) mmol/L Carbon Dioxide 21 L (22-30) mmol/L BUN 82 H (9-20) mg/dL Creatinine 4.19 H (0.66-1.25) mg/dL POC Glucose (mg/dL) (75-99) mg/dL Plasma Lactic Acid Vincent (0.7-2.0) mmol/L Calcium 7.8 L (8.4-10.2) mg/dL Phosphorus 7.4 H (2.5-4.5) mg/dL AST 65 H (17-59) U/L ALT 124 H (4-49) U/L Troponin I 1.120 H* (0.000-0.034) ng/mL Total Protein 5.0 L (6.3-8.2) g/dL Albumin 2.6 L (3.5-5.0) g/dL 04/13/22 04/13/22 04/13/22 Range/Units 09:22 11:55 18:12 WBC (3.8-10.6) k/uL RBC (4.30-5.90) m/uL Hgb (13.0-17.5) gm/dL Hct (39.0-53.0) % MCV (80.0-100.0) fL Neutrophils # (1.3-7.7) k/uL Lymphocytes # (1.0-4.8) k/uL Sodium (137-145) mmol/L Carbon Dioxide (22-30) mmol/L BUN (9-20) mg/dL Creatinine (0.66-1.25) mg/dL POC Glucose (mg/dL) 105 H 137 H (75-99) mg/dL Plasma Lactic Acid Vincent 0.6 L (0.7-2.0) mmol/L Calcium (8.4-10.2) mg/dL Phosphorus (2.5-4.5) mg/dL AST (17-59) U/L ALT (4-49) U/L Troponin I (0.000-0.034) ng/mL Total Protein (6.3-8.2) g/dL Albumin (3.5-5.0) g/dL 04/13/22 Range/Units 20:31 WBC (3.8-10.6) k/uL RBC (4.30-5.90) m/uL Hgb (13.0-17.5) gm/dL Hct (39.0-53.0) % MCV (80.0-100.0) fL Neutrophils # (1.3-7.7) k/uL Lymphocytes # (1.0-4.8) k/uL Sodium (137-145) mmol/L Carbon Dioxide (22-30) mmol/L BUN (9-20) mg/dL Creatinine (0.66-1.25) mg/dL POC Glucose (mg/dL) 218 H (75-99) mg/dL Plasma Lactic Acid Vincent (0.7-2.0) mmol/L Calcium (8.4-10.2) mg/dL Phosphorus (2.5-4.5) mg/dL AST (17-59) U/L ALT (4-49) U/L Troponin I (0.000-0.034) ng/mL Total Protein (6.3-8.2) g/dL Albumin (3.5-5.0) g/dL Microbiology - Last 24 Hours (Table) 04/11/22 17:32 Gram Stain - Preliminary Other - Other Wound Culture - Preliminary Gram Neg Bacilli
[2022-04-14 02:09] LABS: Glucose,Whole Blood 146 mg/dL (75-99)
[2022-04-14] MEDS: ONDANSETRON 4 MG/2 ML VIAL IVP PRN (05:26)
[2022-04-14 06:37] LABS: Glucose,Whole Blood 130 mg/dL (75-99)
[2022-04-14] MEDS: INSULIN ASPART (NovoLOG) 100 UNIT/ML VIAL SQ SCH ×4 (06:38→21:10)
[2022-04-14] MEDS: MIDODRINE 5 MG TAB PO SCH ×3 (06:39→17:27)
[2022-04-14] MEDS: carvediloL 6.25 MG TAB PO SCH ×2 (06:42→17:26)
[2022-04-14] MEDS: SYMBICORT 80-4.5 MCG INHALER INHALATION SCH ×2 (07:22→20:02)
[2022-04-14] MEDS: ISOSORBIDE MONONITRATE ER 30 MG TAB.ER.24H PO SCH (08:18)
[2022-04-14] MEDS: ASPIRIN 81 MG PO SCH (08:18)
[2022-04-14] MEDS: ATORVASTATIN 40 MG TAB PO SCH (08:18)
[2022-04-14] MEDS: DOCUSATE 100 MG CAP PO SCH ×2 (08:18→21:10)
[2022-04-14] MEDS: PANTOPRAZOLE 40 MG/10 ML VIAL IV SCH (08:18)
[2022-04-14] MEDS: HEPARIN SODIUM,PORCINE/PF 5,000 UNIT/0.5 ML SYRINGE SQ SCH ×2 (08:18→21:10)
[2022-04-14] MEDS: PIPERACILLIN-TAZOBACTAM 3.375 GM in SODIUM CHLORIDE 0.9% 100 ML IVPB SCH ×2 (08:18→21:10)
[2022-04-14] MEDS: SIMETHICONE 40 MG/0.6 ML DROPS 2,000 MG/30 ML BOTTLE PO SCH ×4 (08:19→21:11)
[2022-04-14] MEDS: ALVIMOPAN 12 MG CAPSULE PO SCH ×2 (08:24→21:10)
[2022-04-14 08:52] LABS: Basophils % (A) 0 %; Eosinophils # (A) 0.1 k/uL (0-0.7); Eosinophils % (A) 1 %; HCT 31.8 % (39.0-53.0); HGB 9.6 gm/dL (13.0-17.5); Hypochromasia Moderate; Lymphocytes # (A) 0.3 k/uL (1.0-4.8); Lymphocytes % (A) 3 %; MCH 32.2 pg (25.0-35.0); MCHC 30.1 g/dL (31.0-37.0); MCV 107.1 fL (80.0-100.0); Macrocytosis Moderate; Mean Platelet Volume 8.3; Monocytes # (A) 0.6 k/uL (0-1.0); Monocytes % (A) 5 %; Neutrophils # (A) 11.1 k/uL (1.3-7.7); Neutrophils % (A) 92 %; Platelet Count 241 k/uL (150-450); RBC 2.97 m/uL (4.30-5.90); RDW 13.2 % (11.5-15.5); WBC 12.1 k/uL (3.8-10.6)
[2022-04-14 09:12] LABS: Calcium 7.7 mg/dL (8.4-10.2)
[2022-04-14 09:59] LABS: Potassium 4.8 mmol/L (3.5-5.1)
[2022-04-14] MEDS: SODIUM CHLORIDE 0.9% 1,000 ML IV SCH ×2 (10:04→17:26)
--- NOTE | 2022-04-14 11:07 | P.PN ---
Subjective Patient is seen for follow-up for chronic kidney disease Renal function has been worsening. Creatinine is up to 4.19 today. Blood pressure has been low Post void residual residual noted to be high at 600 but repeat was only 10. Currently patient has an indwelling Gregg catheter. Patient is status post laparoscopic cholecystectomy on 04/11/2022 and lysis of adhesions. Abdomen was distended and patient had a CT of the abdomen done which did not show any acute findings. NG tube was placed 1500 mL was obtained from gastric drainage. Patient has been transferred to [facility] Currently in the ICU because of no beds there. Urine output has picked up to about 70-40 mL an hour. Patient is maintained on IV fluids at 100 mL an hour. Serum creatinine at 4.45 from 4.1 but urine output has increased. No significant complaints today. Objective - Vital Signs Vital signs: Vital Signs Temp 97.8 F 04/14/22 08:09 Pulse 78 04/14/22 10:00 Resp 15 04/14/22 10:00 BP 135/64 04/14/22 10:00 Pulse Ox 96 04/14/22 10:00 FiO2 Intake & Output 04/13/22 04/14/22 04/14/22 18:59 06:59 18:59 Intake Total 900 1250 400 Output Total 420 490 180 Balance 480 760 220 Weight 104.6 kg Intake: IV 900 1200 400 D5/0.9 900 200 Sodium Chloride 0.9% 1, 1000 400 000 ml @ 100 mls/hr IV . 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 - Labs CBC & Chem 7: 04/14/22 08:32 04/14/22 08:32 Labs: Abnormal Lab Results - Last 24 Hours (Table) 04/13/22 04/13/22 04/13/22 Range/Units 11:55 18:12 20:31 WBC (3.8-10.6) k/uL RBC (4.30-5.90) m/uL Hgb (13.0-17.5) gm/dL Hct (39.0-53.0) % MCV (80.0-100.0) fL MCHC (31.0-37.0) g/dL Neutrophils # (1.3-7.7) k/uL Lymphocytes # (1.0-4.8) k/uL Carbon Dioxide (22-30) mmol/L BUN (9-20) mg/dL Creatinine (0.66-1.25) mg/dL Glucose (74-99) mg/dL POC Glucose (mg/dL) 105 H 137 H 218 H (75-99) mg/dL Calcium (8.4-10.2) mg/dL 04/14/22 04/14/22 04/14/22 Range/Units 02:06 06:35 08:32 WBC 12.1 H (3.8-10.6) k/uL RBC 2.97 L (4.30-5.90) m/uL Hgb 9.6 L (13.0-17.5) gm/dL Hct 31.8 L (39.0-53.0) % MCV 107.1 H (80.0-100.0) fL MCHC 30.1 L (31.0-37.0) g/dL Neutrophils # 11.1 H (1.3-7.7) k/uL Lymphocytes # 0.3 L (1.0-4.8) k/uL Carbon Dioxide (22-30) mmol/L BUN (9-20) mg/dL Creatinine (0.66-1.25) mg/dL Glucose (74-99) mg/dL POC Glucose (mg/dL) 146 H 130 H (75-99) mg/dL Calcium (8.4-10.2) mg/dL 04/14/22 Range/Units 08:32 WBC (3.8-10.6) k/uL RBC (4.30-5.90) m/uL Hgb (13.0-17.5) gm/dL Hct (39.0-53.0) % MCV (80.0-100.0) fL MCHC (31.0-37.0) g/dL Neutrophils # (1.3-7.7) k/uL Lymphocytes # (1.0-4.8) k/uL Carbon Dioxide 19 L (22-30) mmol/L BUN 92 H (9-20) mg/dL Creatinine 4.45 H (0.66-1.25) mg/dL Glucose 143 H (74-99) mg/dL POC Glucose (mg/dL) (75-99) mg/dL Calcium 7.7 L (8.4-10.2) mg/dL Microbiology - Last 24 Hours (Table) 04/11/22 17:32 Gram Stain - Final Other - Other Wound Culture - Final Escherichia coli Klebsiella pneumoniae Assessment and Plan Assessment: 1. 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 Serum creatinine staying around 2. No evidence of obstruction on CAT scan 2. Bowel obstruction/ileus currently with an NG tube 3. Chronic systolic CHF with EF 40-45% 4. Mild hyperkalemia associated with CK D stage IV, improved 5. Coronary artery disease status post coronary artery bypass surgery 6. Acute kidney injury ATN secondary to hypotension. Was oliguric, urine output now improved. Patient has an indwelling Gregg catheter. Will continue with IV fluids. Change IV fluids to D5 0.9. Continue midodrine 7. Status post laparoscopic cholecystectomy on 528 with lysis of adhesions Plan: Continue IV fluids Continue to avoid nephrotoxic agents Repeat labs in a.m. Continue with Gregg catheter
[2022-04-14 11:19] LABS: Glucose,Whole Blood 154 mg/dL (75-99)
[2022-04-14 11:36] VITALS: BMI 36.1
[2022-04-14] MEDS ORDERED: DESMOPRESSIN ACETATE 2 MCG in SODIUM CHLORIDE 0.9% 50 ML IVPB ONE (12:00)
--- NOTE | 2022-04-14 15:58 | P.PN ---
Subjective Progress Note Date: 04/14/22 CHIEF COMPLAINT: Cholecystitis HISTORY OF PRESENT ILLNESS: Patient is status post cholecystectomy with lysis of adhesions on 04/11/2022. He was transferred to the ICU this morning following hypotensive event, abdominal distention, clinical decline and elevated Troponins. Patient lying comfortably in bed. He remains in the ICU. He is tolerating clear liquids. He is able to drink a small amount. Denies any abdominal pain. Denies any nausea. Denies any flatus. Afebrile. WBC is 12.1 hemoglobin 9.6 platelets 241 sodium 138 potassium 4.8 creatinine 4.45 troponin 0.961 urine output 315 mL. Patient's hypotension showing improvement PHYSICAL EXAM: VITAL SIGNS: Reviewed GENERAL: Well-developed in no acute distress. HEENT: No sclera icterus. Extraocular movements grossly intact. Moist buccal mucosa. Head is atraumatic, normocephalic. Hears conversational speech. No nasal drainage. NECK: Supple without lymphadenopathy. CHEST: Non-labored respirations and equal bilateral excursions. CARDIOVASCULAR: Palpable 2+ radial pulses. ABDOMEN: Soft. Nondistended. PALOMA drain with 20 ml serosanguineous output MUSCULOSKELETAL: No clubbing or cyanosis. NEUROLOGIC: No focal or lateralizing signs. Cranial nerves II through XII grossly intact. PSYCH: Appropriate affect. Alert and oriented to person, place and time. SKIN: Well perfused. Good skin turgor. ASSESSMENT: 1. Acute hydrops cholecystitis with sepsis 2. Acute on chronic renal failure 3. Ileus present prior to surgery, due to sepsis 4. Hypotension 5. Elevated troponins PLAN: -Discontinue NG tube -Continue clear liquid diet -Continue IV fluids -Continue antibiotics -Acute kidney injury being managed by nephrology -Continue ICU management -Continue supportive care -He has elevated troponins. Management per cardiology. Recommend re-consultation to cardiology Physician Band Saw Filer note has been reviewed by physician. Signing provider agrees with the documented findings, assessment, and plan of care. CHIEF COMPLAINT: Cholecystitis HISTORY OF PRESENT ILLNESS: The patient is a 86 year old male status post cholecystectomy, 04/11/22. He reports his pain is controlled but complains of insomnia. He denies moderate abdominal distention. He is tolerating some liquid diet. He has worsening renal function and being followed by nephrology. REVIEW OF ORGAN SYSTEMS: CONSTITUTIONAL: No fevers or chills. RESPIRATORY: Has chronic obstructive pulmonary disease. Has hyperlipidemia. Has sleep apnea. CARDIOVASCULAR: New elevated troponin. Denies active chest pain. GASTROINTESTINAL: Ileus with abdominal distention ENDOCRINE: Denies current thyroid disorders. Has diabetes type II. PHYSICAL EXAM: VITALS: Reviewed CONSTITUTIONAL: Well developed and in no acute distress. EYES: Conjuctivae without sclera icterus. Extraocular movements grossly intact. HEAD, EARS, NOSE, THROAT: Moist buccal mucosa. Head is atraumatic, normocephalic. Hears conversational speech. No nasal drainage. RESPIRATORY: Nonlabored respiration. CARDIOVASCULAR: Palpable 2+ radial pulses. ABDOMEN:PALOMA serosanguineous. No peritonitis. MUSCULOSKELETAL: No clubbing cyanosis or edema. SKIN: Warm and well perfused with good skin turgor. NEUROLOGIC: Cranial nerves II through XII grossly intact. No focal or lateralizing signs. PSYCH: Appropriate affect. Alert and oriented to person, place and time. Displays appropriate insight. CLINCAL LABS: Reviewed. WBC elevated 16.66 down to 12.1. Troponins trending down. ASSESSMENT: 1. Acute hydrops cholecystitis with sepsis 2. Acute on chronic renal failure 3. Ileus present prior to surgery, due to sepsis 4. Hypotension 5. Elevated troponins PLAN: 1. Diet as tolerated 2. Recommend rehab assessment 3. May benefit from sleep aid. 4. Check CBC and CMP. Objective - Vital Signs Vital signs: Vital Signs Temp 97.8 F 04/14/22 08:09 Pulse 77 04/14/22 14:00 Resp 15 04/14/22 14:00 BP 137/64 04/14/22 14:00 Pulse Ox 95 04/14/22 14:00 FiO2 Intake & Output 04/13/22 04/14/22 04/14/22 18:59 06:59 18:59 Intake Total 900 1250 700 Output Total 420 490 315 Balance 480 760 385 Weight 104.6 kg 104.6 kg Intake: IV 900 1200 700 D5/0.9 900 200 Sodium Chloride 0.9% 1, 1000 700 000 ml @ 100 mls/hr IV . Q10H [facility] Rx#:[id number] Oral 50 Output: Urine 420 490 315 Straight 150 Other: Voiding Method Indwelling Catheter Indwelling Catheter Indwelling Catheter - Labs CBC & Chem 7: 04/14/22 08:32 04/14/22 08:32 Labs: Abnormal Lab Results - Last 24 Hours (Table) 04/13/22 04/13/22 04/14/22 Range/Units 18:12 20:31 02:06 WBC (3.8-10.6) k/uL RBC (4.30-5.90) m/uL Hgb (13.0-17.5) gm/dL Hct (39.0-53.0) % MCV (80.0-100.0) fL MCHC (31.0-37.0) g/dL Neutrophils # (1.3-7.7) k/uL Lymphocytes # (1.0-4.8) k/uL Carbon Dioxide (22-30) mmol/L BUN (9-20) mg/dL Creatinine (0.66-1.25) mg/dL Glucose (74-99) mg/dL POC Glucose (mg/dL) 137 H 218 H 146 H (75-99) mg/dL Calcium (8.4-10.2) mg/dL Troponin I (0.000-0.034) ng/mL 04/14/22 04/14/22 04/14/22 Range/Units 06:35 08:32 08:32 WBC 12.1 H (3.8-10.6) k/uL RBC 2.97 L (4.30-5.90) m/uL Hgb 9.6 L (13.0-17.5) gm/dL Hct 31.8 L (39.0-53.0) % MCV 107.1 H (80.0-100.0) fL MCHC 30.1 L (31.0-37.0) g/dL Neutrophils # 11.1 H (1.3-7.7) k/uL Lymphocytes # 0.3 L (1.0-4.8) k/uL Carbon Dioxide 19 L (22-30) mmol/L BUN 92 H (9-20) mg/dL Creatinine 4.45 H (0.66-1.25) mg/dL Glucose 143 H (74-99) mg/dL POC Glucose (mg/dL) 130 H (75-99) mg/dL Calcium 7.7 L (8.4-10.2) mg/dL Troponin I (0.000-0.034) ng/mL 04/14/22 04/14/22 Range/Units 11:17 13:53 WBC (3.8-10.6) k/uL RBC (4.30-5.90) m/uL Hgb (13.0-17.5) gm/dL Hct (39.0-53.0) % MCV (80.0-100.0) fL MCHC (31.0-37.0) g/dL Neutrophils # (1.3-7.7) k/uL Lymphocytes # (1.0-4.8) k/uL Carbon Dioxide (22-30) mmol/L BUN (9-20) mg/dL Creatinine (0.66-1.25) mg/dL Glucose (74-99) mg/dL POC Glucose (mg/dL) 154 H (75-99) mg/dL Calcium (8.4-10.2) mg/dL Troponin I 0.961 H* (0.000-0.034) ng/mL Microbiology - Last 24 Hours (Table) 04/11/22 17:32 Gram Stain - Final Other - Other Wound Culture - Final Escherichia coli Klebsiella pneumoniae
--- NOTE | 2022-04-14 16:23 | PN ---
PROGRESS NOTE Mr. Worrell is a gentleman who underwent laparoscopic cholecystectomy and lysis of adhesions. He still has an NG tube. Cardiac-mena he is fairly stable, but his creatinine has gone up to 4.19. Blood pressures have been somewhat in the lower end. He is maintaining sinus rhythm. No other significant issues at this time from a cardiac standpoint. He was seen by Dr. Lopez on the . He was cleared for surgery with a fairly moderate to high risk. He seems to be doing fairly well, but he was transferred here because of persistent hypotension episodes. His pressure seems to be better today. Borderline elevation of troponins is noted, but this is not suggestive of any primary myocardial injury and no aggressive intervention is necessary at this time. His vital signs are stable. He has an NG tube. Blood pressure is about 130, heart rate 78. No JVD. S1-S2 heard normally. Short systolic murmur is audible. Lungs reveal diminished air entry. Abdomen is distended. Bowel sounds very minimal. Lower extremities reveal diminished pulses. Central nervous system: No focal deficits. From a cardiac standpoint, I am recommending no change in medications. We will continue current medical management. Will continue to see the patient as needed. His last echocardiogram from April 09 revealed fairly preserved systolic function with ejection fraction of 40% to 45% with anteroapical hypokinesia. MMODL / IJN: [id number] /
[2022-04-14 17:22] LABS: Glucose,Whole Blood 125 mg/dL (75-99)
[2022-04-14 20:27] LABS: Glucose,Whole Blood 134 mg/dL (75-99)
--- NOTE | 2022-04-14 22:40 | P.PN ---
Subjective Progress Note Date: 04/14/22 (delayed charting seen at 1215) Principal diagnosis: abdominal and chest pain Patient is [id number] male withcoronary artery disease status post CABG, chronic CHF with ischemic cardiomyopathy, hypertension, hyperlipidemia, chronic kidney disease stage III, and type II DM who presented to the emergency department with complaints of chest pain. He underwent an extensive evaluation in the emergency department. Chest x-ray negative for acute cardiopulmonary process. X-ray abdomen revealing multiple loops of bowel dilated likely related to ileus. CBC showed anemia with hemoglobin of 10.2. CMP with a potassium of 5.4 and elevated renal function with BUN 42, creatinine 1.85, and GFR is 32 (slightly higher than baseline creatinine level of 1.6). Patient was admitted with consultation to cardiology and nephrology. Cardiology evaluated patient took patient for Lexiscan stress test revealing old infarcts present with underlying dilated cardiomyopathy with no convincing evidence for reversible ischemia. Echocardiogram was completed. CT abdomen and pelvis obtained and demonstrated distended gallbladder with layering gallstones and general surgery consulted. Echocardiogram completed revealing mild to moderately impaired EF of 40-45% with mild mitral and tricuspid regurgitation. Gallbladder ultrasound revealing hydropic gallbladder, cholestasis and correlating for acute cholecystitis and cystic duct obstruction as CT shows possible biliary duct stone. On the evening of 04/10/22 patient reportedly began experiencing increased abdominal pain, nausea, and vomiting of dark brown gastric contents. Patient was made NPO at this time and an NG tube was placed to low intermittent suction after confirmation of placement. On the morning of 04/11/22, patient's renal significantlyfunction and worsening and nephrology consulted. Patient underwent da Zhen Xi laparoscopic cholecystectomy with lysis of lesionsons on the evening of 04/11/[address] Arrieta. Patient to remain on IV fluid hydration with 0.9% normal saline and continuedIV antibiotic with Zosyn. He had worsening abdominal pain and repeat CT was obtained which demonstrated dilated stomach suggestive of gastroparesis and expected postoperative changes. He was also found have an elevated troponin and cardiology was notified. Patient had an NG tube placed and was transferred to [facility]. Patient seen and examined at bedside. He denies any chest discomfort, abdominal pain is improved compared to yesterday, no nausea, no lightheadedness or dizziness. General: non toxic, no distress, appears at stated age Derm: warm, dry Head: atraumatic, normocephalic, symmetric Eyes: EOMI, no lid lag, anicteric sclera Mouth: no lip lesion, mucus membranes dry Cardiovascular: S1S2 reg, systolic ejection murmur, positive posterior tibial pulse bilateral, Lungs: CTA bilateral, no rhonchi, no rales , no accessory muscle use Abdominal: soft, tender to palpation diffusely, no guarding, no appreciable organomegaly Ext: no gross muscle atrophy, no edema, no contractures Neuro: CN II-XI grossly intact, no focal neuro deficits Psych: Alert, oriented, appropriate affect Assessment/plan: Acute cholecystitis with possible biliary duct stone, status post laparoscopic cholecystectomy 04/11/22 Small bowel obstruction, NG tube was placed for decompression and removed s/p laparoscopic cholecystectomy Gastroparesis - surgery recs -Continue IV fluid hydration -Clear liquid diet per surgery Acute kidney injury on chronic kidney disease, likely secondary to current infection with acute cholecystitis -Hold nephrotoxic medications, Entresto. -Nephrology recs appreciated -Continued close monitoring with repeat a.m. labs. -Continue Zosyn for acute cholecystitis. NSTEMI, Type II Chest pain on admission History of CAD status CABG History of ischemic cardiomyopathy - had negative lexiscan stress test - cardio has signed off - Trop down trending - continue ASA, statin, BB -Continue Telemetry monitoring -Echocardiogram revealing mild to moderately impaired EF of 40-45% -Lexiscan stress test revealing old infarcts with underlying dilated cardiomyopathy and no convincing evidence for reversible ischemia. Acute on chronic anemia -Stable - check check iron studies - folow CBC Renal abdominal aorta fusiform ectasia dilation and common iliac artery displaced atherosclerotic calcification -Vascular surgery recommends outpatient follow-up with yearly ultrasounds. Hypertension - on BB and imdur, entresto on hold - requiring midodrine (wean as able) - follow BP Hyperlipidemia -Statin Type II [id number]-[id number] diabetes mellitus. -Hold oral hypoglycemic medications - SSI - Follow BBS DVT prophylaxis: Heparin Discussed with: Patient and RN Anticipated discharge date: clinical course to determine Anticipated discharge place: Home A total of 33 minutes was spent on the care of this complex patient more than 50% of the time was spent in counseling and care coordination. Objective - Vital Signs Vital signs: Vital Signs Temp 98 F 04/14/22 20:00 Pulse 84 04/14/22 21:00 Resp 10 L 04/14/22 21:00 BP 141/58 04/14/22 21:00 Pulse Ox 94 L 04/14/22 21:00 FiO2 Intake & Output 04/14/22 04/14/22 04/15/22 06:59 18:59 06:59 Intake Total 1250 1100 225 Output Total 490 475 85 Balance 760 625 140 Weight 104.6 kg 104.6 kg Intake: IV 1200 1100 200 D5/0.9 200 Sodium Chloride 0.9% 1, 1000 1100 200 000 ml @ 100 mls/hr IV . Q10H [facility] Rx#:[id number] Intake, IV Titration 25 Amount Piperacillin-Tazobactam 3 25 .375 gm In Sodium Chloride 0.9% 100 ml @ 25 mls/hr IVPB Q12HR [facility] Rx #:[id number] Oral 50 Output: Urine 490 475 85 Other: Voiding Method Indwelling Catheter Indwelling Catheter - Labs CBC & Chem 7: 04/14/22 08:32 04/14/22 08:32 Labs: Abnormal Lab Results - Last 24 Hours (Table) 04/14/22 04/14/22 04/14/22 Range/Units 02:06 06:35 08:32 WBC 12.1 H (3.8-10.6) k/uL RBC 2.97 L (4.30-5.90) m/uL Hgb 9.6 L (13.0-17.5) gm/dL Hct 31.8 L (39.0-53.0) % MCV 107.1 H (80.0-100.0) fL MCHC 30.1 L (31.0-37.0) g/dL Neutrophils # 11.1 H (1.3-7.7) k/uL Lymphocytes # 0.3 L (1.0-4.8) k/uL Carbon Dioxide (22-30) mmol/L BUN (9-20) mg/dL Creatinine (0.66-1.25) mg/dL Glucose (74-99) mg/dL POC Glucose (mg/dL) 146 H 130 H (75-99) mg/dL Calcium (8.4-10.2) mg/dL Troponin I (0.000-0.034) ng/mL 04/14/22 04/14/22 04/14/22 Range/Units 08:32 11:17 13:53 WBC (3.8-10.6) k/uL RBC (4.30-5.90) m/uL Hgb (13.0-17.5) gm/dL Hct (39.0-53.0) % MCV (80.0-100.0) fL MCHC (31.0-37.0) g/dL Neutrophils # (1.3-7.7) k/uL Lymphocytes # (1.0-4.8) k/uL Carbon Dioxide 19 L (22-30) mmol/L BUN 92 H (9-20) mg/dL Creatinine 4.45 H (0.66-1.25) mg/dL Glucose 143 H (74-99) mg/dL POC Glucose (mg/dL) 154 H (75-99) mg/dL Calcium 7.7 L (8.4-10.2) mg/dL Troponin I 0.961 H* (0.000-0.034) ng/mL 04/14/22 04/14/22 Range/Units 17:21 20:25 WBC (3.8-10.6) k/uL RBC (4.30-5.90) m/uL Hgb (13.0-17.5) gm/dL Hct (39.0-53.0) % MCV (80.0-100.0) fL MCHC (31.0-37.0) g/dL Neutrophils # (1.3-7.7) k/uL Lymphocytes # (1.0-4.8) k/uL Carbon Dioxide (22-30) mmol/L BUN (9-20) mg/dL Creatinine (0.66-1.25) mg/dL Glucose (74-99) mg/dL POC Glucose (mg/dL) 125 H 134 H (75-99) mg/dL Calcium (8.4-10.2) mg/dL Troponin I (0.000-0.034) ng/mL Microbiology - Last 24 Hours (Table) 04/11/22 17:32 Gram Stain - Final Other - Other Wound Culture - Final Escherichia coli Klebsiella pneumoniae
[2022-04-15 01:40] LABS: Glucose,Whole Blood 129 mg/dL (75-99)
[2022-04-15] MEDS: SODIUM CHLORIDE 0.9% 1,000 ML IV SCH ×2 (02:37→14:26)
[2022-04-15 06:51] LABS: Basophils % (A) 0 %; Eosinophils # (A) 0.1 k/uL (0-0.7); Eosinophils % (A) 1 %; HCT 29.4 % (39.0-53.0); HGB 8.9 gm/dL (13.0-17.5); Hypochromasia Slight; Lymphocytes # (A) 0.4 k/uL (1.0-4.8); Lymphocytes % (A) 6 %; MCH 32.3 pg (25.0-35.0); MCHC 30.4 g/dL (31.0-37.0); MCV 106.2 fL (80.0-100.0); Macrocytosis Moderate; Mean Platelet Volume 8.1; Monocytes # (A) 0.5 k/uL (0-1.0); Monocytes % (A) 7 %; Neutrophils # (A) 6.3 k/uL (1.3-7.7); Neutrophils % (A) 85 %; Platelet Count 222 k/uL (150-450); RBC 2.76 m/uL (4.30-5.90); RDW 13.4 % (11.5-15.5); WBC 7.5 k/uL (3.8-10.6)
[2022-04-15 06:59] LABS: Glucose,Whole Blood 104 mg/dL (75-99)
[2022-04-15 07:07] LABS: Albumin 2.4 g/dL (3.5-5.0); Calcium 7.6 mg/dL (8.4-10.2); Potassium 4.6 mmol/L (3.5-5.1); Total Bilirubin 0.5 mg/dL (0.2-1.3); Total Protein 4.8 g/dL (6.3-8.2)
[2022-04-15] MEDS: SYMBICORT 80-4.5 MCG INHALER INHALATION SCH ×2 (07:57→22:04)
[2022-04-15] MEDS: ATORVASTATIN 40 MG TAB PO SCH (08:11)
[2022-04-15] MEDS: ALVIMOPAN 12 MG CAPSULE PO SCH ×2 (08:11→20:38)
[2022-04-15] MEDS: MIDODRINE 5 MG TAB PO SCH ×3 (08:11→17:31)
[2022-04-15] MEDS: DOCUSATE 100 MG CAP PO SCH ×2 (08:11→20:38)
[2022-04-15] MEDS: carvediloL 6.25 MG TAB PO SCH ×2 (08:11→17:43)
[2022-04-15] MEDS: ISOSORBIDE MONONITRATE ER 30 MG TAB.ER.24H PO SCH (08:11)
[2022-04-15] MEDS: ASPIRIN 81 MG PO SCH (08:11)
[2022-04-15] MEDS: PANTOPRAZOLE 40 MG/10 ML VIAL IV SCH (08:11)
[2022-04-15] MEDS: HEPARIN SODIUM,PORCINE/PF 5,000 UNIT/0.5 ML SYRINGE SQ SCH ×2 (08:12→20:38)
[2022-04-15] MEDS: PIPERACILLIN-TAZOBACTAM 3.375 GM in SODIUM CHLORIDE 0.9% 100 ML IVPB SCH ×2 (08:12→20:38)
[2022-04-15] MEDS: SIMETHICONE 40 MG/0.6 ML DROPS 2,000 MG/30 ML BOTTLE PO SCH ×4 (08:20→20:39)
[2022-04-15] MEDS: INSULIN ASPART (NovoLOG) 100 UNIT/ML VIAL SQ SCH ×4 (08:41→20:38)
[2022-04-15 11:36] LABS: Glucose,Whole Blood 180 mg/dL (75-99)
--- NOTE | 2022-04-15 14:25 | P.PN ---
Subjective Progress Note Date: 04/15/22 CHIEF COMPLAINT: Cholecystitis HISTORY OF PRESENT ILLNESS: Patient is status post cholecystectomy with lysis of adhesions on 04/11/2022. Patient was transferred out of the ICU yesterday. He is currently on a regular medical floor. Patient reports that his abdominal pain continues to improve. He is having flatus and bowel movements. Afebrile. White count has normalized from 12.1-7.5 hemoglobin trended down from 9.6-8.9 creatinine has gone from 4.45-4.13. Patient followed by nephrology regarding his acute kidney injury. PHYSICAL EXAM: VITAL SIGNS: Reviewed GENERAL: Well-developed in no acute distress. HEENT: No sclera icterus. Extraocular movements grossly intact. Moist buccal mucosa. Head is atraumatic, normocephalic. Hears conversational speech. No nasal drainage. NECK: Supple without lymphadenopathy. CHEST: Non-labored respirations and equal bilateral excursions. CARDIOVASCULAR: Palpable 2+ radial pulses. ABDOMEN: Soft. Nondistended. PALOMA drain with 10 ml serosanguineous output MUSCULOSKELETAL: No clubbing or cyanosis. NEUROLOGIC: No focal or lateralizing signs. Cranial nerves II through XII grossly intact. PSYCH: Appropriate affect. Alert and oriented to person, place and time. SKIN: Well perfused. Good skin turgor. ASSESSMENT: 1. Acute hydrops cholecystitis with sepsis 2. Acute on chronic renal failure 3. Ileus present prior to surgery, due to sepsis 4. Hypotension 5. Elevated troponins. Patient seen by cardiology service. PLAN: -Advance diet to low-fat -Continue antibiotics -Acute kidney injury being managed by nephrology -Patient can be discharge from surgical standpoint when cleared by nephrology Physician Logistics Supervisor note has been reviewed by physician. Signing provider agrees with the documented findings, assessment, and plan of care. Objective - Vital Signs Vital signs: Vital Signs Temp 98.1 F 04/15/22 11:11 Pulse 67 04/15/22 11:11 Resp 16 04/15/22 11:11 BP 124/70 04/15/22 13:21 Pulse Ox 99 04/15/22 11:11 FiO2 Intake & Output 04/14/22 04/15/22 04/15/22 18:59 06:59 18:59 Intake Total 1100 925 Output Total 475 595 500 Balance 625 330 -500 Weight 104.6 kg Intake: IV 1100 900 Sodium Chloride 0.9% 1, 1100 900 000 ml @ 100 mls/hr IV . Q10H [facility] Rx#:[id number] Intake, IV Titration 25 Amount Piperacillin-Tazobactam 3 25 .375 gm In Sodium Chloride 0.9% 100 ml @ 25 mls/hr IVPB Q12HR [facility] Rx #:[id number] Output: Drainage 10 Lower Abdomen 10 Urine 475 585 500 Other: Voiding Method Indwelling Catheter Indwelling Catheter Indwelling Catheter # Bowel Movements 1 - Labs CBC & Chem 7: 04/15/22 06:25 04/15/22 06:25 Labs: Abnormal Lab Results - Last 24 Hours (Table) 04/14/22 04/14/22 04/14/22 Range/Units 13:53 17:21 20:25 RBC (4.30-5.90) m/uL Hgb (13.0-17.5) gm/dL Hct (39.0-53.0) % MCV (80.0-100.0) fL MCHC (31.0-37.0) g/dL Lymphocytes # (1.0-4.8) k/uL Chloride (98-107) mmol/L Carbon Dioxide (22-30) mmol/L BUN (9-20) mg/dL Creatinine (0.66-1.25) mg/dL Glucose (74-99) mg/dL POC Glucose (mg/dL) 125 H 134 H (75-99) mg/dL Calcium (8.4-10.2) mg/dL ALT (4-49) U/L Troponin I 0.961 H* (0.000-0.034) ng/mL Total Protein (6.3-8.2) g/dL Albumin (3.5-5.0) g/dL 04/15/22 04/15/22 04/15/22 Range/Units 01:37 06:25 06:25 RBC 2.76 L (4.30-5.90) m/uL Hgb 8.9 L (13.0-17.5) gm/dL Hct 29.4 L (39.0-53.0) % MCV 106.2 H (80.0-100.0) fL MCHC 30.4 L (31.0-37.0) g/dL Lymphocytes # 0.4 L (1.0-4.8) k/uL Chloride 111 H (98-107) mmol/L Carbon Dioxide 17 L (22-30) mmol/L BUN 93 H (9-20) mg/dL Creatinine 4.13 H (0.66-1.25) mg/dL Glucose 111 H (74-99) mg/dL POC Glucose (mg/dL) 129 H (75-99) mg/dL Calcium 7.6 L (8.4-10.2) mg/dL ALT 60 H (4-49) U/L Troponin I (0.000-0.034) ng/mL Total Protein 4.8 L (6.3-8.2) g/dL Albumin 2.4 L (3.5-5.0) g/dL 04/15/22 04/15/22 Range/Units 06:53 11:15 RBC (4.30-5.90) m/uL Hgb (13.0-17.5) gm/dL Hct (39.0-53.0) % MCV (80.0-100.0) fL MCHC (31.0-37.0) g/dL Lymphocytes # (1.0-4.8) k/uL Chloride (98-107) mmol/L Carbon Dioxide (22-30) mmol/L BUN (9-20) mg/dL Creatinine (0.66-1.25) mg/dL Glucose (74-99) mg/dL POC Glucose (mg/dL) 104 H 180 H (75-99) mg/dL Calcium (8.4-10.2) mg/dL ALT (4-49) U/L Troponin I (0.000-0.034) ng/mL Total Protein (6.3-8.2) g/dL Albumin (3.5-5.0) g/dL
--- NOTE | 2022-04-15 14:41 | PN ---
PROGRESS NOTE Patient is seen for followup for acute kidney injury postoperatively. The patient has been transferred back to surgical floor. His urine output has improved with some improvement in renal function as well. NG tube is currently out. On examination today, blood pressure is 124/70, heart rate 67 per minute. Patient is afebrile. Examination of the heart S1, S2. Examination of lungs decreased breath sounds at the bases. Abdomen is soft, nontender. Examination of lower extremities shows trace edema bilaterally. 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 LAB: Shows hemoglobin 8.9 g/dL, sodium 139, potassium 4.6, chloride 111, CO2 17, BUN 93, serum creatinine 4.1. ASSESSMENT: 1. Acute kidney injury ATN secondary to hypotension, hypoperfusion currently improving. The patient is nonoliguric currently. Urine output has improved. 2. Status post laparoscopic cholecystectomy on 04/11/2022 with lysis of adhesions. 3. 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 Baseline creatinine 1.6-1.9 mg/dL. No evidence of obstruction on imaging. 4. Bowel obstruction/ileus status post lysis of adhesions along with laparoscopic cholecystectomy on 04/11/2022. 5. Chronic systolic congestive heart failure with ejection fraction 40-45%. 6. Coronary artery disease status post coronary artery bypass surgery. PLAN: Continue to monitor urine output closely. Decrease IV fluids. Repeat labs in a.m. Avoid hypotension. Continue with the midodrine as well. MMODL / IJN: [id number] /
[2022-04-15 17:19] LABS: Glucose,Whole Blood 194 mg/dL (75-99)
--- NOTE | 2022-04-15 18:20 | P.PN ---
Subjective Progress Note Date: 04/15/22 (delayed charting seen at 1350) Principal diagnosis: abdominal and chest pain Patient is [id number] male withcoronary artery disease status post CABG, chronic CHF with ischemic cardiomyopathy, hypertension, hyperlipidemia, chronic kidney disease stage III, and type II DM who presented to the emergency department with complaints of chest pain. He underwent an extensive evaluation in the emergency department. Chest x-ray negative for acute cardiopulmonary process. X-ray abdomen revealing multiple loops of bowel dilated likely related to ileus. CBC showed anemia with hemoglobin of 10.2. CMP with a potassium of 5.4 and elevated renal function with BUN 42, creatinine 1.85, and GFR is 32 (slightly higher than baseline creatinine level of 1.6). Patient was admitted with consultation to cardiology and nephrology. Cardiology evaluated patient took patient for Lexiscan stress test revealing old infarcts present with underlying dilated cardiomyopathy with no convincing evidence for reversible ischemia. Echocardiogram was completed. CT abdomen and pelvis obtained and demonstrated distended gallbladder with layering gallstones and general surgery consulted. Echocardiogram completed revealing mild to moderately impaired EF of 40-45% with mild mitral and tricuspid regurgitation. Gallbladder ultrasound revealing hydropic gallbladder, cholestasis and correlating for acute cholecystitis and cystic duct obstruction as CT shows possible biliary duct stone. On the evening of 04/10/22 patient reportedly began experiencing increased abdominal pain, nausea, and vomiting of dark brown gastric contents. Patient was made NPO at this time and an NG tube was placed to low intermittent suction after confirmation of placement. On the morning of 04/11/22, patient's renal significantlyfunction and worsening and nephrology consulted. Patient underwent da Zhen Xi laparoscopic cholecystectomy with lysis of lesionsons on the evening of 04/11/[address] Arrieta. Patient to remain on IV fluid hydration with 0.9% normal saline and continuedIV antibiotic with Zosyn. He had worsening abdominal pain and repeat CT was obtained which demonstrated dilated stomach suggestive of gastroparesis and expected postoperative changes. He was also found have an elevated troponin and cardiology was notified. Patient had an NG tube placed and was transferred to [facility]. Patient seen and examined at bedside. Tolerated his diet, no nausea, no pain, wants to work toward getting stronger General: non toxic, no distress, appears at stated age Derm: warm, dry Head: atraumatic, normocephalic, symmetric Eyes: EOMI, no lid lag, anicteric sclera Mouth: no lip lesion, mucus membranes dry Cardiovascular: S1S2 reg, systolic ejection murmur, positive posterior tibial pulse bilateral, Lungs: Decreased bs bilateral, no rhonchi, no rales , no accessory muscle use Abdominal: soft, nontender to palpation diffusely, no guarding, no appreciable organomegaly Ext: no gross muscle atrophy, no edema, no contractures Neuro: CN II-XI grossly intact, no focal neuro deficits Psych: Alert, oriented, appropriate affect Assessment/plan: Acute cholecystitis with possible biliary duct stone, status post laparoscopic cholecystectomy 04/11/22 Ileus, NG tube was placed for decompression and removed s/p laparoscopic cholecystectomy Gastroparesis, resolved - surgery recs -Continue IV fluid hydration -low fiber diet per surgery -Continue Zosyn for acute cholecystitis for 1 additional day Acute kidney injury on chronic kidney disease IV, likely secondary to current infection with acute cholecystitis -Hold nephrotoxic medications, Entresto. -Nephrology recs appreciated -Continued close monitoring with repeat a.m. labs. - maintain emerson NSTEMI, Type II Chest pain on admission History of CAD status CABG History of ischemic cardiomyopathy - had negative lexiscan stress test - cardio to re-eval regarding elevated trop - Trop down trending - continue ASA, statin, BB (decreased with midordrine stopped as SBP 170) -Continue Telemetry monitoring -Echocardiogram revealing mild to moderately impaired EF of 40-45% Acute on chronic anemia -Stable - iron studies - folow CBC Renal abdominal aorta fusiform ectasia dilation and common iliac artery displaced atherosclerotic calcification -Vascular surgery recommends outpatient follow-up with yearly ultrasounds. Hypertension - on BB and imdur, entresto on hold - requiring midodrine (wean as able) - follow BP Hyperlipidemia -Statin Type II rot-psnyaqu-velrxswom diabetes mellitus. -Hold oral hypoglycemic medications - SSI - Follow BS DVT prophylaxis: Heparin Discussed with: Patient and RN Anticipated discharge date: in 2-[address]: SNF A total of 35 minutes was spent on the care of this complex patient more than 50% of the time was spent in counseling and care coordination. Active Medications Albuterol Sulfate (Albuterol Nebulized 2.5 Mg/3 Ml) 2.5 mg INHALATION RT-Q4H PRN PRN Reason: Shortness Of Breath Last Admin: 04/14/22 01:02 Dose: 2.5 mg Alvimopan (Alvimopan 12 Mg Capsule) 12 mg PO BID [facility] Stop: 04/19/22 09:01 Last Admin: 04/15/22 08:11 Dose: 12 mg Aspirin (Aspirin 81 Mg) 81 mg PO DAILY [facility] Last Admin: 04/15/22 08:11 Dose: 81 mg Atorvastatin Calcium (Atorvastatin 40 Mg Tab) 40 mg PO DAILY [facility] Last Admin: 04/15/22 08:11 Dose: 40 mg Budesonide/Formoterol Fumarate (Symbicort 80-4.5 Mcg Inhaler) 2 puff INHALATION RT-BID [facility] Last Admin: 04/15/22 07:57 Dose: 2 puff Carvedilol (Carvedilol 3.125 Mg Tab) 3.125 mg PO BID-W/MEALS [facility] Docusate Sodium (Docusate 100 Mg Cap) 100 mg PO BID [facility] Last Admin: 04/15/22 08:11 Dose: 100 mg Heparin Sodium (Porcine) (Heparin Sodium,Porcine/Pf 5,000 Unit/0.5 Ml Syringe) 5,000 unit SQ Q12HR [facility] Last Admin: 04/15/22 08:12 Dose: 5,000 unit Hydromorphone HCl (Hydromorphone 0.5 Mg/0.5 Ml Syringe) 0.5 mg IVP Q3HR PRN PRN Reason: Pain Last Admin: 04/12/22 11:53 Dose: 0.5 mg Piperacillin Sod/Tazobactam (Sod 3.375 gm/ Sodium Chloride) 100 mls @ 25 mls/hr IVPB Q12HR [facility]; Protocol Last Admin: 04/15/22 08:12 Dose: 25 mls/hr Sodium Chloride (Saline 0.9%) 1,000 mls @ 60 mls/hr IV .[id number] [facility] Last Admin: 04/15/22 14:26 Dose: 60 mls/hr Insulin Aspart (Insulin Aspart (Novolog) 100 Unit/Ml Vial) 0 unit SQ ACHS [facility]; Protocol Last Admin: 04/15/22 17:43 Dose: 2 unit Isosorbide Mononitrate (Isosorbide Mononitrate Er 30 Mg Tab.Er.24h) 30 mg PO DAILY [facility] Last Admin: 04/15/22 08:11 Dose: 30 mg Lidocaine HCl (Lidocaine 1% (10mg/Ml) For Iv Start) 0.1 ml INTRADERMA PER PROTOCOL PRN PRN Reason: IV Start Melatonin (Melatonin 3 Mg Tablet) 3 mg PO ONCE PRN PRN Reason: sleep Last Admin: 04/13/22 21:16 Dose: 3 mg Morphine Sulfate (Morphine Sulfate 2 Mg/Ml Syringe) 2 mg IVP Q5M PRN PRN Reason: Chest Pain Last Admin: 04/12/22 03:45 Dose: 2 mg Naloxone HCl (Naloxone 0.4 Mg/Ml 1 Ml Vial) 0.2 mg IV Q2M PRN PRN Reason: Opioid Reversal Nitroglycerin (Nitroglycerin Sl Tabs 0.4 Mg Tab) 0.4 mg SUBLINGUAL Q5M PRN PRN Reason: Chest Pain Ondansetron HCl (Ondansetron 4 Mg/2 Ml Vial) 4 mg IVP Q6HR PRN PRN Reason: Nausea And Vomiting Last Admin: 04/14/22 05:26 Dose: 4 mg Pantoprazole Sodium (Pantoprazole 40 Mg/10 Ml Vial) 40 mg IV DAILY [facility] Last Admin: 04/15/22 08:11 Dose: 40 mg Simethicone (Simethicone 40 Mg/0.6 Ml Drops 2,000 Mg/30 Ml Bottle) 80 mg PO [facility] Last Admin: 04/15/22 17:54 Dose: 80 mg Objective - Vital Signs Vital signs: Vital Signs Temp 98.1 F 04/15/22 11:11 Pulse 67 04/15/22 11:11 Resp 16 04/15/22 11:11 BP 124/70 04/15/22 13:21 Pulse Ox 99 04/15/22 11:11 FiO2 Intake & Output 04/14/22 04/15/22 04/15/22 18:59 06:59 18:59 Intake Total 1100 925 Output Total 475 595 900 Balance 625 330 -900 Weight 104.6 kg Intake: IV 1100 900 Sodium Chloride 0.9% 1, 1100 900 000 ml @ 60 mls/hr IV . [id number] [facility] Rx#:[id number] Intake, IV Titration 25 Amount Piperacillin-Tazobactam 3 25 .375 gm In Sodium Chloride 0.9% 100 ml @ 25 mls/hr IVPB Q12HR [facility] Rx #:[id number] Output: Drainage 10 Lower Abdomen 10 Urine 475 585 900 Other: Voiding Method Indwelling Catheter Indwelling Catheter Indwelling Catheter # Bowel Movements 1 - Labs CBC & Chem 7: 04/15/22 06:25 04/15/22 06:25 Labs: Abnormal Lab Results - Last 24 Hours (Table) 04/14/22 04/15/22 04/15/22 Range/Units 20:25 01:37 06:25 RBC 2.76 L (4.30-5.90) m/uL Hgb 8.9 L (13.0-17.5) gm/dL Hct 29.4 L (39.0-53.0) % MCV 106.2 H (80.0-100.0) fL MCHC 30.4 L (31.0-37.0) g/dL Lymphocytes # 0.4 L (1.0-4.8) k/uL Chloride (98-107) mmol/L Carbon Dioxide (22-30) mmol/L BUN (9-20) mg/dL Creatinine (0.66-1.25) mg/dL Glucose (74-99) mg/dL POC Glucose (mg/dL) 134 H 129 H (75-99) mg/dL Calcium (8.4-10.2) mg/dL ALT (4-49) U/L Total Protein (6.3-8.2) g/dL Albumin (3.5-5.0) g/dL 04/15/22 04/15/22 04/15/22 Range/Units 06:25 06:53 11:15 RBC (4.30-5.90) m/uL Hgb (13.0-17.5) gm/dL Hct (39.0-53.0) % MCV (80.0-100.0) fL MCHC (31.0-37.0) g/dL Lymphocytes # (1.0-4.8) k/uL Chloride 111 H (98-107) mmol/L Carbon Dioxide 17 L (22-30) mmol/L BUN 93 H (9-20) mg/dL Creatinine 4.13 H (0.66-1.25) mg/dL Glucose 111 H (74-99) mg/dL POC Glucose (mg/dL) 104 H 180 H (75-99) mg/dL Calcium 7.6 L (8.4-10.2) mg/dL ALT 60 H (4-49) U/L Total Protein 4.8 L (6.3-8.2) g/dL Albumin 2.4 L (3.5-5.0) g/dL 04/15/22 Range/Units 17:14 RBC (4.30-5.90) m/uL Hgb (13.0-17.5) gm/dL Hct (39.0-53.0) % MCV (80.0-100.0) fL MCHC (31.0-37.0) g/dL Lymphocytes # (1.0-4.8) k/uL Chloride (98-107) mmol/L Carbon Dioxide (22-30) mmol/L BUN (9-20) mg/dL Creatinine (0.66-1.25) mg/dL Glucose (74-99) mg/dL POC Glucose (mg/dL) 194 H (75-99) mg/dL Calcium (8.4-10.2) mg/dL ALT (4-49) U/L Total Protein (6.3-8.2) g/dL Albumin (3.5-5.0) g/dL
[2022-04-15 20:16] LABS: Glucose,Whole Blood 188 mg/dL (75-99)
[2022-04-16 01:44] LABS: % Iron Saturation 60.48 (15.00-50.00)
[2022-04-16 01:57] LABS: Glucose,Whole Blood 157 mg/dL (75-99)
[2022-04-16] MEDS: SODIUM CHLORIDE 0.9% 1,000 ML IV SCH ×2 (06:01→21:03)
[2022-04-16 06:56] LABS: Glucose,Whole Blood 115 mg/dL (75-99)
[2022-04-16] MEDS: DOCUSATE 100 MG CAP PO SCH (07:33)
[2022-04-16 07:40] LABS: HCT 30.1 % (39.0-53.0); HGB 9.1 gm/dL (13.0-17.5); Hypochromasia Marked; MCHC 30.3 g/dL (31.0-37.0); MCV 108.9 fL (80.0-100.0); Macrocytosis Moderate; Mean Platelet Volume 8.7; Platelet Count 218 k/uL (150-450); RBC 2.76 m/uL (4.30-5.90); RDW 13.1 % (11.5-15.5)
[2022-04-16] MEDS: SYMBICORT 80-4.5 MCG INHALER INHALATION SCH ×2 (07:42→19:15)
[2022-04-16 08:12] LABS: ALT 55 U/L (4-49); African American GFR (CKD) 15 (>60 ml/min/1.73 sqM); Albumin 2.4 g/dL (3.5-5.0); Alkaline Phosphatase 75 U/L (38-126); Anion Gap 7 mmol/L; Calcium 7.6 mg/dL (8.4-10.2); Carbon Dioxide 20 mmol/L (22-30); Chloride 113 mmol/L (98-107); Glucose 121 mg/dL (74-99); Non-African American GFR(CKD) 13 (>60 ml/min/1.73 sqM); Potassium 4.5 mmol/L (3.5-5.1); Sodium 140 mmol/L (137-145)
[2022-04-16 08:14] LABS: AST 33 U/L (17-59); Blood Urea Nitrogen 91 mg/dL (9-20)
[2022-04-16 08:33] LABS: Globulin 2.5 g/dL; Total Bilirubin 0.5 mg/dL (0.2-1.3); Total Protein 4.9 g/dL (6.3-8.2)
[2022-04-16] MEDS: HEPARIN SODIUM,PORCINE/PF 5,000 UNIT/0.5 ML SYRINGE SQ SCH ×2 (09:09→21:04)
[2022-04-16] MEDS: ATORVASTATIN 40 MG TAB PO SCH (09:10)
[2022-04-16] MEDS: PANTOPRAZOLE 40 MG/10 ML VIAL IV SCH (09:10)
[2022-04-16] MEDS: ISOSORBIDE MONONITRATE ER 30 MG TAB.ER.24H PO SCH (09:10)
[2022-04-16] MEDS: PIPERACILLIN-TAZOBACTAM 3.375 GM in SODIUM CHLORIDE 0.9% 100 ML IVPB SCH (09:10)
[2022-04-16] MEDS: SIMETHICONE 40 MG/0.6 ML DROPS 2,000 MG/30 ML BOTTLE PO SCH ×4 (09:11→21:04)
[2022-04-16] MEDS: carvediloL 3.125 MG TAB PO SCH ×2 (09:11→17:32)
[2022-04-16] MEDS: ASPIRIN 81 MG PO SCH (09:11)
[2022-04-16] MEDS: INSULIN ASPART (NovoLOG) 100 UNIT/ML VIAL SQ SCH ×4 (10:44→21:04)
[2022-04-16 11:09] LABS: Glucose,Whole Blood 167 mg/dL (75-99)
--- NOTE | 2022-04-16 12:03 | CA ---
Transthoracic Echo Report Name: Dmitry Worrell Age: 86 Gender: M : 1935 Exam Date: 04/16/2022 10:04 Exam Location: [facility] Ht (in): 67 Wt (lb): 230 Ordering Physician: Lianna Stewart Attending/Referring Phys: Maira Kwon MD Client Service Coordinator Silva Gil RDCS Procedure CPT: Indications: LV function, abnormal troponins Cardiac Hx: Pt had full echo done on 04/09/22 Technical Quality: Technically difficult study Contrast 1: Lumason Total Dose (mL): 1 Contrast 2: Total Dose (mL): MEASUREMENTS (Male / Female) Normal Values 2D ECHO LV Diastolic Diameter PLAX 4.0 cm 4.2 - 5.9 / 3.9 - 5.3 cm LV Systolic Diameter PLAX 3.1 cm IVS Diastolic Thickness 1.2 cm 0.6 - 1.0 / 0.6 - 0.9 cm LVPW Diastolic Thickness 1.2 cm 0.6 - 1.0 / 0.6 - 0.9 cm LV Relative Wall Thickness 0.6 RV Internal Dim ED PLAX 2.3 cm FINDINGS Left Ventricle Mildly increased septal wall thickness. Left ventricular ejection fraction is estimated at 40-45 %. Mid septal, basal inferoseptal are hypokinetic Right Ventricle Right Atrium Left Atrium Mitral Valve Aortic Valve Tricuspid Valve Pulmonic Valve Pericardium No pericardial effusion. Aorta CONCLUSIONS Limited 2-D echo Left ventricular ejection fraction 40-45% with inferior septal hypokinesis No pericardial effusion Previewed by: Dr. Darshan Stephens DO (Electronically Signed) Final Date: 16 April 2022 12:02
--- NOTE | 2022-04-16 12:06 | P.PN ---
Subjective Progress Note Date: 04/16/22 HISTORY OF PRESENTING ILLNESS This is a pleasant 86-year-old male past medical history significant for cor onary artery disease status post CABG in 2004, ischemic cardiomyopathy, type 2 diabetes, hypertension, dyslipidemia, chronic kidney disease. He follows in the office with Dr. Redd. We have been asked to see in consultation for chest pain. Patient presents to the emergency department with complaints of chest pressure, located midsternal. Associated left arm tingling/numbness. It lasted about 1015 minutes. He denies any associated shortness of breath, palpitations lightheadedness, dizziness, diaphoresis, syncope or near syncope. He believes it felt as if he may have indigestion, however it returned again. No specific aggravating factors. Non-exertional. EMS was called. Patient was given Nitro and 325mg Aspirin with improvement. Patient is a non-smoker. DIAGNOSTICS EKG reveals sinus rhythm, first degree AV block, heart rate 64, PVC, nonspecific ST-T-wave abnormalities Telemetry tracings indicate sinus mechanism Chest xray no acute cardiopulmonary process Most recent echocardiogram in the office 07/28/2021 EF 47%, mild mitral regurgitation, mild tricuspid regurgitation Laboratory reviewed, troponin negative 2, proBNP 1360, sodium 135, potassium 5.4, BUN 42, serum creatinine 1.8, magnesium 1.8, WBC 7.9, hemoglobin 10.2, platelets 198 Current home medications include aspirin 81 mg daily, atorvastatin 40 mg nightly, carvedilol 12.5 mg twice a day, Lasix 20 mg Wednesday, Entresto 49 mg/51 mg daily, Jardiance 5 mg daily 04/16/2022 Cardiology was asked to re-evaluate patient secondary to abnormal troponins. Patient examined this morning at the bedside. Patient is s/p cholecystectomy with lysis of adhesions on 04/11/2022. Patient reports having alot of diarrhea today. His abdominal pain has improved since surgery. He denies any chest pain or pressure. Denies SOB. Vital signs are stable. Patient underwent Flavia scan on 04/10/2022 which was negative for ischemia. PHYSICAL EXAMINATION CONSTITUTIONAL: No apparent distress. HEENT: Head is normocephalic. Pupils are equal, round. Sclerae anicteric. Mucous membranes of the mouth are moist. No JVD. No carotid bruit. CHEST EXAMINATION: Lungs are clear to auscultation. No chest wall tenderness is noted on palpation or with deep breathing. HEART EXAMINATION: Regular rate and rhythm. S1, S2 heard. Systolic murmur at apex. No gallops or rub. ABDOMEN: Soft, nontender. Positive bowel sounds. EXTREMITIES: 2+ peripheral pulses, no lower extremity edema and no calf tenderness. SKIN: warm, dry NEUROLOGIC EXAMINATION: Patient is awake, alert and oriented x3. ASSESSMENT Acute hydrops cholecystitis with sepsis Ileus Acute on chronic kidney disease Abnormal troponins, ACS ruled out Chest pain, atypical, acute coronary syndrome has been ruled out Coronary artery disease status post CABG in 2004 Ischemic cardiomyopathy Type 2 diabetes Hypertension Dyslipidemia PLAN Continue current cardiac medications Patient with abnormal troponins following surgery, trending downward, with negative flavia 04/10/2022 and no complaints of chest pain or pressure. ACS has been ruled out. We will repeat limited echo to assess EF and wall motion. If similar to previous, no further recommendations from a cardiac standpoint Nurse practitioner note has been reviewed by physician. Signing provider agrees with the documented findings, assessment, and plan of care. Objective - Vital Signs Vital signs: Vital Signs Temp 97.6 F 04/16/22 05:00 Pulse 79 04/16/22 05:00 Resp 18 04/16/22 05:00 BP 162/68 04/16/22 05:00 Pulse Ox 99 04/16/22 05:00 FiO2 Intake & Output 04/15/22 04/16/22 04/16/22 18:59 06:59 18:59 Output Total 900 800 Balance -900 -800 Output: Urine 900 800 Other: Voiding Method Indwelling Catheter Indwelling Catheter # Bowel Movements 7 4 - Labs CBC & Chem 7: 04/16/22 07:23 04/16/22 07:23 Labs: Abnormal Lab Results - Last 24 Hours (Table) 04/15/22 04/15/22 04/15/22 Range/Units 06:25 17:14 20:09 RBC (4.30-5.90) m/uL Hgb (13.0-17.5) gm/dL Hct (39.0-53.0) % MCV (80.0-100.0) fL MCHC (31.0-37.0) g/dL Chloride (98-107) mmol/L Carbon Dioxide (22-30) mmol/L BUN (9-20) mg/dL Creatinine (0.66-1.25) mg/dL Glucose (74-99) mg/dL POC Glucose (mg/dL) 194 H 188 H (75-99) mg/dL Calcium (8.4-10.2) mg/dL TIBC 153 L (228-460) ug/dL % Saturation 60.48 H (15.00-50.00) Transferrin 109.0 L (204.0-354.0) mg/dL Ferritin 1659.0 H (22.0-322.0) ng/mL ALT (4-49) U/L Total Protein (6.3-8.2) g/dL Albumin (3.5-5.0) g/dL 04/16/22 04/16/22 04/16/22 Range/Units 01:56 06:55 07:23 RBC 2.76 L (4.30-5.90) m/uL Hgb 9.1 L (13.0-17.5) gm/dL Hct 30.1 L (39.0-53.0) % MCV 108.9 H (80.0-100.0) fL MCHC 30.3 L (31.0-37.0) g/dL Chloride (98-107) mmol/L Carbon Dioxide (22-30) mmol/L BUN (9-20) mg/dL Creatinine (0.66-1.25) mg/dL Glucose (74-99) mg/dL POC Glucose (mg/dL) 157 H 115 H (75-99) mg/dL Calcium (8.4-10.2) mg/dL TIBC (228-460) ug/dL % Saturation (15.00-50.00) Transferrin (204.0-354.0) mg/dL Ferritin (22.0-322.0) ng/mL ALT (4-49) U/L Total Protein (6.3-8.2) g/dL Albumin (3.5-5.0) g/dL 04/16/22 04/16/22 Range/Units 07:23 11:08 RBC (4.30-5.90) m/uL Hgb (13.0-17.5) gm/dL Hct (39.0-53.0) % MCV (80.0-100.0) fL MCHC (31.0-37.0) g/dL Chloride 113 H (98-107) mmol/L Carbon Dioxide 20 L (22-30) mmol/L BUN 91 H (9-20) mg/dL Creatinine 3.84 H (0.66-1.25) mg/dL Glucose 121 H (74-99) mg/dL POC Glucose (mg/dL) 167 H (75-99) mg/dL Calcium 7.6 L (8.4-10.2) mg/dL TIBC (228-460) ug/dL % Saturation (15.00-50.00) Transferrin (204.0-354.0) mg/dL Ferritin (22.0-322.0) ng/mL ALT 55 H (4-49) U/L Total Protein 4.9 L (6.3-8.2) g/dL Albumin 2.4 L (3.5-5.0) g/dL
--- NOTE | 2022-04-16 13:48 | P.PN ---
Subjective Progress Note Date: 04/16/22 CHIEF COMPLAINT: Cholecystitis HISTORY OF PRESENT ILLNESS: Patient is status post cholecystectomy with lysis of adhesions on 04/11/2022. Patient: Regular medical floor. He reports having bowel movements and flatus. He was able to get up to the bedside chair yesterday. Patient reports that his pain is controlled. He is tolerating low- fat diet. Afebrile. White count is 7 hemoglobin 9.1 creatinine trending downwards from 4.13-3.84 patient has had good urine output PHYSICAL EXAM: VITAL SIGNS: Reviewed GENERAL: Well-developed in no acute distress. HEENT: No sclera icterus. Extraocular movements grossly intact. Moist buccal mucosa. Head is atraumatic, normocephalic. Hears conversational speech. No nasal drainage. NECK: Supple without lymphadenopathy. CHEST: Non-labored respirations and equal bilateral excursions. CARDIOVASCULAR: Palpable 2+ radial pulses. ABDOMEN: Soft. Nondistended. PALOMA drain with 10 ml serosanguineous output MUSCULOSKELETAL: No clubbing or cyanosis. NEUROLOGIC: No focal or lateralizing signs. Cranial nerves II through XII grossly intact. PSYCH: Appropriate affect. Alert and oriented to person, place and time. SKIN: Well perfused. Good skin turgor. ASSESSMENT: 1. Acute hydrops cholecystitis with sepsis 2. Acute on chronic renal failure 3. Ileus present prior to surgery, due to sepsis 4. Hypotension 5. Elevated troponins. Patient seen by cardiology service. PLAN: -Continue low-fat diet -Continue antibiotics -Acute kidney injury being managed by nephrology -Patient can be discharge from surgical standpoint when cleared medically Physician Joy Operator Helper note has been reviewed by physician. Signing provider agrees with the documented findings, assessment, and plan of care. Objective - Vital Signs Vital signs: Vital Signs Temp 98.0 F 04/16/22 12:22 Pulse 73 04/16/22 12:22 Resp 18 04/16/22 12:15 BP 132/48 04/16/22 12:22 Pulse Ox 99 04/16/22 12:22 FiO2 Intake & Output 04/15/22 04/16/22 04/16/22 18:59 06:59 18:59 Output Total 900 800 Balance -900 -800 Weight 104.6 kg Output: Urine 900 800 Other: Voiding Method Indwelling Catheter Indwelling Catheter Indwelling Catheter # Bowel Movements 7 4 - Labs CBC & Chem 7: 04/16/22 07:23 04/16/22 07:23 Labs: Abnormal Lab Results - Last 24 Hours (Table) 04/15/22 04/15/22 04/15/22 Range/Units 06:25 17:14 20:09 RBC (4.30-5.90) m/uL Hgb (13.0-17.5) gm/dL Hct (39.0-53.0) % MCV (80.0-100.0) fL MCHC (31.0-37.0) g/dL Chloride (98-107) mmol/L Carbon Dioxide (22-30) mmol/L BUN (9-20) mg/dL Creatinine (0.66-1.25) mg/dL Glucose (74-99) mg/dL POC Glucose (mg/dL) 194 H 188 H (75-99) mg/dL Calcium (8.4-10.2) mg/dL TIBC 153 L (228-460) ug/dL % Saturation 60.48 H (15.00-50.00) Transferrin 109.0 L (204.0-354.0) mg/dL Ferritin 1659.0 H (22.0-322.0) ng/mL ALT (4-49) U/L Total Protein (6.3-8.2) g/dL Albumin (3.5-5.0) g/dL 04/16/22 04/16/22 04/16/22 Range/Units 01:56 06:55 07:23 RBC 2.76 L (4.30-5.90) m/uL Hgb 9.1 L (13.0-17.5) gm/dL Hct 30.1 L (39.0-53.0) % MCV 108.9 H (80.0-100.0) fL MCHC 30.3 L (31.0-37.0) g/dL Chloride (98-107) mmol/L Carbon Dioxide (22-30) mmol/L BUN (9-20) mg/dL Creatinine (0.66-1.25) mg/dL Glucose (74-99) mg/dL POC Glucose (mg/dL) 157 H 115 H (75-99) mg/dL Calcium (8.4-10.2) mg/dL TIBC (228-460) ug/dL % Saturation (15.00-50.00) Transferrin (204.0-354.0) mg/dL Ferritin (22.0-322.0) ng/mL ALT (4-49) U/L Total Protein (6.3-8.2) g/dL Albumin (3.5-5.0) g/dL 04/16/22 04/16/22 Range/Units 07:23 11:08 RBC (4.30-5.90) m/uL Hgb (13.0-17.5) gm/dL Hct (39.0-53.0) % MCV (80.0-100.0) fL MCHC (31.0-37.0) g/dL Chloride 113 H (98-107) mmol/L Carbon Dioxide 20 L (22-30) mmol/L BUN 91 H (9-20) mg/dL Creatinine 3.84 H (0.66-1.25) mg/dL Glucose 121 H (74-99) mg/dL POC Glucose (mg/dL) 167 H (75-99) mg/dL Calcium 7.6 L (8.4-10.2) mg/dL TIBC (228-460) ug/dL % Saturation (15.00-50.00) Transferrin (204.0-354.0) mg/dL Ferritin (22.0-322.0) ng/mL ALT 55 H (4-49) U/L Total Protein 4.9 L (6.3-8.2) g/dL Albumin 2.4 L (3.5-5.0) g/dL
--- NOTE | 2022-04-16 14:24 | P.PN ---
Subjective Progress Note Date: 04/16/22 (delayed charting seen at 0820) Principal diagnosis: abdominal and chest pain Patient is [id number] male withcoronary artery disease status post CABG, chronic CHF with ischemic cardiomyopathy, hypertension, hyperlipidemia, chronic kidney disease stage III, and type II DM who presented to the emergency department with complaints of chest pain. He underwent an extensive evaluation in the emergency department. Chest x-ray negative for acute cardiopulmonary process. X-ray abdomen revealing multiple loops of bowel dilated likely related to ileus. CBC showed anemia with hemoglobin of 10.2. CMP with a potassium of 5.4 and elevated renal function with BUN 42, creatinine 1.85, and GFR is 32 (slightly higher than baseline creatinine level of 1.6). Patient was admitted with consultation to cardiology and nephrology. Cardiology evaluated patient took patient for Lexiscan stress test revealing old infarcts present with underlying dilated cardiomyopathy with no convincing evidence for reversible ischemia. Echocardiogram was completed. CT abdomen and pelvis obtained and demonstrated distended gallbladder with layering gallstones and general surgery consulted. Echocardiogram completed revealing mild to moderately impaired EF of 40-45% with mild mitral and tricuspid regurgitation. Gallbladder ultrasound revealing hydropic gallbladder, cholestasis and correlating for acute cholecystitis and cystic duct obstruction as CT shows possible biliary duct stone. On the evening of 04/10/22 patient reportedly began experiencing increased abdominal pain, nausea, and vomiting of dark brown gastric contents. Patient was made NPO at this time and an NG tube was placed to low intermittent suction after confirmation of placement. On the morning of 04/11/22, patient's renal significantlyfunction and worsening and nephrology consulted. Patient underwent da Zhen Xi laparoscopic cholecystectomy with lysis of lesionsons on the evening of 04/11/[address] Arrieta. Patient to remain on IV fluid hydration with 0.9% normal saline and continuedIV antibiotic with Zosyn. He had worsening abdominal pain and repeat CT was obtained which demonstrated dilated stomach suggestive of gastroparesis and expected postoperative changes. He was also found have an elevated troponin and cardiology was notified. Patient had an NG tube placed and was transferred to selective care. He did well and NGT was removed. He renal function improved. Patient seen and examined at bedside. Per him and nursing he had 18-20 water bowel movements overnight. He denies belly pain or nausea. No shortness of breath or nausea. General: non toxic, no distress, appears at stated age Derm: warm, dry Head: atraumatic, normocephalic, symmetric Eyes: EOMI, no lid lag, anicteric sclera Mouth: no lip lesion, mucus membranes dry Cardiovascular: S1S2 reg, systolic ejection murmur, positive posterior tibial pulse bilateral, Lungs: Decreased bs bilateral, no rhonchi, no rales , no accessory muscle use Abdominal: soft, nontender to palpation diffusely, no guarding, no appreciable organomegaly Ext: no gross muscle atrophy, no edema, no contractures Neuro: CN II-XI grossly intact, no focal neuro deficits Psych: Alert, oriented, appropriate affect Assessment/plan: Diarrhea - likely due to bowel stimulation - hold entreg and laxatives - continue to monitor Acute cholecystitis with possible biliary duct stone, status post laparoscopic cholecystectomy 04/11/22 Ileus, NG tube was placed for decompression and removed s/p laparoscopic cholecystectomy Gastroparesis, resolved - surgery recs -Continue IV fluid hydration -low fiber diet per surgery - completed IV abx Acute kidney injury on chronic kidney disease IV, likely secondary to current infection with acute cholecystitis -Hold nephrotoxic medications, Entresto. -Nephrology recs appreciated -Continued close monitoring with repeat a.m. labs. - discontinue emerson NSTEMI, Type II Chest pain on admission History of CAD status CABG History of ischemic cardiomyopathy - had negative lexiscan stress test - cardio to re-eval regarding elevated trop - Trop down trending - continue ASA, statin, BB (decreased with midordrine stopped as SBP 170) -Continue Telemetry monitoring -Echocardiogram revealing mild to moderately impaired EF of 40-45% Acute on chronic anemia -Stable - iron studies - folow CBC Renal abdominal aorta fusiform ectasia dilation and common iliac artery displaced atherosclerotic calcification -Vascular surgery recommends outpatient follow-up with yearly ultrasounds. Hypertension - on BB and imdur, entresto on hold - follow BP Hyperlipidemia -Statin Type II [id number] diabetes mellitus. -Hold oral hypoglycemic medications - SSI - Follow BS DVT prophylaxis: Heparin Discussed with: Patient and RN Anticipated discharge date: in 2-[address]: SNF A total of 35 minutes was spent on the care of this complex patient more than 50% of the time was spent in counseling and care coordination. Active Medications Generic Name Dose Route Start Last Admin Trade Name Freq PRN Reason Stop Dose Admin Albuterol Sulfate 2.5 mg 04/09/22 17:21 04/14/22 01:02 Albuterol Nebulized 2.5 Mg/3 Ml INHALATION 2.5 mg RT-Q4H PRN Administration Shortness Of Breath Aspirin 81 mg 04/10/22 09:00 04/16/22 09:11 Aspirin 81 Mg PO 81 mg DAILY ALEX Administration Atorvastatin Calcium 40 mg 04/09/22 09:00 04/16/22 09:10 Atorvastatin 40 Mg Tab PO 40 mg DAILY ALEX Administration Budesonide/Formoterol Fumarate 2 puff 04/09/22 20:00 04/16/22 07:42 Symbicort 80-4.5 Mcg Inhaler INHALATION 2 puff RT-BID ALEX Administration Carvedilol 3.125 mg 04/16/22 07:30 04/16/22 09:11 Carvedilol 3.125 Mg Tab PO 3.125 mg BID-W/MEALS ALEX Administration Heparin Sodium (Porcine) 5,000 unit 04/10/22 21:00 04/16/22 09:09 Heparin Sodium,Porcine/Pf 5,000 Unit/0.5 Ml Syringe SQ 5,000 unit Q12HR ALEX Administration Hydromorphone HCl 0.5 mg 04/10/22 20:57 04/12/22 11:53 Hydromorphone 0.5 Mg/0.5 Ml Syringe IVP 0.5 mg Q3HR PRN Administration Pain Piperacillin Sod/Tazobactam 100 mls @ 25 mls/hr 04/11/22 21:00 04/16/22 09:10 Sod 3.375 gm/ Sodium Chloride IVPB 25 mls/hr Q12HR ALEX Administration Protocol Sodium Chloride 1,000 mls @ 60 mls/hr 04/13/22 21:15 04/16/22 06:01 Saline 0.9% IV 60 mls/hr .[id number] ALEX Administration Insulin Aspart 0 unit 04/09/22 07:30 04/16/22 12:32 Insulin Aspart (Novolog) 100 Unit/Ml Vial SQ 2 unit ACHS ALEX Administration Protocol Isosorbide Mononitrate 30 mg 04/10/22 09:00 04/16/22 09:10 Isosorbide Mononitrate Er 30 Mg Tab.Er.24h PO 30 mg DAILY ALEX Administration Lidocaine HCl 0.1 ml 04/12/22 07:22 Lidocaine 1% (10mg/Ml) For Iv Start INTRADERMA PER PROTOCOL PRN IV Start Melatonin 3 mg 04/13/22 21:08 04/13/22 21:16 Melatonin 3 Mg Tablet PO 3 mg ONCE PRN Administration sleep Morphine Sulfate 2 mg 04/09/22 03:18 04/12/22 03:45 Morphine Sulfate 2 Mg/Ml Syringe IVP 2 mg Q5M PRN Administration Chest Pain Naloxone HCl 0.2 mg 04/11/22 17:41 Naloxone 0.4 Mg/Ml 1 Ml Vial IV Q2M PRN Opioid Reversal Nitroglycerin 0.4 mg 04/09/22 03:18 Nitroglycerin Sl Tabs 0.4 Mg Tab SUBLINGUAL Q5M PRN Chest Pain Ondansetron HCl 4 mg 04/10/22 21:33 04/14/22 05:26 Ondansetron 4 Mg/2 Ml Vial IVP 4 mg Q6HR PRN Administration Nausea And Vomiting Pantoprazole Sodium 40 mg 04/12/22 09:00 04/16/22 09:10 Pantoprazole 40 Mg/10 Ml Vial IV 40 mg DAILY ALEX Administration Simethicone 80 mg 04/12/22 13:30 04/16/22 09:11 Simethicone 40 Mg/0.6 Ml Drops 2,000 Mg/30 Ml Bottle PO 80 mg PCHS ALEX Administration Objective - Vital Signs Vital signs: Vital Signs Temp 98.0 F 04/16/22 12:22 Pulse 73 04/16/22 12:22 Resp 18 04/16/22 12:15 BP 132/48 04/16/22 12:22 Pulse Ox 99 04/16/22 12:22 FiO2 Intake & Output 04/15/22 04/16/22 04/16/22 18:59 06:59 18:59 Output Total 900 800 Balance -900 -800 Weight 104.6 kg Output: Urine 900 800 Other: Voiding Method Indwelling Catheter Indwelling Catheter Indwelling Catheter # Bowel Movements 7 4 - Labs CBC & Chem 7: 04/16/22 07:23 04/16/22 07:23 Labs: Abnormal Lab Results - Last 24 Hours (Table) 04/15/22 04/15/22 04/15/22 Range/Units 06:25 17:14 20:09 RBC (4.30-5.90) m/uL Hgb (13.0-17.5) gm/dL Hct (39.0-53.0) % MCV (80.0-100.0) fL MCHC (31.0-37.0) g/dL Chloride (98-107) mmol/L Carbon Dioxide (22-30) mmol/L BUN (9-20) mg/dL Creatinine (0.66-1.25) mg/dL Glucose (74-99) mg/dL POC Glucose (mg/dL) 194 H 188 H (75-99) mg/dL Calcium (8.4-10.2) mg/dL TIBC 153 L (228-460) ug/dL % Saturation 60.48 H (15.00-50.00) Transferrin 109.0 L (204.0-354.0) mg/dL Ferritin 1659.0 H (22.0-322.0) ng/mL ALT (4-49) U/L Total Protein (6.3-8.2) g/dL Albumin (3.5-5.0) g/dL 04/16/22 04/16/22 04/16/22 Range/Units 01:56 06:55 07:23 RBC 2.76 L (4.30-5.90) m/uL Hgb 9.1 L (13.0-17.5) gm/dL Hct 30.1 L (39.0-53.0) % MCV 108.9 H (80.0-100.0) fL MCHC 30.3 L (31.0-37.0) g/dL Chloride (98-107) mmol/L Carbon Dioxide (22-30) mmol/L BUN (9-20) mg/dL Creatinine (0.66-1.25) mg/dL Glucose (74-99) mg/dL POC Glucose (mg/dL) 157 H 115 H (75-99) mg/dL Calcium (8.4-10.2) mg/dL TIBC (228-460) ug/dL % Saturation (15.00-50.00) Transferrin (204.0-354.0) mg/dL Ferritin (22.0-322.0) ng/mL ALT (4-49) U/L Total Protein (6.3-8.2) g/dL Albumin (3.5-5.0) g/dL 04/16/22 04/16/22 Range/Units 07:23 11:08 RBC (4.30-5.90) m/uL Hgb (13.0-17.5) gm/dL Hct (39.0-53.0) % MCV (80.0-100.0) fL MCHC (31.0-37.0) g/dL Chloride 113 H (98-107) mmol/L Carbon Dioxide 20 L (22-30) mmol/L BUN 91 H (9-20) mg/dL Creatinine 3.84 H (0.66-1.25) mg/dL Glucose 121 H (74-99) mg/dL POC Glucose (mg/dL) 167 H (75-99) mg/dL Calcium 7.6 L (8.4-10.2) mg/dL TIBC (228-460) ug/dL % Saturation (15.00-50.00) Transferrin (204.0-354.0) mg/dL Ferritin (22.0-322.0) ng/mL ALT 55 H (4-49) U/L Total Protein 4.9 L (6.3-8.2) g/dL Albumin 2.4 L (3.5-5.0) g/dL
--- NOTE | 2022-04-16 15:49 | P.PN ---
Subjective Patient is seen for follow-up for chronic kidney disease Renal function has been worsening. Creatinine is up to 4.19 today. Blood pressure has been low Post void residual residual noted to be high at 600 but repeat was only 10. Currently patient has an indwelling Gregg catheter. Patient is status post laparoscopic cholecystectomy on 04/11/2022 and lysis of adhesions. Postoperatively patient was hypotensive with oliguria. He was has been started on IV fluids and renal function has started to improve with improve urine output. No complaints today. Patient is sitting on a bedside chair. NG tube remains in place. Objective - Vital Signs Vital signs: Vital Signs Temp 98.0 F 04/16/22 12:22 Pulse 73 04/16/22 12:22 Resp 18 04/16/22 12:15 BP 132/48 04/16/22 12:22 Pulse Ox 99 04/16/22 12:22 FiO2 Intake & Output 04/15/22 04/16/22 04/16/22 18:59 06:59 18:59 Output Total 900 800 Balance -900 -800 Weight 104.6 kg Output: Urine 900 800 Other: Voiding Method Indwelling Catheter Indwelling Catheter Indwelling Catheter # Bowel Movements 7 4 1 - Exam Patient is sitting on a bedside chair He is awake NG tube in place Examination of the heart S1 and S2 Examination of the lungs bilateral breath sounds are heard No acute distress Abdomen is soft and tender No significant edema noted in the legs [employer] exam grossly intact - Labs CBC & Chem 7: 04/16/22 07:23 04/16/22 07:23 Labs: Abnormal Lab Results - Last 24 Hours (Table) 04/15/22 04/15/22 04/15/22 Range/Units 06:25 17:14 20:09 RBC (4.30-5.90) m/uL Hgb (13.0-17.5) gm/dL Hct (39.0-53.0) % MCV (80.0-100.0) fL MCHC (31.0-37.0) g/dL Chloride (98-107) mmol/L Carbon Dioxide (22-30) mmol/L BUN (9-20) mg/dL Creatinine (0.66-1.25) mg/dL Glucose (74-99) mg/dL POC Glucose (mg/dL) 194 H 188 H (75-99) mg/dL Calcium (8.4-10.2) mg/dL TIBC 153 L (228-460) ug/dL % Saturation 60.48 H (15.00-50.00) Transferrin 109.0 L (204.0-354.0) mg/dL Ferritin 1659.0 H (22.0-322.0) ng/mL ALT (4-49) U/L Total Protein (6.3-8.2) g/dL Albumin (3.5-5.0) g/dL 04/16/22 04/16/22 04/16/22 Range/Units 01:56 06:55 07:23 RBC 2.76 L (4.30-5.90) m/uL Hgb 9.1 L (13.0-17.5) gm/dL Hct 30.1 L (39.0-53.0) % MCV 108.9 H (80.0-100.0) fL MCHC 30.3 L (31.0-37.0) g/dL Chloride (98-107) mmol/L Carbon Dioxide (22-30) mmol/L BUN (9-20) mg/dL Creatinine (0.66-1.25) mg/dL Glucose (74-99) mg/dL POC Glucose (mg/dL) 157 H 115 H (75-99) mg/dL Calcium (8.4-10.2) mg/dL TIBC (228-460) ug/dL % Saturation (15.00-50.00) Transferrin (204.0-354.0) mg/dL Ferritin (22.0-322.0) ng/mL ALT (4-49) U/L Total Protein (6.3-8.2) g/dL Albumin (3.5-5.0) g/dL 04/16/22 04/16/22 Range/Units 07:23 11:08 RBC (4.30-5.90) m/uL Hgb (13.0-17.5) gm/dL Hct (39.0-53.0) % MCV (80.0-100.0) fL MCHC (31.0-37.0) g/dL Chloride 113 H (98-107) mmol/L Carbon Dioxide 20 L (22-30) mmol/L BUN 91 H (9-20) mg/dL Creatinine 3.84 H (0.66-1.25) mg/dL Glucose 121 H (74-99) mg/dL POC Glucose (mg/dL) 167 H (75-99) mg/dL Calcium 7.6 L (8.4-10.2) mg/dL TIBC (228-460) ug/dL % Saturation (15.00-50.00) Transferrin (204.0-354.0) mg/dL Ferritin (22.0-322.0) ng/mL ALT 55 H (4-49) U/L Total Protein 4.9 L (6.3-8.2) g/dL Albumin 2.4 L (3.5-5.0) g/dL Microbiology - Last 24 Hours (Table) 04/11/22 17:32 Anaerobic Culture - Final Other - Other Anaerobic Gm Negative Bacilli Anaerobic Gm Negative Bacilli#2 Assessment and Plan Assessment: 1. 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 Serum creatinine staying around 2. No evidence of obstruction on CAT scan 2. Bowel obstruction/ileus currently with an NG tube 3. Chronic systolic CHF with EF 40-45% 4. Mild hyperkalemia associated with CK D stage IV, improved 5. Coronary artery disease status post coronary artery bypass surgery 6. Acute kidney injury ATN secondary to hypotension. Was oliguric, urine output now improved. Patient has an indwelling Gregg catheter. Will continue with IV fluids. Change IV fluids to D5 0.9. Continue midodrine 7. Status post laparoscopic cholecystectomy on 04/11 with lysis of adhesions Plan: Continue IV fluids Continue to avoid nephrotoxic agents Repeat labs in a.m. Continue with Gregg catheter
[2022-04-16 16:42] LABS: Glucose,Whole Blood 245 mg/dL (75-99)
[2022-04-16 20:19] LABS: Glucose,Whole Blood 212 mg/dL (75-99)
[2022-04-17 02:28] LABS: Glucose,Whole Blood 146 mg/dL (75-99)
[2022-04-17 07:30] LABS: Glucose,Whole Blood 120 mg/dL (75-99)
[2022-04-17] MEDS: INSULIN ASPART (NovoLOG) 100 UNIT/ML VIAL SQ SCH ×4 (07:39→20:53)
[2022-04-17] MEDS: SYMBICORT 80-4.5 MCG INHALER INHALATION SCH ×2 (08:51→20:14)
[2022-04-17] MEDS: carvediloL 3.125 MG TAB PO SCH ×2 (09:18→17:43)
[2022-04-17] MEDS: HEPARIN SODIUM,PORCINE/PF 5,000 UNIT/0.5 ML SYRINGE SQ SCH ×2 (09:18→20:53)
[2022-04-17] MEDS: ASPIRIN 81 MG PO SCH (09:18)
[2022-04-17] MEDS: ATORVASTATIN 40 MG TAB PO SCH (09:18)
[2022-04-17] MEDS: ISOSORBIDE MONONITRATE ER 30 MG TAB.ER.24H PO SCH (09:18)
[2022-04-17] MEDS: PANTOPRAZOLE 40 MG TABLET PO SCH (09:18)
[2022-04-17] MEDS: SIMETHICONE 40 MG/0.6 ML DROPS 2,000 MG/30 ML BOTTLE PO SCH ×4 (09:21→20:53)
[2022-04-17 11:56] LABS: Glucose,Whole Blood 189 mg/dL (75-99)
--- NOTE | 2022-04-17 12:28 | P.PN ---
Subjective Progress Note Date: 04/17/22 CHIEF COMPLAINT: Cholecystitis HISTORY OF PRESENT ILLNESS: Patient is status post cholecystectomy with lysis of adhesions on 04/11/2022. Patient is lying in bed comfortably. He denies any abdominal pain. He has had 3 bowel movements today. Which is decreased since yesterday. He is tolerating diet. He has been up and ambulating. He is afebrile. PALOMA drain with 25 mL of service and was output. No new labs for today. Patient cleared by nephrology for discharge per medicine service. PHYSICAL EXAM: VITAL SIGNS: Reviewed GENERAL: Well-developed in no acute distress. HEENT: No sclera icterus. Extraocular movements grossly intact. Moist buccal mucosa. Head is atraumatic, normocephalic. Hears conversational speech. No nasal drainage. NECK: Supple without lymphadenopathy. CHEST: Non-labored respirations and equal bilateral excursions. CARDIOVASCULAR: Palpable 2+ radial pulses. ABDOMEN: Soft. Nondistended. PALOMA drain serosanguineous output MUSCULOSKELETAL: No clubbing or cyanosis. NEUROLOGIC: No focal or lateralizing signs. Cranial nerves II through XII grossly intact. PSYCH: Appropriate affect. Alert and oriented to person, place and time. SKIN: Well perfused. Good skin turgor. ASSESSMENT: 1. Acute hydrops cholecystitis with sepsis 2. Acute on chronic renal failure 3. Ileus present prior to surgery, due to sepsis 4. Hypotension 5. Elevated troponins. Patient seen by cardiology service. PLAN: -Patient can be discharged from surgical standpoint -Patient to be discharged with PALOMA drain -Continue low-fat diet Physician Leathersmith note has been reviewed by physician. Signing provider agrees with the documented findings, assessment, and plan of care. Objective - Vital Signs Vital signs: Vital Signs Temp 98.1 F 04/17/22 04:45 Pulse 79 04/17/22 09:15 Resp 18 04/17/22 04:45 BP 182/77 04/17/22 09:15 Pulse Ox 92 L 04/17/22 09:15 FiO2 Intake & Output 04/16/22 04/17/22 04/17/22 18:59 06:59 18:59 Intake Total 1420 358 Balance 1420 358 Weight 104.6 kg Intake: IV 720 Sodium Chloride 0.9% 1, 720 000 ml @ 60 mls/hr IV . [id number] [facility] Rx#:[id number] Intake, IV Titration 100 Amount Piperacillin-Tazobactam 3 100 .375 gm In Sodium Chloride 0.9% 100 ml @ 25 mls/hr IVPB Q12HR [facility] Rx #:[id number] Oral 600 358 Other: Voiding Method Indwelling Catheter Diaper Diaper Incontinent Incontinent # Voids 2 1 # Bowel Movements 1 1 - Labs CBC & Chem 7: 04/16/22 07:23 04/16/22 07:23 Labs: Abnormal Lab Results - Last 24 Hours (Table) 04/16/22 04/16/22 04/17/22 Range/Units 16:41 20:17 02:25 POC Glucose (mg/dL) 245 H 212 H 146 H (75-99) mg/dL 04/17/22 04/17/22 Range/Units 07:28 11:54 POC Glucose (mg/dL) 120 H 189 H (75-99) mg/dL Microbiology - Last 24 Hours (Table) 04/11/22 17:32 Anaerobic Culture - Final Other - Other Anaerobic Gm Negative Bacilli Anaerobic Gm Negative Bacilli#2
[2022-04-17 17:32] LABS: Glucose,Whole Blood 165 mg/dL (75-99)
--- NOTE | 2022-04-17 19:46 | P.PN ---
Subjective Progress Note Date: 04/17/22 (delayed charting seen at 0755) Principal diagnosis: abdominal and chest pain Patient is [id number] male withcoronary artery disease status post CABG, chronic CHF with ischemic cardiomyopathy, hypertension, hyperlipidemia, chronic kidney disease stage III, and type II DM who presented to the emergency department with complaints of chest pain. He underwent an extensive evaluation in the emergency department. Chest x-ray negative for acute cardiopulmonary process. X-ray abdomen revealing multiple loops of bowel dilated likely related to ileus. CBC showed anemia with hemoglobin of 10.2. CMP with a potassium of 5.4 and elevated renal function with BUN 42, creatinine 1.85, and GFR is 32 (slightly higher than baseline creatinine level of 1.6). Patient was admitted with consultation to cardiology and nephrology. Cardiology evaluated patient took patient for Lexiscan stress test revealing old infarcts present with underlying dilated cardiomyopathy with no convincing evidence for reversible ischemia. Echocardiogram was completed. CT abdomen and pelvis obtained and demonstrated distended gallbladder with layering gallstones and general surgery consulted. Echocardiogram completed revealing mild to moderately impaired EF of 40-45% with mild mitral and tricuspid regurgitation. Gallbladder ultrasound revealing hydropic gallbladder, cholestasis and correlating for acute cholecystitis and cystic duct obstruction as CT shows possible biliary duct stone. On the evening of 04/10/22 patient reportedly began experiencing increased abdominal pain, nausea, and vomiting of dark brown gastric contents. Patient was made NPO at this time and an NG tube was placed to low intermittent suction after confirmation of placement. On the morning of 04/11/22, patient's renal significantlyfunction and worsening and nephrology consulted. Patient underwent da Zhen Xi laparoscopic cholecystectomy with lysis of lesionsons on the evening of 04/11/[address] Arrieta. Patient to remain on IV fluid hydration with 0.9% normal saline and continued IV antibiotic with Zosyn. He had worsening abdominal pain and repeat CT was obtained which demonstrated dilated stomach s uggestive of gastroparesis and expected postoperative changes. He was also found have an elevated troponin and cardiology was notified. Patient had an NG tube placed and was transferred to selective care. He did well and NGT was removed. He renal function improved. He slowly continued to improve. He had some significant diarrhea while on the and drug and this was discontinued. Patient seen and examined at bedside. He is feeling well. Eating and drinking well. Diarrhea resolved. No chest pain or shortness of breath. We discussed that I recommend patient to rehab, however he refused. General: non toxic, no distress, appears at stated age Derm: warm, dry Head: atraumatic, normocephalic, symmetric Eyes: EOMI, no lid lag, anicteric sclera Mouth: no lip lesion, mucus membranes dry Cardiovascular: S1S2 reg, systolic ejection murmur, positive posterior tibial pulse bilateral, Lungs: Decreased bs bilateral, no rhonchi, no rales , no accessory muscle use Abdominal: soft, nontender to palpation diffusely, no guarding, no appreciable organomegaly Ext: no gross muscle atrophy, no edema, no contractures Neuro: CN II-XI grossly intact, no focal neuro deficits Psych: Alert, oriented, appropriate affect Assessment/plan: Acute cholecystitis with possible biliary duct stone, status post laparoscopic cholecystectomy 04/11/22 Ileus, NG tube was placed for decompression and removed s/p laparoscopic cholecystectomy Gastroparesis, resolved Diarrhea, resolved - surgery recs -low fiber diet per surgery - completed IV abx Acute kidney injury on chronic kidney disease IV, likely secondary to current infection with acute cholecystitis -Hold nephrotoxic medications, Entresto. -Nephrology recs appreciated -Continued close monitoring with repeat a.m. labs. NSTEMI, Type II Chest pain on admission History of CAD status CABG History of ischemic cardiomyopathy - had negative lexiscan stress test - cardio to re-eval regarding elevated trop - Trop down trending - continue ASA, statin, BB -Continue Telemetry monitoring -Echocardiogram revealing mild to moderately impaired EF of 40-45% Acute on chronic anemia -Stable - iron studies - folow CBC Renal abdominal aorta fusiform ectasia dilation and common iliac artery displaced atherosclerotic calcification -Vascular surgery recommends outpatient follow-up with yearly ultrasounds. Hypertension - on BB and imdur, entresto on hold - follow BP Hyperlipidemia -Statin Type II [id number] diabetes mellitus. -Hold oral hypoglycemic medications - SSI - Follow BS Patient was initially seen at 755 this morning. He at that time did not want to consider rehab therapy, he had refused this the day before as well. Patient subsequently had discharge orders written. At approximately 2 PM patient decided he wanted to go to rehab. Off initiated. Discharge delayed. DVT prophylaxis: Heparin Discussed with: Patient and RN Anticipated discharge date: Once auth available Anticipated discharge place: SNF A total of 35 minutes was spent on the care of this complex patient more than 50% of the time was spent in counseling and care coordination. Active Medications Generic Name Dose Route Start Last Admin Trade Name Freq PRN Reason Stop Dose Admin Albuterol Sulfate 2.5 mg 04/09/22 17:21 04/14/22 01:02 Albuterol Nebulized 2.5 Mg/3 Ml INHALATION 2.5 mg RT-Q4H PRN Administration Shortness Of Breath Aspirin 81 mg 04/10/22 09:00 04/17/22 09:18 Aspirin 81 Mg PO 81 mg DAILY ALEX Administration Atorvastatin Calcium 40 mg 04/09/22 09:00 04/17/22 09:18 Atorvastatin 40 Mg Tab PO 40 mg DAILY ALEX Administration Budesonide/Formoterol Fumarate 2 puff 04/09/22 20:00 04/17/22 08:51 Symbicort 80-4.5 Mcg Inhaler INHALATION 2 puff RT-BID ALEX Administration Carvedilol 3.125 mg 04/16/22 07:30 04/17/22 17:43 Carvedilol 3.125 Mg Tab PO 3.125 mg BID-W/MEALS ALEX Administration Heparin Sodium (Porcine) 5,000 unit 04/10/22 21:00 04/17/22 09:18 Heparin Sodium,Porcine/Pf 5,000 Unit/0.5 Ml Syringe SQ 5,000 unit Q12HR ALEX Administration Hydromorphone HCl 0.5 mg 04/10/22 20:57 04/12/22 11:53 Hydromorphone 0.5 Mg/0.5 Ml Syringe IVP 0.5 mg Q3HR PRN Administration Pain Sodium Chloride 1,000 mls @ 60 mls/hr 04/13/22 21:15 04/16/22 21:03 Saline 0.9% IV 60 mls/hr .[id number] ALEX Administration Insulin Aspart 0 unit 04/09/22 07:30 04/17/22 17:42 Insulin Aspart (Novolog) 100 Unit/Ml Vial SQ 1 unit ACHS ALEX Administration Protocol Isosorbide Mononitrate 30 mg 04/10/22 09:00 04/17/22 09:18 Isosorbide Mononitrate Er 30 Mg Tab.Er.24h PO 30 mg DAILY ALEX Administration Lidocaine HCl 0.1 ml 04/12/22 07:22 Lidocaine 1% (10mg/Ml) For Iv Start INTRADERMA PER PROTOCOL PRN IV Start Melatonin 3 mg 04/13/22 21:08 04/13/22 21:16 Melatonin 3 Mg Tablet PO 3 mg ONCE PRN Administration sleep Morphine Sulfate 2 mg 04/09/22 03:18 04/12/22 03:45 Morphine Sulfate 2 Mg/Ml Syringe IVP 2 mg Q5M PRN Administration Chest Pain Naloxone HCl 0.2 mg 04/11/22 17:41 Naloxone 0.4 Mg/Ml 1 Ml Vial IV Q2M PRN Opioid Reversal Nitroglycerin 0.4 mg 04/09/22 03:18 Nitroglycerin Sl Tabs 0.4 Mg Tab SUBLINGUAL Q5M PRN Chest Pain Ondansetron HCl 4 mg 04/10/22 21:33 04/14/22 05:26 Ondansetron 4 Mg/2 Ml Vial IVP 4 mg Q6HR PRN Administration Nausea And Vomiting Pantoprazole Sodium 40 mg 04/17/22 07:30 04/17/22 09:18 Pantoprazole 40 Mg Tablet PO 40 mg [id number] ALEX Administration Simethicone 80 mg 04/12/22 13:30 04/17/22 17:43 Simethicone 40 Mg/0.6 Ml Drops 2,000 Mg/30 Ml Bottle PO 80 mg PCHS ALEX Administration Objective - Vital Signs Vital signs: Vital Signs Temp 98.1 F 04/17/22 13:00 Pulse 78 04/17/22 13:00 Resp 20 04/17/22 13:00 BP 171/61 04/17/22 13:00 Pulse Ox 96 04/17/22 13:00 FiO2 Intake & Output 04/17/22 04/17/22 04/18/22 06:59 18:59 06:59 Intake Total 958 Balance 958 Intake: Oral 958 Other: Voiding Method Diaper Diaper Incontinent Incontinent # Voids 2 1 # Bowel Movements 1 - Labs CBC & Chem 7: 04/16/22 07:23 04/16/22 07:23 Labs: Abnormal Lab Results - Last 24 Hours (Table) 04/16/22 04/17/22 04/17/22 Range/Units 20:17 02:25 07:28 POC Glucose (mg/dL) 212 H 146 H 120 H (75-99) mg/dL 04/17/22 04/17/22 Range/Units 11:54 17:31 POC Glucose (mg/dL) 189 H 165 H (75-99) mg/dL
[2022-04-17 20:35] LABS: Glucose,Whole Blood 204 mg/dL (75-99)
[2022-04-17] MEDS: SODIUM CHLORIDE 0.9% 1,000 ML IV SCH (20:55)
[2022-04-18] MEDS: SODIUM CHLORIDE 0.9% 1,000 ML IV SCH (05:05)
[2022-04-18 07:24] LABS: Glucose,Whole Blood 126 mg/dL (75-99)
[2022-04-18 07:47] LABS: African American GFR (CKD) 20 (>60 ml/min/1.73 sqM); Anion Gap 5 mmol/L; Blood Urea Nitrogen 68 mg/dL (9-20); Calcium 8.2 mg/dL (8.4-10.2); Carbon Dioxide 22 mmol/L (22-30); Chloride 114 mmol/L (98-107); Glucose 134 mg/dL (74-99); Magnesium 1.8 mg/dL (1.6-2.3); Non-African American GFR(CKD) 17 (>60 ml/min/1.73 sqM); Sodium 141 mmol/L (137-145)
[2022-04-18] MEDS: SYMBICORT 80-4.5 MCG INHALER INHALATION SCH ×2 (07:48→20:20)
[2022-04-18] MEDS ORDERED: carvediloL 3.125 MG TAB PO STA (08:15)
--- NOTE | 2022-04-18 09:10 | P.PN ---
Subjective Progress Note Date: 04/18/22 Principal diagnosis: Cholecystitis Patient without new complaints. Says his pain continues to improve daily. No nausea or vomiting. Tolerating diet. PALOMA drain is serosanguineous. Objective - Vital Signs Vital signs: Vital Signs Temp 98.3 F 04/18/22 05:00 Pulse 80 04/18/22 05:00 Resp 16 04/18/22 05:00 BP 173/80 04/18/22 05:00 Pulse Ox 98 04/18/22 05:00 FiO2 Intake & Output 04/17/22 04/18/22 04/18/22 18:59 06:59 18:59 Intake Total 958 800 416 Balance 958 800 416 Intake: Oral 958 800 416 Other: Voiding Method Diaper Diaper Incontinent Incontinent # Voids 1 3 # Bowel Movements 3 - Exam Abdomen: Soft, nondistended, incisions clean and dry, PALOMA intact with mild serous drainage around the exit site - Labs CBC & Chem 7: 04/16/22 07:23 04/18/22 06:53 Labs: Abnormal Lab Results - Last 24 Hours (Table) 04/17/22 04/17/22 04/17/22 Range/Units 11:54 17:31 20:34 Chloride (98-107) mmol/L BUN (9-20) mg/dL Creatinine (0.66-1.25) mg/dL Glucose (74-99) mg/dL POC Glucose (mg/dL) 189 H 165 H 204 H (75-99) mg/dL Calcium (8.4-10.2) mg/dL 04/18/22 04/18/22 Range/Units 06:53 07:23 Chloride 114 H (98-107) mmol/L BUN 68 H (9-20) mg/dL Creatinine 3.10 H (0.66-1.25) mg/dL Glucose 134 H (74-99) mg/dL POC Glucose (mg/dL) 126 H (75-99) mg/dL Calcium 8.2 L (8.4-10.2) mg/dL Assessment and Plan (1) Cholecystitis Narrative/Plan: Patient doing better at this time. Continue physical therapy. Patient apparently going home with home care on Wednesday. Keep the PALOMA drain in place for now. Current Visit: Yes Status: Acute Code(s): K81.9 - CHOLECYSTITIS, UNSPECIFIED SNOMED Code(s): 68510006
--- NOTE | 2022-04-18 09:18 | P.PN ---
Subjective Patient is seen in follow-up for acute kidney injury on chronic kidney disease. Renal function improving. Blood pressure high. Has been voiding. Oral intake fair. No vomiting or diarrhea. Vital signs are stable. Blood pressure high. General: No acute distress. HEENT: Head exam is unremarkable. LUNGS: Breath sounds decreased. HEART: Rate and Rhythm are regular. ABDOMEN: Soft, no distention. EXTREMITITES: No edema. Objective - Vital Signs Vital signs: Vital Signs Temp 98.3 F 04/18/22 05:00 Pulse 80 04/18/22 05:00 Resp 16 04/18/22 05:00 BP 173/80 04/18/22 05:00 Pulse Ox 98 04/18/22 05:00 FiO2 Intake & Output 04/17/22 04/18/22 04/18/22 18:59 06:59 18:59 Intake Total 958 800 416 Balance 958 800 416 Intake: Oral 958 800 416 Other: Voiding Method Diaper Diaper Incontinent Incontinent # Voids 1 3 # Bowel Movements 3 - Labs CBC & Chem 7: 04/16/22 07:23 04/18/22 06:53 Labs: Abnormal Lab Results - Last 24 Hours (Table) 04/17/22 04/17/22 04/17/22 Range/Units 11:54 17:31 20:34 Chloride (98-107) mmol/L BUN (9-20) mg/dL Creatinine (0.66-1.25) mg/dL Glucose (74-99) mg/dL POC Glucose (mg/dL) 189 H 165 H 204 H (75-99) mg/dL Calcium (8.4-10.2) mg/dL 04/18/22 04/18/22 Range/Units 06:53 07:23 Chloride 114 H (98-107) mmol/L BUN 68 H (9-20) mg/dL Creatinine 3.10 H (0.66-1.25) mg/dL Glucose 134 H (74-99) mg/dL POC Glucose (mg/dL) 126 H (75-99) mg/dL Calcium 8.2 L (8.4-10.2) mg/dL Assessment and Plan Plan: Assessment: 1. Chronic kidney disease stage IIIB secondary to diabetic kidney disease with baseline creatinine in the range of 1.6-1.9. No hydronephrosis noted on CAT scan . 2. Acute kidney injury secondary to ATN secondary to hypotension. Creatinine peaked at 4.45 this admission and is 3.1 today. 3. Coronary disease status post CABG. 4. Diabetes mellitus. 5. Hypertension with chronic kidney disease. 6. Mild hyperkalemia secondary to chronic kidney disease. Potassium 5.0 today. 7. Status post laparoscopic cholecystectomy on 04/03/2022 for lysis of lesions. 8. Chronic systolic CHF with ejection fraction of 40-45%. 9. Anemia of chronic kidney disease. Iron replete. Plan: Maintain gentle hydration. Encouraged oral intake. Avoid nephrotoxins. Continue to monitor renal function and urine output. Gregg catheter removed. Monitor bladder scans to make sure no retention. Dose of Coreg increased. Add hydralazine 25 mg 3 times daily. Hold for systolic blood pressure less than 125. Add Aranesp.
[2022-04-18] MEDS: INSULIN ASPART (NovoLOG) 100 UNIT/ML VIAL SQ SCH ×4 (09:29→20:47)
[2022-04-18] MEDS: HEPARIN SODIUM,PORCINE/PF 5,000 UNIT/0.5 ML SYRINGE SQ SCH ×2 (09:37→20:47)
[2022-04-18] MEDS: ASPIRIN 81 MG PO SCH (09:37)
[2022-04-18] MEDS: hydrALAZINE HCL 25 MG TAB PO SCH ×3 (09:37→20:47)
[2022-04-18] MEDS: PANTOPRAZOLE 40 MG TABLET PO SCH (09:37)
[2022-04-18] MEDS: ATORVASTATIN 40 MG TAB PO SCH (09:37)
[2022-04-18] MEDS: ISOSORBIDE MONONITRATE ER 30 MG TAB.ER.24H PO SCH (09:37)
--- NOTE | 2022-04-18 09:46 | XR ---
EXAMINATION TYPE: XR chest 1V portable DATE OF EXAM: 04/18/2022 9:34 AM COMPARISON: Chest radiographs from 04/13/2022 TECHNIQUE: XR chest 1V portable Frontal view of the chest. CLINICAL INDICATION:Male, 86 years old with history of shortness of breath; FINDINGS: Lungs/Pleura: There is no evidence of pleural effusion, focal consolidation, or pneumothorax. Pulmonary vascularity: Unremarkable. Heart/mediastinum: Cardiomediastinal silhouette is enlarged and stable. Musculoskeletal: No acute osseous pathology. Midline sternotomy wires and surgical clips project over the mediastinum. IMPRESSION: Mild pulmonary vascular congestion with some cardiomegaly. Correlate with serum BNP.
[2022-04-18] MEDS: SIMETHICONE 40 MG/0.6 ML DROPS 2,000 MG/30 ML BOTTLE PO SCH ×4 (09:47→20:48)
[2022-04-18] MEDS ORDERED: DARBEPOETIN ALFA 40 MCG/0.4 ML SYRINGE SQ SCH (11:00)
[2022-04-18 11:52] LABS: Glucose,Whole Blood 156 mg/dL (75-99)
--- NOTE | 2022-04-18 13:52 | P.PN ---
Subjective Progress Note Date: 04/18/22 (delayed charting seen at 0905) Principal diagnosis: abdominal and chest pain Patient is [id number] male withcoronary artery disease status post CABG, chronic CHF with ischemic cardiomyopathy, hypertension, hyperlipidemia, chronic kidney disease stage III, and type II DM who presented to the emergency department with complaints of chest pain. He underwent an extensive evaluation in the emergency department. Chest x-ray negative for acute cardiopulmonary process. X-ray abdomen revealing multiple loops of bowel dilated likely related to ileus. CBC showed anemia with hemoglobin of 10.2. CMP with a potassium of 5.4 and elevated renal function with BUN 42, creatinine 1.85, and GFR is 32 (slightly higher than baseline creatinine level of 1.6). Patient was admitted with consultation to cardiology and nephrology. Cardiology evaluated patient took patient for Lexiscan stress test revealing old infarcts present with underlying dilated cardiomyopathy with no convincing evidence for reversible ischemia. Echocardiogram was completed. CT abdomen and pelvis obtained and demonstrated distended gallbladder with layering gallstones and general surgery consulted. Echocardiogram completed revealing mild to moderately impaired EF of 40-45% with mild mitral and tricuspid regurgitation. Gallbladder ultrasound revealing hydropic gallbladder, cholestasis and correlating for acute cholecystitis and cystic duct obstruction as CT shows possible biliary duct stone. On the evening of 04/10/22 patient reportedly began experiencing increased abdominal pain, nausea, and vomiting of dark brown gastric contents. Patient was made NPO at this time and an NG tube was placed to low intermittent suction after confirmation of placement. On the morning of 04/11/22, patient's renal significantlyfunction and worsening and nephrology consulted. Patient underwent da Zhen Xi laparoscopic cholecystectomy with lysis of lesionsons on the evening of 04/11/[address] Arrieta. Patient to remain on IV fluid hydration with 0.9% normal saline and continued IV antibiotic with Zosyn. He had worsening abdominal pain and repeat CT was obtained which demonstrated dilated stomach s uggestive of gastroparesis and expected postoperative changes. He was also found have an elevated troponin and cardiology was notified. Patient had an NG tube placed and was transferred to selective care. He did well and NGT was removed. He renal function improved. He slowly continued to improve. He had some significant diarrhea while on the and drug and this was discontinued. Patient seen and examined at bedside. Doing okay did not sleep last night, denies SOB but RR increased, no abd pain, no more diarrhea. General: non toxic, no distress, appears at stated age Derm: warm, dry Head: atraumatic, normocephalic, symmetric Eyes: EOMI, no lid lag, anicteric sclera Mouth: no lip lesion, mucus membranes dry Cardiovascular: S1S2 reg, systolic ejection murmur, positive posterior tibial pulse bilateral, Lungs: Decreased bs bilateral, no rhonchi, no rales , no accessory muscle use Abdominal: soft, nontender to palpation diffusely, no guarding, no appreciable organomegaly, + PALOMA drain Ext: no gross muscle atrophy, no edema, no contractures Neuro: CN II-XI grossly intact, no focal neuro deficits Psych: Alert, oriented, appropriate affect Assessment/plan: Acute cholecystitis with possible biliary duct stone, status post laparoscopic cholecystectomy 04/11/22 Ileus, NG tube was placed for decompression and removed s/p laparoscopic cholecystectomy Gastroparesis, resolved Diarrhea, resolved - surgery recs -low fiber diet per surgery - completed IV abx Insomnia - melatonin Acute kidney injury on chronic kidney disease IV, likely secondary to current infection with acute cholecystitis -Hold nephrotoxic medications, Entresto. -Nephrology recs appreciated -Continued close monitoring with repeat a.m. labs. NSTEMI, Type II Chest pain on admission History of CAD status CABG History of ischemic cardiomyopathy - had negative lexiscan stress test - cardio to re-eval regarding elevated trop - Trop down trending - continue ASA, statin, BB -Continue Telemetry monitoring -Echocardiogram revealing mild to moderately impaired EF of 40-45% Acute on chronic anemia -Stable - iron studies with elevated ferritin - folow CBC Renal abdominal aorta fusiform ectasia dilation and common iliac artery displaced atherosclerotic calcification -Vascular surgery recommends outpatient follow-up with yearly ultrasounds. Hypertension - Coreg increased - hydralazine added by nephro - imdur - entresto on hold - follow BP Hyperlipidemia -Statin Type II [id number] diabetes mellitus. -Hold oral hypoglycemic medications - SSI - Follow [facility] SNF on Wednesday pending auth DVT prophylaxis: Heparin Discussed with: Patient and RN Anticipated discharge date: Once auth available Anticipated discharge place: SNF A total of 35 minutes was spent on the care of this complex patient more than 50% of the time was spent in counseling and care coordination. Objective - Vital Signs Vital signs: Vital Signs Temp 98.3 F 04/18/22 05:00 Pulse 76 04/18/22 08:00 Resp 16 04/18/22 08:00 BP 173/80 04/18/22 05:00 Pulse Ox 98 04/18/22 05:00 FiO2 Intake & Output 04/17/22 04/18/22 04/18/22 18:59 06:59 18:59 Intake Total 958 800 416 Balance 958 800 416 Intake: Oral 958 800 416 Other: Voiding Method Diaper Diaper Diaper Incontinent Incontinent Incontinent # Voids 1 3 2 # Bowel Movements 3 - Labs CBC & Chem 7: 04/16/22 07:23 04/18/22 06:53 Labs: Abnormal Lab Results - Last 24 Hours (Table) 04/17/22 04/17/22 04/18/22 Range/Units 17:31 20:34 06:53 Chloride 114 H (98-107) mmol/L BUN 68 H (9-20) mg/dL Creatinine 3.10 H (0.66-1.25) mg/dL Glucose 134 H (74-99) mg/dL POC Glucose (mg/dL) 165 H 204 H (75-99) mg/dL Calcium 8.2 L (8.4-10.2) mg/dL 04/18/22 04/18/22 Range/Units 07:23 11:50 Chloride (98-107) mmol/L BUN (9-20) mg/dL Creatinine (0.66-1.25) mg/dL Glucose (74-99) mg/dL POC Glucose (mg/dL) 126 H 156 H (75-99) mg/dL Calcium (8.4-10.2) mg/dL
[2022-04-18] MEDS: carvediloL 3.125 MG TAB PO SCH (14:12)
[2022-04-18 16:53] LABS: Glucose,Whole Blood 234 mg/dL (75-99)
[2022-04-18] MEDS: carvediloL 6.25 MG TAB PO SCH (18:01)
[2022-04-18 20:43] LABS: Glucose,Whole Blood 187 mg/dL (75-99)
[2022-04-18] MEDS ORDERED: MELATONIN 3 MG TABLET PO SCH (21:00)
[2022-04-19 00:41] LABS: HCT 27.5 % (39.0-53.0); HGB 8.5 gm/dL (13.0-17.5); Hypochromasia Slight; MCV 106.4 fL (80.0-100.0); Macrocytosis Moderate; Mean Platelet Volume 8.3; Platelet Count 275 k/uL (150-450); RBC 2.58 m/uL (4.30-5.90); RDW 13.5 % (11.5-15.5)
[2022-04-19 00:44] LABS: ALT 47 U/L (4-49); AST 34 U/L (17-59); African American GFR (CKD) 23 (>60 ml/min/1.73 sqM); Albumin 2.3 g/dL (3.5-5.0); Alkaline Phosphatase 90 U/L (38-126); Anion Gap 4 mmol/L; Blood Urea Nitrogen 63 mg/dL (9-20); Carbon Dioxide 24 mmol/L (22-30); Chloride 111 mmol/L (98-107); Globulin 2.3 g/dL; Glucose 151 mg/dL (74-99); Non-African American GFR(CKD) 20 (>60 ml/min/1.73 sqM); Potassium 4.9 mmol/L (3.5-5.1); Sodium 139 mmol/L (137-145); Total Bilirubin 0.2 mg/dL (0.2-1.3); Total Protein 4.6 g/dL (6.3-8.2)
[2022-04-19 02:02] LABS: Glucose,Whole Blood 148 mg/dL (75-99)
[2022-04-19 07:09] LABS: Glucose,Whole Blood 138 mg/dL (75-99)
[2022-04-19] MEDS: SYMBICORT 80-4.5 MCG INHALER INHALATION SCH ×2 (07:32→20:07)
[2022-04-19 08:00] LABS: ALT 49 U/L (4-49); AST 33 U/L (17-59); African American GFR (CKD) 23 (>60 ml/min/1.73 sqM); Albumin 2.6 g/dL (3.5-5.0); Alkaline Phosphatase 98 U/L (38-126); Anion Gap 6 mmol/L; Blood Urea Nitrogen 61 mg/dL (9-20); Calcium 8.4 mg/dL (8.4-10.2); Carbon Dioxide 23 mmol/L (22-30); Chloride 112 mmol/L (98-107); Globulin 2.7 g/dL; Glucose 141 mg/dL (74-99); Non-African American GFR(CKD) 20 (>60 ml/min/1.73 sqM); Potassium 5.1 mmol/L (3.5-5.1); Sodium 141 mmol/L (137-145); Total Bilirubin 0.4 mg/dL (0.2-1.3); Total Protein 5.3 g/dL (6.3-8.2)
[2022-04-19 08:04] LABS: Hypochromasia Slight; MCH 32.9 pg (25.0-35.0); MCHC 31.2 g/dL (31.0-37.0); MCV 105.5 fL (80.0-100.0); Macrocytosis Moderate; Platelet Count 313 k/uL (150-450); RBC 2.75 m/uL (4.30-5.90); RDW 13.6 % (11.5-15.5); WBC 7.3 k/uL (3.8-10.6)
[2022-04-19] MEDS: INSULIN ASPART (NovoLOG) 100 UNIT/ML VIAL SQ SCH ×4 (08:49→22:17)
[2022-04-19] MEDS: HEPARIN SODIUM,PORCINE/PF 5,000 UNIT/0.5 ML SYRINGE SQ SCH ×2 (08:49→22:17)
[2022-04-19] MEDS: PANTOPRAZOLE 40 MG TABLET PO SCH (08:50)
[2022-04-19] MEDS: ATORVASTATIN 40 MG TAB PO SCH (08:50)
[2022-04-19] MEDS: hydrALAZINE HCL 25 MG TAB PO SCH (08:50)
[2022-04-19] MEDS: ISOSORBIDE MONONITRATE ER 30 MG TAB.ER.24H PO SCH (08:50)
[2022-04-19] MEDS: ASPIRIN 81 MG PO SCH (08:50)
[2022-04-19] MEDS: carvediloL 6.25 MG TAB PO SCH ×2 (08:51→16:02)
--- NOTE | 2022-04-19 09:58 | P.PN ---
Subjective Patient is seen in follow-up for acute kidney injury on chronic kidney disease. Renal function continues to improve. Creatinine 2.7 today. Blood pressure on the higher side. Has been voiding. Oral intake fair. No vomiting or diarrhea. Vital signs are stable. General: No acute distress. HEENT: Head exam is unremarkable. LUNGS: Breath sounds decreased. HEART: Rate and Rhythm are regular. ABDOMEN: Soft, no distention. EXTREMITITES: No edema. Objective - Vital Signs Vital signs: Vital Signs Temp 98.1 F 04/19/22 05:00 Pulse 75 04/19/22 05:00 Resp 16 04/19/22 05:00 BP 173/80 04/18/22 21:00 Pulse Ox 100 04/19/22 05:00 FiO2 Intake & Output 04/18/22 04/19/22 04/19/22 18:59 06:59 18:59 Intake Total 1357 590 Output Total 700 Balance 1357 -110 Intake: Intake, IV Titration 720 Amount Sodium Chloride 0.9% 1, 720 000 ml @ 60 mls/hr IV . [id number] [facility] Rx#:[id number] Oral 637 590 Output: Urine 700 Other: Voiding Method Diaper Diaper Incontinent Incontinent External Catheter # Voids 2 # Bowel Movements 1 - Labs CBC & Chem 7: 04/19/22 07:24 04/19/22 07:24 Labs: Abnormal Lab Results - Last 24 Hours (Table) 04/18/22 04/18/22 04/18/22 Range/Units 11:50 16:51 20:42 RBC (4.30-5.90) m/uL Hgb (13.0-17.5) gm/dL Hct (39.0-53.0) % MCV (80.0-100.0) fL Chloride (98-107) mmol/L BUN (9-20) mg/dL Creatinine (0.66-1.25) mg/dL Glucose (74-99) mg/dL POC Glucose (mg/dL) 156 H 234 H 187 H (75-99) mg/dL Calcium (8.4-10.2) mg/dL Total Protein (6.3-8.2) g/dL Albumin (3.5-5.0) g/dL 06/04/22 06/04/22 06/05/22 Range/Units 23:34 23:34 02:01 RBC 2.58 L (4.30-5.90) m/uL Hgb 8.5 L (13.0-17.5) gm/dL Hct 27.5 L (39.0-53.0) % MCV 106.4 H (80.0-100.0) fL Chloride 111 H (98-107) mmol/L BUN 63 H (9-20) mg/dL Creatinine 2.73 H (0.66-1.25) mg/dL Glucose 151 H (74-99) mg/dL POC Glucose (mg/dL) 148 H (75-99) mg/dL Calcium 8.0 L (8.4-10.2) mg/dL Total Protein 4.6 L (6.3-8.2) g/dL Albumin 2.3 L (3.5-5.0) g/dL 04/19/22 04/19/22 04/19/22 Range/Units 07:07 07:24 07:24 RBC 2.75 L (4.30-5.90) m/uL Hgb 9.0 L (13.0-17.5) gm/dL Hct 29.0 L (39.0-53.0) % MCV 105.5 H (80.0-100.0) fL Chloride 112 H (98-107) mmol/L BUN 61 H (9-20) mg/dL Creatinine 2.70 H (0.66-1.25) mg/dL Glucose 141 H (74-99) mg/dL POC Glucose (mg/dL) 138 H (75-99) mg/dL Calcium (8.4-10.2) mg/dL Total Protein 5.3 L (6.3-8.2) g/dL Albumin 2.6 L (3.5-5.0) g/dL Assessment and Plan Plan: Assessment: 1. Chronic kidney disease stage IIIB secondary to diabetic kidney disease with baseline creatinine in the range of 1.6-1.9. No hydronephrosis noted on CAT scan. 2. Acute kidney injury secondary to ATN secondary to hypotension. Creatinine peaked at 4.45 this admission and is 2.7 today. 3. Coronary disease status post CABG. 4. Diabetes mellitus. 5. Hypertension with chronic kidney disease. 6. Mild hyperkalemia secondary to chronic kidney disease. Potassium 5.1 today. 7. Status post laparoscopic cholecystectomy on 04/03/2022 for lysis of lesions. 8. Chronic systolic CHF with ejection fraction of 40-45%. 9. Anemia of chronic kidney disease. Iron replete. On Aranesp. Plan: Hep-Lock IV fluids. Encouraged oral intake. Avoid nephrotoxins. Continue to monitor renal function and urine output. Gregg catheter removed. Monitor bladder scans to make sure no retention. Increase dose of hydralazine. Hold for systolic blood pressure less than 125. Low potassium diet.
[2022-04-19 11:11] LABS: Glucose,Whole Blood 191 mg/dL (75-99)
--- NOTE | 2022-04-19 11:55 | P.PN ---
Subjective Progress Note Date: 04/19/22 Principal diagnosis: Cholecystitis Patient has no new complaints. Denies abdominal pain. PALOMA drain remains serous. Tolerating diet. Labs noted. Objective - Vital Signs Vital signs: Vital Signs Temp 98.1 F 04/19/22 05:00 Pulse 75 04/19/22 05:00 Resp 16 04/19/22 05:00 BP 173/80 04/18/22 21:00 Pulse Ox 100 04/19/22 05:00 FiO2 Intake & Output 04/18/22 04/19/22 04/19/22 18:59 06:59 18:59 Intake Total 1357 590 240 Output Total 700 Balance 1357 -110 240 Intake: Intake, IV Titration 720 Amount Sodium Chloride 0.9% 1, 720 000 ml @ 60 mls/hr IV . [id number] [facility] Rx#:[id number] Oral 637 590 240 Output: Urine 700 Other: Voiding Method Diaper Diaper Incontinent Incontinent External Catheter # Voids 2 # Bowel Movements 1 1 - Exam Abdomen: Soft, nondistended, incisions clean and dry - Labs CBC & Chem 7: 04/19/22 07:24 04/19/22 07:24 Labs: Abnormal Lab Results - Last 24 Hours (Table) 04/18/22 04/18/22 04/18/22 Range/Units 16:51 20:42 23:34 RBC 2.58 L (4.30-5.90) m/uL Hgb 8.5 L (13.0-17.5) gm/dL Hct 27.5 L (39.0-53.0) % MCV 106.4 H (80.0-100.0) fL Chloride (98-107) mmol/L BUN (9-20) mg/dL Creatinine (0.66-1.25) mg/dL Glucose (74-99) mg/dL POC Glucose (mg/dL) 234 H 187 H (75-99) mg/dL Calcium (8.4-10.2) mg/dL Total Protein (6.3-8.2) g/dL Albumin (3.5-5.0) g/dL 04/18/22 04/19/22 04/19/22 Range/Units 23:34 02:01 07:07 RBC (4.30-5.90) m/uL Hgb (13.0-17.5) gm/dL Hct (39.0-53.0) % MCV (80.0-100.0) fL Chloride 111 H (98-107) mmol/L BUN 63 H (9-20) mg/dL Creatinine 2.73 H (0.66-1.25) mg/dL Glucose 151 H (74-99) mg/dL POC Glucose (mg/dL) 148 H 138 H (75-99) mg/dL Calcium 8.0 L (8.4-10.2) mg/dL Total Protein 4.6 L (6.3-8.2) g/dL Albumin 2.3 L (3.5-5.0) g/dL 04/19/22 04/19/22 04/19/22 Range/Units 07:24 07:24 11:10 RBC 2.75 L (4.30-5.90) m/uL Hgb 9.0 L (13.0-17.5) gm/dL Hct 29.0 L (39.0-53.0) % MCV 105.5 H (80.0-100.0) fL Chloride 112 H (98-107) mmol/L BUN 61 H (9-20) mg/dL Creatinine 2.70 H (0.66-1.25) mg/dL Glucose 141 H (74-99) mg/dL POC Glucose (mg/dL) 191 H (75-99) mg/dL Calcium (8.4-10.2) mg/dL Total Protein 5.3 L (6.3-8.2) g/dL Albumin 2.6 L (3.5-5.0) g/dL Assessment and Plan (1) Cholecystitis Narrative/Plan: Patient doing well at this time. Continue diet. Keep PALOMA drain in place for now. Possible transfer to rehab tomorrow. Current Visit: Yes Status: Acute Code(s): K81.9 - CHOLECYSTITIS, UNSPECIFIED SNOMED Code(s): 65771262
--- NOTE | 2022-04-19 12:13 | P.PN ---
Subjective Progress Note Date: 04/19/22 (delayed charting seen at 0830) Principal diagnosis: abdominal and chest pain Patient is [id number] male withcoronary artery disease status post CABG, chronic CHF with ischemic cardiomyopathy, hypertension, hyperlipidemia, chronic kidney disease stage III, and type II DM who presented to the emergency department with complaints of chest pain. He underwent an extensive evaluation in the emergency department. Chest x-ray negative for acute cardiopulmonary process. X-ray abdomen revealing multiple loops of bowel dilated likely related to ileus. CBC showed anemia with hemoglobin of 10.2. CMP with a potassium of 5.4 and elevated renal function with BUN 42, creatinine 1.85, and GFR is 32 (slightly higher than baseline creatinine level of 1.6). Patient was admitted with consultation to cardiology and nephrology. Cardiology evaluated patient took patient for Lexiscan stress test revealing old infarcts present with underlying dilated cardiomyopathy with no convincing evidence for reversible ischemia. Echocardiogram was completed. CT abdomen and pelvis obtained and demonstrated distended gallbladder with layering gallstones and general surgery consulted. Echocardiogram completed revealing mild to moderately impaired EF of 40-45% with mild mitral and tricuspid regurgitation. Gallbladder ultrasound revealing hydropic gallbladder, cholestasis and correlating for acute cholecystitis and cystic duct obstruction as CT shows possible biliary duct stone. On the evening of 04/10/22 patient reportedly began experiencing increased abdominal pain, nausea, and vomiting of dark brown gastric contents. Patient was made NPO at this time and an NG tube was placed to low intermittent suction after confirmation of placement. On the morning of 04/11/22, patient's renal significantlyfunction and worsening and nephrology consulted. Patient underwent da Zhen Xi laparoscopic cholecystectomy with lysis of lesionsons on the evening of 04/11/[address] Arrieta. Patient to remain on IV fluid hydration with 0.9% normal saline and continued IV antibiotic with Zosyn. He had worsening abdominal pain and repeat CT was obtained which demonstrated dilated stomach s uggestive of gastroparesis and expected postoperative changes. He was also found have an elevated troponin and cardiology was notified. Patient had an NG tube placed and was transferred to selective care. He did well and NGT was removed. He renal function improved. He slowly continued to improve. He had some significant diarrhea while on the and drug and this was discontinued. Patient seen and examined at bedside. Breathing is good, pain controlled, sleeping med helped some but not strong enough. General: non toxic, no distress, appears at stated age Derm: warm, dry Head: atraumatic, normocephalic, symmetric Eyes: EOMI, no lid lag, anicteric sclera Mouth: no lip lesion, mucus membranes dry Cardiovascular: S1S2 reg, systolic ejection murmur, positive posterior tibial pulse bilateral, Lungs: Decreased bs bilateral, no rhonchi, no rales , no accessory muscle use Abdominal: soft, nontender to palpation diffusely, no guarding, no appreciable organomegaly, + PALOMA drain Ext: no gross muscle atrophy, no edema, no contractures Neuro: CN II-XI grossly intact, no focal neuro deficits Psych: Alert, oriented, appropriate affect Assessment/plan: Acute cholecystitis with possible biliary duct stone, status post laparoscopic cholecystectomy 04/11/22 Ileus, NG tube was placed for decompression and removed s/p laparoscopic cholecystectomy Gastroparesis, resolved Diarrhea, resolved - surgery recs -low fiber diet per surgery - completed IV abx Insomnia - melatonin increased Acute kidney injury on chronic kidney disease IV, likely secondary to current infection with acute cholecystitis -Hold nephrotoxic medications, Entresto. -Nephrology recs appreciated -Continued close monitoring with repeat a.m. labs. NSTEMI, Type II Chest pain on admission History of CAD status CABG History of ischemic cardiomyopathy - had negative lexiscan stress test - cardio to re-eval regarding elevated trop - Trop down trending - continue ASA, statin, BB - Continue Telemetry monitoring - Echocardiogram revealing mild to moderately impaired EF of 40-45% Acute on chronic anemia -Stable - iron studies with elevated ferritin - folow CBC Renal abdominal aorta fusiform ectasia dilation and common iliac artery displaced atherosclerotic calcification -Vascular surgery recommends outpatient follow-up with yearly ultrasounds. Hypertension, await AM BP to be charged - Coreg increased - hydralazine added by nephro - imdur - entresto on hold - follow BP Hyperlipidemia -Statin Type II [id number] diabetes mellitus. -Hold oral hypoglycemic medications - SSI - Follow [facility] SNF on Wednesday pending auth DVT prophylaxis: Heparin Discussed with: Patient and RN Anticipated discharge date: Once auth available Anticipated discharge place: SNF A total of 35 minutes was spent on the care of this complex patient more than 50% of the time was spent in counseling and care coordination. Objective - Vital Signs Vital signs: Vital Signs Temp 98.1 F 04/19/22 05:00 Pulse 75 04/19/22 05:00 Resp 16 04/19/22 05:00 BP 173/80 04/18/22 21:00 Pulse Ox 100 04/19/22 05:00 FiO2 Intake & Output 04/18/22 04/19/22 04/19/22 18:59 06:59 18:59 Intake Total 1357 590 240 Output Total 700 Balance 1357 -110 240 Intake: Intake, IV Titration 720 Amount Sodium Chloride 0.9% 1, 720 000 ml @ 60 mls/hr IV . [id number] [facility] Rx#:[id number] Oral 637 590 240 Output: Urine 700 Other: Voiding Method Diaper Diaper Incontinent Incontinent External Catheter # Voids 2 # Bowel Movements 1 1 - Labs CBC & Chem 7: 04/19/22 07:24 04/19/22 07:24 Labs: Abnormal Lab Results - Last 24 Hours (Table) 04/18/22 04/18/22 04/18/22 Range/Units 16:51 20:42 23:34 RBC 2.58 L (4.30-5.90) m/uL Hgb 8.5 L (13.0-17.5) gm/dL Hct 27.5 L (39.0-53.0) % MCV 106.4 H (80.0-100.0) fL Chloride (98-107) mmol/L BUN (9-20) mg/dL Creatinine (0.66-1.25) mg/dL Glucose (74-99) mg/dL POC Glucose (mg/dL) 234 H 187 H (75-99) mg/dL Calcium (8.4-10.2) mg/dL Total Protein (6.3-8.2) g/dL Albumin (3.5-5.0) g/dL 04/18/22 04/19/22 04/19/22 Range/Units 23:34 02:01 07:07 RBC (4.30-5.90) m/uL Hgb (13.0-17.5) gm/dL Hct (39.0-53.0) % MCV (80.0-100.0) fL Chloride 111 H (98-107) mmol/L BUN 63 H (9-20) mg/dL Creatinine 2.73 H (0.66-1.25) mg/dL Glucose 151 H (74-99) mg/dL POC Glucose (mg/dL) 148 H 138 H (75-99) mg/dL Calcium 8.0 L (8.4-10.2) mg/dL Total Protein 4.6 L (6.3-8.2) g/dL Albumin 2.3 L (3.5-5.0) g/dL 04/19/22 04/19/22 04/19/22 Range/Units 07:24 07:24 11:10 RBC 2.75 L (4.30-5.90) m/uL Hgb 9.0 L (13.0-17.5) gm/dL Hct 29.0 L (39.0-53.0) % MCV 105.5 H (80.0-100.0) fL Chloride 112 H (98-107) mmol/L BUN 61 H (9-20) mg/dL Creatinine 2.70 H (0.66-1.25) mg/dL Glucose 141 H (74-99) mg/dL POC Glucose (mg/dL) 191 H (75-99) mg/dL Calcium (8.4-10.2) mg/dL Total Protein 5.3 L (6.3-8.2) g/dL Albumin 2.6 L (3.5-5.0) g/dL
[2022-04-19] MEDS: SIMETHICONE 40 MG/0.6 ML DROPS 2,000 MG/30 ML BOTTLE PO SCH ×4 (13:06→22:18)
[2022-04-19] MEDS: hydrALAZINE HCL 50 MG TAB PO SCH ×2 (16:02→22:18)
[2022-04-19 16:07] LABS: Glucose,Whole Blood 184 mg/dL (75-99)
[2022-04-19 20:21] LABS: Glucose,Whole Blood 213 mg/dL (75-99)
[2022-04-19] MEDS: MELATONIN 5 MG TABLET PO SCH (22:17)
[2022-04-20 02:22] LABS: Glucose,Whole Blood 146 mg/dL (75-99)
[2022-04-20] MEDS: carvediloL 6.25 MG TAB PO SCH ×2 (05:27→17:35)
[2022-04-20 06:49] LABS: African American GFR (CKD) 26 (>60 ml/min/1.73 sqM); Anion Gap 4 mmol/L; Blood Urea Nitrogen 54 mg/dL (9-20); Calcium 8.3 mg/dL (8.4-10.2); Carbon Dioxide 25 mmol/L (22-30); Chloride 111 mmol/L (98-107); Glucose 130 mg/dL (74-99); Non-African American GFR(CKD) 22 (>60 ml/min/1.73 sqM); Potassium 4.9 mmol/L (3.5-5.1); Sodium 140 mmol/L (137-145)
[2022-04-20 07:12] LABS: Glucose,Whole Blood 146 mg/dL (75-99)
[2022-04-20] MEDS: SYMBICORT 80-4.5 MCG INHALER INHALATION SCH ×2 (07:29→19:44)
[2022-04-20] MEDS: MAGNESIUM SULFATE-D5W PMX 1 GM in DEXTROSE/WATER 1 100ML.BAG IVPB SCH ×3 (08:22→15:14)
[2022-04-20] MEDS: HEPARIN SODIUM,PORCINE/PF 5,000 UNIT/0.5 ML SYRINGE SQ SCH ×2 (08:22→21:07)
[2022-04-20] MEDS: ASPIRIN 81 MG PO SCH (08:23)
[2022-04-20] MEDS: PANTOPRAZOLE 40 MG TABLET PO SCH (08:23)
[2022-04-20] MEDS: INSULIN ASPART (NovoLOG) 100 UNIT/ML VIAL SQ SCH ×5 (08:23→21:07)
[2022-04-20] MEDS: hydrALAZINE HCL 50 MG TAB PO SCH (08:23)
[2022-04-20] MEDS: SIMETHICONE 40 MG/0.6 ML DROPS 2,000 MG/30 ML BOTTLE PO SCH ×4 (08:23→21:08)
[2022-04-20] MEDS: ATORVASTATIN 40 MG TAB PO SCH (08:23)
[2022-04-20] MEDS: ISOSORBIDE MONONITRATE ER 30 MG TAB.ER.24H PO SCH (08:23)
--- NOTE | 2022-04-20 10:17 | P.PN ---
Subjective Patient is seen in follow-up for acute kidney injury on chronic kidney disease. Renal function continues to improve. Creatinine 2.49 today. Has been voiding. Oral intake fair. No vomiting or diarrhea. Hemodynamically stable. Vital signs are stable. General: No acute distress. HEENT: Head exam is unremarkable. LUNGS: Breath sounds decreased. HEART: Rate and Rhythm are regular. ABDOMEN: Soft, no distention. EXTREMITITES: 1+ edema. Objective - Vital Signs Vital signs: Vital Signs Temp 98.2 F 04/20/22 04:52 Pulse 70 04/20/22 04:52 Resp 18 04/20/22 04:52 BP 169/72 04/20/22 04:52 Pulse Ox 98 04/20/22 04:52 FiO2 Intake & Output 04/19/22 04/20/22 04/20/22 18:59 06:59 18:59 Intake Total 998 480 Output Total 500 Balance 498 480 Intake: Oral 998 480 Output: Urine 500 Other: Voiding Method Diaper Diaper Diaper Incontinent Incontinent Incontinent External Catheter External Catheter External Catheter # Voids 3 # Bowel Movements 1 - Labs CBC & Chem 7: 04/19/22 07:24 04/20/22 06:01 Labs: Abnormal Lab Results - Last 24 Hours (Table) 04/19/22 04/19/22 04/19/22 Range/Units 11:10 16:06 20:19 Chloride (98-107) mmol/L BUN (9-20) mg/dL Creatinine (0.66-1.25) mg/dL Glucose (74-99) mg/dL POC Glucose (mg/dL) 191 H 184 H 213 H (75-99) mg/dL Calcium (8.4-10.2) mg/dL Magnesium (1.6-2.3) mg/dL 04/20/22 04/20/22 04/20/22 Range/Units 02:21 06:01 06:01 Chloride 111 H (98-107) mmol/L BUN 54 H (9-20) mg/dL Creatinine 2.49 H (0.66-1.25) mg/dL Glucose 130 H (74-99) mg/dL POC Glucose (mg/dL) 146 H (75-99) mg/dL Calcium 8.3 L (8.4-10.2) mg/dL Magnesium 1.5 L (1.6-2.3) mg/dL 04/20/22 Range/Units 07:10 Chloride (98-107) mmol/L BUN (9-20) mg/dL Creatinine (0.66-1.25) mg/dL Glucose (74-99) mg/dL POC Glucose (mg/dL) 146 H (75-99) mg/dL Calcium (8.4-10.2) mg/dL Magnesium (1.6-2.3) mg/dL Assessment and Plan Plan: Assessment: 1. Chronic kidney disease stage IIIB secondary to diabetic kidney disease with baseline creatinine in the range of 1.6-1.9. No hydronephrosis noted on CAT scan. 2. Acute kidney injury secondary to ATN secondary to hypotension. Creatinine peaked at 4.45 this admission and is 2.49 today. 3. Coronary disease status post CABG. 4. Diabetes mellitus. 5. Hypertension with chronic kidney disease. 6. Mild hyperkalemia secondary to chronic kidney disease. Improved. 7. Status post laparoscopic cholecystectomy on 04/03/2022 for lysis of lesions. 8. Chronic systolic CHF with ejection fraction of 40-45%. 9. Anemia of chronic kidney disease. Iron replete. On Aranesp. 10. Lower extremity edema. 11. Hypomagnesemia from poor intake. Plan: Add Lasix 40 mg IV once daily. Encouraged oral intake. Avoid nephrotoxins. Continue to monitor renal function and urine output. Increase dose of hydralazine. Hold for systolic blood pressure less than 125. Low potassium diet. Magnesium being replaced.
[2022-04-20 11:40] LABS: Glucose,Whole Blood 190 mg/dL (75-99)
[2022-04-20] MEDS: FUROSEMIDE 10 MG/ML 4 ML VIAL IV SCH (12:19)
[2022-04-20 17:30] LABS: Glucose,Whole Blood 191 mg/dL (75-99)
[2022-04-20] MEDS: hydrALAZINE HCL 25 MG TAB PO SCH ×2 (17:35→21:07)
--- NOTE | 2022-04-20 17:51 | P.PN ---
Subjective Progress Note Date: 04/20/22 Hospital course: Patient is a very pleasant 86-year-old male with a past medical history of coronary artery disease status post CABG, chronic CHF with ischemic car diomyopathy, hypertension, hyperlipidemia, chronic kidney disease stage III, and type II DM. He presented to the emergency department overnight with a chief complaint of chest pain. Patient developed sudden onset chest pain/pressure around 6 PM last night. Patient reported this pain was to midsternal chest and radiated into his left arm accompanied by shortness of breath, nausea, palpitations, and diaphoresis. He underwent full evaluation in the emergency department. EKG was completed showing normal sinus rhythm 64 bpm with a first- degree block with FL interval of 223 ms and occasional PVC. Chest x-ray negative for acute cardiopulmonary process. X-ray abdomen revealing multiple loops of bowel dilated and more likely related to ileus however mechanical obstruction not entirely excluded. CBC, coags, and CMP completed. CBC showing normocytic normochromic anemia with hemoglobin of 10.2. CMP revealing mild hyperkalemia with potassium of 5.4 and elevated renal function with BUN 42, creatinine 1.85, and GFR is 32 (slightly higher than baseline creatinine level of 1.6). Patient was admitted under the services with consultation to cardiology and nephrology. Patient monitored throughout the night troponins trended all negative at less than 0.0123 draws. Cardiology evaluated patient took patient for Lexiscan stress test. Echocardiogram was completed. Patient continues to have persistent abdominal pain/discomfort. CT abdomen and pelvis to be completed to rule out small bowel obstruction versus ileus and general surgery consulted to evaluate. Echocardiogram completed revealing mild to moderately impaired EF of 40-45% with mild mitral and tricuspid regurgitation. Stress test revealing nondiagnostic electrogram stress testing in response to Lexiscan. 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 CT abdomen and pelvis revealing a distended gallbladder with layering gallstones with an intraoperative for renal abdominal aorta fusiform ectasia dilation up to 3.4 cm in right common iliac artery displaced atherosclerotic calcification which could represent dissection recommend further evaluation with nonemergent CTA of abdomen and pelvis on outpatient basis. Gallbladder ultrasound revealing hydropic gallbladder, cholestasis and correlating for acute cholecystitis and cystic duct obstruction as CT shows possible biliary duct stone. in the evening of 04/10/22 patient reportedly began experiencing increased abdominal pain, nausea, and vomiting of dark brown gastric contents. Patient was made NPO at this time and an NG tube was placed to low intermittent suction after co nfirmation of placement. On the morning of 04/11/22, patient's renal significantlyfunction and worsening and nephrology consulted. Patient underwent da Zhen Xi laparoscopic cholecystectomy with lysis of lesionsons on the evening of 04/11/[address] Arrieta and NG tube was removed at that time. Patient to remain on IV fluid hydration with 0.9% normal saline and continuedIV antibiotic with Zosyn. On 04/12/22, patient's abdominal pain and nausea significantly worsened, troponin elevated, and renal functioning worsening. Cardiology re- consulted. Patient underwent a repeat CAT scan which revealed a significantly dilated stomach suggestive of gastroparesis, NG tube was reinserted and patient had 1400 mL of gastric drainage. On 04/13/22 renal function again continuing to worsen, patient became hypotensive and urine output decreased. Patient transferred to stepdown unit. Nephrology was consulted, stating acute kidney injury on chronic kidney disease stage III secondary to ATN resulting from hypotension. Patient has slowly improved with gentle hydration and has been transferred back down to medical/surgical unit. Patient currently working with PT/OT and awaiting insurance authorization with plans to transfer to [facility] for continued rehab upon discharge. Physical examination: Patient was seen and fully evaluated at bedside this morning. Patient just returning from walking with physical therapy. Patient sitting in recliner chair at bedside. He reports he is feeling well. Patient reports he has a little sleepy and winded from working with physical therapy but states otherwise feeling great. Patient awaiting insurance authorization with plans to transfer to [facility] for continued rehab. Patient completed antibiotic regimen with Zosyn. Morning labs reveal BUN of 54, creatinine 2.49, and GFR of 22. Patient did have hypomagnesemia with magnesium of 1.5 and orders were placed for replacement. General: non toxic, no distress, appears at stated age Derm: warm, dry, pallor Head: atraumatic, normocephalic, symmetric Eyes: EOMI, no lid lag, anicteric sclera Mouth: no lip lesion, mucus membranes moist Cardiovascular: S1S2 reg, no murmur, positive posterior tibial pulse bilaterally, no edema Lungs: CTA bilateral, no rhonchi, no rales , no accessory muscle use Abdominal: Obese abdomen, taut distended, with diffuse tenderness. Ext: no gross muscle atrophy, no edema, no contractures Neuro: CN II-XI grossly intact, no focal neuro deficits Psych: Alert, oriented, appropriate affect Assessment and plan of care: Acute cholecystitis with possible biliary duct stone, status post laparoscopic cholecystectomy 04/11/22 Ileus, NG tube was placed for decompression and removed s/p laparoscopic cholecystectomy Gastroparesis, resolved -Gen. surgery following, patient underwent da Zhen Xi laparoscopic cholecystectomy with lysis of lesions on 04/11/22. -Continue low fiber diet -Continue to monitor I's and O's Acute kidney injury on stage IIIB chronic kidney disease, likely secondary to current infection with acute cholecystitis -Hold nephrotoxic medications, Entresto. -Vigorous IV fluid hydration -Nephrology following -Continued close monitoring with repeat a.m. labs. -Continued treatment with IV antibiotics with Zosyn for acute cholecystitis. Chest pain, acute coronary event ruled out NSTEMI, Type II ID resulting from demand ischemia secondary to hypotension History of CAD status CABG History of ischemic cardiomyopathy -Cardiology evaluated, recommending patient continue with current cardiac medication regimen and for pt to follow up outpatient with office upon discharge. -Continue Telemetry monitoring -Aspirin, atorvastatin, and carvedilol -Echocardiogram revealing mild to moderately impaired EF of 40-45% -Lexiscan stress test revealing old infarcts with underlying dilated cardiomyopathy and no convincing evidence for reversible ischemia. Acute on chronic anemia -Stable hemoglobin 9.0. Renal abdominal aorta fusiform ectasia dilation and common iliac artery displace d atherosclerotic calcification -Vascular surgery consulted for evaluation, recommending outpatient follow-up with yearly ultrasounds. Hypertension -Monitor vital signs and continue daily medication regimen with carvedilol. Hyperlipidemia -Continue daily medication regimen with atorvastatin. Type II [id number] diabetes mellitus. -Hold oral hypoglycemic medications and place patient on glycemic protocol with NovoLog sliding scale. CODE STATUS: Full Code Discussed with: Patient and RN Anticipated discharge date: Pending insurance authorization to go to rehab Anticipated discharge place: [facility] A total of 38 minutes was spent on the care of this complex patient more than 50% of the time was spent in counseling and care coordination. Objective - Vital Signs Vital signs: Vital Signs Temp 98.2 F 04/20/22 04:52 Pulse 70 04/20/22 04:52 Resp 18 04/20/22 04:52 BP 169/72 04/20/22 04:52 Pulse Ox 98 04/20/22 04:52 FiO2 Intake & Output 04/19/22 04/20/22 04/20/22 18:59 06:59 18:59 Intake Total 998 480 Output Total 500 Balance 498 480 Intake: Oral 998 480 Output: Urine 500 Other: Voiding Method Diaper Diaper Incontinent Incontinent External Catheter External Catheter # Voids 3 # Bowel Movements 1 - Labs CBC & Chem 7: 04/19/22 07:24 04/20/22 06:01 Labs: Abnormal Lab Results - Last 24 Hours (Table) 04/19/22 04/19/22 04/19/22 Range/Units 11:10 16:06 20:19 Chloride (98-107) mmol/L BUN (9-20) mg/dL Creatinine (0.66-1.25) mg/dL Glucose (74-99) mg/dL POC Glucose (mg/dL) 191 H 184 H 213 H (75-99) mg/dL Calcium (8.4-10.2) mg/dL Magnesium (1.6-2.3) mg/dL 04/20/22 04/20/22 04/20/22 Range/Units 02:21 06:01 06:01 Chloride 111 H (98-107) mmol/L BUN 54 H (9-20) mg/dL Creatinine 2.49 H (0.66-1.25) mg/dL Glucose 130 H (74-99) mg/dL POC Glucose (mg/dL) 146 H (75-99) mg/dL Calcium 8.3 L (8.4-10.2) mg/dL Magnesium 1.5 L (1.6-2.3) mg/dL 04/20/22 Range/Units 07:10 Chloride (98-107) mmol/L BUN (9-20) mg/dL Creatinine (0.66-1.25) mg/dL Glucose (74-99) mg/dL POC Glucose (mg/dL) 146 H (75-99) mg/dL Calcium (8.4-10.2) mg/dL Magnesium (1.6-2.3) mg/dL
[2022-04-20 20:40] LABS: Glucose,Whole Blood 174 mg/dL (75-99)
[2022-04-20] MEDS: MELATONIN 5 MG TABLET PO SCH (21:07)
[2022-04-21 01:39] LABS: Glucose,Whole Blood 123 mg/dL (75-99)
[2022-04-21 07:10] LABS: African American GFR (CKD) 28 (>60 ml/min/1.73 sqM); Anion Gap 5 mmol/L; Blood Urea Nitrogen 50 mg/dL (9-20); Calcium 8.2 mg/dL (8.4-10.2); Carbon Dioxide 26 mmol/L (22-30); Chloride 108 mmol/L (98-107); Glucose 131 mg/dL (74-99); Magnesium 1.9 mg/dL (1.6-2.3); Non-African American GFR(CKD) 25 (>60 ml/min/1.73 sqM); Potassium 4.8 mmol/L (3.5-5.1); Sodium 139 mmol/L (137-145)
[2022-04-21 07:10] LABS: Glucose,Whole Blood 135 mg/dL (75-99)
[2022-04-21] MEDS: SYMBICORT 80-4.5 MCG INHALER INHALATION SCH (08:08)
--- NOTE | 2022-04-21 08:30 | P.PN ---
Subjective Progress Note Date: 04/20/22 CHIEF COMPLAINT: Cholecystitis HISTORY OF PRESENT ILLNESS: Patient is status post cholecystectomy with lysis of adhesions on 04/11/2022. Patient is lying in bed comfortably. He denies any abdominal pain. He is having BMs. He is awaiting placement. PHYSICAL EXAM: VITAL SIGNS: Reviewed GENERAL: Well-developed in no acute distress. HEENT: No sclera icterus. Extraocular movements grossly intact. Moist buccal mucosa. Head is atraumatic, normocephalic. Hears conversational speech. No nasal drainag e. NECK: Supple without lymphadenopathy. CHEST: Non-labored respirations and equal bilateral excursions. CARDIOVASCULAR: Palpable 2+ radial pulses. ABDOMEN: Soft. Nondistended. PALOMA drain serosanguineous output MUSCULOSKELETAL: No clubbing or cyanosis. NEUROLOGIC: No focal or lateralizing signs. Cranial nerves II through XII grossly intact. PSYCH: Appropriate affect. Alert and oriented to person, place and time. SKIN: Well perfused. Good skin turgor. ASSESSMENT: 1. Acute hydrops cholecystitis with sepsis 2. Acute on chronic renal failure 3. Ileus present prior to surgery, due to sepsis 4. Hypotension 5. Elevated troponins. Patient seen by cardiology service. PLAN: -Patient can be discharged from surgical standpoint -discontinue PALOMA drain -Continue low-fat diet Physician Protection Specialist note has been reviewed by physician. Signing provider agrees with the documented findings, assessment, and plan of care. Objective - Vital Signs Vital signs: Vital Signs Temp 97.7 F 04/21/22 04:10 Pulse 77 04/21/22 04:10 Resp 16 04/21/22 04:10 BP 157/65 04/21/22 04:10 Pulse Ox 98 04/21/22 04:10 FiO2 Intake & Output 04/20/22 04/21/22 04/21/22 18:59 06:59 18:59 Intake Total 300 540 Output Total 20 Balance 280 540 Intake: Intake, IV Titration 300 Amount Magnesium Sulfate-D5w Pmx 300 1 gm In Dextrose/Water 1 100ml.bag @ 100 mls/hr IVPB Q1H [facility] Rx#: [id number] Oral 540 Output: Drainage 20 Lower Abdomen 20 Other: Voiding Method Diaper Diaper Incontinent Incontinent External Catheter External Catheter # Voids 3 - Labs CBC & Chem 7: 04/19/22 07:24 04/21/22 06:37 Labs: Abnormal Lab Results - Last 24 Hours (Table) 04/20/22 04/20/22 04/20/22 Range/Units 11:38 17:28 20:38 Chloride (98-107) mmol/L BUN (9-20) mg/dL Creatinine (0.66-1.25) mg/dL Glucose (74-99) mg/dL POC Glucose (mg/dL) 190 H 191 H 174 H (75-99) mg/dL Calcium (8.4-10.2) mg/dL 04/21/22 04/21/22 04/21/22 Range/Units 01:37 06:37 07:09 Chloride 108 H (98-107) mmol/L BUN 50 H (9-20) mg/dL Creatinine 2.29 H (0.66-1.25) mg/dL Glucose 131 H (74-99) mg/dL POC Glucose (mg/dL) 123 H 135 H (75-99) mg/dL Calcium 8.2 L (8.4-10.2) mg/dL
[2022-04-21] MEDS: SIMETHICONE 40 MG/0.6 ML DROPS 2,000 MG/30 ML BOTTLE PO SCH ×2 (10:35→12:57)
[2022-04-21] MEDS: hydrALAZINE HCL 25 MG TAB PO SCH (10:35)
[2022-04-21] MEDS: HEPARIN SODIUM,PORCINE/PF 5,000 UNIT/0.5 ML SYRINGE SQ SCH (10:35)
[2022-04-21] MEDS: carvediloL 6.25 MG TAB PO SCH (10:36)
[2022-04-21] MEDS: FUROSEMIDE 10 MG/ML 4 ML VIAL IV SCH (10:36)
[2022-04-21] MEDS: ATORVASTATIN 40 MG TAB PO SCH (10:36)
[2022-04-21] MEDS: ASPIRIN 81 MG PO SCH (10:36)
[2022-04-21] MEDS: PANTOPRAZOLE 40 MG TABLET PO SCH (10:48)
[2022-04-21] MEDS: ISOSORBIDE MONONITRATE ER 30 MG TAB.ER.24H PO SCH (10:48)
[2022-04-21] MEDS: INSULIN ASPART (NovoLOG) 100 UNIT/ML VIAL SQ SCH ×2 (10:50→12:56)
--- NOTE | 2022-04-21 11:20 | P.DS ---
Providers Date of admission: 04/09/22 17:30 Expected date of discharge: 04/21/22 Attending physician: Mojgan Zambrano MD Consults: 04/10/22 09:08 Consult Physician Urgent Consulting Provider: Janay Arrieta Consult Reason/Comments: rule out ilius vs obstruction, gallstones Do you want consulting provider notified?: Yes 04/11/22 13:17 Consult Physician Routine Consulting Provider: Savannah Victoria Consult Reason/Comments: Acute on chronic renal failure Do you want consulting provider notified?: Yes Primary care physician: [facility] Hospital Course: Discharge Diagnosis: Acute cholecystitis with possible biliary duct stone, status post laparoscopic cholecystectomy 04/11/22 Sepsis secondary to above. Ileus, resolved status post NG tube placement and decompression Gastroparesis, resolved status post NG tube placement and decompression Acute kidney injury on stage IIIB chronic kidney disease, patient discharged on Aranesp 40 g subcu every 7 days, should be held for hemoglobin less than 10.5. Patient also to follow up with hogshead liner in 1 week. Repeat BMP and mag next week. Chest pain, acute coronary event ruled out Elevated troponins, possibly Type II DC (NSTEMI) resulting from demand ischemia secondary to hypotension resulting from sepsis secondary to acute cholecystitis. Continue daily cardiac medication regimen History of CAD status CABG History of ischemic cardiomyopathy Acute on chronic anemia. Stable hemoglobin 9.0. Hypomagnesemia, replaced, repeat labs (BMP and mag) next week. Renal abdominal aorta fusiform ectasia dilation and common iliac artery displaced atherosclerotic calcification. Vascular surgery consulted for evaluation, recommending outpatient follow-up with yearly ultrasounds. Hypertension. Monitor vital signs and continue daily medication regimen with carvedilol, Imdur, and hydralazine. Hyperlipidemia. Continue daily medication regimen with atorvastatin. Type II [id number] diabetes mellitus. Hold oral hypoglycemic medications and place patient on glycemic protocol with NovoLog sliding scale. Hospital Course: Patient is a very pleasant 86-year-old male with a past medical history of coronary artery disease status post CABG, chronic CHF with ischemic cardiomyopathy, hypertension, hyperlipidemia, chronic kidney disease stage III, and type II DM. He presented to the emergency department overnight with a chief complaint of chest pain. Patient developed sudden onset chest pain/pressure around 6 PM last night. Patient reported this pain was to midsternal chest and radiated into his left arm accompanied by shortness of breath, nausea, palpitations, and diaphoresis. He underwent full evaluation in the emergency department. EKG was completed showing normal sinus rhythm 64 bpm with a first- degree block with TN interval of 223 ms and occasional PVC. Chest x-ray negative for acute cardiopulmonary process. X-ray abdomen revealing multiple loops of bowel dilated and more likely related to ileus however mechanical obstruction not entirely excluded. CBC, coags, and CMP completed. CBC showing normocytic normochromic anemia with hemoglobin of 10.2. CMP revealing mild hyperkalemia with potassium of 5.4 and elevated renal function with BUN 42, creatinine 1.85, and GFR is 32 (slightly higher than baseline creatinine level of 1.6). Patient was admitted under the services with consultation to cardiology and nephrology. Patient monitored throughout the night troponins trended all negative at less than 0.0123 draws. Cardiology evaluated patient took patient for Lexiscan stress test. Echocardiogram was completed. Patient continues to have persistent abdominal pain/discomfort. CT abdomen and pelvis to be completed to rule out small bowel obstruction versus ileus and general surgery consulted to evaluate. Echocardiogram completed revealing mild to moderately impaired EF of 40-45% with mild mitral and tricuspid regurgitation. Stress test revealing nondiagnostic electrogram stress testing in response to Lexiscan. 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 CT abdomen and pelvis revealing a distended gallbladder with layering gallstones with an intraoperative for renal abdominal aorta fusiform ectasia dilation up to 3.4 cm in right common iliac artery displaced atherosclerotic calcification which could represent dissection recommend further evaluation with nonemergent CTA of abdomen and pelvis on outpatient basis. Gallbladder ultrasound revealing hydropic gallbladder, cholestasis and correlating for acute cholecystitis and cystic duct obstruction as CT shows possible biliary duct stone. in the evening of 04/10/22 patient reportedly began experiencing increased abdominal pain, nausea, and vomiting of dark brown gastric contents. Patient was made NPO at this time and an NG tube was placed to low intermittent suction after confirmation of placement. On the morning of 04/11/22, patient's renal significantlyfunction and worsening and nephrology consulted. Patient underwent da Zhen Xi laparoscopic cholecystectomy with lysis of lesionsons on the evening of 04/11/[address] Arrieta and NG tube was removed at that time. Patient to remain on IV fluid hydration with 0.9% normal saline and continuedIV antibiotic with Zosyn. On 04/12/22, patient's abdominal pain and nausea significantly worsened, troponin elevated, and renal functioning worsening. Cardiology re- consulted. Patient underwent a repeat CAT scan which revealed a significantly dilated stomach suggestive of gastroparesis, NG tube was reinserted and patient had 1400 mL of gastric drainage. On 04/13/22 renal function again continuing to worsen, patient became hypotensive and urine output decreased. Patient transferred to stepdown unit. Nephrology was consulted, stating acute kidney injury on chronic kidney disease stage III secondary to ATN resulting from hypotension. Pt was started on Aranesp Patient has slowly improved with gentle hydration and has been transferred back down to medical/surgical unit. Patient is medically stable for discharge and has been working with PT/OT because he requires extra assistance to rebuild strength and endurance.He has received insurance authorization for transfer to [facility] for continued rehab upon discharge. Patient medically stable for discharge at this time. Patient to follow up outpatient with PCP, Gen. surgery, vascular surgery, cardiology, and nephrology. Physical examination: General: non toxic, no distress, appears at stated age Derm: warm, dry, pallor Head: atraumatic, normocephalic, symmetric Eyes: EOMI, no lid lag, anicteric sclera Mouth: no lip lesion, mucus membranes moist Cardiovascular: S1S2 reg, no murmur, positive posterior tibial pulse bilaterally, no edema Lungs: CTA bilateral, no rhonchi, no rales , no accessory muscle use Abdominal: Obese abdomen, soft distended, nontender to palpation. Bowel sounds 4 quadrants. Ext: no gross muscle atrophy, mild lower extremity edema, no contractures Neuro: CN II-XI grossly intact, no focal neuro deficits Psych: Alert, oriented, appropriate affect A total of 43 minutes of time were spent preparing this complex discharge summary. Pt was discharged on 04/21/22 at 8:40 AM. I reviewed the documentation as provided by the ROSENDO above, who is the original author of this note. I agree with the documented assessment and plan, with the following changes: none Patient Condition at Discharge: Stable Plan - Discharge Summary New Discharge Prescriptions: New Isosorbide Mononitrate ER [Imdur] 30 mg PO DAILY #30 tab carvediloL [Coreg] 6.25 mg PO BID-W/MEALS tab Furosemide [Lasix] 40 mg PO DAILY 30 Days #30 tablet Pantoprazole [Protonix] 40 mg PO AC-BRKFST #30 tab Linagliptin [Tradjenta] 5 mg PO DAILY #30 tab hydrALAZINE HCL [Apresoline] 75 mg PO TID tab Darbepoetin Carl [Aranesp] 40 mcg SQ Q7D each Melatonin 5 mg PO HS tab Continue Aspirin EC [Ecotrin Low Dose] 81 mg PO DAILY Cholecalciferol [Vitamin D3 (25 Mcg = 1000 Iu)] 1,000 unit PO DAILY Albuterol Inhaler [Ventolin Hfa Inhaler] 2 puff INHALATION RT-Q4H PRN PRN Reason: Shortness Of Breath Calcium Polycarbophil [Fibercon] 625 mg PO DAILY Cyanocobalamin (Vitamin B-12) [Vitamin B-12] 1,000 mcg PO DAILY Atorvastatin [Lipitor] 40 mg PO HS calcitrioL [Calcitriol] 0.25 mcg PO SUMOSA Ergocalciferol [Vitamin D2 (1250 Mcg = 87934 Iu)] 1,250 mcg PO TH Fluticasone Propion/Salmeterol [Fluticasone-Salmeterol 250-50] 1 puff INHALATION RT-BID Discontinued Carvedilol [Coreg] 12.5 mg PO BID Furosemide [Lasix] 20 mg PO MOWEFR Magnesium Ox 420mg 420 mg PO BID Empagliflozin [Jardiance] 5 mg PO DAILY Sacubitril/Valsartan [Entresto 49 mg-51 mg Tablet] 1 tab PO BID Trospium Chloride [Sanctura XR] 60 mg PO HS Discharge Medication List Aspirin EC [Ecotrin Low Dose] 81 mg PO DAILY 05/27/16 [History] Cholecalciferol [Vitamin D3 (25 Mcg = 1000 Iu)] 1,000 unit PO DAILY 05/27/16 [History] Albuterol Inhaler [Ventolin Hfa Inhaler] 2 puff INHALATION RT-Q4H PRN 04/09/22 [History] Atorvastatin [Lipitor] 40 mg PO HS 04/09/22 [History] Calcium Polycarbophil [Fibercon] 625 mg PO DAILY 04/09/22 [History] Cyanocobalamin (Vitamin B-12) [Vitamin B-12] 1,000 mcg PO DAILY 04/09/22 [History] Ergocalciferol [Vitamin D2 (1250 Mcg = 95014 Iu)] 1,250 mcg PO TH 04/09/22 [History] Fluticasone Propion/Salmeterol [Fluticasone-Salmeterol 250-50] 1 puff INHALATION RT-BID 04/09/22 [History] calcitrioL [Calcitriol] 0.25 mcg PO SUMOSA 04/09/22 [History] Isosorbide Mononitrate ER [Imdur] 30 mg PO DAILY #30 tab 04/17/22 [Rx] Linagliptin [Tradjenta] 5 mg PO DAILY #30 tab 04/17/22 [Rx] Pantoprazole [Protonix] 40 mg PO AC-BRKFST #30 tab 04/17/22 [Rx] Darbepoetin Carl [Aranesp] 40 mcg SQ Q7D each 04/21/22 [Rx] Furosemide [Lasix] 40 mg PO DAILY 30 Days #30 tablet 04/21/22 [Rx] Melatonin 5 mg PO HS tab 04/21/22 [Rx] carvediloL [Coreg] 6.25 mg PO BID-W/MEALS tab 04/21/22 [Rx] hydrALAZINE HCL [Apresoline] 75 mg PO TID tab 04/21/22 [Rx] Follow up Appointment(s)/Referral(s): Savannah Victoria MD [Family Provider] - 05/01/22 10:20 am Kevin Redd MD [STAFF PHYSICIAN] - 2 Weeks (patient will have to schedule own appt) Nawaf Arce DO [STAFF PHYSICIAN] - 4 Weeks (patient will have to call and schedule own appt;) Janay Arrieta MD [STAFF PHYSICIAN] - 04/28/22 [facility], [NON-STAFF] - 1 Week [facility] [Primary Care Provider] - 05/08/22 8:00 am Ambulatory/Diagnostic Orders: Basic Metabolic Panel [LAB.AMB] Location: None Selected Magnesium [LAB.AMB] Time Frame: 1 Week, Location: None Selected Activity/Diet/Wound Care/Special Instructions: Activity: As tolerated. Take breaks as needed. Wear abdominal binder at all times for comfort. No lifting over 4 pounds in 4 weeks You May shower, but No bath tub soaks for two weeks. Diet: Heart healthy, low fat and carb consistent diet. Avoid foods with salt and potassium, or foods with hidden salts such as canned or boxed foods and frozen dinners. Extra salt makes your heart work harder and traps the fluid in your body for longer. Special Instructions: Take all of your medications as directed and remember to keep all of your doctor's appointments and follow-up as needed. Blood work next week. Monitor blood glucose levels daily in the morning. Monitor your weight daily, if you notice a weight gain of 3 pounds overnight or greater than 5 pounds in 1 week it is important to notify your doctor as additional medication changes may need to be made or they may want to see you in their office. Again, Thank you for your Service!!!!!!! Thank you for allowing us to participate in your care, it was truly a pleasure having you for our patient!!! FAX discharge medication list to the [facility] to ensure pt will get referrals on new rx's Discharge Disposition: TRANSFER TO SNF/ECF
[2022-04-21 11:48] LABS: Glucose,Whole Blood 175 mg/dL (75-99)
--- NOTE | 2022-04-21 11:57 | P.PN ---
Subjective Patient is seen in follow-up for acute kidney injury on chronic kidney disease. Renal function continues to improve. Creatinine 2.29 today. Has been voiding. Oral intake fair. No vomiting or diarrhea. Hemodynamically stable. No active complaints. Vital signs are stable. General: No acute distress. HEENT: Head exam is unremarkable. LUNGS: Breath sounds decreased. HEART: Rate and Rhythm are regular. ABDOMEN: Soft, no distention. EXTREMITITES: 1+ edema. Objective - Vital Signs Vital signs: Vital Signs Temp 97.7 F 04/21/22 04:10 Pulse 77 04/21/22 04:10 Resp 16 04/21/22 04:10 BP 157/65 04/21/22 04:10 Pulse Ox 98 04/21/22 04:10 FiO2 Intake & Output 04/20/22 04/21/22 04/21/22 18:59 06:59 18:59 Intake Total 300 540 Output Total 20 Balance 280 540 Intake: Intake, IV Titration 300 Amount Magnesium Sulfate-D5w Pmx 300 1 gm In Dextrose/Water 1 100ml.bag @ 100 mls/hr IVPB Q1H [facility] Rx#: [id number] Oral 540 Output: Drainage 20 Lower Abdomen 20 Other: Voiding Method Diaper Diaper Incontinent Incontinent External Catheter External Catheter # Voids 3 - Labs CBC & Chem 7: 04/19/22 07:24 04/21/22 06:37 Labs: Abnormal Lab Results - Last 24 Hours (Table) 04/20/22 04/20/22 04/21/22 Range/Units 17:28 20:38 01:37 Chloride (98-107) mmol/L BUN (9-20) mg/dL Creatinine (0.66-1.25) mg/dL Glucose (74-99) mg/dL POC Glucose (mg/dL) 191 H 174 H 123 H (75-99) mg/dL Calcium (8.4-10.2) mg/dL 04/21/22 04/21/22 04/21/22 Range/Units 06:37 07:09 11:46 Chloride 108 H (98-107) mmol/L BUN 50 H (9-20) mg/dL Creatinine 2.29 H (0.66-1.25) mg/dL Glucose 131 H (74-99) mg/dL POC Glucose (mg/dL) 135 H 175 H (75-99) mg/dL Calcium 8.2 L (8.4-10.2) mg/dL Assessment and Plan Plan: Assessment: 1. Chronic kidney disease stage IIIB secondary to diabetic kidney disease with baseline creatinine in the range of 1.6-1.9. No hydronephrosis noted on CAT scan. 2. Acute kidney injury secondary to ATN secondary to hypotension. Creatinine peaked at 4.45 this admission and is 2.29 today. 3. Coronary disease status post CABG. 4. Diabetes mellitus. 5. Hypertension with chronic kidney disease. 6. Mild hyperkalemia secondary to chronic kidney disease. Improved. 7. Status post laparoscopic cholecystectomy on 04/03/2022 for lysis of lesions. 8. Chronic systolic CHF with ejection fraction of 40-45%. 9. Anemia of chronic kidney disease. Iron replete. On Aranesp. 10. Lower extremity edema. 11. Hypomagnesemia from poor intake. Replaced. Better. Plan: Change Lasix to 40 mg orally once daily upon discharge. Encouraged oral intake. Avoid nephrotoxins. Continue to monitor renal function and urine output. Further increase dose of hydralazine. Hold for systolic blood pressure less than 125. Repeat BMP and magnesium level 2-3 days postdischarge. Follow up outpatient in 1 week. Discussed with the primary team.
[2022-04-21 12:14] LABS: Total Bilirubin 0.2 mg/dL (0.2-1.3)
[2022-04-21 12:39] VITALS: BP 140/56; PULSE 64; RESP 18; TEMP 98.8
--- NOTE | 2022-04-21 14:23 | P.PN ---
Subjective Progress Note Date: 04/21/22 CHIEF COMPLAINT: Cholecystitis HISTORY OF PRESENT ILLNESS: Patient is status post cholecystectomy with lysis of adhesions on 04/11/2022. Patient is lying in bed comfortably. He denies any abdominal pain. He is having BMs. He is awaiting placement. Repeat LFTs are within normal range. He is tolerating diet. He is afebrile. PHYSICAL EXAM: VITAL SIGNS: Reviewed GENERAL: Well-developed in no acute distress. HEENT: No sclera icterus. Extraocular movements grossly intact. Moist buccal mucosa. Head is atraumatic, normocephalic. Hears conversational speech. No nasal drainage. NECK: Supple without lymphadenopathy. CHEST: Non-labored respirations and equal bilateral excursions. CARDIOVASCULAR: Palpable 2+ radial pulses. ABDOMEN: Soft. Nondistended. MUSCULOSKELETAL: No clubbing or cyanosis. NEUROLOGIC: No focal or lateralizing signs. Cranial nerves II through XII grossly intact. PSYCH: Appropriate affect. Alert and oriented to person, place and time. SKIN: Well perfused. Good skin turgor. ASSESSMENT: 1. Acute hydrops cholecystitis with sepsis 2. Acute on chronic renal failure 3. Ileus present prior to surgery, due to sepsis 4. Hypotension 5. Elevated troponins. Patient seen by cardiology service. PLAN: -Patient can be discharged from surgical standpoint -Continue low-fat diet Physician Regional Education Coordinator note has been reviewed by physician. Signing provider agrees with the documented findings, assessment, and plan of care. Objective - Vital Signs Vital signs: Vital Signs Temp 98.8 F 04/21/22 12:38 Pulse 64 04/21/22 12:38 Resp 18 04/21/22 12:38 BP 140/56 04/21/22 12:38 Pulse Ox 98 04/21/22 12:38 FiO2 Intake & Output 04/20/22 04/21/22 04/21/22 18:59 06:59 18:59 Intake Total 300 540 Output Total 20 Balance 280 540 Intake: Intake, IV Titration 300 Amount Magnesium Sulfate-D5w Pmx 300 1 gm In Dextrose/Water 1 100ml.bag @ 100 mls/hr IVPB Q1H [facility] Rx#: [id number] Oral 540 Output: Drainage 20 Lower Abdomen 20 Other: Voiding Method Diaper Diaper Incontinent Incontinent External Catheter External Catheter # Voids 3 - Labs CBC & Chem 7: 04/19/22 07:24 04/21/22 06:37 Labs: Abnormal Lab Results - Last 24 Hours (Table) 04/20/22 04/20/22 04/21/22 Range/Units 17:28 20:38 01:37 Chloride (98-107) mmol/L BUN (9-20) mg/dL Creatinine (0.66-1.25) mg/dL Glucose (74-99) mg/dL POC Glucose (mg/dL) 191 H 174 H 123 H (75-99) mg/dL Calcium (8.4-10.2) mg/dL 04/21/22 04/21/22 04/21/22 Range/Units 06:37 07:09 11:46 Chloride 108 H (98-107) mmol/L BUN 50 H (9-20) mg/dL Creatinine 2.29 H (0.66-1.25) mg/dL Glucose 131 H (74-99) mg/dL POC Glucose (mg/dL) 135 H 175 H (75-99) mg/dL Calcium 8.2 L (8.4-10.2) mg/dL
[2022-04-21] MEDS ORDERED: hydrALAZINE HCL 50 MG TAB PO SCH (16:00)
== END 2022-04-21 14:30 | DRG 417 ==
LOC: EC 00:49 → 6NMEDSUR 03:20 → OBSVTOIN 17:30 → 2SICU 04-13 08:42 → 5NMEDONC 04-14 22:44
PROVIDERS: ADMIT Internal Medicine; ATTEND Internal Medicine
PROC: 0D9670Z Drainage of Stomach with Drainage Device, Via Natural or Artificial Opening (ICD-10-PCS; 2022-04-10)
PROC: 0FT44ZZ Resection of Gallbladder, Percutaneous Endoscopic Approach (ICD-10-PCS; principal; 2022-04-11 13:25)
PROC: 3E1M48Z Irrigation of Peritoneal Cavity using Irrigating Substance, Percutaneous Endoscopic Approach (ICD-10-PCS; principal; 2022-04-11 13:25)
PROC: 0DJ08ZZ Inspection of Upper Intestinal Tract, Via Natural or Artificial Opening Endoscopic (ICD-10-PCS; principal; 2022-04-11 13:25)
PROC: 8E0W4CZ Robotic Assisted Procedure of Trunk Region, Percutaneous Endoscopic Approach (ICD-10-PCS; principal; 2022-04-11 13:25)
PROC: 0FN44ZZ Release Gallbladder, Percutaneous Endoscopic Approach (ICD-10-PCS; principal; 2022-04-11 13:25)
PROC: BF53200 Other Imaging of Gallbladder and Bile Ducts using Fluorescing Agent, Indocyanine Green Dye, Intraoperative (ICD-10-PCS; principal; 2022-04-11 13:25)
PROC: 0D9670Z Drainage of Stomach with Drainage Device, Via Natural or Artificial Opening (ICD-10-PCS; 2022-04-12)
DX: K80.00 Calculus of gallbladder with acute cholecystitis without obstruction (principal); I21.A1 Myocardial infarction type 2; A41.9 Sepsis, unspecified organism; N17.0 Acute kidney failure with tubular necrosis; I13.0 Hypertensive heart and chronic kidney disease with heart failure and stage 1 through stage 4 chronic kidney disease, or unspecified chronic kidney disease; I42.0 Dilated cardiomyopathy; K82.1 Hydrops of gallbladder; K22.10 Ulcer of esophagus without bleeding; K56.7 Ileus, unspecified; I50.22 Chronic systolic (congestive) heart failure; D63.1 Anemia in chronic kidney disease; I95.9 Hypotension, unspecified; E11.22 Type 2 diabetes mellitus with diabetic chronic kidney disease; E11.43 Type 2 diabetes mellitus with diabetic autonomic (poly)neuropathy; N18.32 Chronic kidney disease, stage 3b; I70.201 Unspecified atherosclerosis of native arteries of extremities, right leg; J44.9 Chronic obstructive pulmonary disease, unspecified; I77.819 Aortic ectasia, unspecified site; K66.0 Peritoneal adhesions (postprocedural) (postinfection); K31.84 Gastroparesis; E83.42 Hypomagnesemia; E78.5 Hyperlipidemia, unspecified; E87.5 Hyperkalemia; I25.10 Atherosclerotic heart disease of native coronary artery without angina pectoris; I08.1 Rheumatic disorders of both mitral and tricuspid valves; G47.33 Obstructive sleep apnea (adult) (pediatric); E86.0 Dehydration; G47.00 Insomnia, unspecified; I44.0 Atrioventricular block, first degree; I49.3 Ventricular premature depolarization; K44.9 Diaphragmatic hernia without obstruction or gangrene; R33.9 Retention of urine, unspecified; K21.9 Gastro-esophageal reflux disease without esophagitis; R32 Unspecified urinary incontinence; E66.9 Obesity, unspecified; Z68.36 Body mass index [BMI] 36.0-36.9, adult; Z79.82 Long term (current) use of aspirin; Z79.84 Long term (current) use of oral hypoglycemic drugs; Z79.51 Long term (current) use of inhaled steroids; Z79.899 Other long term (current) drug therapy; Z98.42 Cataract extraction status, left eye; Z96.1 Presence of intraocular lens; Z86.2 Personal history of diseases of the blood and blood-forming organs and certain disorders involving the immune mechanism; Z85.46 Personal history of malignant neoplasm of prostate; Z92.3 Personal history of irradiation; Z86.69 Personal history of other diseases of the nervous system and sense organs; Z95.1 Presence of aortocoronary bypass graft; Z87.891 Personal history of nicotine dependence; Z98.890 Other specified postprocedural states; Z71.3 Dietary counseling and surveillance; Z80.0 Family history of malignant neoplasm of digestive organs; Z82.49 Family history of ischemic heart disease and other diseases of the circulatory system
CPT/HCPCS: 36415; 71045; 74018; 74019; 74176; 76705; 78452; 80048; 80053; 80061; 82247; 82728; 83540; 83550; 83605; 83690; 83735; 83880; 84075; 84100; 84145; 84450; 84460; 84484; 85025; 85027; 85049; 85610; 85730; 87070; 87075; 87077; 87186; 87205; 87324; 88304; 93005; 93017; 93306; 93308; 94640; 94760; 96374; 96375; 99285